=== PATIENT | male | born 1950 | race Caucasian/White ===

== ENCOUNTER 2016-06-01 09:25 | Outpatient (RCR) | payer MEDICARE, OTHER ==
--- OUTSIDE RECORDS SUMMARY | 2016-03-09 09:34 | XMS REPORT | Continuity of Care Document ---
Author Author [facility] Organization [facility] Address Unknown Phone Unavailable Care Team Providers Care Mattress Stripper Name Role Phone TIM BLOOD MD PCP Insurance Providers Payer Name Policy Number Subscriber Name Relationship Wps Medicare [id number] Horace Kirkland 18 Self / Same As Patient [employer] [id number] Horace Kirkland 18 Self / Same As Patient Advance Directives Directive Response Recorded Date/Time Advance Directives No 11/06/13 8:27am Health Care Power of Molder Inflated Ball No 11/06/13 8:27am Organ Donor Yes 11/06/13 8:27am Problems No known problems or medical conditions. Medications Medication Dose Route Sig Days/Qty Instructions Order Date Discontinued Date Status Atorvastatin Calcium 05/18/07 06/01/07 Discontinued Multivitamins 05/18/07 12/19/12 Discontinued Fish Oil 05/18/07 12/19/12 Discontinued Ascorbic Acid 05/18/07 12/19/12 Discontinued [Lithecin Vit] 05/18/07 12/19/12 Discontinued Clopidogrel Bisulfate 06/01/07 12/19/12 Discontinued Metoprolol Tartrate (Lopressor) 06/01/07 12/19/12 Discontinued Clarithromycin 06/01/07 12/19/12 Discontinued Atorvastatin Calcium 06/01/07 12/19/12 Discontinued Aspirin 325 Mg PO DAILY 06/01/07 11/06/13 Discontinued Atorvastatin Calcium 06/01/07 12/19/12 Discontinued Atorvastatin Calcium 40 Mg PO DAILY 12/19/12 Active Mu-Vits-Min Th/Lycopene/Lutein 1 Tab PO DAILY 12/19/12 Active Fish Oil/Dha/Epa 2,400 Mg PO DAILY takes 2 (1200 mg) tablets once daily 12/19/12 Active [Vitamin C 1000MG] 1,000 Mg PO DAILY 12/19/12 Active Metoprolol Succinate (Toprol Xl) 25 Mg PO DAILY 12/19/12 Active Bupropion HCl 300 Mg PO DAILY 12/19/12 Active Meloxicam (Mobic) 15 Mg PO DAILY 12/19/12 Active Omeprazole 20 Mg PO DAILY 12/19/12 Active Vitamin E Mixed 400 Unit PO DAILY 12/19/12 11/06/13 Discontinued Sulfamethoxazole/Trimethoprim 0.5 Tab PO BEDTIME 12/19/12 Active Acetaminophen/Hydrocodone Bitart 1 - 2 Ea PO Q 4 - 6 HR PRN PRN 35 Qty 12/20/12 11/06/13 Discontinued Linezolid 600 Mg PO TWICE A DAY 01/02/13 11/06/13 Discontinued Aspirin 81 Mg PO DAILY 11/06/13 Active Allopurinol 300 Mg PO DAILY 11/06/13 Active Social History Social History Problem Response Recorded Date/Time Recent Foreign Travel N see ambreen 03/26/2014 7:42am Hospital Discharge Instructions No hospital discharge instructions. Plan of Care No plan of care. Functional Status No functional status results. Allergies, Adverse Reactions, Alerts Allergen Type Severity Reaction Status Last Updated morphine Allergy Unknown Active 01/15/13 Immunizations No immunization records. Vital Signs Acute Vital Signs Vital Response Date/Time Height 5 ft 10 in Weight 294 lb Body Mass Index 42.2 kg/m^2 Results Laboratory Results Test Name Result Units Flags Reference Collection Date/Time Result Date/ Time Comments White Blood Count 8.9 10^3/uL 4.3-11.0 02/19/2014 9:00am 02/19/2014 9: 11am Red Blood Count 4.32 10^6/uL L 4.35-5.85 02/19/2014 9:00am 02/19/2014 9: 11am Hemoglobin 14.3 G/DL 13.3-17.7 02/19/2014 9:0002/19/2014 9:11am Hematocrit 41 % 40-54 02/19/2014 9:0002/19/2014 9:11am Mean Corpuscular Volume 96 FL 80-99 02/19/2014 9:0002/19/2014 9: 11am Mean Corpuscular Hemoglobin 33 PG 25-34 02/19/2014 9:0002/19/2014 9: 11am Mean Corpuscular Hemoglobin Concent 35 G/DL 32-36 02/19/2014 9:0005/2013 9:11am Red Cell Distribution Width 14.7 % H 10.0-14.5 02/19/2014 9:002013 9:11am Platelet Count 346 10^3/uL 130-400 02/19/2014 9:0002/19/2014 9:11am Mean Platelet Volume 9.1 FL 7.4-10.4 02/19/2014 9:0002/19/2014 9: 11am Neutrophils (%) (Auto) 67 % 42-75 02/19/2014 9:0002/19/2014 9:11am Lymphocytes (%) (Auto) 20 % 12-44 02/19/2014 9:0002/19/2014 9:11am Monocytes (%) (Auto) 9 % 0-12 02/19/2014 9:0002/19/2014 9:11am Eosinophils (%) (Auto) 4 % 0-10 02/19/2014 9:0002/19/2014 9:11am Basophils (%) (Auto) 1 % 0-10 02/19/2014 9:0002/19/2014 9:11am Neutrophils # (Auto) 6.0 X 10^3 1.8-7.8 02/19/2014 9:0002/19/2014 9: 11am Lymphocytes # (Auto) 1.7 X 10^3 1.0-4.0 02/19/2014 9:0002/19/2014 9: 11am Monocytes # (Auto) 0.8 X 10^3 0.0-1.0 02/19/2014 9:00am 02/19/2014 9: 11am Eosinophils # (Auto) 0.3 10^3/uL 0.0-0.3 02/19/2014 9:00am 02/19/2014 9 :11am Basophils # (Auto) 0.1 10^3/uL 0.0-0.1 02/19/2014 9:00am 02/19/2014 9: 11am Sodium Level 139 MMOL/L 135-145 02/19/2014 9:00am 02/19/2014 9:48am Potassium Level 4.2 MMOL/L 3.6-5.0 02/19/2014 9:00am 02/19/2014 9:48am Chloride Level 108 MMOL/L H 98-107 02/19/2014 9:00am 02/19/2014 9:48am Carbon Dioxide Level 24 MMOL/L 21-32 02/19/2014 9:00am 02/19/2014 9: 48am Blood Urea Nitrogen 16 MG/DL 7-18 02/19/2014 9:00am 02/19/2014 9:48am Creatinine 0.76 MG/DL 0.60-1.30 02/19/2014 9:00am 02/19/2014 9:48am BUN/Creatinine Ratio 21 02/19/2014 9:00am 02/19/2014 9:48am Estimat Glomerular Filtration Rate > 60 02/19/2014 9:00am 2013 9:48am GFR INTERPRETIVE DATA UNITS FOR ESTIMATED GFR (eGFR): mL/min/1.73 M2 REFERENCE RANGE FOR ESTIMATED GFR (eGFR) eGFR NORMAL eGFR >60 MODERATELY DECREASED eGFR 30-59 SEVERLY DECREASED eGFR 15-29 KIDNEY FAILURE <15 (OR DIALYSIS) Glucose Level 100 MG/DL 70-105 02/19/2014 9:00am 02/19/2014 9:48am Calcium Level 9.3 MG/DL 8.5-10.1 02/19/2014 9:00am 02/19/2014 9:48am Total Bilirubin 0.6 MG/DL 0.1-1.0 02/19/2014 9:00am 02/19/2014 9:48am Alkaline Phosphatase 91 U/L 40-136 02/19/2014 9:00am 02/19/2014 9:48am Aspartate Amino Transf (AST/SGOT) 29 U/L 5-34 02/19/2014 9:00am 2013 9:48am Alanine Aminotransferase (ALT/SGPT) 41 U/L 0-55 02/19/2014 9:00am 02/19 9:48am Lactate Dehydrogenase 279 U/L H 125-220 02/19/2014 9:00am 02/19/2014 9: 48am Total Protein 6.7 G/DL 6.4-8.2 02/19/2014 9:00am 02/19/2014 9:48am Albumin 4.0 G/DL 3.2-4.5 02/19/2014 9:00am 02/19/2014 9:48am Procedures No known history of procedures. Encounters Encounter Location Date/Time Discharged Recurring Via [facility] 03/26/14 7:42am
[2016-03-09 09:43] LABS: BASOPHILS # (AUTO) 0.1 10^3/uL (0.0-0.1); BASOPHILS % (AUTO) 1 % (0-10); EOSINOPHILS # (AUTO) 0.3 10^3/uL (0.0-0.3); EOSINOPHILS % (AUTO) 4 % (0-10); LYMPHOCYTES # (AUTO) 2.1 X 10^3 (1.0-4.0); LYMPHOCYTES % (AUTO) 26 % (12-44); MEAN CORPUSCULAR HGB CONC 34 G/DL (32-36); MEAN CORPUSCULAR VOLUME 98 FL (80-99); MEAN PLATELET VOLUME 9.2 FL (7.4-10.4); MONOCYTES # (AUTO) 0.8 X 10^3 (0.0-1.0); MONOCYTES % (AUTO) 9 % (0-12); NEUTROPHILS % (AUTO) 60 % (42-75); PLATELET COUNT 302 10^3/uL (130-400); RED CELL DISTRIBUTION WIDTH 14.7 % (10.0-14.5); WHITE BLOOD COUNT 8.2 10^3/uL (4.3-11.0)
[2016-03-09 09:47] LABS: MEAN CORPUSCULAR HEMOGLOBIN 33 PG (25-34)
[2016-03-09 10:14] LABS: ALANINE AMINOTRANSFERASE 26 U/L (0-55); ANION GAP 4 MMOL/L (5-14); ASPARTATE AMINO TRANSFERASE 21 U/L (5-34); BILIRUBIN,TOTAL 0.5 MG/DL (0.1-1.0); BLOOD UREA NITROGEN 16 MG/DL (7-18); BUN/CREATININE RATIO 22; CALCIUM 8.9 MG/DL (8.5-10.1); CARBON DIOXIDE 27 MMOL/L (21-32); CHLORIDE 108 MMOL/L (98-107); CREATININE SERUM 0.72 MG/DL (0.60-1.30); GFR ESTIMATED > 60; GLUCOSE 98 MG/DL (70-105); LACTATE DEHYDROGENASE 220 U/L (125-220); POTASSIUM 4.2 MMOL/L (3.6-5.0); SODIUM 139 MMOL/L (135-145); TOTAL PROTEIN 6.6 G/DL (6.4-8.2)
[~2016-06-01 09:25] MED LIST: ASP325TEC PO; ASP81TEC PO; ATOR40TA PO; ATOR80TA; ATRV10T; BUPR300T PO; C250T; CLPD75T; CLR500T; FISH1CAP15 PO; HYDR-34 PO; LNZ600T PO; MELO-195 PO; METO25TA PO; METO25TA2; MULT-1029 PO; MULT1TAB63; OMEP20CA12 PO; OMG1KC; SULF1TAB23 PO; VITA400T9 PO; VITAMIN C 1000MG PO; [UNRECOGNIZED DRUG - CODE] PO; [UNRECOGNIZED DRUG - OTHER]
== END 2016-06-07 | disposition home or self-care (01) ==
LOC: ONC 09:25
PROVIDERS: ATTEND Internal Medicine Hematology & Oncology
DX: C82.33 Follicular lymphoma grade IIIa, intra-abdominal lymph nodes (principal); I25.10 Atherosclerotic heart disease of native coronary artery without angina pectoris; K21.9 Gastro-esophageal reflux disease without esophagitis; Z79.899 Other long term (current) drug therapy; Z45.2 Encounter for adjustment and management of vascular access device
CPT/HCPCS: 36591; 80053; 82232; 83615; 85025; 96523; 99213

== ENCOUNTER → 2016-06-21 | Outpatient (CLI) | payer MEDICARE, OTHER ==
[~2016-06-21] MED LIST changes: +BARIUM SUSPENSION 2.1% (VANILLA SILQ) 450 ML PO ONE; +CATHETER FLUSH 10 ML SYR IV PRN; +IOHEXOL 350 MG/ML 100 ML (OMNIPAQUE 350) VIAL IV ONE; +NS 100 ML (IVPB) BAG IV ONE
--- OUTSIDE RECORDS SUMMARY | 2016-06-21 13:47 | XMS REPORT | Continuity of Care Document ---
Author Author [facility] Organization [facility] Address Unknown Phone Unavailable Care Team Providers Care Manager Media Relations Name Role Phone TIM BLOOD MD PCP Insurance Providers Payer Name Policy Number Subscriber Name Relationship Wps Medicare [id number] Horace Kirkland 17 Self / Same As Patient [employer] [id number] Horace Kirkland 17 Self / Same As Patient Advance Directives Directive Response Recorded Date/Time Advance Directives No 11/06/13 8:27am Health Care Power of Equipment Maintenance Engineer No 11/06/13 8:27am Organ Donor Yes 11/06/13 [...] Encounters Encounter Location Date/Time Discharged Recurring Via [facility] 03/26/14 7:42am
--- NOTE | 2016-06-21 16:38 | Diagnostic Imaging Report ---
PROCEDURE: CT chest, abdomen, and pelvis with contrast. TECHNIQUE: Multiple contiguous axial images were obtained through the chest, abdomen, and pelvis after the administration of intravenous contrast. INDICATION: Abdominal pain. History of lymphoma. 100 mL of Omnipaque-350 is administered intravenously. COMPARISON: 02/10/2016. FINDINGS: CT chest: There are stable small lymph nodes in the mediastinum up to 0.8 cm in short axis in the right paratracheal region and subcentimeter infracarinal lymph nodes also seen. There is also no significantly enlarged lymph node in the santos or axilla. The heart size is normal. No pericardial or pleural effusion. The thoracic aorta is normal in caliber. The lungs demonstrate no significant consolidation or mass. The osseous structures appear grossly unremarkable. CT abdomen and pelvis: The liver, the gallbladder, and the pancreas appear unremarkable. 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 The adrenal glands demonstrate nonspecific mild thickening similar to the previous studies. The kidneys have symmetric enhancement and contrast excretion. There is no hydronephrosis. There are diverticula seen in the sigmoid colon with no evidence of diverticulitis. The appendix appears normal. The abdominal aorta is normal in caliber. No para-aortic significantly enlarged lymph nodes seen. No pelvic soft tissue mass or lymphadenopathy seen. The prostate is not enlarged. There are beam hardening artifacts from right hip replacement seen. The osseous structures demonstrate prominent degenerative changes in the lumbar spine. IMPRESSION: CT chest: No soft tissue mass or lymphadenopathy. CT abdomen and pelvis: Post splenectomy change. No suspicious mass or lymphadenopathy. Dictated by: Dictated on workstation # [id number]
== END ==
LOC: RAD 13:44
PROVIDERS: ATTEND Internal Medicine Hematology & Oncology
DX: C82.33 Follicular lymphoma grade IIIa, intra-abdominal lymph nodes (principal); R10.9 Unspecified abdominal pain
CPT/HCPCS: 71260; 74177

== ENCOUNTER 2016-09-14 09:35 | Outpatient (RCR) | payer MEDICARE, OTHER ==
--- OUTSIDE RECORDS SUMMARY | 2016-06-20 14:00 | XMS REPORT | Continuity of Care Document ---
Author Author [facility] Organization [facility] Address Unknown Phone Unavailable Care Team Providers Care Security Guard Dispatcher Name Role Phone TIM BLOOD MD PCP Insurance Providers Payer Name Policy Number Subscriber Name Relationship Wps Medicare [id number] Horace Kirkland 18 Self / Same As Patient [employer] [id number] Horace Kirkland 17 Self / Same As Patient Advance Directives Directive Response Recorded Date/Time Advance Directives No 11/06/13 8:27am Health Care Power of Older Worker Specialist No 11/06/13 8:27am Organ Donor Yes 11/06/13 [...] Encounters Encounter Location Date/Time Discharged Recurring Via [facility] 03/26/14 7:42am
[2016-06-20 14:22] LABS: BASOPHILS # (AUTO) 0.1 10^3/uL (0.0-0.1); BASOPHILS % (AUTO) 1 % (0-10); EOSINOPHILS # (AUTO) 0.5 10^3/uL (0.0-0.3); EOSINOPHILS % (AUTO) 6 % (0-10); LYMPHOCYTES # (AUTO) 2.2 X 10^3 (1.0-4.0); LYMPHOCYTES % (AUTO) 25 % (12-44); MEAN CORPUSCULAR HEMOGLOBIN 34 PG (25-34); MEAN CORPUSCULAR HGB CONC 34 G/DL (32-36); MEAN CORPUSCULAR VOLUME 98 FL (80-99); MEAN PLATELET VOLUME 9.1 FL (7.4-10.4); MONOCYTES # (AUTO) 1.1 X 10^3 (0.0-1.0); MONOCYTES % (AUTO) 13 % (0-12); NEUTROPHILS # (AUTO) 4.7 X 10^3 (1.8-7.8); NEUTROPHILS % (AUTO) 55 % (42-75); PLATELET COUNT 297 10^3/uL (130-400); RED BLOOD COUNT 4.37 10^6/uL (4.35-5.85); RED CELL DISTRIBUTION WIDTH 14.5 % (10.0-14.5); WHITE BLOOD COUNT 8.5 10^3/uL (4.3-11.0)
[2016-06-20 14:58] LABS: ALANINE AMINOTRANSFERASE 31 U/L (0-55); ANION GAP 10 MMOL/L (5-14); ASPARTATE AMINO TRANSFERASE 25 U/L (5-34); BILIRUBIN,TOTAL 0.3 MG/DL (0.1-1.0); BLOOD UREA NITROGEN 13 MG/DL (7-18); BUN/CREATININE RATIO 17; CARBON DIOXIDE 20 MMOL/L (21-32); CHLORIDE 110 MMOL/L (98-107); CREATININE SERUM 0.78 MG/DL (0.60-1.30); GFR ESTIMATED > 60; GLUCOSE 101 MG/DL (70-105); POTASSIUM 4.1 MMOL/L (3.6-5.0); SODIUM 140 MMOL/L (135-145); TOTAL PROTEIN 6.7 G/DL (6.4-8.2)
[2016-06-20 15:23] LABS: LACTATE DEHYDROGENASE 437 U/L (125-220)
[2016-06-27 15:37] LABS: BASOPHILS # (AUTO) 0.1 10^3/uL (0.0-0.1); BASOPHILS % (AUTO) 1 % (0-10); EOSINOPHILS # (AUTO) 0.4 10^3/uL (0.0-0.3); EOSINOPHILS % (AUTO) 4 % (0-10); LYMPHOCYTES # (AUTO) 3.8 X 10^3 (1.0-4.0); LYMPHOCYTES % (AUTO) 37 % (12-44); MEAN CORPUSCULAR HEMOGLOBIN 33 PG (25-34); MEAN CORPUSCULAR HGB CONC 34 G/DL (32-36); MEAN CORPUSCULAR VOLUME 96 FL (80-99); MEAN PLATELET VOLUME 8.9 FL (7.4-10.4); MONOCYTES # (AUTO) 0.9 X 10^3 (0.0-1.0); MONOCYTES % (AUTO) 9 % (0-12); NEUTROPHILS # (AUTO) 4.9 X 10^3 (1.8-7.8); NEUTROPHILS % (AUTO) 49 % (42-75); PLATELET COUNT 316 10^3/uL (130-400); RED BLOOD COUNT 4.49 10^6/uL (4.35-5.85); RED CELL DISTRIBUTION WIDTH 13.9 % (10.0-14.5); WHITE BLOOD COUNT 10.1 10^3/uL (4.3-11.0)
[2016-08-17 10:19] LABS: ALANINE AMINOTRANSFERASE 35 U/L (0-55); ALBUMIN 4.1 G/DL (3.2-4.5); ANION GAP 5 MMOL/L (5-14); ASPARTATE AMINO TRANSFERASE 26 U/L (5-34); BILIRUBIN,TOTAL 0.5 MG/DL (0.1-1.0); BLOOD UREA NITROGEN 15 MG/DL (7-18); BUN/CREATININE RATIO 19; CALCIUM 9.3 MG/DL (8.5-10.1); CARBON DIOXIDE 26 MMOL/L (21-32); CHLORIDE 108 MMOL/L (98-107); CREATININE SERUM 0.78 MG/DL (0.60-1.30); GFR ESTIMATED > 60; GLUCOSE 96 MG/DL (70-105); LACTATE DEHYDROGENASE 282 U/L (125-220); MAGNESIUM 2.3 MG/DL (1.8-2.4); POTASSIUM 4.5 MMOL/L (3.6-5.0); SODIUM 139 MMOL/L (135-145); TOTAL PROTEIN 6.8 G/DL (6.4-8.2)
[2016-08-17 10:24] LABS: BASOPHILS # (AUTO) 0.1 10^3/uL (0.0-0.1); BASOPHILS % (AUTO) 1 % (0-10); EOSINOPHILS # (AUTO) 0.4 10^3/uL (0.0-0.3); EOSINOPHILS % (AUTO) 4 % (0-10); LYMPHOCYTES # (AUTO) 2.4 X 10^3 (1.0-4.0); LYMPHOCYTES % (AUTO) 24 % (12-44); MEAN CORPUSCULAR HEMOGLOBIN 33 PG (25-34); MEAN CORPUSCULAR HGB CONC 34 G/DL (32-36); MEAN CORPUSCULAR VOLUME 98 FL (80-99); MEAN PLATELET VOLUME 9.5 FL (7.4-10.4); MONOCYTES # (AUTO) 0.8 X 10^3 (0.0-1.0); MONOCYTES % (AUTO) 8 % (0-12); NEUTROPHILS # (AUTO) 6.1 X 10^3 (1.8-7.8); NEUTROPHILS % (AUTO) 63 % (42-75); PLATELET COUNT 340 10^3/uL (130-400); RED BLOOD COUNT 4.46 10^6/uL (4.35-5.85); RED CELL DISTRIBUTION WIDTH 14.8 % (10.0-14.5); WHITE BLOOD COUNT 9.8 10^3/uL (4.3-11.0)
[~2016-09-14 09:35] MED LIST changes: -BARIUM SUSPENSION 2.1% (VANILLA SILQ) 450 ML PO ONE; -CATHETER FLUSH 10 ML SYR IV PRN; -IOHEXOL 350 MG/ML 100 ML (OMNIPAQUE 350) VIAL IV ONE; -NS 100 ML (IVPB) BAG IV ONE
== END 2016-09-18 | disposition home or self-care (01) ==
LOC: ONC 09:35
PROVIDERS: ATTEND Internal Medicine Hematology & Oncology
DX: C82.33 Follicular lymphoma grade IIIa, intra-abdominal lymph nodes (principal); I25.10 Atherosclerotic heart disease of native coronary artery without angina pectoris; K21.9 Gastro-esophageal reflux disease without esophagitis; Z79.899 Other long term (current) drug therapy; Z45.2 Encounter for adjustment and management of vascular access device
CPT/HCPCS: 36415; 36591; 80053; 82232; 83615; 83735; 85025; 96523; 99213

== ENCOUNTER → 2016-12-07 | Outpatient (CLI) | payer MEDICARE, OTHER ==
[~2016-12-07] MED LIST changes: +BARIUM SUSPENSION 2.1% (VANILLA SILQ) 450 ML PO ONE; +CATHETER FLUSH 10 ML SYR IV PRN; +IOHEXOL 350 MG/ML 100 ML (OMNIPAQUE 350) VIAL IV ONE; +NS 100 ML (IVPB) BAG IV ONE
--- NOTE | 2016-12-07 12:45 | Diagnostic Imaging Report ---
PROCEDURE: CT chest, abdomen, and pelvis with contrast. TECHNIQUE: Multiple contiguous axial images were obtained through the chest, abdomen, and pelvis after the administration of intravenous contrast. INDICATION: Follicular lymphoma. Compared with exam 06/21/2016. Chest: We again note no axillary, hilar or mediastinal lymphadenopathy. There is no pleural or pericardial effusion. Coronary arterial atherosclerotic calcifications chronic. There is mild calcified plaque at the aortic arch without stenosis. No thoracic aneurysm. No effusion or pneumothorax. Focal consolidation. No suspicious pulmonary nodule or dominant lung mass. No acute soft tissue or osseous chest wall pathology. There has been no change. Abdomen and pelvis: Post splenectomy changes noted without fluid collection at the operative site, mild hepatic steatosis stable without biliary abnormality. There is no adrenal mass and the pancreas is unremarkable. The kidneys unobstructed. No renal mass. There is no abdominopelvic mesenteric or retroperitoneal lymphadenopathy. Noninflamed diverticula at the sigmoid chronic. No bowel, biliary or urinary tract obstruction. Nonaneurysmal aortoiliac and mesenteric atherosclerotic calcification stable. The urinary bladder is unremarkable. There are degenerative changes to the lumbar spine resulting in severe lower lumbar canal stenoses. The right hip is replaced, there is no acute bony abnormality. IMPRESSION: Chest: Stable chest. No findings of neoplastic recurrence. Abdomen: Stable postsplenectomy abdomen with mild hepatic steatosis. No adenopathy or mass. Pelvis: Noninflamed diverticulosis. Chronic nonaneurysmal atherosclerosis. No adenopathy or mass. Spondylosis since lumbar canal stenoses. Dictated by: Dictated on workstation # [id number]
== END ==
LOC: RAD 09:23
PROVIDERS: ATTEND Internal Medicine Hematology & Oncology
DX: K57.30 Diverticulosis of large intestine without perforation or abscess without bleeding (principal); M47.816 Spondylosis without myelopathy or radiculopathy, lumbar region; M48.06 Spinal stenosis, lumbar region; I70.91 Generalized atherosclerosis; C82.33 Follicular lymphoma grade IIIa, intra-abdominal lymph nodes; Z90.81 Acquired absence of spleen
CPT/HCPCS: 71260; 74177

== ENCOUNTER 2016-12-08 15:09 | Outpatient (RCR) | payer MEDICARE, OTHER ==
[2016-12-07 09:22] LABS: BASOPHILS # (AUTO) 0.1 10^3/uL (0.0-0.1); BASOPHILS % (AUTO) 1 % (0-10); EOSINOPHILS # (AUTO) 0.3 10^3/uL (0.0-0.3); EOSINOPHILS % (AUTO) 3 % (0-10); LYMPHOCYTES # (AUTO) 3.1 X 10^3 (1.0-4.0); LYMPHOCYTES % (AUTO) 32 % (12-44); MEAN CORPUSCULAR HEMOGLOBIN 33 PG (25-34); MEAN CORPUSCULAR HGB CONC 33 G/DL (32-36); MEAN CORPUSCULAR VOLUME 98 FL (80-99); MEAN PLATELET VOLUME 8.9 FL (7.4-10.4); MONOCYTES # (AUTO) 0.8 X 10^3 (0.0-1.0); MONOCYTES % (AUTO) 8 % (0-12); NEUTROPHILS # (AUTO) 5.5 X 10^3 (1.8-7.8); NEUTROPHILS % (AUTO) 57 % (42-75); PLATELET COUNT 347 10^3/uL (130-400); RED BLOOD COUNT 4.38 10^6/uL (4.35-5.85); RED CELL DISTRIBUTION WIDTH 14.4 % (10.0-14.5); WHITE BLOOD COUNT 9.7 10^3/uL (4.3-11.0)
[2016-12-07 09:55] LABS: ALANINE AMINOTRANSFERASE 32 U/L (0-55); ANION GAP 9 MMOL/L (5-14); ASPARTATE AMINO TRANSFERASE 20 U/L (5-34); BILIRUBIN,TOTAL 0.6 MG/DL (0.1-1.0); BLOOD UREA NITROGEN 16 MG/DL (7-18); BUN/CREATININE RATIO 20; CALCIUM 9.2 MG/DL (8.5-10.1); CARBON DIOXIDE 23 MMOL/L (21-32); CHLORIDE 106 MMOL/L (98-107); CREATININE SERUM 0.81 MG/DL (0.60-1.30); GFR ESTIMATED > 60; GLUCOSE 98 MG/DL (70-105); LACTATE DEHYDROGENASE 192 U/L (125-220); MAGNESIUM 2.2 MG/DL (1.8-2.4); POTASSIUM 3.9 MMOL/L (3.6-5.0); SODIUM 138 MMOL/L (135-145)
[~2016-12-08 15:09] MED LIST changes: -BARIUM SUSPENSION 2.1% (VANILLA SILQ) 450 ML PO ONE; -CATHETER FLUSH 10 ML SYR IV PRN; -IOHEXOL 350 MG/ML 100 ML (OMNIPAQUE 350) VIAL IV ONE; -NS 100 ML (IVPB) BAG IV ONE
== END 2017-01-16 | disposition home or self-care (01) ==
LOC: ONC 15:09
PROVIDERS: ATTEND Internal Medicine Hematology & Oncology
DX: C82.33 Follicular lymphoma grade IIIa, intra-abdominal lymph nodes (principal); I25.10 Atherosclerotic heart disease of native coronary artery without angina pectoris; K21.9 Gastro-esophageal reflux disease without esophagitis; Z79.899 Other long term (current) drug therapy; Z45.2 Encounter for adjustment and management of vascular access device
CPT/HCPCS: 36591; 80053; 82232; 83615; 83735; 85025; 96523; 99213

== ENCOUNTER → 2016-12-22 | Outpatient (CLI) | payer MEDICARE, OTHER ==
[~2016-12-22] MED LIST changes: +REGADENOSON 0.4 MG/5 ML SYR (LEXISCAN) IV ONE
[2016-12-22] MEDS: CATHETER FLUSH 10 ML SYR IV PRN ×2 (07:45→09:31)
[2016-12-22 08:49] VITALS: BP 104/91
--- NOTE | 2016-12-30 09:02 | STRESS TEST ---
DATE OF SERVICE: 12/22/2016 RESTING AND POST-REGADENOSON TECHNETIUM-[address] IMAGING: Baseline images were carried out after injection of 10.3 mCi of technetium-99 Tetrofosmin. This was followed by 0.4 mg regadenoson and 27.7 mCi technetium-99 Tetrofosmin for stress imaging. The electrocardiogram showed sinus rhythm at baseline and did not change significantly with regadenoson infusion. He noted brief shortness of breath following regadenoson infusion. He tolerated the procedure well. Review of images at rest and following stress does not indicate any distinct perfusion defects consistent with significant myocardial ischemia or infarction. Gated images show well preserved global left ventricular systolic function without regional wall motion abnormality. Left ventricular ejection fraction is calculated to be 60%. Left ventricular end diastolic volume is 95 mL. TID is absent (0.89). CONCLUSIONS: 1. No evidence of significant myocardial ischemia or infarction on this study. 2. Normal regional wall motion. 3. Normal global left ventricular systolic function with a calculated ejection fraction of 60%. Job ID: [id number] DocumentID: [id number] Dictated Date: 12/22/2016 13:04:30 Faith Healer Date: 12/22/2016 15:21:44 Dictated By: MAURISIO GRAHAM MD, MA, FACP, FACC,
== END ==
LOC: CARD 07:26
PROVIDERS: ATTEND Internal Medicine Cardiovascular Disease
DX: I73.9 Peripheral vascular disease, unspecified (principal); R53.81 Other malaise; I25.10 Atherosclerotic heart disease of native coronary artery without angina pectoris; I65.23 Occlusion and stenosis of bilateral carotid arteries; C82.33 Follicular lymphoma grade IIIa, intra-abdominal lymph nodes; I42.0 Dilated cardiomyopathy
CPT/HCPCS: 78452; 93017

== ENCOUNTER → 2016-12-27 | Outpatient (CLI) | payer MEDICARE, OTHER ==
[~2016-12-27] MED LIST changes: -REGADENOSON 0.4 MG/5 ML SYR (LEXISCAN) IV ONE
== END ==
LOC: RAD 12:27
PROVIDERS: ATTEND Internal Medicine Cardiovascular Disease
DX: I73.9 Peripheral vascular disease, unspecified (principal); I25.10 Atherosclerotic heart disease of native coronary artery without angina pectoris; I65.23 Occlusion and stenosis of bilateral carotid arteries; I42.0 Dilated cardiomyopathy; C82.33 Follicular lymphoma grade IIIa, intra-abdominal lymph nodes; R53.81 Other malaise
CPT/HCPCS: 93923

== ENCOUNTER 2017-01-19 11:17 | Outpatient (RCR) | payer MEDICARE, OTHER | END 2017-02-18 | disposition home or self-care (01) | LOC: ONC 11:17 | PROVIDERS: ATTEND Internal Medicine Hematology & Oncology | DX: C82.33 Follicular lymphoma grade IIIa, intra-abdominal lymph nodes (principal); I25.10 Atherosclerotic heart disease of native coronary artery without angina pectoris; K21.9 Gastro-esophageal reflux disease without esophagitis; Z79.899 Other long term (current) drug therapy; Z45.2 Encounter for adjustment and management of vascular access device | CPT/HCPCS: 96523 ==

== ENCOUNTER 2017-03-01 15:51 | Outpatient (RCR) | payer MEDICARE, OTHER | END 2017-04-04 10:44 | disposition home or self-care (01) | LOC: ONC 15:51 | PROVIDERS: ATTEND Internal Medicine Hematology & Oncology | DX: C82.33 Follicular lymphoma grade IIIa, intra-abdominal lymph nodes (principal); I25.10 Atherosclerotic heart disease of native coronary artery without angina pectoris; K21.9 Gastro-esophageal reflux disease without esophagitis; Z79.899 Other long term (current) drug therapy; Z45.2 Encounter for adjustment and management of vascular access device | CPT/HCPCS: 96523 ==

== ENCOUNTER → 2017-05-31 | Outpatient (CLI) | payer MEDICARE, OTHER ==
[~2017-05-31] MED LIST changes: +BARIUM SUSPENSION 2.1% (VANILLA SILQ) 450 ML PO ONE; +IOHEXOL 350 MG/ML 100 ML (OMNIPAQUE 350) VIAL IV ONE; +NS 100 ML (IVPB) BAG IV ONE
--- NOTE | 2017-05-31 10:37 | Diagnostic Imaging Report ---
PROCEDURE: CT chest with contrast, CT abdomen and pelvis with and without contrast. TECHNIQUE: Pre and post intravenous contrast axial imaging of the abdomen and pelvis and post contrast axial imaging of the chest were performed. INDICATION: Follicular lymphoma. FINDINGS: The previous CT chest, abdomen and pelvis exam performed on 12/07/2014 failed to show any sign of neoplastic disease or an acute abnormality of the thorax. On this exam, the heart size is stable when compared to the prior study. Coronary artery calcifications are again noted. Aorta is not abnormally dilated and there is no sign of dissection. There is no defect within the pulmonary arteries to indicate a pulmonary embolus, although the pulmonary arteries are not well opacified. There is no mediastinal or hilar adenopathy. The thyroid gland is generally unremarkable. The lungs are clear. There is no evidence for failure, pneumonia or for pleural effusion. There is no parenchymal lung mass identified. On the prior study, there were postsurgical changes consistent with prior splenectomy. The liver is also of lower density than usually seen suggesting fatty metamorphosis. The liver appears stable on this exam. There is no mass involving the liver. The gallbladder, the pancreas, the adrenals, the kidneys, aorta and inferior vena cava are unremarkable for an acute abnormality. There is no retroperitoneal, periaortic, iliac chain or inguinal adenopathy. There is no pelvic mass or free fluid collection identified. The urinary bladder and prostate gland are grossly unremarkable. As seen on the prior exam, there is diverticulosis of the sigmoid colon without evidence for acute diverticulitis. The appendix was visualized and is not abnormally thickened. The bone windows show no sign of a fracture or destructive lesion. IMPRESSION: 1. The appearance of the chest, abdomen and pelvis is stable when compared to the prior exam. There is no evidence for an acute abnormality. 2. There is no adenopathy that would suggest recurrent neoplasm. Dictated by: Dictated on workstation # [id number]
== END ==
LOC: RAD 08:13
PROVIDERS: ATTEND Internal Medicine Hematology & Oncology
DX: Z08 Encounter for follow-up examination after completed treatment for malignant neoplasm (principal); Z85.72 Personal history of non-Hodgkin lymphomas
CPT/HCPCS: 71260; 74178

== ENCOUNTER 2017-06-08 09:50 | Outpatient (RCR) | payer MEDICARE, OTHER ==
[2017-04-05 11:08] LABS: BASOPHILS # (AUTO) 0.1 10^3/uL (0.0-0.1); BASOPHILS % (AUTO) 1 % (0-10); EOSINOPHILS # (AUTO) 0.3 10^3/uL (0.0-0.3); EOSINOPHILS % (AUTO) 3 % (0-10); HEMATOCRIT 43 % (40-54); HEMOGLOBIN 14.7 G/DL (13.3-17.7); LYMPHOCYTES # (AUTO) 3.2 X 10^3 (1.0-4.0); LYMPHOCYTES % (AUTO) 33 % (12-44); MEAN CORPUSCULAR HEMOGLOBIN 33 PG (25-34); MEAN CORPUSCULAR HGB CONC 34 G/DL (32-36); MEAN CORPUSCULAR VOLUME 98 FL (80-99); MEAN PLATELET VOLUME 9.4 FL (7.4-10.4); MONOCYTES # (AUTO) 0.8 X 10^3 (0.0-1.0); MONOCYTES % (AUTO) 9 % (0-12); NEUTROPHILS # (AUTO) 5.3 X 10^3 (1.8-7.8); NEUTROPHILS % (AUTO) 54 % (42-75); PLATELET COUNT 320 10^3/uL (130-400); RED BLOOD COUNT 4.43 10^6/uL (4.35-5.85); RED CELL DISTRIBUTION WIDTH 14.5 % (10.0-14.5); WHITE BLOOD COUNT 9.7 10^3/uL (4.3-11.0)
[2017-04-05 11:25] LABS: ALANINE AMINOTRANSFERASE 34 U/L (0-55); ALKALINE PHOSPHATASE 87 U/L (40-136); BILIRUBIN,TOTAL 0.7 MG/DL (0.1-1.0); BUN/CREATININE RATIO 18; CALCIUM 9.2 MG/DL (8.5-10.1); CARBON DIOXIDE 25 MMOL/L (21-32); CHLORIDE 107 MMOL/L (98-107); CREATININE SERUM 0.76 MG/DL (0.60-1.30); GFR ESTIMATED > 60; GLUCOSE 92 MG/DL (70-105); SODIUM 139 MMOL/L (135-145); TOTAL PROTEIN 6.9 GM/DL (6.4-8.2)
[2017-05-19 10:25] LABS: BASOPHILS # (AUTO) 0.1 10^3/uL (0.0-0.1); BASOPHILS % (AUTO) 1 % (0-10); EOSINOPHILS # (AUTO) 0.4 10^3/uL (0.0-0.3); EOSINOPHILS % (AUTO) 4 % (0-10); HEMATOCRIT 43 % (40-54); HEMOGLOBIN 14.6 G/DL (13.3-17.7); LYMPHOCYTES # (AUTO) 2.6 X 10^3 (1.0-4.0); LYMPHOCYTES % (AUTO) 28 % (12-44); MEAN CORPUSCULAR HEMOGLOBIN 34 PG (25-34); MEAN CORPUSCULAR HGB CONC 34 G/DL (32-36); MEAN CORPUSCULAR VOLUME 98 FL (80-99); MEAN PLATELET VOLUME 9.5 FL (7.4-10.4); MONOCYTES # (AUTO) 0.7 X 10^3 (0.0-1.0); MONOCYTES % (AUTO) 8 % (0-12); NEUTROPHILS # (AUTO) 5.7 X 10^3 (1.8-7.8); NEUTROPHILS % (AUTO) 60 % (42-75); PLATELET COUNT 295 10^3/uL (130-400); RED BLOOD COUNT 4.34 10^6/uL (4.35-5.85); RED CELL DISTRIBUTION WIDTH 14.4 % (10.0-14.5); WHITE BLOOD COUNT 9.4 10^3/uL (4.3-11.0)
[2017-05-19 10:46] LABS: ALANINE AMINOTRANSFERASE 35 U/L (0-55); ALBUMIN 3.9 GM/DL (3.2-4.5); ALKALINE PHOSPHATASE 90 U/L (40-136); BILIRUBIN,TOTAL 0.6 MG/DL (0.1-1.0); BUN/CREATININE RATIO 17; CALCIUM 9.1 MG/DL (8.5-10.1); CARBON DIOXIDE 24 MMOL/L (21-32); CHLORIDE 107 MMOL/L (98-107); CREATININE SERUM 0.75 MG/DL (0.60-1.30); GFR ESTIMATED > 60; GLUCOSE 126 MG/DL (70-105); POTASSIUM 4.1 MMOL/L (3.6-5.0); SODIUM 138 MMOL/L (135-145); TOTAL PROTEIN 6.9 GM/DL (6.4-8.2)
[~2017-06-08 09:50] MED LIST changes: -BARIUM SUSPENSION 2.1% (VANILLA SILQ) 450 ML PO ONE; -IOHEXOL 350 MG/ML 100 ML (OMNIPAQUE 350) VIAL IV ONE; -NS 100 ML (IVPB) BAG IV ONE
[2017-06-08] MEDS ORDERED: PNEUMOCOCCAL VACCINE 25 MCG/0.5 ML VIAL IM ONE (10:45)
[2017-06-08] MEDS ORDERED: FLU TRIvalent (5 YOA+) 2017-18 (AFLURIA) 0.5 ML IM ONE (10:45)
== END 2017-07-04 | disposition home or self-care (01) ==
LOC: ONC 09:50
PROVIDERS: ATTEND Internal Medicine Hematology & Oncology
DX: C82.33 Follicular lymphoma grade IIIa, intra-abdominal lymph nodes (principal); I25.10 Atherosclerotic heart disease of native coronary artery without angina pectoris; K21.9 Gastro-esophageal reflux disease without esophagitis; Z79.899 Other long term (current) drug therapy; Z23 Encounter for immunization
CPT/HCPCS: 36591; 80053; 82232; 83615; 83735; 85025; 90471; 90472; 90732; 99213

== ENCOUNTER 2017-10-05 09:24 | Outpatient (RCR) | payer MEDICARE, OTHER | END 2017-10-11 | disposition home or self-care (01) | LOC: ONC 09:24 | PROVIDERS: ATTEND Internal Medicine Hematology & Oncology | DX: C82.33 Follicular lymphoma grade IIIa, intra-abdominal lymph nodes (principal); I25.10 Atherosclerotic heart disease of native coronary artery without angina pectoris; K21.9 Gastro-esophageal reflux disease without esophagitis; Z79.899 Other long term (current) drug therapy; Z45.2 Encounter for adjustment and management of vascular access device | CPT/HCPCS: 36591; 96523 ==

== ENCOUNTER → 2017-10-26 | Outpatient (CLI) | payer MEDICARE, OTHER ==
[2017-10-26 17:10] LABS: BASOPHILS # (AUTO) 0.1 10^3/uL (0.0-0.1); BASOPHILS % (AUTO) 1 % (0-10); EOSINOPHILS # (AUTO) 0.4 10^3/uL (0.0-0.3); EOSINOPHILS % (AUTO) 3 % (0-10); HEMATOCRIT 41 % (40-54); LYMPHOCYTES # (AUTO) 3.9 X 10^3 (1.0-4.0); LYMPHOCYTES % (AUTO) 30 % (12-44); MEAN CORPUSCULAR HEMOGLOBIN 34 PG (25-34); MEAN CORPUSCULAR HGB CONC 34 G/DL (32-36); MEAN CORPUSCULAR VOLUME 98 FL (80-99); MONOCYTES # (AUTO) 1.5 X 10^3 (0.0-1.0); MONOCYTES % (AUTO) 12 % (0-12); NEUTROPHILS % (AUTO) 54 % (42-75); PLATELET COUNT 329 10^3/uL (130-400); RED BLOOD COUNT 4.17 10^6/uL (4.35-5.85); RED CELL DISTRIBUTION WIDTH 14.4 % (10.0-14.5); WHITE BLOOD COUNT 12.8 10^3/uL (4.3-11.0)
== END ==
LOC: LAB 16:53
PROVIDERS: ATTEND Nurse Practitioner Family
DX: M25.441 Effusion, right hand (principal)
CPT/HCPCS: 36415; 84550; 85025

== ENCOUNTER 2017-11-10 09:16 | Outpatient (RCR) | payer MEDICARE, OTHER | END 2017-12-07 09:05 | disposition home or self-care (01) | LOC: ONC 09:16 | PROVIDERS: ATTEND Internal Medicine Hematology & Oncology | DX: C82.33 Follicular lymphoma grade IIIa, intra-abdominal lymph nodes (principal); I25.10 Atherosclerotic heart disease of native coronary artery without angina pectoris; K21.9 Gastro-esophageal reflux disease without esophagitis; Z79.899 Other long term (current) drug therapy; Z45.2 Encounter for adjustment and management of vascular access device | CPT/HCPCS: 96523 ==

== ENCOUNTER 2018-01-18 09:05 | Outpatient (RCR) | payer MEDICARE, OTHER ==
[2017-12-07 09:22] LABS: BASOPHILS # (AUTO) 0.1 10^3/uL (0.0-0.1); BASOPHILS % (AUTO) 1 % (0-10); EOSINOPHILS # (AUTO) 0.3 10^3/uL (0.0-0.3); EOSINOPHILS % (AUTO) 3 % (0-10); HEMATOCRIT 37 % (40-54); HEMOGLOBIN 12.2 G/DL (13.3-17.7); LYMPHOCYTES # (AUTO) 2.8 X 10^3 (1.0-4.0); LYMPHOCYTES % (AUTO) 29 % (12-44); MEAN CORPUSCULAR HEMOGLOBIN 32 PG (25-34); MEAN CORPUSCULAR HGB CONC 33 G/DL (32-36); MEAN CORPUSCULAR VOLUME 98 FL (80-99); MEAN PLATELET VOLUME 8.3 FL (7.4-10.4); MONOCYTES # (AUTO) 0.4 X 10^3 (0.0-1.0); MONOCYTES % (AUTO) 4 % (0-12); NEUTROPHILS # (AUTO) 6.2 X 10^3 (1.8-7.8); NEUTROPHILS % (AUTO) 63 % (42-75); PLATELET COUNT 490 10^3/uL (130-400); RED BLOOD COUNT 3.79 10^6/uL (4.35-5.85); RED CELL DISTRIBUTION WIDTH 14.2 % (10.0-14.5); WHITE BLOOD COUNT 9.9 10^3/uL (4.3-11.0)
[2017-12-07 09:39] LABS: ALANINE AMINOTRANSFERASE 24 U/L (0-55); ALBUMIN 3.7 GM/DL (3.2-4.5); ALKALINE PHOSPHATASE 119 U/L (40-136); BILIRUBIN,TOTAL 0.4 MG/DL (0.1-1.0); BUN/CREATININE RATIO 21; CALCIUM 9.3 MG/DL (8.5-10.1); CARBON DIOXIDE 24 MMOL/L (21-32); CHLORIDE 109 MMOL/L (98-107); CREATININE SERUM 0.76 MG/DL (0.60-1.30); GFR ESTIMATED > 60; GLUCOSE 140 MG/DL (70-105); SODIUM 138 MMOL/L (135-145); TOTAL PROTEIN 6.8 GM/DL (6.4-8.2)
[2018-02-15] MEDS ORDERED: ASCO10006 PO (08:21)
[2018-02-15] MEDS ORDERED: METO-387 PO (08:21)
[2018-02-15] MEDS ORDERED: ALLO300T2 PO (08:21)
[2018-02-15] MEDS ORDERED: OMEP20CA12 PO (08:21)
[2018-02-15] MEDS ORDERED: TAMS0.4C2 PO (08:21)
[2018-02-15] MEDS ORDERED: FISH1CAP15 PO (08:21)
[2018-02-15] MEDS ORDERED: ASPI-983 PO (08:21)
[2018-02-15] MEDS ORDERED: BUPR300T51 PO (08:21)
[2018-02-15] MEDS ORDERED: ATOR40TA70 PO (08:21)
[2018-02-15] MEDS ORDERED: MULT-1029 PO (08:21)
[2018-02-15] MEDS ORDERED: FERR-84 PO (08:34)
[2018-02-15] MEDS ORDERED: CYAN10006 PO (08:34)
[2018-02-15] MEDS ORDERED: CHOL20003 PO (08:34)
[2018-02-19] MEDS ORDERED: HYDR-3820 PO (09:50)
[2018-02-19] MEDS ORDERED: APIX2.5T PO (09:50)
[2018-02-19] MEDS ORDERED: CEFT2PIG IV (09:50)
== END 2018-03-07 | disposition home or self-care (01) ==
LOC: ONC 09:05
PROVIDERS: ATTEND Internal Medicine Hematology & Oncology
DX: C82.33 Follicular lymphoma grade IIIa, intra-abdominal lymph nodes (principal); I25.10 Atherosclerotic heart disease of native coronary artery without angina pectoris; K21.9 Gastro-esophageal reflux disease without esophagitis; Z79.899 Other long term (current) drug therapy; Z45.2 Encounter for adjustment and management of vascular access device
CPT/HCPCS: 36591; 80053; 83615; 85025; 96523

== ENCOUNTER 2018-02-14 12:21 | Inpatient (IN) | payer MEDICARE, OTHER ==
[~2018-02-14] VITALS: Ht 177.8 cm; Wt 122.9 kg
[~2018-02-14 12:21] MED LIST changes: -ALLO300T2 PO; -APIX2.5T PO; -ASCO10006 PO; -ASPI-983 PO; -ATOR40TA70 PO; -BUPR300T51 PO; -CEFT2PIG IV; -CHOL20003 PO; -CYAN10006 PO; -FERR-84 PO; -HYDR-3820 PO; -METO-387 PO; -TAMS0.4C2 PO
--- OUTSIDE RECORDS SUMMARY | 2018-02-14 12:30 | XMS REPORT | Continuity of Care Document ---
Author Author [facility] Organization [facility] Address Unknown Phone Unavailable Allergies Active Description Code Type Severity Reaction Onset Reported/Identified Relationship to Patient Clinical Status Yes morphine [id number] Drug Allergy Unknown N/A 01/15/2013 Medications There is no data. Problems Date Dx Coded Attending Type Code Diagnosis Diagnosed By KIMBERLY PETERS MD, Ot 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, INTRA-AB KIMBERLY PETERS MD, Ot I25.10 ATHSCL HEART DISEASE OF [place] CORONARY KIMBERLY PETERS MD Ot K21.9 GASTRO-ESOPHAGEAL REFLUX DISEASE WITHOUT KIMBERLY PETERS MD, Ot Z45.2 ENCOUNTER FOR ADJUSTMENT AND MANAGEMENT KIMBERLY PETERS MD, Ot Z79.899 OTHER [employer] (CURRENT) DRUG THERAPY 04/20/1043 MALIK REYNOSO Ot 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, INTRA-AB 04/20/1043 MALIK REYNOSO Ot I25.10 ATHSCL HEART DISEASE OF [place] CORONARY 04/20/1043 MALIK REYNOSO Ot K21.9 GASTRO-ESOPHAGEAL REFLUX DISEASE WITHOUT 04/20/1043 MALIK REYNOSO Ot Z45.2 ENCOUNTER FOR ADJUSTMENT AND MANAGEMENT 04/20/1043 MALIK REYNOSO Ot Z79.899 OTHER [facility] (CURRENT) DRUG THERAPY 04/20/1617 JULIA SCHWAB MD, Ot 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, INTRA-AB 04/20/1617 JULIA SCHWAB MD Ot I25.10 ATHSCL HEART DISEASE OF [place] CORONARY 04/20/1617 JULIA SCHWAB MD Ot K21.9 GASTRO-ESOPHAGEAL REFLUX DISEASE WITHOUT 04/20/1617 JULIA SCHWAB MD Ot Z79.899 OTHER [employer] (CURRENT) DRUG THERAPY 06/04/2009 Ot V58.61 06/04/2009 Ot V58.83 10/14/2009 Ot V58.61 10/14/2009 Ot V58.83 08/08/2010 Ot V58.61 08/08/2010 Ot V58.83 12/20/2012 NANCY ROMO MD Ot 785.6 ENLARGEMENT LYMPH NODES 01/04/2013 NANCY ROMO MD Ot 202.80 OTH LYMPHOMAS EXTRANODAL SOLID ORGAN U 01/04/2013 NANCY ROMO MD Ot 682.2 CELLULITIS OF [place] 03/24/2013 JULIA SCHWAB MD Ot 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 03/24/2013 JULIA SCHWAB MD Ot 272.4 HYPERLIPIDEMIA NEC/NOS 03/24/2013 JULIA SCHWAB MD Ot 278.01 MORBID OBESITY 03/24/2013 JULIA SCHWAB MD Ot 414.00 CORON ATHEROSCLER NOS TYPE VESSEL, NATIV 03/24/2013 JULIA SCHWAB MD Ot 530.81 ESOPHAGEAL REFLUX 03/24/2013 JULIA SCHWAB MD Ot V58.11 ENCOUNTER FOR ANTINEOPLASTIC CHEMOTHERAP 03/24/2013 JULIA SCHWAB MD Ot V58.65 LONG-TERM(CURRENT)USE OF STEROIDS 03/24/2013 JULIA SCHWAB MD Ot V58.69 OTH MED,LT,CURRENT USE 03/24/2013 JULIA SCHWAB MD Ot V85.41 BODY MASS INDEX 40.0-44.9, ADULT 06/24/2013 JULIA SCHWAB MD Ot 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 06/24/2013 JULIA SCHWAB MD Ot 278.01 MORBID OBESITY 06/24/2013 JULIA SCHWAB MD Ot 414.00 CORON ATHEROSCLER NOS TYPE VESSEL, NATIV 06/24/2013 JULIA SCHWAB MD Ot 530.81 ESOPHAGEAL REFLUX 06/24/2013 JULIA SCHWAB MD Ot V58.11 ENCOUNTER FOR ANTINEOPLASTIC CHEMOTHERAP 06/24/2013 JULIA SCHWAB MD Ot V58.69 OTH MED,LT,CURRENT USE 06/24/2013 JULIA SCHWAB MD Ot V85.41 BODY MASS INDEX 40.0-44.9, ADULT 09/30/2013 JULIA SCHWAB MD Ot 202.85 LYMPHOMAS NEC INGUIN 09/30/2013 JULIA SCHWAB MD Ot 414.00 CORON ATHEROSCLER NOS TYPE VESSEL, NATIV 09/30/2013 JULIA SCHWAB MD Ot 530.81 ESOPHAGEAL REFLUX 09/30/2013 JULIA SCHWAB MD Ot V58.11 ENCOUNTER FOR ANTINEOPLASTIC CHEMOTHERAP 09/30/2013 JULIA SCHWAB MD Ot V58.69 OTH MED,LT,CURRENT USE 09/30/2013 JULIA SCHWAB MD Ot V58.81 FIT/ADJ VASCULAR CATHETER 11/06/2013 NANCY ROMO MD Ot 202.80 OTH LYMPHOMAS EXTRANODAL SOLID ORGAN U 11/06/2013 NANCY ROMO MD Ot 455.0 INT HEMORRHOID W/O COMPL 11/06/2013 NANCY ROMO MD Ot 562.10 DIVERTICULOSIS COLON (W/O MENT OF HEMORR 11/06/2013 NANCY ROOM MD Ot V12.72 PERSONAL HISTORY OF COLONIC POLYPS 01/21/2014 JULIA SCHWAB MD Ot 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 01/21/2014 JULIA SCHWAB MD Ot 414.00 CORON ATHEROSCLER NOS TYPE VESSEL, NATIV 01/21/2014 JULIA SCHWAB MD Ot 530.81 ESOPHAGEAL REFLUX 01/21/2014 JULIA SCHWAB MD Ot V58.11 ENCOUNTER FOR ANTINEOPLASTIC CHEMOTHERAP 01/21/2014 JULIA SCHWAB MD Ot V58.69 OTH MED,LT,CURRENT USE 04/22/2014 JULIA SCHWAB MD Ot 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 04/22/2014 JULIA SCHWAB MD Ot 414.00 CORON ATHEROSCLER NOS TYPE VESSEL, NATIV 04/22/2014 JULIA SCHWAB MD Ot 530.81 ESOPHAGEAL REFLUX 04/22/2014 JULIA SCHWAB MD Ot V58.11 ENCOUNTER FOR ANTINEOPLASTIC CHEMOTHERAP 04/22/2014 JULIA SCHWAB MD Ot V58.69 OTH MED,LT,CURRENT USE 04/23/2014 Ot 272.4 04/23/2014 Ot 414.00 04/23/2014 Ot V58.69 04/23/2014 Ot 433.10 04/23/2014 Ot 272.4 04/23/2014 Ot 414.01 04/23/2014 Ot V58.69 04/23/2014 Ot 272.4 04/23/2014 Ot 414.01 04/23/2014 Ot V58.69 04/23/2014 Ot 414.01 04/23/2014 Ot 272.4 04/23/2014 Ot 414.01 04/23/2014 Ot V58.69 04/23/2014 Ot 715.97 04/23/2014 Ot 734 04/23/2014 Ot 272.4 04/23/2014 Ot 414.00 04/23/2014 Ot V58.69 04/23/2014 Ot 272.4 04/23/2014 Ot 414.01 04/23/2014 Ot V58.69 04/23/2014 JEREMI DOS SANTOS, TIM R Ot 789.06 04/23/2014 JEREMI DOS SANTOS, TIM R Ot 785.6 04/23/2014 JEREMI DOS SANTOS, TIM R Ot 789.06 04/23/2014 JEREMI DOS SANTOS, TIM R Ot 785.6 04/23/2014 JEREMI DOS SANTOS, TIM R Ot 787.02 04/23/2014 JEREMI DOS SANTOS, TIM R Ot 789.06 04/23/2014 DEMETRIUS DOS SANTOS, NANCY Ot 785.6 04/23/2014 DEMETRIUS DOS SANTOS, PENELOPEAAKI Ot V72.63 04/23/2014 DEMETRIUS DOS SANTOS, TAKAAKI Ot V74.8 04/23/2014 JOSSELIN DOS SANTOS, JULIA K Ot 793.99 04/23/2014 JOSSELIN DOS SANTOS, JULIA K Ot 202.80 04/23/2014 JOSSELIN DOS SANTOS, JULIA K Ot 397.0 04/23/2014 JOSSELIN DOS SANTOS, JULIA K Ot 424.0 04/23/2014 DEMETRIUS DOS SANTOS, TAKAAKI Ot 202.80 04/23/2014 DEMETRIUS DOS SANTOS, PENELOPEAAKI Ot V72.84 04/23/2014 WILL CROWE TRAINING AND DOCUMENTATION SPECIALIST Ot 202.85 04/23/2014 WILL CROWE TRAINING AND DOCUMENTATION SPECIALIST Ot 272.4 04/23/2014 WILL CROWE TRAINING AND DOCUMENTATION SPECIALIST Ot 278.00 04/23/2014 WILL CROWE TRAINING AND DOCUMENTATION SPECIALIST Ot 401.9 04/23/2014 WILL CROWE TRAINING AND DOCUMENTATION SPECIALIST Ot 414.00 04/23/2014 WILL CROWE TRAINING AND DOCUMENTATION SPECIALIST Ot 715.90 04/23/2014 WILL CROWE TRAINING AND DOCUMENTATION SPECIALIST Ot V12.71 04/23/2014 WILL CROEW TRAINING AND DOCUMENTATION SPECIALIST Ot V58.66 04/23/2014 WILL CROWE TRAINING AND DOCUMENTATION SPECIALIST Ot V58.69 04/23/2014 GLADYS DOS SANTOS FAC, ALI FACP CCDS Ot 272.4 04/23/2014 JOSSELIN DOS SANTOS, JULIA K Ot 202.85 04/23/2014 JOSSELIN DOS SANTOS, JULIA Jeanne Ot 202.80 04/23/2014 JOSSELIN DOS SANTOS, JULIA K Ot 202.80 04/23/2014 JOSSELIN DOS SANTOS, JULIA K Ot 571.8 04/23/2014 JOSSELIN DOS SANTOS, JULIA K Ot 202.80 04/23/2014 JOSSELIN DOS SANTOS, JULIA K Ot V58.69 04/23/2014 JOSSELIN DOS SANTOS, JULIA K Ot V58.83 04/23/2014 LUZMA LEO Ot 414.00 04/23/2014 JOSSELIN DOS SANTOS, JULIA K Ot 202.00 04/23/2014 JOSSELIN DOS SANTOS, JULIA K Ot V58.69 04/23/2014 JOSSELIN DOS SANTOS, JULIA Jeanne Ot 202.00 04/23/2014 JOSSELIN DOS SANTOS, JULIA K Ot 202.00 04/23/2014 DEMETRIUS DOS SANTOS, NANCY Ot V72.84 04/23/2014 GLADYS DOS SANTOS [facility] CCDS Ot 272.4 04/23/2014 GLADYS DOS SANTOS [facility] CCDS Ot 414.00 04/23/2014 JOSSELIN DOS SANTOS, JULIA K Ot 202.00 04/23/2014 JOSSELIN DOS SANTOS, JULIA K Ot 202.00 04/23/2014 JOSSELIN DOS SANTOS, JULIA Jeanne Ot 414.00 04/23/2014 JOSSELIN DOS SANTOS, JULIA Jeanne Ot 530.81 04/23/2014 JOSSELIN DOS SANTOS, JULIA K Ot V58.69 04/23/2014 JOSSELIN DOS SANTOS, JULIA K Ot 202.00 04/23/2014 JOSSELIN DOS SANTOS, JULIA K Ot 414.00 04/23/2014 JOSSELIN DOS SANTOS, JULIA K Ot 530.81 04/23/2014 JOSSELIN DOS SANTOS, JULIA K Ot V58.69 04/24/2014 JOSSELIN DOS SANTOS, JULIA K Ot 202.00 04/24/2014 JOSSELIN DOS SANTOS, JULIA K Ot 414.00 04/24/2014 JOSSELIN DOS SANTOS, JULIA Jeanne Ot 530.81 04/24/2014 JOSSELIN DOS SANTOS, JULIA K Ot V58.69 04/24/2014 JOSSELIN DSO SANTOS, JULIA K Ot V58.81 06/19/2014 JOSSELIN DOS SANTOS, JULIA K Ot 202.00 06/19/2014 JOSSELIN DOS SANTOS, JULIA K Ot 414.00 06/19/2014 JOSSELIN DOS SANTOS, JULIA Angel Ot 530.81 06/19/2014 JOSSELIN DOS SANTOS, JULIA K Ot V58.69 06/19/2014 JOSSELIN DOS SANTOS, JULIA K Ot V58.81 07/22/2014 JOSSELIN DOS SANTOS, JULIA Angel Ot 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 07/22/2014 JOSSELIN DOS SANTOS, JULIA Angel Ot 414.00 CORON ATHEROSCLER NOS TYPE VESSEL, NATIV 07/22/2014 JOSSELIN DOS SANTOS, JULIA Angel Ot 530.81 ESOPHAGEAL REFLUX 07/22/2014 JOSSELIN DOS SANTOS, JULIA Angel Ot V58.69 OTH MED,LT,CURRENT USE 07/22/2014 JOSSELIN DOS SANTOS, JULIA Angel Ot V58.81 FIT/ADJ VASCULAR CATHETER 08/20/2014 Ot 272.4 08/20/2014 Ot 414.01 08/20/2014 Ot V58.69 08/20/2014 Ot 272.4 08/20/2014 Ot 414.01 08/20/2014 Ot V58.69 08/20/2014 Ot 414.01 08/20/2014 Ot 272.4 08/20/2014 Ot 414.01 08/20/2014 Ot V58.69 08/20/2014 Ot 715.97 08/20/2014 Ot 734 08/20/2014 Ot 272.4 08/20/2014 Ot 414.00 08/20/2014 Ot V58.69 08/20/2014 Ot 272.4 08/20/2014 Ot 414.01 08/20/2014 Ot V58.69 08/20/2014 JEREMI DOS SANTOS, TIM R Ot 789.06 08/20/2014 JEREMI DOS SANTOS, TIM R Ot 785.6 08/20/2014 JEREMI DOS SANTOS, TIM R Ot 789.06 08/20/2014 EJREMI DOS SANTOS, TIM R Ot 785.6 08/20/2014 JEREMI DOS SANTOS, TIM R Ot 787.02 08/20/2014 JEREMI DOS SANTOS, TIM R Ot 789.06 08/20/2014 DEMETRIUS DOS SANTOS, PENELOPEAALIBERTY Ot 785.6 08/20/2014 DEMETRIUS DOS SANTOS, PENELOPEAALIBERTY Ot V72.63 08/20/2014 DEMETRIUS DOS SANTOS, NANCY Ot V74.8 08/20/2014 JOSSELIN DOS SANTOS, JULIA Jeanne Ot 793.99 08/20/2014 JOSSELIN DOS SANTOS, JULIA Jeanne Ot 202.80 08/20/2014 JOSSELIN DOS SANTOS, JULIA Jeanne Ot 397.0 08/20/2014 JOSSELIN DOS SANTOS, JULIA Angel Ot 424.0 08/20/2014 DEMETRIUS DOS SANTOS, PENELOPEAALIBERTY Ot 202.80 08/20/2014 DEMETRIUS DOS SANTOS, PENELOPEAALIBERTY Ot V72.84 08/20/2014 CROWEWILL S TRAINING AND DOCUMENTATION SPECIALIST Ot 202.85 08/20/2014 CROWEWILL S TRAINING AND DOCUMENTATION SPECIALIST Ot 272.4 08/20/2014 CROWEWILL S TRAINING AND DOCUMENTATION SPECIALIST Ot 278.00 08/20/2014 CROWEWILL S TRAINING AND DOCUMENTATION SPECIALIST Ot 401.9 08/20/2014 CROWEWILL S TRAINING AND DOCUMENTATION SPECIALIST Ot 414.00 08/20/2014 CROWEWILL S TRAINING AND DOCUMENTATION SPECIALIST Ot 715.90 08/20/2014 CROWEWILL S TRAINING AND DOCUMENTATION SPECIALIST Ot V12.71 08/20/2014 CROWEWILL S TRAINING AND DOCUMENTATION SPECIALIST Ot V58.66 08/20/2014 CROWEWILL S TRAINING AND DOCUMENTATION SPECIALIST Ot V58.69 08/20/2014 GLADYS DOS SANTOS [facility], ALI [facility] CCDS Ot 272.4 08/20/2014 JOSSELIN DOS SANTOS, JULIA K Ot 202.85 08/20/2014 JOSSELIN DOS SANTOS, JULIA K Ot 202.80 08/20/2014 JOSSELIN DOS SANTOS, JULIA K Ot 202.80 08/20/2014 JOSSELIN DOS SANTOS, JULIA K Ot 571.8 08/20/2014 JOSSELIN DOS SANTOS, JULIA K Ot 202.80 08/20/2014 JOSSELIN DOS SANTOS, JULIA K Ot V58.69 08/20/2014 JOSSELIN DOS SANTOS, JULIA K Ot V58.83 08/20/2014 LUZMA LEO TRAINING AND DOCUMENTATION SPECIALIST Ot 414.00 08/20/2014 JOSSELIN DOS SANTOS, JULIA K Ot 202.00 08/20/2014 JOSSELIN DOS SANTOS, JULIA K Ot V58.69 08/20/2014 JOSSELIN DOS SANTOS, JULIA K Ot 202.00 08/20/2014 JOSSELIN DOS SANTOS, JULIA K Ot 202.00 08/20/2014 DEMETRIUS DOS SANTOS, TAKAAKI Ot V72.84 08/20/2014 GLADYS DOS SANTOS FAC, ALI [facility] CCDS Ot 272.4 08/20/2014 GLADYS DOS SANTOS FAC, ALI FACP CCDS Ot 414.00 08/20/2014 JOSSELIN DOS SANTOS, JULIA Angel Ot 202.00 08/20/2014 JOSSELIN DOS SANTOS, JULIA Jeanne Ot 202.00 08/20/2014 JOSSELIN DOS SANTOS, JULIA Angel Ot 414.00 08/20/2014 JOSSELIN DOS SANTOS, JULIA Jeanne Ot 530.81 08/20/2014 JOSSELIN DOS SANTOS, JULIA Angel Ot V58.11 08/20/2014 JOSSELIN DOS SANTOS, JULIA Angel Ot V58.69 08/20/2014 JOSSELIN DOS SANTOS, JULIA Angel Ot V58.81 08/20/2014 Ot 202.00 08/29/2014 Ot 202.00 09/17/2014 GLADYS DOS SANTOS FAC, ALI FACP CCDS Ot 272.4 09/17/2014 GLADYS DOS SANTOS FAC, ALI FACP CCDS Ot 356.9 09/17/2014 GLADYS DOS SANTOS FAC, ALI FACP CCDS Ot 414.00 09/17/2014 GLADYS DOS SANTOS FAC, ALI FACP CCDS Ot 443.9 09/23/2014 Ot 272.4 09/23/2014 Ot 414.01 09/23/2014 Ot V58.69 09/23/2014 Ot 272.4 09/23/2014 Ot 414.01 09/23/2014 Ot V58.69 09/23/2014 Ot 414.01 09/23/2014 Ot 272.4 09/23/2014 Ot 414.01 09/23/2014 Ot V58.69 09/23/2014 Ot 715.97 09/23/2014 Ot 734 09/23/2014 Ot 272.4 09/23/2014 Ot 414.00 09/23/2014 Ot V58.69 09/23/2014 Ot 272.4 09/23/2014 Ot 414.01 09/23/2014 Ot V58.69 09/23/2014 JEREMI DOS SANTOS, TIM R Ot 789.06 09/23/2014 JEREMI DOS SANTOS, TIM R Ot 785.6 09/23/2014 JEREMI DOS SANTOS, TIM R Ot 789.06 09/23/2014 JEREMI DOS SANTOS, TIM R Ot 785.6 09/23/2014 JEREMI DOS SANTOS, TIM R Ot 787.02 09/23/2014 JEREMI DOS SANTOS, TIM R Ot 789.06 09/23/2014 DEMETRIUS DOS SANTOS, NANCY Ot 785.6 09/23/2014 DEMETRIUS DOS SANTOS, NANCY Ot V72.63 09/23/2014 DEMETRIUS DOS SANTOS, NANCY Ot V74.8 09/23/2014 JOSSELIN DOS SANTOS, JULIA Jeanne Ot 793.99 09/23/2014 JOSSELIN DOS SANTOS, JULIA Angel Ot 202.80 09/23/2014 JOSSELIN DOS SANTOS, JULIA K Ot 397.0 09/23/2014 JOSSELIN DOS SANTOS, JULIA K Ot 424.0 09/23/2014 DEMETRIUS DOS SANTOS, NANCY Ot 202.80 09/23/2014 DEMETRIUS DOS SANTOS, ANNCY Ot V72.84 09/23/2014 CROWE, WILL S TRAINING AND DOCUMENTATION SPECIALIST Ot 202.85 09/23/2014 CROWE, HILAH S TRAINING AND DOCUMENTATION SPECIALIST Ot 272.4 09/23/2014 CROWE, HILAH S TRAINING AND DOCUMENTATION SPECIALIST Ot 278.00 09/23/2014 CROWE, HILAH S TRAINING AND DOCUMENTATION SPECIALIST Ot 401.9 09/23/2014 CROWE, HILAH S TRAINING AND DOCUMENTATION SPECIALIST Ot 414.00 09/23/2014 CROWE, HILAH S TRAINING AND DOCUMENTATION SPECIALIST Ot 715.90 09/23/2014 CROWE, HILAH S TRAINING AND DOCUMENTATION SPECIALIST Ot V12.71 09/23/2014 CROWE, HILAH S TRAINING AND DOCUMENTATION SPECIALIST Ot V58.66 09/23/2014 CROWE, HILAH S TRAINING AND DOCUMENTATION SPECIALIST Ot V58.69 09/23/2014 GLADYS DOS SANTOS [facility] CCDS Ot 272.4 09/23/2014 JOSSELIN DOS SANTOS, JULIA K Ot 202.85 09/23/2014 JOSSELIN DOS SANTOS, JULIA K Ot 202.80 09/23/2014 JOSSELIN DOS SANTOS, JULIA K Ot 202.80 09/23/2014 JOSSELIN DOS SANTOS, JULIA K Ot 571.8 09/23/2014 JOSSELIN DOS SANTOS, JULIA K Ot 202.80 09/23/2014 JOSSELIN DOS SANTOS, JULIA K Ot V58.69 09/23/2014 JOSSELIN DOS SANTOS, JULIA K Ot V58.83 09/23/2014 LUZMA LEO TRAINING AND DOCUMENTATION SPECIALIST Ot 414.00 09/23/2014 JOSSELIN DOS SANTOS, JULIA K Ot 202.00 09/23/2014 JOSSELIN DOS SANTOS, JULIA K Ot V58.69 09/23/2014 JOSSELIN DOS SANTOS, JULIA K Ot 202.00 09/23/2014 JOSSELIN DOS SANTOS, JULIA K Ot 202.00 09/23/2014 DEMETRIUS DOS SANTOS, PENELOPEAALIBERTY Ot V72.84 09/23/2014 GLADYS DOS SANTOS [facility] CCDS Ot 272.4 09/23/2014 GLADYS DOS SANTOS [facility] Ot 414.00 09/23/2014 JOSSELIN DOS SANTOS, JULIA Angel Ot 202.00 09/23/2014 JOSSELIN DOS SANTOS, JULIA K Ot 202.00 09/23/2014 JOSSELIN MD, JULIA K Ot 414.00 09/23/2014 JOSSELIN DOS SANTOS JULIA Jeanne Ot 530.81 09/23/2014 JOSSELIN DOS SANTOS JULIA Jeanne Ot V58.11 09/23/2014 JOSSELIN DOS SANTOS JULIA Jeanne Ot V58.69 09/23/2014 JOSSELIN DOS SANTOS JULIA Jeanne Ot V58.81 09/23/2014 Ot 202.00 09/23/2014 GLADYS DOS SANTOS FACC, ALI FACP CCDS Ot 272.4 09/23/2014 GLADYS DOS SANTOS FACC, ALI FACP CCDS Ot 356.9 09/23/2014 GLADYS DOS SANTOS FAC, ALI FACP CCDS Ot 414.00 09/23/2014 GLADYS DOS SANTOS FAC, ALI FACP CCDS Ot 443.9 10/22/2014 JOSSELIN DOS SANTOS, JULIA Angel Ot 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 10/22/2014 JOSSELIN DOS SANTOS, JULIA Angel Ot 414.00 CORON ATHEROSCLER NOS TYPE VESSEL, NATIV 10/22/2014 JOSSELIN DOS SANTOS JULIA Jeanne Ot 530.81 ESOPHAGEAL REFLUX 10/22/2014 JOSSELIN DOS SANTOS JULIA Jeanne Ot V58.11 ENCOUNTER FOR ANTINEOPLASTIC CHEMOTHERAP 10/22/2014 JOSSELIN DOS SANTOS JULIA Jeanne Ot V58.69 OT MED,LT,CURRENT USE 10/22/2014 JOSSELIN DOS SANTOS JULIA Jeanne Ot V58.81 FIT/ADJ VASCULAR CATHETER 11/06/2014 Ot 272.4 11/06/2014 Ot 414.01 11/06/2014 Ot V58.69 11/06/2014 Ot 272.4 11/06/2014 Ot 414.01 11/06/2014 Ot V58.69 11/06/2014 Ot 414.01 11/06/2014 Ot 272.4 11/06/2014 Ot 414.01 11/06/2014 Ot V58.69 11/06/2014 Ot 715.97 11/06/2014 Ot 734 11/06/2014 Ot 272.4 11/06/2014 Ot 414.00 11/06/2014 Ot V58.69 11/06/2014 Ot 272.4 11/06/2014 Ot 414.01 11/06/2014 Ot V58.69 11/06/2014 JEREMI DOS SANTOS, TIM Holder Ot 789.06 11/06/2014 JEREMI DOS SANTOS, TIM R Ot 785.6 11/06/2014 JEREMI DOS SANTOS, TIM R Ot 789.06 11/06/2014 JEREMI DOS SANTOS, TIM R Ot 785.6 11/06/2014 JEREMI DOS SANTOS, TIM R Ot 787.02 11/06/2014 JEREMI DOS SANTOS, TIM R Ot 789.06 11/06/2014 DEMETRIUS DOS SANTOS, TAKAAKI Ot 785.6 11/06/2014 DEMETRIUS DOS SANTOS, TAKAAKI Ot V72.63 11/06/2014 DEMETRIUS DOS SANTOS, TAKAAKI Ot V74.8 11/06/2014 JOSSELIN DOS SANTOS, JULIA K Ot 793.99 11/06/2014 JOSSELIN DOS SANTOS, JULIA K Ot 202.80 11/06/2014 JOSSELIN DOS SANTOS, JULIA K Ot 397.0 11/06/2014 JOSSELIN DOS SANTOS, JULIA K Ot 424.0 11/06/2014 DEMETRIUS DOS SANTOS, NANCY Ot 202.80 11/06/2014 DEMETRIUS DOS SANTOS, PENELOPEAAKI Ot V72.84 11/06/2014 WILL CROWE TRAINING AND DOCUMENTATION SPECIALIST Ot 202.85 11/06/2014 WILL CROWE TRAINING AND DOCUMENTATION SPECIALIST Ot 272.4 11/06/2014 WILL CROWE TRAINING AND DOCUMENTATION SPECIALIST Ot 278.00 11/06/2014 WILL CROWE TRAINING AND DOCUMENTATION SPECIALIST Ot 401.9 11/06/2014 WILL CROWE TRAINING AND DOCUMENTATION SPECIALIST Ot 414.00 11/06/2014 WILL CROWE TRAINING AND DOCUMENTATION SPECIALIST Ot 715.90 11/06/2014 WILL CROWE TRAINING AND DOCUMENTATION SPECIALIST Ot V12.71 11/06/2014 WILL CROWE TRAINING AND DOCUMENTATION SPECIALIST Ot V58.66 11/06/2014 WILL CROWE TRAINING AND DOCUMENTATION SPECIALIST Ot V58.69 11/06/2014 GLADYS DOS SANTOS [facility] CCDS Ot 272.4 11/06/2014 JOSSELIN DOS SANTOS, JULIA Angel Ot 202.85 11/06/2014 JOSSELIN DOS SANTOS, JULIA K Ot 202.80 11/06/2014 JOSSELIN DOS SANTOS, JULIA K Ot 202.80 11/06/2014 JOSSELIN DOS SANTOS, JULIA K Ot 571.8 11/06/2014 JOSSELIN DOS SANTOS, JULIA K Ot 202.80 11/06/2014 JOSSELIN DOS SANTOS, JULIA K Ot V58.69 11/06/2014 JOSSELIN DOS SANTOS, JULIA K Ot V58.83 11/06/2014 LUZMA LEO TRAINING AND DOCUMENTATION SPECIALIST Ot 414.00 11/06/2014 JOSSELIN DOS SANTOS, JULIA K Ot 202.00 11/06/2014 JOSSELIN DOS SANTOS, JULIA Jeanne Ot V58.69 11/06/2014 JOSSELIN DOS SANTOS, JULIA Angel Ot 202.00 11/06/2014 JOSSELIN DOS SANTOS, JULIA K Ot 202.00 11/06/2014 DEMETRIUS DOS SANTOS, TAKAAKI Ot V72.84 11/06/2014 GLADYS DOS SANTOS FACC, ALI FACP CCDS Ot 272.4 11/06/2014 GLADYS DOS SANTOS FACC, ALI FACP CCDS Ot 414.00 11/06/2014 JOSSELIN DOS SANTOS, JULIA Angel Ot 202.00 11/06/2014 Ot 202.00 11/06/2014 GLADYS DOS SANTOS FACC, ALI FACP CCDS Ot 272.4 11/06/2014 GLADYS DOS SANTOS FACC, ALI FACP CCDS Ot 356.9 11/06/2014 GLADYS DOS SANTOS FACC, ALI FACP CCDS Ot 414.00 11/06/2014 GLADYS DOS SANTOS FACC, ALI FACP CCDS Ot 443.9 11/06/2014 JOSSELIN DOS SANTOS, JULIA Jeanne Ot 202.00 11/06/2014 JOSSELIN DOS SANTOS, JULIA Jeanne Ot 414.00 11/06/2014 JOSSELIN DOS SANTOS, JULIA K Ot 530.81 11/06/2014 JOSSELIN DOS SANTOS, JULIA Jeanne Ot V58.11 11/06/2014 JOSSELIN DOS SANTOS, JULIA Angel Ot V58.69 11/06/2014 JOSSELIN DOS SANTOS, JULIA K Ot V58.81 11/11/2014 JOSSELIN DOS SANTOS, JULIA K Ot 202.00 11/11/2014 JOSSELIN DOS SANTOS, JULIA Jeanne Ot 414.00 11/11/2014 JOSSELIN DOS SANTOS, JULIA K Ot 530.81 11/11/2014 JOSSELIN DOS SANTOS, JULIA K Ot V58.11 11/11/2014 JOSSELIN DOS SANTOS, JULIA K Ot V58.69 11/11/2014 JOSSELIN DOS SANTOS, JULIA K Ot V58.81 11/12/2014 JOSSELIN DOS SANTOS, JULIA K Ot 202.00 11/12/2014 JOSSELIN DOS SANTOS, JULIA Angel Ot 414.00 11/12/2014 JOSSELIN DOS SANTOS, JULIA K Ot 530.81 11/12/2014 JOSSELIN DOS SANTOS, JULIA K Ot V58.11 11/12/2014 JOSSELIN DOS SANTOS, JULIA K Ot V58.69 11/12/2014 JOSSELIN DOS SANTOS, JULIA K Ot V58.81 11/12/2014 JOSSELIN DOS SANTOS, JULIA Angel Ot 202.00 11/12/2014 JOSSELIN DOS SANTOS, JULIA K Ot 414.00 11/12/2014 JOSSELIN DOS SANTOS, JULIA Angel Ot 530.81 11/12/2014 JOSSELIN DOS SANTOS, JULIA Angel Ot V58.11 11/12/2014 JOSSELIN DOS SANTOS, JULIA Angel Ot V58.69 11/12/2014 JOSSELIN DOS SANTOS, JULIA Angel Ot V58.81 11/13/2014 JOSSELIN DOS SANTOS, JULIA Angel Ot 202.00 11/13/2014 JOSSELIN DOS SANTOS, JULIA Angel Ot 414.00 11/13/2014 JOSSELIN DOS SANTOS, JULIA Angel Ot 530.81 11/13/2014 JOSSELIN DOS SANTOS, JULIA Angel Ot V58.11 11/13/2014 JOSSELIN DOS SANTOS, JULIA Angel Ot V58.69 11/13/2014 JOSSELIN DOS SANTOS, JULIA Angel Ot V58.81 12/12/2014 JOSSELIN DOS SANTOS, JULIA Angel Ot 202.00 12/12/2014 JOSSELIN DOS SANTOS, JULIA Angel Ot 414.00 12/12/2014 JOSSELIN DOS SANTOS, JULIA Angel Ot 530.81 12/12/2014 JOSSELIN DOS SANTOS, JULIA Angel Ot V58.11 12/12/2014 JOSSELIN DOS SANTOS, JULIA Angel Ot V58.69 12/12/2014 JOSSELIN DOS SANTOS, JULIA Angel Ot V58.81 02/10/2015 JOSSELIN DOS SANTOS, JULIA Angel Ot 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 02/10/2015 JOSSELIN DOS SANTOS, JULIA Angel Ot 414.00 CORON ATHEROSCLER NOS TYPE VESSEL, NATIV 02/10/2015 JOSSELIN DOS SANTOS, JULIA Angel Ot 530.81 ESOPHAGEAL REFLUX 02/10/2015 JOSSELIN DOS SANTOS, JULIA Angel Ot I25.10 ATHSCL HEART DISEASE OF [place] CORONARY 02/10/2015 JULIA SCHWAB MD Ot K21.9 GASTRO-ESOPHAGEAL REFLUX DISEASE WITHOUT 02/10/2015 JULIA SCHWAB MD Ot V58.11 ENCOUNTER FOR ANTINEOPLASTIC CHEMOTHERAP 02/10/2015 JOSSELIN DOS SANTOS, JULIA Angel Ot V58.69 OT MED,LT,CURRENT USE 02/10/2015 JULIA SCHWAB MD Ot V58.81 FIT/ADJ VASCULAR CATHETER 02/10/2015 JULIA SCHWAB MD Ot Z45.2 ENCOUNTER FOR ADJUSTMENT AND MANAGEMENT 02/10/2015 JULIA SCHWAB MD, Ot Z51.11 ENCOUNTER FOR ANTINEOPLASTIC CHEMOTHERAP 03/03/2015 JULIA SCHWAB MD Ot 202.00 03/03/2015 JOSSELIN DOS SANTOS, JULIA Angel Ot 414.00 03/03/2015 JOSSELIN DOS SANTOS, JULIA Angel Ot 530.81 03/03/2015 JULIA SCHWAB MD, Ot V58.11 03/03/2015 JOSSELIN DOS SANTOS, JULIA Jeanne Ot V58.69 03/03/2015 JOSSELIN DOS SANTOS, JULIA Jeanne Ot V58.81 03/04/2015 JOSSELIN DOS SANTOS, JULIA Jeanne Ot 202.00 03/04/2015 JOSSELIN DOS SANTOS, JULIA Jeanne Ot 414.00 03/04/2015 JOSSELIN DOS SANTOS, JULIA Jeanne Ot 530.81 03/04/2015 JOSSELIN DOS SANTOS, JULIA Jeanne Ot V58.11 03/04/2015 JOSSELIN DOS SANTOS, JULIA Jeanne Ot V58.69 03/04/2015 JOSSELIN DOS SANTOS, JULIA Jeanne Ot V58.81 03/04/2015 JOSSELIN DOS SANTOS, JULIA Angel Ot 202.00 03/25/2015 LUZMA LEO TRAINING AND DOCUMENTATION SPECIALIST Ot E78.5 03/25/2015 LUZMA LEO TRAINING AND DOCUMENTATION SPECIALIST Ot I25.10 04/03/2015 GLADYS DOS SANTOS FACC, ALI FACP CCDS Ot C82.30 04/03/2015 GLADYS DOS SANTOS FACC, ALI FACP CCDS Ot E78.5 04/03/2015 GLADYS DOS SANTOS FACC, ALI FACP CCDS Ot I25.10 04/03/2015 GLADYS DOS SANTOS FACC, ALI FACP CCDS Ot I42.9 04/03/2015 GLADYS DOS SANTOS FACC, ALI FACP CCDS Ot K21.9 04/03/2015 GLADYS DOS SANTOS FACC, ALI FACP CCDS Ot Z68.41 04/13/2015 LUZMA LEO TRAINING AND DOCUMENTATION SPECIALIST Ot E78.5 04/13/2015 LUZMA LEO TRAINING AND DOCUMENTATION SPECIALIST Ot I25.10 04/20/2015 JOSSELIN DOS SANTOS, JULIA Angel Ot 202.00 04/20/2015 JOSSELIN DOS SANTOS, JULIA Jeanne Ot 414.00 04/20/2015 JOSSELIN DOS SANTOS, JULIA Jeanne Ot 530.81 04/20/2015 JOSSELIN DOS SANTOS, JULIA Jeanne Ot V58.11 04/20/2015 JOSSELIN DOS SANTOS, JULIA Jeanne Ot V58.69 04/20/2015 JOSSELIN DOS SANTOS, JULIA Angel Ot V58.81 04/27/2015 JOSSELIN DOS SANTOS, JULIA Angel Ot C82.90 04/27/2015 JOSSELIN DOS SANTOS, JULIA Jeanne Ot I25.10 04/27/2015 JOSSELIN DOS SANTOS, JULIA Jeanne Ot K21.9 04/27/2015 JOSSELIN DOS SANTOS, JULIA Angel Ot Z45.2 04/27/2015 JOSSELIN DOS SANTOS, JULIA Angel Ot Z51.11 04/27/2015 JOSSELIN DOS SANTOS, JULIA Angel Ot Z79.899 06/02/2015 JOSSELIN DOS SANTOS, JULIA Angel Ot C82.90 FOLLICULAR LYMPHOMA, UNSPECIFIED, UNSPEC 06/02/2015 JOSSELIN DOS SANTOS, JULIA Angel Ot I25.10 ATHSCL HEART DISEASE OF [place] CORONARY 06/02/2015 JULIA SCHWAB MD Ot K21.9 GASTRO-ESOPHAGEAL REFLUX DISEASE WITHOUT 06/02/2015 JULIA SCHWAB MD Ot Z45.2 ENCOUNTER FOR ADJUSTMENT AND MANAGEMENT 06/02/2015 JULIA SCHWAB MD, Ot Z51.11 ENCOUNTER FOR ANTINEOPLASTIC CHEMOTHERAP 06/02/2015 JULIA SCHWAB MD, Ot Z79.899 OTHER [facility] (CURRENT) DRUG THERAPY 06/17/2015 JULIA SCHWAB MD, Ot C82.90 06/17/2015 JULIA SCHWAB MD, Ot I25.10 06/17/2015 JULIA SCHWAB MD, Ot K21.9 06/17/2015 JULIA SCHWAB MD, Ot Z45.2 06/17/2015 JULIA SCHWAB MD, Ot Z51.11 06/17/2015 JULIA SCHWAB MD, Ot Z79.899 08/10/2015 Ot 414.01 08/10/2015 Ot 272.4 08/10/2015 Ot 414.01 08/10/2015 Ot V58.69 08/10/2015 Ot 715.97 08/10/2015 Ot 734 08/10/2015 Ot 272.4 08/10/2015 Ot 414.00 08/10/2015 Ot V58.69 08/10/2015 Ot 272.4 08/10/2015 Ot 414.01 08/10/2015 Ot V58.69 08/10/2015 JEREMI DOS SANTOS, TIM R Ot 789.06 08/10/2015 JEREMI DOS SANTOS, TIM R Ot 785.6 08/10/2015 JEREMI DOS SANTOS, TIM R Ot 789.06 08/10/2015 JEREMI DOS SANTOS, TIM R Ot 785.6 08/10/2015 JEREMI DOS SANTOS, TIM R Ot 787.02 08/10/2015 JEREMI DOS SANTOS, TIM R Ot 789.06 08/10/2015 DEMETRIUS DOS SANTOS, NANCY Ot 785.6 08/10/2015 DEMETRIUS DOS SANTOS, NANCY Ot V72.63 08/10/2015 DEMETRIUS DOS SANTOS, TAKAAKI Ot V74.8 08/10/2015 JOSSELIN DOS SANTOS, JULIA K Ot 793.99 08/10/2015 JOSSELIN DOS SANTOS, JULIA K Ot 202.80 08/10/2015 JOSSELIN DOS SANTOS, JULIA K Ot 397.0 08/10/2015 JOSSELIN DOS SANTOS, JULIA K Ot 424.0 08/10/2015 DEMETRIUS DOS SANTOS, TAKAAKI Ot 202.80 08/10/2015 DEMETRIUS DOS SANTOS, TAKAAKI Ot V72.84 08/10/2015 SEBASTIEN HILAH S TRAINING AND DOCUMENTATION SPECIALIST Ot 202.85 08/10/2015 CROWE HILAH S TRAINING AND DOCUMENTATION SPECIALIST Ot 272.4 08/10/2015 CROWE HILAH S TRAINING AND DOCUMENTATION SPECIALIST Ot 278.00 08/10/2015 CROWE HILAH S TRAINING AND DOCUMENTATION SPECIALIST Ot 401.9 08/10/2015 CROWE, HILAH S TRAINING AND DOCUMENTATION SPECIALIST Ot 414.00 08/10/2015 CROWE, HILAH S TRAINING AND DOCUMENTATION SPECIALIST Ot 715.90 08/10/2015 SEBASTIEN HILAH S TRAINING AND DOCUMENTATION SPECIALIST Ot V12.71 08/10/2015 SEBASTIEN HILAH S TRAINING AND DOCUMENTATION SPECIALIST Ot V58.66 08/10/2015 CROWE, HILAH S TRAINING AND DOCUMENTATION SPECIALIST Ot V58.69 08/10/2015 GLADYS DOS SANTOS FAC, ALI FACP CCDS Ot 272.4 08/10/2015 JOSSELIN DOS SANTOS, JULIA K Ot 202.85 08/10/2015 JOSSELIN DOS SANTOS, JULIA K Ot 202.80 08/10/2015 JOSSELIN DOS SANTOS, JULIA K Ot 202.80 08/10/2015 JOSSELIN DOS SANTOS, JULIA K Ot 571.8 08/10/2015 JOSSELIN DOS SANTOS, JULIA K Ot 202.80 08/10/2015 JOSSELIN DOS SANTOS, JULIA K Ot V58.69 08/10/2015 JOSSELIN DOS SANTOS, JULIA K Ot V58.83 08/10/2015 LUZMA LEO TRAINING AND DOCUMENTATION SPECIALIST Ot 414.00 08/10/2015 JOSSELIN DOS SANTOS, JULIA K Ot 202.00 08/10/2015 JOSSELIN DOS SANTOS, JULIA K Ot V58.69 08/10/2015 JOSSELIN DOS SANTOS, JULIA K Ot 202.00 08/10/2015 JOSSELIN DOS SANTOS, JULIA K Ot 202.00 08/10/2015 DEMETRIUS DOS SANTOS, TAKAAKI Ot V72.84 08/10/2015 GLADYS DOS SANTOS FACC, ALI FACP CCDS Ot 272.4 08/10/2015 GLADYS DOS SANTOS FACC, ALI FACP CCDS Ot 414.00 08/10/2015 JOSSELIN DOS SANTOS, JULIA Angel Ot 202.00 08/10/2015 Ot 202.00 08/10/2015 GLADYS DOS SANTOS FAC, ALI FACP CCDS Ot 272.4 08/10/2015 GLADYS DOS SANTOS FAC, ALI FACP CCDS Ot 356.9 08/10/2015 GLADYS DOS SANTOS FAC, ALI FACP CCDS Ot 414.00 08/10/2015 GLADYS DOS SANTOS FAC, ALI FACP CCDS Ot 443.9 08/10/2015 JOSSELIN DOS SANTOS, JULIA Angel Ot 202.00 08/10/2015 GLADYS DOS SANTOS FAC, ALI FACP CCDS Ot C82.30 08/10/2015 GLADYS DOS SANTOS FAC, ALI FACP CCDS Ot E78.5 08/10/2015 GLADYS DOS SANTOS FAC, ALI FACP CCDS Ot I25.10 08/10/2015 GLADYS DOS SANTOS FAC, ALI FACP CCDS Ot I42.9 08/10/2015 GLADYS DOS SANTOS FAC, ALI FACP CCDS Ot K21.9 08/10/2015 GLADYS DOS SANTOS [facility], ALI FACP CCDS Ot Z68.41 08/10/2015 LUZMA LEO TRAINING AND DOCUMENTATION SPECIALIST Ot E78.5 08/10/2015 LUZMA LEO TRAINING AND DOCUMENTATION SPECIALIST Ot I25.10 08/10/2015 JOSSELIN DOS SANTOS, JULIA Angel Ot C82.90 08/10/2015 JOSSELIN DOS SANTOS, JULIA Angel Ot I25.10 08/10/2015 JOSSELIN DOS SANTOS, JULIA Angel Ot K21.9 08/10/2015 JOSSELIN DOS SANTOS, JULIA Angel Ot Z45.2 08/10/2015 JOSSELIN DOS SANTOS, JULIA Angel Ot Z51.11 08/10/2015 JOSSELIN DOS SANTOS, JULIA Angel Ot Z79.899 08/11/2015 JOSSELIN DOS SANTOS, JULIA Angel Ot C82.33 09/01/2015 JOSSELIN DOS SANTOS, JULIA Angel Ot C82.33 09/09/2015 JOSSELIN DOS SANTOS, JULIA Angel Ot 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, INTRA-AB 09/09/2015 JOSSELIN DOS SANTOS, JULIA Angel Ot I25.10 ATHSCL HEART DISEASE OF [place] CORONARY 09/09/2015 JOSSELIN DOS SANTOS, JULIA Angel Ot K21.9 GASTRO-ESOPHAGEAL REFLUX DISEASE WITHOUT 09/09/2015 JOSSELIN DOS SANTOS, JULIA Angel Ot Z45.2 ENCOUNTER FOR ADJUSTMENT AND MANAGEMENT 09/09/2015 JOSSELIN DOS SANTOSJULIA Ot Z79.899 OTHER [facility] (CURRENT) DRUG THERAPY 09/22/2015 JULIA SCHWAB MD, Ot 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, INTRA-AB 09/22/2015 JULIA SCHWAB MD, Ot I25.10 ATHSCL HEART DISEASE OF [place] CORONARY 09/22/2015 JULIA SCHWAB MD, Ot K21.9 GASTRO-ESOPHAGEAL REFLUX DISEASE WITHOUT 09/22/2015 JULIA SCHWAB MD, Ot Z45.2 ENCOUNTER FOR ADJUSTMENT AND MANAGEMENT 09/22/2015 JULIA SCHWAB MD, Ot Z79.899 OTHER [facility] (CURRENT) DRUG THERAPY 09/26/2015 JULIA SCHWAB MD, Ot 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, INTRA-AB 09/26/2015 JULIA SCHWAB MD, Ot I25.10 ATHSCL HEART DISEASE OF [place] CORONARY 09/26/2015 JULIA SCHWAB MD, Ot K21.9 GASTRO-ESOPHAGEAL REFLUX DISEASE WITHOUT 09/26/2015 JULIA SCHWAB MD, Ot Z45.2 ENCOUNTER FOR ADJUSTMENT AND MANAGEMENT 09/26/2015 JULIA SCHWAB MD, Ot Z79.899 OTHER [facility] (CURRENT) DRUG THERAPY 11/04/2015 JULIA SCHWAB MD, Ot 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, INTRA-AB 11/04/2015 JULIA SCHWAB MD, Ot I25.10 ATHSCL HEART DISEASE OF [place] CORONARY 11/04/2015 JULIA SCHWAB MD, Ot K21.9 GASTRO-ESOPHAGEAL REFLUX DISEASE WITHOUT 11/04/2015 JULIA SCHWAB MD, Ot Z45.2 ENCOUNTER FOR ADJUSTMENT AND MANAGEMENT 11/04/2015 JULIA SCHWAB MD, Ot Z79.899 OTHER [facility] (CURRENT) DRUG THERAPY 12/10/2015 GLADYS DOS SANTOS FACC, ALI FACP CCDS Ot 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, INTRA-AB 12/10/2015 GLADYS DOS SANTOS FACC, ALI FACP CCDS Ot E78.4 OTHER HYPERLIPIDEMIA 12/10/2015 GLADYS DOS SANTOS FACC, ALI FACP CCDS Ot I25.10 ATHSCL HEART DISEASE OF [place] CORONARY 12/10/2015 JULIA SCHWAB MD, Ot 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, INTRA-AB 12/10/2015 JULIA SCHWAB MD Ot I25.10 ATHSCL HEART DISEASE OF [place] CORONARY 12/10/2015 JULIA SCHWAB MD, Ot K21.9 GASTRO-ESOPHAGEAL REFLUX DISEASE WITHOUT 12/10/2015 JULIA SCHWAB MD, Ot Z45.2 ENCOUNTER FOR ADJUSTMENT AND MANAGEMENT 12/10/2015 JULIA SCHWAB MD Ot Z79.899 OTHER LEATHER CRAFTSMAN (CURRENT) DRUG THERAPY 12/15/2015 GLADYS DOS SANTOS FAC, ALI FACP CCDS Ot 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, INTRA-AB 12/15/2015 GLADYS DOS SANTOS FACC, ALI FACP CCDS Ot E78.4 OTHER HYPERLIPIDEMIA 12/15/2015 GLADYS DOS SANTOS FACC, ALI FACP CCDS Ot I25.10 ATHSCL HEART DISEASE OF [place] CORONARY 12/15/2015 GLADYS DO SSANTOS FACC, ALI FACP CCDS Ot 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, INTRA-AB 12/15/2015 GLADYS DOS SANTOS FACC, ALI FACP CCDS Ot E78.4 OTHER HYPERLIPIDEMIA 12/15/2015 GLADYS DOS SANTOS FACC, ALI FACP CCDS Ot I25.10 ATHSCL HEART DISEASE OF [place] CORONARY 01/01/2016 GLADYS DOS SANTOS FACC, ALI FACP CCDS Ot 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, INTRA-AB 01/01/2016 GLADYS DOS SANTOS [facility], ALI FACP CCDS Ot E78.4 OTHER HYPERLIPIDEMIA 01/01/2016 GLADYS DOS SANTOS FAC, ALI FACP CCDS Ot I25.10 ATHSCL HEART DISEASE OF [place] CORONARY 01/22/2016 JULIA SCHWAB MD Ot 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, INTRA-AB 01/22/2016 JULIA SCHWAB MD Ot I25.10 ATHSCL HEART DISEASE OF [place] CORONARY 01/22/2016 JULIA SCHWAB MD Ot K21.9 GASTRO-ESOPHAGEAL REFLUX DISEASE WITHOUT 01/22/2016 JULIA SCHWAB MD Ot Z45.2 ENCOUNTER FOR ADJUSTMENT AND MANAGEMENT 01/22/2016 JULIA SCHWAB MD Ot Z79.899 OTHER LEATHER CRAFTSMAN (CURRENT) DRUG THERAPY 01/31/2016 JULIA SCHWAB MD Ot 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, INTRA-AB 01/31/2016 JULIA SCHWAB MD Ot I25.10 ATHSCL HEART DISEASE OF [place] CORONARY 01/31/2016 JULIA SCHWAB MD Ot K21.9 GASTRO-ESOPHAGEAL REFLUX DISEASE WITHOUT 01/31/2016 JULIA SCHWAB MD Ot Z45.2 ENCOUNTER FOR ADJUSTMENT AND MANAGEMENT 01/31/2016 JULIA SCHWAB MD Ot Z79.899 OTHER FPC (CURRENT) DRUG THERAPY 2016 JULIA SCHWAB MD, Ot 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, INTRA-AB 2016 JULIA SCHWAB MD, Ot I25.10 ATHSCL HEART DISEASE OF [place] CORONARY 2016 JULIA SCHWAB MD, Ot K21.9 GASTRO-ESOPHAGEAL REFLUX DISEASE WITHOUT 2016 JULIA SCHWAB MD, Ot Z45.2 ENCOUNTER FOR ADJUSTMENT AND MANAGEMENT 2016 JULIA SCHWAB MD, Ot Z79.899 OTHER LEATHER CRAFTSMAN (CURRENT) DRUG THERAPY 2016 JULIA SCHWAB MD, Ot 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, INTRA-AB 2016 JULIA SCHWAB MD, Ot K57.30 DVRTCLOS OF LG INT W/O PERFORATION OR AB 2016 JULIA SCHWAB MD, Ot2.33 FOLLICULAR LYMPHOMA GRADE IIIA, INTRA-AB 2016 JULIA SCHWAB MD, Ot K57.30 DVRTCLOS OF LG INT W/O PERFORATION OR AB 02/16/2016 JULIA SCHWAB MD, Ot2.33 FOLLICULAR LYMPHOMA GRADE IIIA, INTRA-AB 02/16/2016 JULIA SCHWAB MD, Ot K57.30 DVRTCLOS OF LG INT W/O PERFORATION OR AB 02/26/2016 JULIA SCHWAB MD, Ot 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, INTRA-AB 02/26/2016 JULIA SCHWAB MD, Ot I25.10 ATHSCL HEART DISEASE OF [place] CORONARY 02/26/2016 JULIA SCHWAB MD, Ot K21.9 GASTRO-ESOPHAGEAL REFLUX DISEASE WITHOUT 02/26/2016 JULIA SCHWAB MD, Ot Z45.2 ENCOUNTER FOR ADJUSTMENT AND MANAGEMENT 02/26/2016 JULAI SCHWAB MD, Ot Z79.899 OTHER LEATHER CRAFTSMAN (CURRENT) DRUG THERAPY 03/02/2016 JULIA SCHWAB MD, Ot 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, INTRA-AB 03/02/2016 JULIA SCHWAB MD, Ot K57.30 DVRTCLOS OF LG INT W/O PERFORATION OR AB 03/10/2016 JULIA SCHWAB MD, Ot 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, INTRA-AB 03/10/2016 JULIA SCHWAB MD, Ot I25.10 ATHSCL HEART DISEASE OF [place] CORONARY 03/10/2016 JULIA SCHWAB MD, Ot K21.9 GASTRO-ESOPHAGEAL REFLUX DISEASE WITHOUT 03/10/2016 JULIA SCHWAB MD, Ot Z45.2 ENCOUNTER FOR ADJUSTMENT AND MANAGEMENT 03/10/2016 JULIA SCHWAB MD, Ot Z79.899 OTHER LEATHER CRAFTSMAN (CURRENT) DRUG THERAPY 03/15/2016 JULIA SCHWAB MD, Ot 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, INTRA-AB 03/15/2016 JULIA SCHWAB MD, Ot K57.30 DVRTCLOS OF LG INT W/O PERFORATION OR AB 04/20/2016 JULIA SCHWAB MD, Ot 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, INTRA-AB 04/20/2016 JULIA SCHWAB MD, Ot I25.10 ATHSCL HEART DISEASE OF [place] CORONARY 04/20/2016 JULIA SCHWAB MD, Ot K21.9 GASTRO-ESOPHAGEAL REFLUX DISEASE WITHOUT 04/20/2016 JULIA SCHWAB MD, Ot Z45.2 ENCOUNTER FOR ADJUSTMENT AND MANAGEMENT 04/20/2016 JULIA SCHWAB MD, Ot Z79.899 OTHER FPC (CURRENT) DRUG THERAPY 06/07/2016 JULIA SCHWAB MD, Ot2.33 FOLLICULAR LYMPHOMA GRADE IIIA, INTRA-AB 06/07/2016 JULIA SCHWAB MD, Ot I25.10 ATHSCL HEART DISEASE OF [place] CORONARY 06/07/2016 JULIA SCHWAB MD, Ot K21.9 GASTRO-ESOPHAGEAL REFLUX DISEASE WITHOUT 06/07/2016 JULIA SCHWAB MD, Ot Z45.2 ENCOUNTER FOR ADJUSTMENT AND MANAGEMENT 06/07/2016 JULIA SCHWAB MD, Ot Z79.899 OTHER FPC (CURRENT) DRUG THERAPY 06/08/2016 JULIA SCHWAB MD, Ot 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, INTRA-AB 06/08/2016 JULIA SCHWAB MD, Ot I25.10 ATHSCL HEART DISEASE OF [place] CORONARY 06/08/2016 JULIA SCHWAB MD, Ot K21.9 GASTRO-ESOPHAGEAL REFLUX DISEASE WITHOUT 06/08/2016 JULIA SCHWAB MD, Ot Z45.2 ENCOUNTER FOR ADJUSTMENT AND MANAGEMENT 06/08/2016 JULIA SCHWAB MD, Ot Z79.899 OTHER FPC (CURRENT) DRUG THERAPY 06/21/2016 JULIA SCHWAB MD, Ot 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, INTRA-AB 06/21/2016 JULIA SCHWAB MD, Ot I25.10 ATHSCL HEART DISEASE OF [place] CORONARY 06/21/2016 JULIA SCHWAB MD, Ot K21.9 GASTRO-ESOPHAGEAL REFLUX DISEASE WITHOUT 06/21/2016 JULIA SCHWAB MD, Ot Z45.2 ENCOUNTER FOR ADJUSTMENT AND MANAGEMENT 06/21/2016 JOSSELIN DOS SANTOS, JULIA Angel Ot Z79.899 OTHER FPC (CURRENT) DRUG THERAPY 06/21/2016 Ot 715.97 OSTEOARTHROS NOS-ANKLE 06/21/2016 Ot 734 FLAT FOOT 06/21/2016 Ot 272.4 HYPERLIPIDEMIA NEC/NOS 06/21/2016 Ot 414.00 CORON ATHEROSCLER NOS TYPE VESSEL, NATIV 06/21/2016 Ot V58.69 OTH MED,LT, CURRENT USE 06/21/2016 Ot 272.4 HYPERLIPIDEMIA NEC/NOS 06/21/2016 Ot 414.01 CORONARY ATHEROSCLEROSIS OF [place] CORON 06/21/2016 Ot V58.69 OTH MED,LT, CURRENT USE 06/21/2016 JEREMI DOS SANTOS, TIM R Ot 789.06 ABDOMINAL PAIN, EPIGASTRIC 06/21/2016 JEREMI DOS SANTOS TIM R Ot 785.6 ENLARGEMENT LYMPH NODES 06/21/2016 TIM BLOOD MD R Ot 789.06 ABDOMINAL PAIN, EPIGASTRIC 06/21/2016 JEREMI DOS SANTOS TIM R Ot 785.6 ENLARGEMENT LYMPH NODES 06/21/2016 JEREMI DOS SANTOS TIM R Ot 787.02 NAUSEA ALONE 06/21/2016 JEREMI DOS SANTOS, TIM R Ot 789.06 ABDOMINAL PAIN, EPIGASTRIC 06/21/2016 NANCY ROMO MD Ot 785.6 ENLARGEMENT LYMPH NODES 06/21/2016 NANCY ROMO MD Ot V72.63 PRE-PROCEDURAL LABORATORY EXAMINATION 06/21/2016 NANCY ROMO MD Ot V74.8 SCREEN-BACTERIAL DIS NEC 06/21/2016 JULIA SCHWAB MD Ot 793.99 OTH NOSP (ABN) FINDINGS RADIOLOGICAL O 06/21/2016 JULIA SCHWAB MD Ot 202.80 OTH LYMPHOMAS EXTRANODAL SOLID ORGAN U 06/21/2016 JULIA SCHWAB MD Ot 397.0 TRICUSPID VALVE DISEASE 06/21/2016 JULIA SCHWAB MD Ot 424.0 MITRAL VALVE DISORDER 06/21/2016 NANCY ROMO MD Ot 202.80 OTH LYMPHOMAS EXTRANODAL SOLID ORGAN U 06/21/2016 NANCY ROMO MD Ot V72.84 EXAM PRE-OPERATIVE NOS 06/21/2016 WILL CROWE TRAINING AND DOCUMENTATION SPECIALIST Ot 202.85 LYMPHOMAS NEC INGUIN 06/21/2016 WILL CROWE TRAINING AND DOCUMENTATION SPECIALIST Ot 272.4 HYPERLIPIDEMIA NEC/NOS 06/21/2016 WILL CROWE TRAINING AND DOCUMENTATION SPECIALIST Ot 278.00 OBESITY, NOS 06/21/2016 WILL CROWE TRAINING AND DOCUMENTATION SPECIALIST Ot 401.9 HYPERTENSION NOS 06/21/2016 WILL CROWE TRAINING AND DOCUMENTATION SPECIALIST Ot 414.00 CORON ATHEROSCLER NOS TYPE VESSEL, NATIV 06/21/2016 WILL CROWE TRAINING AND DOCUMENTATION SPECIALIST Ot 715.90 OSTEOARTHROS NOS-UNSPEC 06/21/2016 WILL CROWE TRAINING AND DOCUMENTATION SPECIALIST Ot V12.71 PERSONAL HISTORY OF PEPTIC ULCER DISEASE 06/21/2016 WILL CROWE TRAINING AND DOCUMENTATION SPECIALIST Ot V58.66 LONG-TERM (CURRENT) USE OF ASPIRIN 06/21/2016 WILL CROWE TRAINING AND DOCUMENTATION SPECIALIST Ot V58.69 OTH MED,LT,CURRENT USE 06/21/2016 GLADYS DOS SANTOS FACC, MAURISIO [place] CCDS Ot 272.4 HYPERLIPIDEMIA NEC/NOS 06/21/2016 JOSSELIN DOS SANTOS, JULIA Angel Ot 202.85 LYMPHOMAS NEC INGUIN 06/21/2016 JOSSELIN DOS SANTOS, JULIA Angel Ot 202.80 OTH LYMPHOMAS EXTRANODAL SOLID ORGAN U 06/21/2016 JULIA SCHWAB MD Ot 202.80 OTH LYMPHOMAS EXTRANODAL SOLID ORGAN U 06/21/2016 JOSSELIN DOS SANTOS, JULIA Angel Ot 571.8 CHRONIC LIVER DIS NEC 06/21/2016 JOSSELIN DOS SANTOS, JULIA Angel Ot 202.80 OTH LYMPHOMAS EXTRANODAL SOLID ORGAN U 06/21/2016 JULIA SCHWAB MD Ot V58.69 OTH MED,LT,CURRENT USE 06/21/2016 JULIA SCHWAB MD Ot V58.83 ENCOUNTER FOR THERAPEUTIC DRUG MONITORIN 06/21/2016 LUZMA LEO TRAINING AND DOCUMENTATION SPECIALIST Ot 414.00 CORON ATHEROSCLER NOS TYPE VESSEL, NATIV 06/21/2016 JULIA SCHWAB MD Ot 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 06/21/2016 JULIA SCHWAB MD Ot V58.69 OTH MED,LT,CURRENT USE 06/21/2016 JULIA SCHWAB MD Ot 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 06/21/2016 JULIA SCHWAB MD Ot 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 06/21/2016 NANCY ROMO MD Ot V72.84 EXAM PRE-OPERATIVE NOS 06/21/2016 GLADYS DOS SANTOS FACC, MAURISIO FACP CCDS Ot 272.4 HYPERLIPIDEMIA NEC/NOS 06/21/2016 GLADYS DOS SANTOS FACC, ALI FACP CCDS Ot 414.00 CORON ATHEROSCLER NOS TYPE VESSEL, NATIV 06/21/2016 JULIA SCHWAB MD Ot 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 06/21/2016 Ot 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 06/21/2016 GLADYS DOS SANTOS FACC, ALI FACP CCDS Ot 272.4 HYPERLIPIDEMIA NEC/NOS 06/21/2016 GLADYS DOS SANTOS FACC, ALI FACP CCDS Ot 356.9 IDIO PERIPH NEURPTHY NOS 06/21/2016 GLADYS DOS SANTOS FACC, ALI FACP CCDS Ot 414.00 CORON ATHEROSCLER NOS TYPE VESSEL, NATIV 06/21/2016 GLADYS DOS SANTOS FACC, ALI FACP CCDS Ot 443.9 PERIPH VASCULAR DIS NOS 06/21/2016 JULIA SCHWAB MD Ot 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 06/21/2016 GLADYS DOS SANTOS FACC, ALI FACP CCDS Ot C82.30 FOLLICULAR LYMPHOMA GRADE IIIA, UNSPECIF 06/21/2016 GLADYS DOS SANTOS FACC, ALI FACP CCDS Ot E78.5 HYPERLIPIDEMIA, UNSPECIFIED 06/21/2016 GLADYS DOS SANTOS FACC, ALI FACP CCDS Ot I25.10 ATHSCL HEART DISEASE OF [place] CORONARY 06/21/2016 GLADYS DOS SANTOS FACC, ALI FACP CCDS Ot I42.9 CARDIOMYOPATHY, UNSPECIFIED 06/21/2016 GLADYS DOS SANTOS FACC, ALI FACP CCDS Ot K21.9 GASTRO-ESOPHAGEAL REFLUX DISEASE WITHOUT 06/21/2016 GLADYS DOS SANTOS FACC, ALI FACP CCDS Ot Z68.41 BODY MASS INDEX (BMI) 40.0-44.9, ADULT 06/21/2016 LUZMA LEO TRAINING AND DOCUMENTATION SPECIALIST Ot E78.5 HYPERLIPIDEMIA, UNSPECIFIED 06/21/2016 LUZMA LEO TRAINING AND DOCUMENTATION SPECIALIST Ot I25.10 ATHSCL HEART DISEASE OF [place] CORONARY 06/21/2016 JULIA SCHWAB MD Ot 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, INTRA-AB 06/21/2016 GLADYS DOS SANTOS FACC, ALI FACP CCDS Ot 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, INTRA-AB 06/21/2016 GLADYS MD FACC, ALI FACP CCDS Ot E78.4 OTHER HYPERLIPIDEMIA 06/21/2016 GLADYS DOS SANTOS FACC, ALI FACP CCDS Ot I25.10 ATHSCL HEART DISEASE OF [place] CORONARY 06/21/2016 JULIA SCHWAB MD, Ot 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, INTRA-AB 06/21/2016 JULIA SCHWAB MD, Ot K57.30 DVRTCLOS OF LG INT W/O PERFORATION OR AB 06/21/2016 JULIA SCHWAB MD, Ot 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, INTRA-AB 06/21/2016 JULIA SCHWAB MD, Ot I25.10 ATHSCL HEART DISEASE OF [place] CORONARY 06/21/2016 JULIA SCHWAB MD, Ot K21.9 GASTRO-ESOPHAGEAL REFLUX DISEASE WITHOUT 06/21/2016 JULIA SCHWAB MD, Ot Z45.2 ENCOUNTER FOR ADJUSTMENT AND MANAGEMENT 06/21/2016 JULIA SCHWAB MD, Ot Z79.899 OTHER [facility]PC (CURRENT) DRUG THERAPY 06/27/2016 JULIA SCHWAB MD, Ot 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, INTRA-AB 06/27/2016 JULIA SCHWAB MD Ot R10.9 UNSPECIFIED ABDOMINAL PAIN 07/14/2016 JULIA SCHWAB MD, Ot 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, INTRA-AB 07/14/2016 JULIA SCHWAB MD, Ot R10.9 UNSPECIFIED ABDOMINAL PAIN 07/18/2016 JULIA SCHWAB MD, Ot 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, INTRA-AB 07/18/2016 JULIA SCHWAB MD Ot I25.10 ATHSCL HEART DISEASE OF [place] CORONARY 07/18/2016 JULIA SCHWAB MD, Ot K21.9 GASTRO-ESOPHAGEAL REFLUX DISEASE WITHOUT 07/18/2016 JULIA SCHWAB MD Ot Z45.2 ENCOUNTER FOR ADJUSTMENT AND MANAGEMENT 07/18/2016 JULIA SCHWAB MD, Ot Z79.899 OTHER LEATHER CRAFTSMAN (CURRENT) DRUG THERAPY 09/18/2016 JULIA SCHWAB MD, Ot 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, INTRA-AB 09/18/2016 JULIA SCHWAB MD Ot I25.10 ATHSCL HEART DISEASE OF [place] CORONARY 09/18/2016 JULIA SCHWAB MD, Ot K21.9 GASTRO-ESOPHAGEAL REFLUX DISEASE WITHOUT 09/18/2016 JULIA SCHWAB MD Ot Z45.2 ENCOUNTER FOR ADJUSTMENT AND MANAGEMENT 09/18/2016 JULIA SCHWAB MD, Ot Z79.899 OTHER LEATHER CRAFTSMAN (CURRENT) DRUG THERAPY 10/19/2016 JULIA SCHWAB MD, Ot 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, INTRA-AB 10/19/2016 JULIA SCHWAB MD, Ot I25.10 ATHSCL HEART DISEASE OF [place] CORONARY 10/19/2016 JULIA SCHWAB MD, Ot K21.9 GASTRO-ESOPHAGEAL REFLUX DISEASE WITHOUT 10/19/2016 JULIA SCHWAB MD, Ot Z45.2 ENCOUNTER FOR ADJUSTMENT AND MANAGEMENT 10/19/2016 JULIA SCHWAB MD, Ot Z79.899 OTHER FPC (CURRENT) DRUG THERAPY 11/10/2016 JULIA SCHWAB MD, Ot 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, INTRA-AB 11/10/2016 JULIA SCHWAB MD, Ot I25.10 ATHSCL HEART DISEASE OF [place] CORONARY 11/10/2016 JULIA SCHWAB MD, Ot K21.9 GASTRO-ESOPHAGEAL REFLUX DISEASE WITHOUT 11/10/2016 JULIA SCHWAB MD, Ot Z45.2 ENCOUNTER FOR ADJUSTMENT AND MANAGEMENT 11/10/2016 JULIA SCHWAB MD, Ot Z79.899 OTHER LEATHER CRAFTSMAN (CURRENT) DRUG THERAPY 12/08/2016 JULIA SCHWAB MD, Ot 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, INTRA-AB 12/08/2016 JULIA SCHWAB MD, Ot I70.91 GENERALIZED ATHEROSCLEROSIS 12/08/2016 JULIA SCHWAB MD, Ot K57.30 DVRTCLOS OF LG INT W/O PERFORATION OR AB 12/08/2016 JULIA SCHWAB MD, Ot M47.816 SPONDYLOSIS W/O MYELOPATHY OR RADICULOPA 12/08/2016 JULIA SCHWAB MD, Ot M48.06 SPINAL STENOSIS, LUMBAR REGION 12/08/2016 JULIA SCHWAB MD, Ot Z90.81 ACQUIRED ABSENCE OF SPLEEN 12/14/2016 JULIA SCHWAB MD, Ot 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, INTRA-AB 12/14/2016 JULIA SCHWAB MD, Ot I70.91 GENERALIZED ATHEROSCLEROSIS 12/14/2016 JULIA SCHWAB MD, Ot K57.30 DVRTCLOS OF LG INT W/O PERFORATION OR AB 12/14/2016 JULIA SCHWAB MD, Ot M47.816 SPONDYLOSIS W/O MYELOPATHY OR RADICULOPA 12/14/2016 JULIA SCHWAB MD, Ot M48.06 SPINAL STENOSIS, LUMBAR REGION 12/14/2016 JULIA SCHWAB MD, Ot Z90.81 ACQUIRED ABSENCE OF SPLEEN 12/14/2016 JULIA SCHWAB MD Ot 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, INTRA-AB 12/14/2016 JULIA SCHWAB MD Ot I70.91 GENERALIZED ATHEROSCLEROSIS 12/14/2016 JULIA SCHWAB MD Ot K57.30 DVRTCLOS OF LG INT W/O PERFORATION OR AB 12/14/2016 JULIA SCHWAB MD, Ot M47.816 SPONDYLOSIS W/O MYELOPATHY OR RADICULOPA 12/14/2016 JULIA SCHWAB MD, Ot M48.06 SPINAL STENOSIS, LUMBAR REGION 12/14/2016 JULIA SCHWAB MD Ot Z90.81 ACQUIRED ABSENCE OF SPLEEN 12/26/2016 GLADYS MTZ, ALI FACP CCDS Ot 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, INTRA-AB 12/26/2016 GLADYS MTZC, ALI FACP CCDS Ot I25.10 ATHSCL HEART DISEASE OF [place] CORONARY 12/26/2016 GLADYS DOS SANTOS FACC, ALI FACP CCDS Ot 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 CARDIOMYOPATHY 12/26/2016 GLADYS DOS SANTOS FACC, ALI FACP CCDS Ot I65.23 OCCLUSION AND STENOSIS OF [place]ATER[place] 12/26/2016 GLADYS DOS SANTOS FACC, ALI FACP CCDS Ot I73.9 PERIPHERAL VASCULAR DISEASE, UNSPECIFIED 12/26/2016 GLADYS DOS SANTOS FAC, ALI FACP CCDS Ot R53.81 OTHER MALAISE 12/26/2016 GLADYS DOS SANTOS FAC, ALI FACP CCDS Ot 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, INTRA-AB 12/26/2016 GLADYS DOS SANTOS FACC, ALI FACP CCDS Ot I25.10 ATHSCL HEART DISEASE OF [place] CORONARY 12/26/2016 GLADYS DOS SANTOS FACC, ALI FACP CCDS Ot 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 CARDIOMYOPATHY 12/26/2016 GLADYS DOS SANTOS FACC, ALI FACP CCDS Ot I65.23 OCCLUSION AND STENOSIS OF [place] 12/26/2016 GLADYS DOS SANTOS FACC, ALI FACP CCDS Ot I73.9 PERIPHERAL VASCULAR DISEASE, UNSPECIFIED 12/26/2016 GLADYS DOS SANTOS FACC, ALI FACP CCDS Ot R53.81 OTHER MALAISE 12/26/2016 GLADYS DOS SANTOS FACC, ALI FACP CCDS Ot 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, INTRA-AB 12/26/2016 GLADYS DOS SANTOS FACC, ALI FACP CCDS Ot I25.10 ATHSCL HEART DISEASE OF [place] CORONARY 12/26/2016 GLADYS MTZ, [facility] 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 CARDIOMYOPATHY 12/26/2016 GLADYS DOS SANTOS [facility]ACC, [facility] CCDS Ot I65.23 OCCLUSION AND STENOSIS OF [place] 12/26/2016 GLADYS DOS SANTOS [facility], ALI FACP CCDS Ot I73.9 PERIPHERAL VASCULAR DISEASE, UNSPECIFIED 12/26/2016 GLADYS MTZ, ALI FACP CCDS Ot R53.81 OTHER MALAISE 12/26/2016 GLADYS MTZ, ALI [facility] CCDS Ot I73.9 PERIPHERAL VASCULAR DISEASE, UNSPECIFIED 12/26/2016 Ot 715.97 OSTEOARTHROS NOS-ANKLE 12/26/2016 Ot 734 FLAT FOOT 12/26/2016 Ot 272.4 HYPERLIPIDEMIA NEC/NOS 12/26/2016 Ot 414.00 CORON ATHEROSCLER NOS TYPE VESSEL, NATIV 12/26/2016 Ot V58.69 OTH MED,LT, CURRENT USE 12/26/2016 Ot 272.4 HYPERLIPIDEMIA NEC/NOS 12/26/2016 Ot 414.01 CORONARY ATHEROSCLEROSIS OF [place] CORON 12/26/2016 Ot V58.69 OTH MED,LT, CURRENT USE 12/26/2016 TIM BLOOD MD Ot 789.06 ABDOMINAL PAIN, EPIGASTRIC 12/26/2016 TIM BLOOD MD R Ot 785.6 ENLARGEMENT LYMPH NODES 12/26/2016 TIM BLOOD MD R Ot 789.06 ABDOMINAL PAIN, EPIGASTRIC 12/26/2016 TIM BLOOD MD Ot 785.6 ENLARGEMENT LYMPH NODES 12/26/2016 TIM BLOOD MD R Ot 787.02 NAUSEA ALONE 12/26/2016 TIM BLOOD MD R Ot 789.06 ABDOMINAL PAIN, EPIGASTRIC 12/26/2016 NANCY ROMO MD Ot 785.6 ENLARGEMENT LYMPH NODES 12/26/2016 NANCY ROMO MD Ot V72.63 PRE-PROCEDURAL LABORATORY EXAMINATION 12/26/2016 NANCY ROMO MD Ot V74.8 SCREEN-BACTERIAL DIS NEC 12/26/2016 JULIA SCHWAB MD Ot 793.99 OTH NOSP (ABN) FINDINGS RADIOLOGICAL O 12/26/2016 JULIA SCHWAB MD Ot 202.80 OTH LYMPHOMAS EXTRANODAL SOLID ORGAN U 12/26/2016 JULIA SCHWAB MD Ot 397.0 TRICUSPID VALVE DISEASE 12/26/2016 JULIA SCHWAB MD Ot 424.0 MITRAL VALVE DISORDER 12/26/2016 NANCY ROMO MD Ot 202.80 OTH LYMPHOMAS EXTRANODAL SOLID ORGAN U 12/26/2016 DEMETRIUS DOS SANTOS, NANCY Ot V72.84 EXAM PRE-OPERATIVE NOS 12/26/2016 WILL CROWE TRAINING AND DOCUMENTATION SPECIALIST Ot 202.85 LYMPHOMAS NEC INGUIN 12/26/2016 WILL CROWE TRAINING AND DOCUMENTATION SPECIALIST Ot 272.4 HYPERLIPIDEMIA NEC/NOS 12/26/2016 WILL CROWE TRAINING AND DOCUMENTATION SPECIALIST Ot 278.00 OBESITY, NOS 12/26/2016 WILL CROWE TRAINING AND DOCUMENTATION SPECIALIST Ot 401.9 HYPERTENSION NOS 12/26/2016 WILL CROWE TRAINING AND DOCUMENTATION SPECIALIST Ot 414.00 CORON ATHEROSCLER NOS TYPE VESSEL, NATIV 12/26/2016 WILL CROWE TRAINING AND DOCUMENTATION SPECIALIST Ot 715.90 OSTEOARTHROS NOS-UNSPEC 12/26/2016 WILL CROWE TRAINING AND DOCUMENTATION SPECIALIST Ot V12.71 PERSONAL HISTORY OF PEPTIC ULCER DISEASE 12/26/2016 WILL CROWE TRAINING AND DOCUMENTATION SPECIALIST Ot V58.66 LONG-TERM (CURRENT) USE OF ASPIRIN 12/26/2016 WILL CROWE TRAINING AND DOCUMENTATION SPECIALIST Ot V58.69 OTH MED,LT,CURRENT USE 12/26/2016 GALDYS DOS SANTOS FACMAURISIO FACP CCDS Ot 272.4 HYPERLIPIDEMIA NEC/NOS 12/26/2016 JULIA SCHWAB MD Ot 202.85 LYMPHOMAS NEC INGUIN 12/26/2016 JULIA SCHWAB MD Ot 202.80 OTH LYMPHOMAS EXTRANODAL SOLID ORGAN U 12/26/2016 JULIA SCHWAB MD Ot 202.80 OTH LYMPHOMAS EXTRANODAL SOLID ORGAN U 12/26/2016 JULIA SCHWAB MD Ot 571.8 CHRONIC LIVER DIS NEC 12/26/2016 JULIA SCHWAB MD Ot 202.80 OTH LYMPHOMAS EXTRANODAL SOLID ORGAN U 12/26/2016 JULIA SCHWAB MD Ot V58.69 OTH MED,LT,CURRENT USE 12/26/2016 JULIA SCHWAB MD Ot V58.83 ENCOUNTER FOR THERAPEUTIC DRUG MONITORIN 12/26/2016 LUZMA LEO TRAINING AND DOCUMENTATION SPECIALIST Ot 414.00 CORON ATHEROSCLER NOS TYPE VESSEL, NATIV 12/26/2016 JULIA SCHWAB MD Ot 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 12/26/2016 JOSSELIN DOS SANTOS, JULIA Angel Ot V58.69 OT MED,LT,CURRENT USE 12/26/2016 JOSSELIN DOS SANTOS, JULIA Angel Ot 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 12/26/2016 JULIA SCHWAB MD Ot 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 12/26/2016 DEMETRIUS DOS SANTOS, NANCY Ot V72.84 EXAM PRE-OPERATIVE NOS 12/26/2016 GLADYS MTZ, ALI FACP CCDS Ot 272.4 HYPERLIPIDEMIA NEC/NOS 12/26/2016 GLADYS MTZC, ALI FACP CCDS Ot 414.00 CORON ATHEROSCLER NOS TYPE VESSEL, NATIV 12/26/2016 JULIA SCHWAB MD Ot 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 12/26/2016 Ot 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 12/26/2016 GLADYS MTZC, ALI FACP CCDS Ot 272.4 HYPERLIPIDEMIA NEC/NOS 12/26/2016 GLADYS MTZ, ALI FACP CCDS Ot 356.9 IDIO PERIPH NEURPTHY NOS 12/26/2016 GLADYS MTZC, ALI FACP CCDS Ot 414.00 CORON ATHEROSCLER NOS TYPE VESSEL, NATIV 12/26/2016 GLADYS DOS SANTOS FACC, ALI FACP CCDS Ot 443.9 PERIPH VASCULAR DIS NOS 12/26/2016 JULIA SCHWAB MD Ot 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 12/26/2016 GLADYS DOS SANTOS FACC, ALI FACP CCDS Ot C82.30 FOLLICULAR LYMPHOMA GRADE IIIA, UNSPECIF 12/26/2016 GLADYS DOS SANTOS FACC, ALI FACP CCDS Ot E78.5 HYPERLIPIDEMIA, UNSPECIFIED 12/26/2016 GLADYS DOS SANTOS FACC, ALI FACP CCDS Ot I25.10 ATHSCL HEART DISEASE OF [place] CORONARY 12/26/2016 GLADYS DOS SANTOS FACC, ALI FACP CCDS Ot I42.9 CARDIOMYOPATHY, UNSPECIFIED 12/26/2016 GLADYS DOS SANTOS FACC, ALI FACP CCDS Ot K21.9 GASTRO-ESOPHAGEAL REFLUX DISEASE WITHOUT 12/26/2016 GLADYS DOS SANTOS FACC, ALI FACP CCDS Ot Z68.41 BODY MASS INDEX (BMI) 40.0-44.9, ADULT 12/26/2016 LUZMA LEOP Ot E78.5 HYPERLIPIDEMIA, UNSPECIFIED 12/26/2016 LUZMA LEOP Ot I25.10 ATHSCL HEART DISEASE OF [place] CORONARY 12/26/2016 JULIA SCHWAB MD, Ot 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, INTRA-AB 12/26/2016 GLADYS DOS SANTOS FAC, ALI FACP VIRGENS Ot 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, INTRA-AB 12/26/2016 GLADYS DOS SANTOS FAC, ALI FACP CCDS Ot E78.4 OTHER HYPERLIPIDEMIA 12/26/2016 GLADYS DOS SANTOS FAC, ALI FACP CCDS Ot I25.10 ATHSCL HEART DISEASE OF [place] CORONARY 12/26/2016 JULIA SCHWAB MD, Ot 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, INTRA-AB 12/26/2016 JULIA SCHWAB MD, Ot K57.30 DVRTCLOS OF LG INT W/O PERFORATION OR AB 12/26/2016 JULIA SCHWAB MD, Ot 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, INTRA-AB 12/26/2016 JULIA SCHWAB MD Ot I70.91 GENERALIZED ATHEROSCLEROSIS 12/26/2016 JULIA SCHWAB MD, Ot K57.30 DVRTCLOS OF LG INT W/O PERFORATION OR AB 12/26/2016 JULIA SCHWAB MD, Ot M47.816 SPONDYLOSIS W/O MYELOPATHY OR RADICULOPA 12/26/2016 JULIA SCHWAB MD, Ot M48.06 SPINAL STENOSIS, LUMBAR REGION 12/26/2016 JULIA SCHWAB MD, Ot Z90.81 ACQUIRED ABSENCE OF SPLEEN 12/26/2016 JULIA SCHWAB MD, Ot 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, INTRA-AB 12/26/2016 JULIA SCHWAB MD Ot R10.9 UNSPECIFIED ABDOMINAL PAIN 12/26/2016 JULIA SCHWAB MD, Ot 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, INTRA-AB 12/26/2016 JULIA SCHWAB MD, Ot I25.10 ATHSCL HEART DISEASE OF [place] CORONARY 12/26/2016 JULIA SCHWAB MD, Ot K21.9 GASTRO-ESOPHAGEAL REFLUX DISEASE WITHOUT 12/26/2016 JULIA SCHWAB MD, Ot Z45.2 ENCOUNTER FOR ADJUSTMENT AND MANAGEMENT 12/26/2016 JULIA SCHWAB MD, Ot Z79.899 OTHER [employer]ATHER [employer]RAFTSMAN (CURRENT) DRUG THERAPY 12/26/2016 GLADYS DOS SANTOS FACC, MAURISIO FACP CCDS Ot 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, INTRA-AB 12/26/2016 GLADYS DOS SANTOS FACC, ALI FACP CCDS Ot I25.10 ATHSCL HEART DISEASE OF [place] CORONARY 12/26/2016 GLADYS DOS SANTOS FACC, ALI FACP CCDS Ot 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 CARDIOMYOPATHY 12/26/2016 GLADYS DOS SANTOS FACC, ALI FACP CCDS Ot I65.23 OCCLUSION AND STENOSIS OF BILATERAL [place] 12/26/2016 GLADYS DOS SANTOS FACC, ALI FACP CCDS Ot I73.9 PERIPHERAL VASCULAR DISEASE, UNSPECIFIED 12/26/2016 GLADYS DOS SANTOS FACC, ALI FACP CCDS Ot R53.81 OTHER MALAISE 12/26/2016 GLADYS DOS SANTOS FACC, ALI FACP CCDS Ot I73.9 PERIPHERAL VASCULAR DISEASE, UNSPECIFIED 12/29/2016 JULIA SCHWAB MD, Ot 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, INTRA-AB 12/29/2016 JULIA SCHWAB MD Ot I70.91 GENERALIZED ATHEROSCLEROSIS 12/29/2016 JULIA SCHWAB MD, Ot K57.30 DVRTCLOS OF LG INT W/O PERFORATION OR AB 12/29/2016 JULIA SCHWAB MD, Ot M47.816 SPONDYLOSIS W/O MYELOPATHY OR RADICULOPA 12/29/2016 JULIA SCHWAB MD, Ot M48.06 SPINAL STENOSIS, LUMBAR REGION 12/29/2016 JULIA SCHWAB MD, Ot Z90.81 ACQUIRED ABSENCE OF SPLEEN 01/16/2017 JULIA SCHWAB MD, Ot 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, INTRA-AB 01/16/2017 JULIA SCHWAB MD, Ot I25.10 ATHSCL HEART DISEASE OF [place] CORONARY 01/16/2017 JULIA SCHWAB MD Ot K21.9 GASTRO-ESOPHAGEAL REFLUX DISEASE WITHOUT 01/16/2017 JULIA SCHWAB MD, Ot Z45.2 ENCOUNTER FOR ADJUSTMENT AND MANAGEMENT 01/16/2017 JULIA SCHWAB MD, Ot Z79.899 OTHER LEATHER CRAFTSMAN (CURRENT) DRUG THERAPY 01/16/2017 GLADYS DOS SANTOS FACC, ALI FACP CCDS Ot 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, INTRA-AB 01/16/2017 GLADYS DOS SANTOS FACC, ALI FACP CCDS Ot I25.10 ATHSCL HEART DISEASE OF [place] CORONARY 01/16/2017 GLADYS DOS SANTOS FACC, ALI FACP CCDS Ot 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 CARDIOMYOPATHY 01/16/2017 GLADYS DOS SANTOS FACC, ALI FACP CCDS Ot I65.23 OCCLUSION AND STENOSIS OF BILATERAL [place] 01/16/2017 GLADYS DOS SANTOS FACC, ALI FACP CCDS Ot I73.9 PERIPHERAL VASCULAR DISEASE, UNSPECIFIED 01/16/2017 GLADYS DOS SANTOS FACC, ALI FACP CCDS Ot R53.81 OTHER MALAISE 01/17/2017 JULIA SCHWAB MD Ot 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, INTRA-AB 01/17/2017 JULIA SCHWAB MD Ot I25.10 ATHSCL HEART DISEASE OF [place] CORONARY 01/17/2017 JULIA SCHWAB MD Ot K21.9 GASTRO-ESOPHAGEAL REFLUX DISEASE WITHOUT 01/17/2017 JULIA SCHWAB MD Ot Z45.2 ENCOUNTER FOR ADJUSTMENT AND MANAGEMENT 01/17/2017 JULIA SCHWAB MD Ot Z79.899 OTHER LEATHER CRAFTSMAN (CURRENT) DRUG THERAPY 01/19/2017 MALIK REYNOSO Ot 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, INTRA-AB 01/19/2017 MALIK REYNOSO Ot I25.10 ATHSCL HEART DISEASE OF [place] CORONARY 01/19/2017 MALIK REYNOSO Ot K21.9 GASTRO-ESOPHAGEAL REFLUX DISEASE WITHOUT 01/19/2017 MALIK REYNOSO Ot Z45.2 ENCOUNTER FOR ADJUSTMENT AND MANAGEMENT 01/19/2017 MALIK REYNOSO Ot Z79.899 OTHER [facility]PC (CURRENT) DRUG THERAPY 01/21/2017 MALIK REYNOSO Ot 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, INTRA-AB 01/21/2017 MALIK REYNOSO Ot I25.10 ATHSCL HEART DISEASE OF [place] CORONARY 01/21/2017 MALIK REYNOSO Ot K21.9 GASTRO-ESOPHAGEAL REFLUX DISEASE WITHOUT 01/21/2017 MALIK REYNOSO Ot Z45.2 ENCOUNTER FOR ADJUSTMENT AND MANAGEMENT 01/21/2017 MALIK REYNOSO Ot Z79.899 OTHER FPC (CURRENT) DRUG THERAPY 01/24/2017 GLADYS DOS SANTOS FACC, ALI FACP CCDS Ot 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, INTRA-AB 01/24/2017 GLADYS DOS SANTOS FACC, ALI FACP CCDS Ot I25.10 ATHSCL HEART DISEASE OF [place] CORONARY 01/24/2017 GLADYS DOS SANTOS FACC, [facility] CCDS Ot 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 CARDIOMYOPATHY 01/24/2017 GLADYS DOS SANTOS [facility] FACP CCDS Ot I65.23 OCCLUSION AND STENOSIS OF BILATERAL [place] 01/24/2017 GLADYS DOS SANTOS [facility] CCDS Ot I73.9 PERIPHERAL VASCULAR DISEASE, UNSPECIFIED 01/24/2017 GLADYS DOS SANTOS [facility], ALI FACP CCDS Ot R53.81 OTHER MALAISE 02/10/2017 EDGARDOMALIK Ot 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, INTRA-AB 02/10/2017 MALIK REYNOSO N Ot I25.10 ATHSCL HEART DISEASE OF [place] CORONARY 02/10/2017 EDGARDOMALIK N Ot K21.9 GASTRO-ESOPHAGEAL REFLUX DISEASE WITHOUT 02/10/2017 EDGARDOMALIK N Ot Z45.2 ENCOUNTER FOR ADJUSTMENT AND MANAGEMENT 02/10/2017 MALIK REYNOSO N Ot Z79.899 OTHER FPC (CURRENT) DRUG THERAPY 02/18/2017 MALIK REYNOSO N Ot 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, INTRA-AB 02/18/2017 MALIK REYNOSO N Ot I25.10 ATHSCL HEART DISEASE OF [place] CORONARY 02/18/2017 EDGARDOMALIK N Ot K21.9 GASTRO-ESOPHAGEAL REFLUX DISEASE WITHOUT 02/18/2017 EDGARDOMALIK N Ot Z45.2 ENCOUNTER FOR ADJUSTMENT AND MANAGEMENT 02/18/2017 EDGARDOMALIK N Ot Z79.899 OTHER FPC (CURRENT) DRUG THERAPY 03/02/2017 MALIK REYNOSO N Ot 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, INTRA-AB 03/02/2017 MALIK REYNOSO N Ot I25.10 ATHSCL HEART DISEASE OF [place] CORONARY 03/02/2017 EDGARDOMALIK N Ot K21.9 GASTRO-ESOPHAGEAL REFLUX DISEASE WITHOUT 03/02/2017 EDGARDOMALIK N Ot Z45.2 ENCOUNTER FOR ADJUSTMENT AND MANAGEMENT 03/02/2017 MALIK REYNOSO N Ot Z79.899 OTHER FPC (CURRENT) DRUG THERAPY 04/04/2017 EDGARDOMALIK N Ot 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, INTRA-AB 04/04/2017 MALIK REYNOSO N Ot I25.10 ATHSCL HEART DISEASE OF [place] CORONARY 04/04/2017 MALIK REYNOSO N Ot K21.9 GASTRO-ESOPHAGEAL REFLUX DISEASE WITHOUT 04/04/2017 EDGARDOMALIK SLATER Mt Ot Z45.2 ENCOUNTER FOR ADJUSTMENT AND MANAGEMENT 04/04/2017 MALIK REYNOSO Ot Z79.899 OTHER FPC (CURRENT) DRUG THERAPY 04/06/2017 KIMBERLY PETERS MD, Ot 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, INTRA-AB 04/06/2017 KIMBERLY PETERS MD Ot I25.10 ATHSCL HEART DISEASE OF [place] CORONARY 04/06/2017 KIMBERLY PETERS MD Ot K21.9 GASTRO-ESOPHAGEAL REFLUX DISEASE WITHOUT 04/06/2017 KIMBERLY PETERS MD Ot Z45.2 ENCOUNTER FOR ADJUSTMENT AND MANAGEMENT 04/06/2017 KIMBERLY PETERS MD Ot Z79.899 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 LEATHER CRAFTSMAN (CURRENT) DRUG THERAPY 04/06/2017 KIMBERLY PETERS MD, Ot 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, INTRA-AB 04/06/2017 KIMBERLY PETERS MD Ot I25.10 ATHSCL HEART DISEASE OF [place] CORONARY 04/06/2017 KIMBERLY PETERS MD, Ot K21.9 GASTRO-ESOPHAGEAL REFLUX DISEASE WITHOUT 04/06/2017 KIMBERLY PETERS MD Ot Z45.2 ENCOUNTER FOR ADJUSTMENT AND MANAGEMENT 04/06/2017 KIMBERLY PETERS MD Ot Z79.899 OTHER FPC (CURRENT) DRUG THERAPY 04/06/2017 Ot 272.4 HYPERLIPIDEMIA NEC/NOS 04/06/2017 Ot 414.00 CORON ATHEROSCLER NOS TYPE VESSEL, NATIV 04/06/2017 Ot V58.69 OTH MED,LT, CURRENT USE 04/06/2017 Ot 272.4 HYPERLIPIDEMIA NEC/NOS 04/06/2017 Ot 414.01 CORONARY ATHEROSCLEROSIS OF [place] CORON 04/06/2017 Ot V58.69 OTH MED,LT, CURRENT USE 04/06/2017 JEREMI DOS SANTOS TIM R Ot 789.06 ABDOMINAL PAIN, EPIGASTRIC 04/06/2017 JEREMI DOS SANTOS TIM R Ot 785.6 ENLARGEMENT LYMPH NODES 04/06/2017 JEREMI DOS SANTOS TIM R Ot 789.06 ABDOMINAL PAIN, EPIGASTRIC 04/06/2017 JEREMI DOS SANTOS TIM R Ot 785.6 ENLARGEMENT LYMPH NODES 04/06/2017 JEREMI DOS SANTOS TIM R Ot 787.02 NAUSEA ALONE 04/06/2017 JEREMI DOS SANTOS TIM R Ot 789.06 ABDOMINAL PAIN, EPIGASTRIC 04/06/2017 NANCY ROMO MD Ot 785.6 ENLARGEMENT LYMPH NODES 04/06/2017 NANCY ROMO MD Ot V72.63 PRE-PROCEDURAL LABORATORY EXAMINATION 04/06/2017 NANCY ROMO MD Ot V74.8 SCREEN-BACTERIAL DIS NEC 04/06/2017 JOSSELIN DOS SANTOS, JULIA Angel Ot 793.99 OTH NOSP (ABN) FINDINGS RADIOLOGICAL O 04/06/2017 JULIA SCHWAB MD Ot 202.80 OTH LYMPHOMAS EXTRANODAL SOLID ORGAN U 04/06/2017 JULIA SCHWAB MD Ot 397.0 TRICUSPID VALVE DISEASE 04/06/2017 JULIA SCHWAB MD Ot 424.0 MITRAL VALVE DISORDER 04/06/2017 NANCY ROMO MD Ot 202.80 OTH LYMPHOMAS EXTRANODAL SOLID ORGAN U 04/06/2017 NANCY ROMO MD Ot V72.84 EXAM PRE-OPERATIVE NOS 04/06/2017 WILL CROWE TRAINING AND DOCUMENTATION SPECIALIST Ot 202.85 LYMPHOMAS NEC INGUIN 04/06/2017 WILL CROWE TRAINING AND DOCUMENTATION SPECIALIST Ot 272.4 HYPERLIPIDEMIA NEC/NOS 04/06/2017 WILL CROWE TRAINING AND DOCUMENTATION SPECIALIST Ot 278.00 OBESITY, NOS 04/06/2017 WILL CROWE TRAINING AND DOCUMENTATION SPECIALIST Ot 401.9 HYPERTENSION NOS 04/06/2017 WILL CROWE TRAINING AND DOCUMENTATION SPECIALIST Ot 414.00 CORON ATHEROSCLER NOS TYPE VESSEL, NATIV 04/06/2017 WILL CROWE TRAINING AND DOCUMENTATION SPECIALIST Ot 715.90 OSTEOARTHROS NOS-UNSPEC 04/06/2017 WILL CROWE TRAINING AND DOCUMENTATION SPECIALIST Ot V12.71 PERSONAL HISTORY OF PEPTIC ULCER DISEASE 04/06/2017 WILL CROWE TRAINING AND DOCUMENTATION SPECIALIST Ot V58.66 LONG-TERM (CURRENT) USE OF ASPIRIN 04/06/2017 WILL CROWE TRAINING AND DOCUMENTATION SPECIALIST Ot V58.69 OTH MED,LT,CURRENT USE 04/06/2017 GLADYS DOS SANTOS FACC, MAURISIO FACGilda CCDS Ot 272.4 HYPERLIPIDEMIA NEC/NOS 04/06/2017 JULIA SCHWAB MD Ot 202.85 LYMPHOMAS NEC INGUIN 04/06/2017 JULIA SCHWAB MD Ot 202.80 OTH LYMPHOMAS EXTRANODAL SOLID ORGAN U 04/06/2017 JULIA SCHWAB MD Ot 202.80 OTH LYMPHOMAS EXTRANODAL SOLID ORGAN U 04/06/2017 JULIA SCHWAB MD Ot 571.8 CHRONIC LIVER DIS NEC 04/06/2017 JULIA SCHWAB MD Ot 202.80 OTH LYMPHOMAS EXTRANODAL SOLID ORGAN U 04/06/2017 JULIA SCHWAB MD Ot V58.69 OTH MED,LT,CURRENT USE 04/06/2017 JULIA SCHWAB MD Ot V58.83 ENCOUNTER FOR THERAPEUTIC DRUG MONITORIN 04/06/2017 LUZMA LEO TRAINING AND DOCUMENTATION SPECIALIST Ot 414.00 CORON ATHEROSCLER NOS TYPE VESSEL, NATIV 04/06/2017 JULIA SCHWAB MD Ot 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 04/06/2017 JULIA SCHWAB MD Ot V58.69 OTH MED,LT,CURRENT USE 04/06/2017 JULIA SCHWAB MD Ot 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 04/06/2017 JULIA SCHWAB MD Ot 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 04/06/2017 NANCY ROMO MD Ot V72.84 EXAM PRE-OPERATIVE NOS 04/06/2017 GLADYS MTZ, ALI FACP CCDS Ot 272.4 HYPERLIPIDEMIA NEC/NOS 04/06/2017 GLADYS MTZ, ALI FACP CCDS Ot 414.00 CORON ATHEROSCLER NOS TYPE VESSEL, NATIV 04/06/2017 JULIA SCHWAB MD Ot 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 04/06/2017 Ot 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 04/06/2017 GLADYS DOS SANTOS FACC, ALI FACP CCDS Ot 272.4 HYPERLIPIDEMIA NEC/NOS 04/06/2017 GLADYS DOS SANTOS FACC, ALI FACP CCDS Ot 356.9 IDIO PERIPH NEURPTHY NOS 04/06/2017 GLADYS MTZC, ALI FACP CCDS Ot 414.00 CORON ATHEROSCLER NOS TYPE VESSEL, NATIV 04/06/2017 GLADYS MTZC, ALI FACP CCDS Ot 443.9 PERIPH VASCULAR DIS NOS 04/06/2017 JULIA SCHWAB MD Ot 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 04/06/2017 GLADYS DOS SANTOS FACC, ALI FACP CCDS Ot C82.30 FOLLICULAR LYMPHOMA GRADE IIIA, UNSPECIF 04/06/2017 GLADYS DOS SANTOS FACC, ALI FACP CCDS Ot E78.5 HYPERLIPIDEMIA, UNSPECIFIED 04/06/2017 GLADYS DOS SANTOS FAC, ALI FACP CCDS Ot I25.10 ATHSCL HEART DISEASE OF [place] CORONARY 04/06/2017 GLADYS DOS SANTOS FACC, ALI FACP CCDS Ot I42.9 CARDIOMYOPATHY, UNSPECIFIED 04/06/2017 GLADYS DOS SANTOS FACC, ALI FACP CCDS Ot K21.9 GASTRO-ESOPHAGEAL REFLUX DISEASE WITHOUT 04/06/2017 GLADYS DOS SANTOS FACC, ALI FACP CCDS Ot Z68.41 BODY MASS INDEX (BMI) 40.0-44.9, ADULT 04/06/2017 BAILUZMA PRESTON TRAINING AND DOCUMENTATION SPECIALIST Ot E78.5 HYPERLIPIDEMIA, UNSPECIFIED 04/06/2017 BAIMALUZMA L TRAINING AND DOCUMENTATION SPECIALIST Ot I25.10 ATHSCL HEART DISEASE OF [place] CORONARY 04/06/2017 JULIA SCHWAB MD, Ot 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, INTRA-AB 04/06/2017 GLADYS MTZ, ALI FACP CCDS Ot 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, INTRA-AB 04/06/2017 GLADYS DOS SANTOS [facility], ALI FACP CCDS Ot E78.4 OTHER HYPERLIPIDEMIA 04/06/2017 GLADYS DOS SANTOS [facility], ALI FACP CCDS Ot I25.10 ATHSCL HEART DISEASE OF [place] CORONARY 04/06/2017 JULIA SCHWAB MD, Ot 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, INTRA-AB 04/06/2017 JULIA SCHWAB MD, Ot K57.30 DVRTCLOS OF LG INT W/O PERFORATION OR AB 04/06/2017 JULIA SCHWAB MD, Ot 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, INTRA-AB 04/06/2017 JULIA SCHWAB MD Ot I70.91 GENERALIZED ATHEROSCLEROSIS 04/06/2017 JULIA SCHWAB MD, Ot K57.30 DVRTCLOS OF LG INT W/O PERFORATION OR AB 04/06/2017 JULIA SCHWAB MD, Ot M47.816 SPONDYLOSIS W/O MYELOPATHY OR RADICULOPA 04/06/2017 JULIA SCHWAB MD, Ot M48.06 SPINAL STENOSIS, LUMBAR REGION 04/06/2017 JULIA SCHWAB MD, Ot Z90.81 ACQUIRED ABSENCE OF SPLEEN 04/06/2017 JULIA SCHWAB MD, Ot 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, INTRA-AB 04/06/2017 JULIA SCHWAB MD Ot R10.9 UNSPECIFIED ABDOMINAL PAIN 04/06/2017 GLADYS DOS SANTOS FACC, ALI FACP CCDS Ot 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, INTRA-AB 04/06/2017 GLADYS MD FACC, ALI FACP CCDS Ot I25.10 ATHSCL HEART DISEASE OF [place] CORONARY 04/06/2017 GLADYS MD FACC, ALI FACP CCDS Ot 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 CARDIOMYOPATHY 04/06/2017 GLADYS FACC, ALI FACP CCDS Ot I65.23 OCCLUSION AND STENOSIS OF BILATERAL [place] 04/06/2017 GLADYS MD FACC, ALI FACP CCDS Ot I73.9 PERIPHERAL VASCULAR DISEASE, UNSPECIFIED 04/06/2017 GLADYS MD FACC, ALI FACP CCDS Ot R53.81 OTHER MALAISE 04/06/2017 GLADYS MD FACC, ALI FACP CCDS Ot 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, INTRA-AB 04/06/2017 GLADYS MD FACC, ALI FACP CCDS Ot I25.10 ATHSCL HEART DISEASE OF [place] CORONARY 04/06/2017 GLADYS DOS SANTOS FACC, ALI FACP CCDS Ot 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 CARDIOMYOPATHY 04/06/2017 GLADYS DOS SANTOS FACC, ALI FACP CCDS Ot I65.23 OCCLUSION AND STENOSIS OF BILATERAL [place] 04/06/2017 GLADYS DOS SANTOS FACC, ALI FACP CCDS Ot I73.9 PERIPHERAL VASCULAR DISEASE, UNSPECIFIED 04/06/2017 GLADYS DOS SANTOS FACC, ALI FACP CCDS Ot R53.81 OTHER MALAISE 04/06/2017 KIMBERLY PETERS MD, Ot 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, INTRA-AB 04/06/2017 KIMBERLY PETERS MD, Ot I25.10 ATHSCL HEART DISEASE OF [place] CORONARY 04/06/2017 KIMBERLY PETERS MD, Ot K21.9 GASTRO-ESOPHAGEAL REFLUX DISEASE WITHOUT 04/06/2017 KIMBERLY PETERS MD, Ot Z45.2 ENCOUNTER FOR ADJUSTMENT AND MANAGEMENT 04/06/2017 KIMBERLY PETERS MD, Ot Z79.899 OTHER [facility] (CURRENT) DRUG THERAPY 05/16/2017 KIMBERLY PETERS MD, Ot 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, INTRA-AB 05/16/2017 KIMBERLY PETERS MD, Ot I25.10 ATHSCL HEART DISEASE OF [place] CORONARY 05/16/2017 KIMBERLY PETERS MD, Ot K21.9 GASTRO-ESOPHAGEAL REFLUX DISEASE WITHOUT 05/16/2017 KIMBERLY PETERS MD, Ot Z45.2 ENCOUNTER FOR ADJUSTMENT AND MANAGEMENT 05/16/2017 KIMBERLY PETERS MD Ot Z79.899 OTHER LEATHER CRAFTSMAN (CURRENT) DRUG THERAPY 05/19/2017 KIMBERLY PETERS MD Ot 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, INTRA-AB 05/19/2017 KIMBERLY PETERS MD Ot I25.10 ATHSCL HEART DISEASE OF [place] CORONARY 05/19/2017 KIMBERLY PETERS MD Ot K21.9 GASTRO-ESOPHAGEAL REFLUX DISEASE WITHOUT 05/19/2017 KIMBERLY PETERS MD Ot Z45.2 ENCOUNTER FOR ADJUSTMENT AND MANAGEMENT 05/19/2017 KIMBERLY PETERS MD Ot Z79.899 OTHER LEATHER CRAFTSMAN (CURRENT) DRUG THERAPY 05/31/2017 KIMBERLY PETERS MD Ot Z08 ENCNTR FOR FOLLOW-UP EXAM AFTER TRTMT FO 05/31/2017 KIMBERLY PETERS MD Ot Z85.72 PERSONAL HISTORY OF NON-[place]GKIN LYMPHOMA 06/21/2017 KIMBERLY PETERS MD Ot Z08 ENCNTR FOR FOLLOW-UP EXAM AFTER TRTMT FO 06/21/2017 KIMBERLY PETERS MD Ot Z85.72 PERSONAL HISTORY OF NON-[place] LYMPHOMA 07/04/2017 KIMBERLY PETERS MD Ot 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, INTRA-AB 07/04/2017 KIMBERLY PETERS MD Ot I25.10 ATHSCL HEART DISEASE OF [place] CORONARY 07/04/2017 KIMBERLY PETERS MD Ot K21.9 GASTRO-ESOPHAGEAL REFLUX DISEASE WITHOUT 07/04/2017 CHIOMA PETERS MDNER Ot Z23 ENCOUNTER FOR IMMUNIZATION 07/04/2017 KIMBERLY PETERS MD Ot Z45.2 ENCOUNTER FOR ADJUSTMENT AND MANAGEMENT 07/04/2017 KIMBERLY PETERS MD Ot Z79.899 OTHER FPC (CURRENT) DRUG THERAPY 07/06/2017 KIMBERLY PETERS MD Ot 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, INTRA-AB 07/06/2017 KIMBERLY PETERS MD Ot I25.10 ATHSCL HEART DISEASE OF [place] CORONARY 07/06/2017 KIMBERLY PETERS MD Ot K21.9 GASTRO-ESOPHAGEAL REFLUX DISEASE WITHOUT 07/06/2017 CHIOMA PETERS MDNER Ot Z23 ENCOUNTER FOR IMMUNIZATION 07/06/2017 KIMBERLY PETERS MD Ot Z79.899 OTHER [employer] (CURRENT) DRUG THERAPY 07/14/2017 KIMBERLY PETERS MD Ot 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, INTRA-AB 07/14/2017 KIMBERLY PETERS MD Ot I25.10 ATHSCL HEART DISEASE OF [place] CORONARY 07/14/2017 KIMBERLY PETERS MD Ot K21.9 GASTRO-ESOPHAGEAL REFLUX DISEASE WITHOUT 07/14/2017 KIMBERLY PETERS MD Ot Z45.2 ENCOUNTER FOR ADJUSTMENT AND MANAGEMENT 07/14/2017 KIMBERLY PETERS MD Ot Z79.899 OTHER [facility] (CURRENT) DRUG THERAPY 08/11/2017 KIMBERLY PETERS MD Ot 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, INTRA-AB 08/11/2017 KIMBERLY PETERS MD Ot I25.10 ATHSCL HEART DISEASE OF [place] CORONARY 08/11/2017 KIMBERLY PETERS MD Ot K21.9 GASTRO-ESOPHAGEAL REFLUX DISEASE WITHOUT 08/11/2017 KIMBERLY PETERS MD Ot Z79.899 OTHER [facility] (CURRENT) DRUG THERAPY 10/11/2017 KIMBERLY PETERS MD, Ot 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, INTRA-AB 10/11/2017 KIMBERLY PETERS MD Ot I25.10 ATHSCL HEART DISEASE OF [place] CORONARY 10/11/2017 KIMBERLY PETERS MD Ot K21.9 GASTRO-ESOPHAGEAL REFLUX DISEASE WITHOUT 10/11/2017 KIMBERLY PETERS MD Ot Z79.899 OTHER [facility] (CURRENT) DRUG THERAPY 10/12/2017 KIMBERLY PETERS MD Ot 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, INTRA-AB 10/12/2017 KIMBERLY PETERS MD Ot I25.10 ATHSCL HEART DISEASE OF [place] CORONARY 10/12/2017 KIMBERLY PETERS MD Ot K21.9 GASTRO-ESOPHAGEAL REFLUX DISEASE WITHOUT 10/12/2017 KIMBERLY PETERS MD Ot Z45.2 ENCOUNTER FOR ADJUSTMENT AND MANAGEMENT 10/12/2017 KIMBERLY PETERS MD Ot Z79.899 OTHER [facility] (CURRENT) DRUG THERAPY 10/30/2017 VINNY MCKINLEY INSURANCE SALES MANAGER Ot M25.441 EFFUSION, RIGHT HAND 11/13/2017 KIMBERLY PETERS MD Ot 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, INTRA-AB 11/13/2017 KIMBERLY PETERS MD Ot I25.10 ATHSCL HEART DISEASE OF [place] CORONARY 11/13/2017 KIMBERLY PETERS MD Ot K21.9 GASTRO-ESOPHAGEAL REFLUX DISEASE WITHOUT 11/13/2017 KIMBERLY PETERS MD Ot Z79.899 OTHER [employer] (CURRENT) DRUG THERAPY 11/15/2017 VINNY MCKINLEY APRN Ot M25.441 EFFUSION, RIGHT HAND 12/07/2017 KIMBERLY PETERS MD, Ot 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, INTRA-AB 12/07/2017 KIMBERLY PETERS MD Ot I25.10 ATHSCL HEART DISEASE OF [place] CORONARY 12/07/2017 KIMBERLY PETERS MD Ot K21.9 GASTRO-ESOPHAGEAL REFLUX DISEASE WITHOUT 12/07/2017 KIMBERLY PETERS MD Ot Z45.2 ENCOUNTER FOR ADJUSTMENT AND MANAGEMENT 12/07/2017 KIMBERLY PETERS MD Ot Z79.899 OTHER [facility] (CURRENT) DRUG THERAPY 12/08/2017 KIMBERLY PETERS MD, Ot 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, INTRA-AB 12/08/2017 KIMBERLY PETERS MD Ot I25.10 ATHSCL HEART DISEASE OF [place] CORONARY 12/08/2017 KIMBERLY PETERS MD Ot K21.9 GASTRO-ESOPHAGEAL REFLUX DISEASE WITHOUT 12/08/2017 KIMBERLY PETERS MD Ot Z45.2 ENCOUNTER FOR ADJUSTMENT AND MANAGEMENT 12/08/2017 KIMBERLY PETERS MD Ot Z79.899 OTHER [employer] (CURRENT) DRUG THERAPY 12/08/2017 KIMBERLY PETERS MD, Ot 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, INTRA-AB 12/08/2017 KIMBERLY PETERS MD Ot I25.10 ATHSCL HEART DISEASE OF [place] CORONARY 12/08/2017 KIMBERLY PETERS MD Ot K21.9 GASTRO-ESOPHAGEAL REFLUX DISEASE WITHOUT 12/08/2017 KIMBERLY PETERS MD Ot Z45.2 ENCOUNTER FOR ADJUSTMENT AND MANAGEMENT 12/08/2017 KIMBERLY PETERS MD, Ot Z79.899 OTHER [facility] (CURRENT) DRUG THERAPY 01/09/2018 KIMBERLY PETERS MD, Ot 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, INTRA-AB 01/09/2018 KIMBERLY PETERS MD Ot I25.10 ATHSCL HEART DISEASE OF [place] CORONARY 01/09/2018 KIMBERLY PETERS MD Ot K21.9 GASTRO-ESOPHAGEAL REFLUX DISEASE WITHOUT 01/09/2018 KIMBERLY PETERS MD Ot Z45.2 ENCOUNTER FOR ADJUSTMENT AND MANAGEMENT 01/09/2018 KIMBERLY PETERS MD, Ot Z79.899 OTHER [facility] (CURRENT) DRUG THERAPY Procedures There is no data. Results Test Result Range Complete blood count (CBC) with automated white blood cell (WBC) differential - 10/26/17 17:05 Blood leukocytes automated count (number/volume) 12.8 10*3/uL 4.3-11.0 Blood erythrocytes automated count (number/volume) 4.17 10*6/uL 4.35-5.85 Venous blood hemoglobin measurement (mass/volume) 14.0 g/dL 13.3-17.7 Blood hematocrit (volume fraction) 41 % 40-54 Automated erythrocyte mean corpuscular volume 98 [foz_us] 80-99 Automated erythrocyte mean corpuscular hemoglobin (mass per erythrocyte) 34 pg 25-34 Automated erythrocyte mean corpuscular hemoglobin concentration measurement ( mass/volume) 34 g/dL 32-36 Automated erythrocyte distribution width ratio 14.4 % 10.0-14.5 Automated blood platelet count (count/volume) 329 10*3/uL 130-400 Automated blood platelet mean volume measurement 9.0 [foz_us] 7.4-10.4 Automated blood neutrophils/100 leukocytes 54 % 42-75 Automated blood lymphocytes/100 leukocytes 30 % 12-44 Blood monocytes/100 leukocytes 12 % 0-12 Automated blood eosinophils/100 leukocytes 3 % 0-10 Automated blood basophils/100 leukocytes 1 % 0-10 Blood neutrophils automated count (number/volume) 7.0 10*3 1.8-7.8 Blood lymphocytes automated count (number/volume) 3.9 10*3 1.0-4.0 Blood monocytes automated count (number/volume) 1.5 10*3 0.0-1.0 Automated eosinophil count 0.4 10*3/uL 0.0-0.3 Automated blood basophil count (count/volume) 0.1 10*3/uL 0.0-0.1 Serum or plasma uric acid measurement (mass/volume) - 10/26/17 17:05 Serum or plasma uric acid measurement (mass/volume) 3.2 mg/dL 2.6-7.2 Complete blood count (CBC) with automated white blood cell (WBC) differential - 02/14/18 09:52 Blood leukocytes automated count (number/volume) 15.3 10*3/uL 4.3-11.0 Blood erythrocytes automated count (number/volume) 4.12 10*6/uL 4.35-5.85 Venous blood hemoglobin measurement (mass/volume) 13.7 g/dL 13.3-17.7 Blood hematocrit (volume fraction) 40 % 40-54 Automated erythrocyte mean corpuscular volume 96 [foz_us] 80-99 Automated erythrocyte mean corpuscular hemoglobin (mass per erythrocyte) 33 pg 25-34 Automated erythrocyte mean corpuscular hemoglobin concentration measurement ( mass/volume) 35 g/dL 32-36 Automated erythrocyte distribution width ratio 14.9 % 10.0-14.5 Automated blood platelet count (count/volume) 328 10*3/uL 130-400 Automated blood platelet mean volume measurement 8.7 [foz_us] 7.4-10.4 Automated blood neutrophils/100 leukocytes 75 % 42-75 Automated blood lymphocytes/100 leukocytes 13 % 12-44 Blood monocytes/100 leukocytes 12 % 0-12 Automated blood eosinophils/100 leukocytes 0 % 0-10 Automated blood basophils/100 leukocytes 0 % 0-10 Blood neutrophils automated count (number/volume) 11.5 10*3 1.8-7.8 Blood lymphocytes automated count (number/volume) 1.9 10*3 1.0-4.0 Blood monocytes automated count (number/volume) 1.8 10*3 0.0-1.0 Automated eosinophil count 0.1 10*3/uL 0.0-0.3 Automated blood basophil count (count/volume) 0.0 10*3/uL 0.0-0.1 Serum or plasma uric acid measurement (mass/volume) - 02/14/18 09:52 Serum or plasma uric acid measurement (mass/volume) 2.7 mg/dL 2.6-7.2 Blood manual differential performed detection - 02/14/18 09:52 Blood monocytes/100 leukocytes 7 % NRG Manual blood segmented neutrophils/100 leukocytes 80 % NRG Blood band neutrophils/100 leukocytes 0 % NRG Manual blood lymphocytes/100 leukocytes 13 % NRG Manual eosinophils/100 leukocytes in nose 0 % NRG Manual blood basophils/100 leukocytes 0 % NRG Acanthocyte detection SLIGHT NRG Blood Ramos-Valle Hermoso bodies detection by light microscopy SLIGHT NRG Encounters ACCT No. Visit Date/Time Discharge Status Pt. Type Provider Facility Loc./Unit Complaint [id number] 01/18/2018 09:05:00 01/18/2018 23:59:59 CLS Outpatient KIMBERLY PETERS MD Via [facility] [id number] 11/10/2017 09:16:00 12/07/2017 09:05:00 DIS Outpatient KIMBERLY PETERS MD [facility] ONC [id number] 10/26/2017 16:53:00 10/26/2017 23:59:59 CLS Outpatient VINNY MCKINLEY APRN [facility] LAB SWELLING R HAND JOINT [id number] 10/05/2017 09:24:00 10/11/2017 00:01:00 DIS Outpatient KIMBERLY PETERS MD [facility] ONC [id number] 06/08/2017 09:50:00 07/04/2017 00:01:00 DIS Outpatient KIMBERLY PETERS MD [facility] ONC [id number] 05/31/2017 08:13:00 05/31/2017 23:59:59 CLS Outpatient KIMBERLY PETERS MD [facility] RAD FOLLICULAR LYMPHOMA GRADE 3A [id number] 03/01/2017 15:51:00 04/04/2017 10:44:00 DIS Outpatient MALIK REYNOSO [facility] ONC [id number] 01/19/2017 11:17:00 02/18/2017 00:01:00 DIS Outpatient MALIK REYNOSO [facility] ONC [id number] 12/08/2016 15:09:00 01/16/2017 00:01:00 DIS Outpatient JULIA SCHWAB MD [facility] ONC [id number] 12/27/2016 12:27:00 12/27/2016 23:59:59 CLS Outpatient MAURISIO GRAHAM MD, FACC, FACP CCDS [facility] RAD CLAUDICATION [id number] 12/22/2016 07:26:00 12/22/2016 23:59:59 CLS Outpatient MAURISIO GRAHAM MD, FACC FACP CCDS [facility] CARD CAD I25.10 [id number] 12/07/2016 09:23:00 12/07/2016 23:59:59 CLS Outpatient JULIA SCHWAB MD [facility] RAD FOLLICULAR LYMPHOMA GRADE 3A [id number] 09/14/2016 09:35:00 09/18/2016 00:01:00 DIS Outpatient JULIA SCHWAB MD [facility] ONC [id number] 06/21/2016 13:44:00 06/21/2016 23:59:59 CLS Outpatient JULIA SCHWAB MD [facility] RAD ABDOMINAL PAIN, FOLLICULAR LYMPHOMA GRADE 3A [id number] 06/01/2016 09:25:00 06/07/2016 00:01:00 DIS Outpatient JULIA SCHWAB MD [facility] ONC [id number] 02/10/2016 10:14:00 02/26/2016 16:18:00 DIS Outpatient JULIA SCHWAB MD [facility] ONC [id number] 02/10/2016 10:35:00 02/10/2016 23:59:59 CLS Outpatient JULIA SCHWAB MD [facility] RAD FOLLICULAR LYMPHOMA GRADE 3A [id number] 01/11/2016 10:00:00 01/31/2016 00:01:00 DIS Outpatient JULIA SCHWAB MD [facility] ONC [id number] 12/09/2015 09:22:00 12/09/2015 23:59:59 CLS Outpatient MAURISIO GRAHAM MD, FACC, FACP CCDS [facility] LAB [id number] 09/16/2015 08:57:00 09/22/2015 00:01:00 DIS Outpatient JULIA SCHWAB MD [facility] ONC [id number] 08/10/2015 09:01:00 08/10/2015 23:59:59 CLS Outpatient JULIA SCHWAB MD [facility] RAD RESTAGING FOLICULAR LYMPHOMA [id number] 06/02/2015 11:37:00 06/02/2015 00:01:00 DIS Outpatient JULIA SCHWAB MD [facility] ONC [id number] 03/13/2015 07:51:00 03/13/2015 23:59:59 CLS Outpatient GLADYS DOS SANTOS FACC ALI BRONWYN CCDS [facility] CARD ISCHEMIC CARDIOMYOPATHY,CAD [id number] 03/04/2015 09:18:00 03/04/2015 23:59:59 CLS Outpatient LUZMA LEO [facility] LAB [id number] 02/06/2015 10:42:00 02/10/2015 00:01:00 DIS Outpatient JULIA SCHWAB MD [facility] ONC [id number] 02/09/2015 09:11:00 02/09/2015 23:59:59 CLS Outpatient JULIA SCHWAB MD [facility] RAD LYMPHOMA [id number] 10/20/2014 08:45:00 10/22/2014 00:01:00 DIS Outpatient JULIA SCHWAB MD [facility] ONC [id number] 08/20/2014 09:43:00 08/20/2014 23:59:59 CLS Outpatient GLADYS DOS SANTOS FACC, ALI FACP CCDS [facility] RAD PAD,CAD, ARTHRITIS,GERD,NEUROPATHY/PERIPHERAL [id number] 07/03/2014 09:57:00 07/03/2014 23:59:59 CLS Outpatient JULIA SCHWAB MD [facility] ONC [id number] 03/26/2014 07:42:00 04/22/2014 00:01:00 DIS Outpatient JULIA SCHWAB MD [facility] ONC [id number] 02/06/2014 07:44:00 02/06/2014 23:59:59 CLS Outpatient JULIA SCHWAB MD [facility] RAD ABD PAIN,FOLLUCULAR LYMPHOMA [id number] 01/22/2014 09:10:00 01/22/2014 23:59:59 CLS Outpatient GLADYS DOS SANTOS FACC, ALI FACP CCDS [facility] LAB [id number] 12/25/2013 13:35:00 01/21/2014 00:01:00 DIS Outpatient JULIA SCHWAB MD [facility] ONC [id number] 11/06/2013 07:59:00 11/06/2013 11:05:00 DIS Outpatient NANCY ROMO MD [facility] SDC HISTORY POLYPS [id number] 10/30/2013 07:18:00 10/30/2013 23:59:59 CLS Outpatient NANCY ROMO MD [facility] PREOP HISTORY POLYPS [id number] 10/24/2013 08:15:00 10/24/2013 23:59:59 CLS Outpatient LUZMA LEOP [facility] CARD CAD [id number] 10/15/2013 08:51:00 10/15/2013 23:59:59 CLS Outpatient JULIA SCHWAB MD [facility] RAD LYMPHOMA [id number] 09/09/2013 12:55:00 09/30/2013 00:01:00 DIS Outpatient JULIA SCHWAB MD [facility] ONC [id number] 09/10/2013 10:44:00 09/10/2013 23:59:59 CLS Outpatient JULIA SCHWAB MD [facility] RAD LYMPHOMA [id number] 08/29/2013 13:56:00 08/29/2013 23:59:59 CLS Outpatient JULIA SCHWAB MD [facility] RAD LYMPHOMA, CHEMO [id number] 05/23/2013 08:48:00 06/24/2013 00:01:00 DIS Outpatient JULIA SCHWAB MD [facility] ONC [id number] 05/31/2013 08:45:00 05/31/2013 23:59:59 CLS Outpatient JULIA SCHWAB MD [facility] RAD FALICULAR LYMPHOMA [id number] 05/24/2013 09:22:00 05/24/2013 23:59:59 CLS Outpatient JULIA SCHWAB MD [facility] RAD FALICULAR LYMPHOMA [id number] 04/23/2013 12:52:00 04/23/2013 23:59:59 CLS Outpatient JULIA SCHWAB MD [facility] RAD LYMPHOMA,CHEMO [id number] 03/19/2013 09:06:00 03/24/2013 00:01:00 DIS Outpatient JULIA SCHWAB MD [facility] ONC [id number] 03/12/2013 08:07:00 03/12/2013 23:59:59 CLS Outpatient JULIA SCHWAB MD [facility] RAD LYMPHOMA [id number] 02/05/2013 08:59:00 02/05/2013 23:59:59 CLS Outpatient GLADYS DOS SANTOS FACCMAURISIO FACP CCDS [facility] LAB [id number] 01/15/2013 10:19:00 01/15/2013 23:59:59 CLS Outpatient WILL CROWE [facility] ONC [id number] 01/04/2013 06:11:00 01/04/2013 11:00:00 DIS Outpatient NANCY ROMO MD [facility] LYMPHOMA [id number] 01/02/2013 11:19:00 01/02/2013 23:59:59 CLS Outpatient NANCY ROMO MD [facility] PREOP LYMPHOMA [id number] 12/25/2012 13:00:00 12/25/2012 23:59:59 CLS Outpatient JULIA SCHWAB MD [facility] RAD ABN CT SCAN, [id number] 12/24/2012 15:46:00 12/24/2012 23:59:59 CLS Outpatient JULIA SCHWAB MD Via [facility] CARD ABN CT SCAN [id number] 12/20/2012 11:57:00 12/20/2012 16:25:00 DIS Outpatient NANCY ROMO MD [facility] RIGHT INGUINAL LYMPH NODE MASS [id number] 12/19/2012 13:37:00 12/19/2012 23:59:59 CLS Outpatient NANCY ROMO MD [facility] PREOP LYMPHADENOPATHY [id number] 12/05/2012 08:23:00 12/05/2012 23:59:59 CLS Outpatient TIM BLOOD MD [facility] RAD EPIGASTRIC PAIN,CRAMPING, NAUSEA [id number] 12/03/2012 17:16:00 12/03/2012 23:59:59 CLS Outpatient TIM BLOOD MD [facility] RAD EPIGASTRIC PAIN [id number] 12/03/2012 12:47:00 12/03/2012 23:59:59 CLS Outpatient TIM BLOOD MD [facility] RAD EPIGASTRIC PAIN [id number] 02/14/2018 10:01:00 Document Registration [id number] 08/06/2014 10:12:00 Document Registration [id number] 08/09/2012 08:27:00 Document Registration [id number] 02/17/2012 06:08:00 Document Registration [id number] 07/11/2011 11:36:00 Document Registration [id number] 10/08/2010 07:32:00 Document Registration [id number] 06/07/2010 16:33:00 Document Registration [id number] 03/22/2010 11:06:00 Document Registration [id number] 02/02/2010 07:35:00 Document Registration [id number] 08/03/2009 10:12:00 Document Registration [id number] 06/03/2009 07:33:00 Document Registration [id number] 05/25/2009 14:18:00 Document Registration [id number] 12/02/2008 10:14:00 Document Registration [id number] 11/21/2008 06:36:00 Document Registration [id number] 02/09/2015 09:12:34 ACT Document Registration
[2018-02-14] MEDS ORDERED: fentaNYL INJECTION 100 MCG/2 ML AMP IVP ONE ×2 (13:15→14:15)
[2018-02-14 13:35] LABS: BASOPHILS % (AUTO) 0 % (0-10); EOSINOPHILS % (AUTO) 0 % (0-10); HEMATOCRIT 38 % (40-54); HEMOGLOBIN 13.2 G/DL (13.3-17.7); LYMPHOCYTES # (AUTO) 2.5 X 10^3 (1.0-4.0); LYMPHOCYTES % (AUTO) 13 % (12-44); MEAN CORPUSCULAR HEMOGLOBIN 33 PG (25-34); MEAN CORPUSCULAR HGB CONC 35 G/DL (32-36); MEAN CORPUSCULAR VOLUME 96 FL (80-99); MEAN PLATELET VOLUME 9.5 FL (7.4-10.4); MONOCYTES # (AUTO) 2.1 X 10^3 (0.0-1.0); MONOCYTES % (AUTO) 12 % (0-12); NEUTROPHILS # (AUTO) 13.6 X 10^3 (1.8-7.8); NEUTROPHILS % (AUTO) 75 % (42-75); PLATELET COUNT 329 10^3/uL (130-400); RED BLOOD COUNT 3.95 10^6/uL (4.35-5.85); RED CELL DISTRIBUTION WIDTH 14.9 % (10.0-14.5); WHITE BLOOD COUNT 18.3 10^3/uL (4.3-11.0)
[2018-02-14 13:53] LABS: INR 1.2 (0.8-1.4); PROTHROMBIN TIME PATIENT 14.8 SEC (12.2-14.7)
[2018-02-14 13:56] LABS: ALANINE AMINOTRANSFERASE 17 U/L (0-55); ALBUMIN 3.7 GM/DL (3.2-4.5); ALKALINE PHOSPHATASE 84 U/L (40-136); BILIRUBIN,TOTAL 0.7 MG/DL (0.1-1.0); BUN/CREATININE RATIO 14; CALCIUM 9.4 MG/DL (8.5-10.1); CARBON DIOXIDE 23 MMOL/L (21-32); CHLORIDE 104 MMOL/L (98-107); CREATININE SERUM 0.72 MG/DL (0.60-1.30); GFR ESTIMATED > 60; GLUCOSE 101 MG/DL (70-105); POTASSIUM 3.7 MMOL/L (3.6-5.0); SODIUM 135 MMOL/L (135-145)
[2018-02-14 14:11] LABS: ERYTHROCYTE SEDIMENTATION RATE 17 MM/HR (0-30)
--- NOTE | 2018-02-14 14:45 | Diagnostic Imaging Report ---
EXAMINATION: Right ankle at 1:30 PM. INDICATION: Ankle pain. TECHNIQUE: Three views of the right ankle were obtained. COMPARISON: There are no prior studies available for comparison. FINDINGS: There are post surgical, post traumatic and degenerative changes involving the ankle joint. Specifically, there has been a prior ankle fusion is an orthopedic plate and screw fixation device along the lateral aspect of the ankle joint extending from the distal tibia to the hindfoot. 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 The orthopedic plate and screw fixation device along the lateral aspect of the distal tibia and hindfoot is broken in two places. There are also two orthopedic fixation screws obliquely traversing the tibiotalar junction. The more lateral of these screws is also broken. There is no acute fracture identified but there is considerable soft tissue edema about the ankle joint, particularly over the lateral malleolus. IMPRESSION: 1. There are post traumatic, post surgical and degenerative changes involving the ankle joint. The orthopedic hardware along the lateral aspect of the ankle joint is broken in two places as is one of the orthopedic fixation screws. Consequently, the ankle fusion may be unstable. An orthopedic consult would be recommended. 2. There is no acute fracture visualized. 3. These results will be discussed with YOEL Real. Dictated by: Dictated on workstation # [id number]
[2018-02-14] MEDS ORDERED: ACETAMINOPHEN 500 MG TAB (TYLENOL) PO ONE (15:00)
--- NOTE | 2018-02-14 15:20 | ED Lower Extremity ---
General Chief Complaint: Lower Extremity Stated Complaint: ANKLE INFECTION Nursing Triage Note: PT STATES THAT MONDAY AT 0200 HE AWOKE TO THROBBING PAIN IN HIS R ANKLE WITH SWELLING. DENIES FALLING OR TWISTING ANKLE. TODAY PRESENTS TO THE ED VIA W/C WITH INCREASING PAIN AND SWELLING TO THE EXTREMITY. SENT TO THE ED UNDER THE ADVISEMENT OF PCP CLINIC AFTER LAB RESULTS FOR HIGH WBC COUNT RESULTED. Nursing Sepsis Screen: No Definite Risk Source: patient, family Exam Limitations: no limitations History of Present Illness Date Seen by Provider: Feb 14, 2018 Time Seen by Provider: 12:32 Initial Comments Patient is a 68-year-old male who presents to the emergency room with complaints of right ankle pain, redness, swelling that started yesterday at 0200 in the morning when it woke him up. He called Dr. Guzman this morning and had blood work drawn and was sent to the emergency room after being called back and told he had an elevated white blood cell count. He also reports low-grade fevers. He has a history of joint fusion to the right [place] [address] Garcia. Onset: yesterday Pain/Injury Location: right ankle Modifying Factors: Worse With Movement Allergies and Home Medications Allergies Coded Allergies: morphine (Verified Allergy, Unknown, 02/14/18) Home Medications Allopurinol 300 Mg Tablet, 300 MG PO DAILY, (Reported) Aspirin 81 Mg Tabec, 81 MG PO DAILY, (Reported) Atorvastatin Calcium 40 Mg Tablet, 40 MG PO DAILY, (Reported) Bupropion Hcl 300 Mg Tab.sr.24h, 300 MG PO DAILY, (Reported) Fish Oil/Dha/Epa 1 Each Capsule, 2,400 MG PO DAILY, (Reported) takes 2 (1200 mg) tablets once daily Meloxicam 15 Mg Tablet, 15 MG PO DAILY, (Reported) Metoprolol Succinate 25 Mg Tab.sr.24h, 25 MG PO DAILY, (Reported) Mu-Vits-Min Th/Lycopene/Lutein 1 Each Tablet, 1 TAB PO DAILY, (Reported) Omeprazole 20 Mg Capsule.dr, 20 MG PO DAILY, (Reported) Sulfamethoxazole/Trimethoprim 1 Tab Tablet, 0.5 TAB PO HS, (Reported) TAKES 1/2 (400-80MG) TABLET EVERY other NIGHT [Vitamin C 1000MG] , 1,000 MG PO DAILY, (Reported) Patient Home Medication List Home Medication List Reviewed: Yes Review of Systems Constitutional: see HPI, chills, fever Musculoskeletal: see HPI (Right ankle), joint pain, joint swelling, other ( Joint inflammation) All Other Systems Reviewed Negative Unless Noted: Yes Past Stkcaof-Swyhch-Uwkrng Hx Past Med/Social Hx: Reviewed Nursing Past Med/Soc Hx Patient Social History Alcohol Use: Occasionally Uses Recreational Drug Use: No Smoking Status: Never a Smoker Recent Foreign Travel: No Contact w/Someone Who Travel: No Recent Infectious Disease Expo: No Recent Hopitalizations: Yes (ULCERS-20YEARS AGO, cardiac cath with [address] 2 weeks ago) Past Medical History Surgeries: Yes (BILAT KNEES REPLACED. SPLEEN REMOVED. TUMOR-GROIN) Coronary Stent Respiratory: No Cardiac: Yes (STENT PLACED '07) Neurological: No Reproductive Disorders: No Genitourinary: Yes Prostate Problems Gastrointestinal: Yes Musculoskeletal: No Endocrine: No HEENT: No Cancer: Yes (NON [place]) Psychosocial: Yes Blood Disorders: No Family Medical History Reviewed Nursing Family Hx Physical Exam Vital Signs Vital Signs - First Documented 02/14/18 12:35 Temp 97.7 Pulse 84 Resp 20 B/P (MAP) 143/90 (107) Pulse Ox 96 O2 Delivery Room Air Capillary Refill : Less Than 3 Seconds Height, Weight, BMI Height: 5'10.00" Weight: 171lbs. oz. 77.453017tr; BMI Method:Stated General Appearance: WD/WN, no apparent distress Cardiovascular: normal peripheral pulses, regular rate, rhythm, no edema, no gallop, no JVD, no murmur Respiratory: chest non-tender, lungs clear, normal breath sounds, no respiratory distress, no accessory muscle use Back: normal inspection, no CVA tenderness, no vertebral tenderness Ankles: right ankle bone tenderness, right ankle deformity (Chronic deformity from surgery.), right ankle pain, right ankle soft tissue tenderness, right ankle swelling, right ankle other (Inflammation to the right ankle. Distal pulses intact) Neurologic/Tendon: normal sensation, normal motor functions, normal tendon functions, responds to pain, no evidence tendon injury Neurologic/Psychiatric: alert, normal mood/affect, oriented x 3 Skin: normal color, warm/dry Progress/Results/Core Measures Results/Orders Lab Results Laboratory Tests Test 02/14/18 13:06 02/14/18 13:20 Range/Units White Blood Count 18.3 H 4.3-11.0 10^3/uL Red Blood Count 3.95 L 4.35-5.85 10^6/uL Hemoglobin 13.2 L 13.3-17.7 G/DL Hematocrit 38 L 40-54 % Mean Corpuscular Volume 96 80-99 FL Mean Corpuscular Hemoglobin 33 25-34 PG Mean Corpuscular Hemoglobin Concent 35 32-36 G/DL Red Cell Distribution Width 14.9 H 10.0-14.5 % Platelet Count 329 130-400 10^3/uL Mean Platelet Volume 9.5 7.4-10.4 FL Neutrophils (%) (Auto) 75 42-75 % Lymphocytes (%) (Auto) 13 12-44 % Monocytes (%) (Auto) 12 0-12 % Eosinophils (%) (Auto) 0 0-10 % Basophils (%) (Auto) 0 0-10 % Neutrophils # (Auto) 13.6 H 1.8-7.8 X 10^3 Lymphocytes # (Auto) 2.5 1.0-4.0 X 10^3 Monocytes # (Auto) 2.1 H 0.0-1.0 X 10^3 Eosinophils # (Auto) 0.0 0.0-0.3 10^3/uL Basophils # (Auto) 0.0 0.0-0.1 10^3/uL Erythrocyte Sedimentation Rate 17 0-30 MM/HR Prothrombin Time 14.8 H 12.2-14.7 SEC INR Comment 1.2 0.8-1.4 Activated Partial Thromboplast Time 36 H 24-35 SEC Sodium Level 135 135-145 MMOL/L Potassium Level 3.7 3.6-5.0 MMOL/L Chloride Level 104 98-107 MMOL/L Carbon Dioxide Level 23 21-32 MMOL/L Anion Gap 8 5-14 MMOL/L Blood Urea Nitrogen 10 7-18 MG/DL Creatinine 0.72 0.60-1.30 MG/DL Estimat Glomerular Filtration Rate > 60 BUN/Creatinine Ratio 14 Glucose Level 101 70-105 MG/DL Uric Acid 2.6 2.6-7.2 MG/DL Calcium Level 9.4 8.5-10.1 MG/DL Corrected Calcium 9.6 8.5-10.1 MG/DL Total Bilirubin 0.7 0.1-1.0 MG/DL Aspartate Amino Transf (AST/SGOT) 14 5-34 U/L Alanine Aminotransferase (ALT/SGPT) 17 0-55 U/L Alkaline Phosphatase 84 40-136 U/L C-Reactive Protein High Sensitivity 16.67 H 0.00-0.50 MG/DL Total Protein 7.0 6.4-8.2 GM/DL Albumin 3.7 3.2-4.5 GM/DL Lactic Acid Level 0.91 0.50-2.00 MMOL/L My Orders Orders - ERROL CAMPBELL Cbc With Automated Diff (02/14/18 12:38) Comprehensive Metabolic Panel (02/14/18 12:38) Blood Culture (02/14/18 12:38) Protime With Inr (02/14/18 12:38) Partial Thromboplastin Time (02/14/18 12:38) Saline Lock/Iv-Start (02/14/18 12:38) Vital Signs Adult Sepsis Patie Q15M (02/14/18 12:38) O2 (02/14/18 12:38) Remove Rings In Anticipation O (02/14/18 12:38) Lactic Acid Analyzer (02/14/18 12:38) Erythrocyte Sedimentation Rate (02/14/18 12:38) Hs C Reactive Protein (02/14/18 12:38) Ankle, Right, 3 Views (02/14/18 12:38) Fentanyl Injection (Sublimaze Injection (02/14/18 13:15) Uric Acid (02/14/18 14:07) Fentanyl Injection (Sublimaze Injection (02/14/18 14:15) Acetaminophen Tablet (Tylenol Tablet) (02/14/18 15:00) Medications Given in ED Current Medications Medications Dose Ordered Sig/Cherie Route Start Time Stop Time Status Last Admin Dose Admin Acetaminophen 1,000 mg ONCE ONCE PO 02/14/18 15:00 02/14/18 15:01 DC 02/14/18 15:11 1,000 MG Fentanyl Citrate 50 mcg ONCE ONCE IVP 02/14/18 13:15 02/14/18 13:16 DC 02/14/18 13:26 50 MCG Fentanyl Citrate 50 mcg ONCE ONCE IVP 02/14/18 14:15 02/14/18 14:16 DC 02/14/18 14:46 50 MCG Vital Signs/I&O 02/14/18 02/14/18 02/14/18 12:35 12:38 13:08 Temp 97.7 99.4 Pulse 84 98 Resp 20 20 B/P (MAP) 143/90 (107) 119/74 Pulse Ox 96 98 98 O2 Delivery Room Air Room Air Room Air Blood Pressure Mean: 107 Progress Progress Note : Time: 15:00 Progress Note I have seen and evaluated the patient. I have informed him with plans for admission. I have spoke to Dr. Pepper at this time and she agrees with plans for admission, the use of vancomycin and Zosyn for antibiotic coverage. Pain control, fever control, and DVT prophylaxis. The patient agrees with plan of care. 1530: Dr. Garcia has returned my phone call at this time. He agrees to see the patient tomorrow morning. Diagnostic Imaging Diagonstic Imaging: Xray Plain Films/CT/US/NM/MRI: ankle Comments NAME: [facility]AD[facility] REC#: [id number] PT STATUS: REG ER : 1950 PHYSICIAN: ERROL CAMPBELL ADMIT DATE: 02/14/18/ER Draft Date of Exam:02/14/18 ANKLE, RIGHT, 3 VIEWS EXAMINATION: Right ankle at 1:30 PM. INDICATION: Ankle pain. TECHNIQUE: Three views of the right ankle were obtained. COMPARISON: There are no prior studies available for comparison. FINDINGS: There are post surgical and post traumatic changes involving the ankle joint. Specifically, there is an orthopedic plate and screw fixation device along the lateral aspect of the ankle joint extending from the distal tibia to the hindfoot. The distal fibula has been resected and there is ankylosis of the distal fibula with the talus. The orthopedic plate and screw fixation device along the lateral aspect of the distal tibia and hindfoot is broken in two places. There are also two orthopedic fixation screws obliquely traversing the tibiotalar junction. The more lateral of these screws is also broken. There is no acute fracture identified but there is considerable soft tissue edema about the ankle joint, particularly over the lateral malleolus. IMPRESSION: 1. There are post traumatic and post surgical changes involving the ankle joint. The orthopedic hardware along the lateral aspect of the ankle joint is broken in two places as is one of the orthopedic fixation screws. Consequently, the ankle fusion may be unstable. An orthopedic consult would be recommended. 2. There is no acute fracture visualized. 3. These results will be discussed with Errol Campbell. Dictated on workstation # [id number] Dict: 02/14/18 1416 Trans: 02/14/18 1445 [id number] Interpreted by: HEENA CABRERA MD Electronically signed by: Reviewed: Reviewed by Me Departure Communication (Admissions) Time/Spoke to Admitting Phy: 15:00 Dr. Pepper Time/Spoke to Consulting Phy: 15:30 Dr. Garcia Impression Primary Impression: Septic joint Additional Impression: Failed hardware Disposition: ADMITTED INPATIENT Condition: Stable/Unchanged Admissions Decision to Admit Reason: Admit from ER (General) Decision to Admit/Date: Feb 14, 2018 Time/Decision to Admit Time: 15:00 Departure-Patient Inst. Referrals: TIM GUZMAN MD (PCP/Family) Primary Care Physician ERROL CAMPBELL Feb 14, 2018 15:20
[2018-02-14 16:00] VITALS: BP 133/74
--- NOTE | 2018-02-14 16:03 | History & Physical-Hospitalist ---
SHARONMICHAEL MED STUDENT 02/14/18 1603: History of Present Illness HPI/Chief Complaint CC: ankle pain and swelling HPI: This is a 68 yo male with extensive ortho surgery history who presents with right ankle pain and swelling. This pain woke him up from sleep Monday morning at 8am and he describes it as throbbing and painful to touch, he cannot even touch it to put a sock on. Any contact or weight bearing makes the pain worse, it was relieved somewhat by norco which he was prescribed after a recent lumbar surgery. Source: patient Exam Limitations: no limitations Date Seen 02/14/18 Time Seen by a Provider: 15:00 Attending Physician Florencia Trujillo Floyd R MD Referring Physician Date of Admission Feb 14, 2018 at 15:00 Home Medications & Allergies Home Medications Reviewed patient Home Medication Reconciliation performed by pharmacy medication reconciliations animal husbandry technician and/or nursing. Patients Allergies have been reviewed. 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[employer]) Alcohol Use: Occasionally Uses Recreational Drug Use: No Smoking Status: Never a Smoker Recent Foreign Travel: No Contact w/other who traveled: No Recent Hopitalizations: Yes (ULCERS-20YEARS AGO, cardiac cath with [address] 2 weeks ago) Recent Infectious Disease Expo: No Past Medical History Surgeries: Coronary Stent, Orthopedic (lumbar, ankle, both knees, one hip, right shoulder, cervical surgery upcoming next week), Tonsillectomy splenectomy Cardiac: Coronary Artery Disease (stent), High Cholesterol, Hypertension Reproductive: No Genitourinary: Prostate Problems Gastrointestinal: Gastroesophageal Reflux Musculoskeletal: Arthritis, Gout Cancer: Lymphoma (follicular B cell nonhodgekin lymphoma, in remission) What Type of Treatment Did You: Chemotherapy Psychosocial: Depression History of Blood Disorders: No Family History Heart Disease, Other Conditions/Hx (arthritis) Review of Systems Constitutional: weight loss (5 pounds, he has been dieting) EENTM: no symptoms reported Respiratory: no symptoms reported Cardiovascular: no symptoms reported Gastrointestinal: no symptoms reported Genitourinary: no symptoms reported Musculoskeletal: other (lots of pains, arthritis and previous surgery related) Skin: no symptoms reported Psychiatric/Neurological: Headache, Paresthesia (R side face, he thinks cervical surgery will fix this) Physical Exam Physical Exam Vital Signs Vital Signs - First Documented 02/14/18 12:35 Temp 97.7 Pulse 84 Resp 20 B/P (MAP) 143/90 (107) Pulse Ox 96 O2 Delivery Room Air Capillary Refill : Less Than 3 Seconds Height, Weight, BMI Height: 5'10.00" Weight: 171lbs. oz. 77.571576yj; BMI Method:Stated General Appearance: WD/WN, Anxious (father of "septic joint" and he is very concerned this is what is happening to him) HEENT: Normal ENT Inspection Neck: Full Range of Motion, Normal Inspection, Non Tender, Supple Respiratory: Chest Non Tender, Lungs Clear, Normal Breath Sounds, No Accessory Muscle Use, No Respiratory Distress Cardiovascular: Regular Rate, Rhythm, No Edema, No Gallop, No JVD, No Murmur, Normal Peripheral Pulses Gastrointestinal: No Pulsatile Mass, Non Tender, Soft Back: Normal Inspection, No CVA Tenderness, No Vertebral Tenderness Extremity: Non Tender, No Calf Tenderness, Inflammation (right ankle), Pedal Edema (right ankle) Neurologic/Psychiatric: Alert, Oriented x3, No Motor/Sensory Deficits, Normal Mood/Affect Skin: Normal Color, Warm/Dry Lymphatic: No Adenopathy Results Results/Procedures Labs Laboratory Tests 02/14/18 13:06 Patient resulted labs reviewed. Assessment/Plan Admission Diagnosis CC: painful, swollen right ankle, leukocytosis Admission Status: Inpatient Order (span 2 midnights) Reason for Inpatient Admission: infection, pain right ankle Assessment and Plan Assessment: right ankle joint swollen, especially medially previous ortho hardware is broken in this joint leukocytosis 18.3 CRP elevated 16.6 patient and his are anxious about his condition Plan: Consult Dr. Garcia - he will visit tomorrow start IV antibiotics pain management- fentanyl seems to be helping with pain Diagnosis/Problems Diagnosis/Problems (1) Gout Status: Chronic Qualifiers: Gout site: foot Gout etiology: unspecified cause Chronicity: unspecified Laterality: unspecified laterality Qualified Codes: M10.9 - Gout , unspecified (2) Hypercholesteremia Status: Chronic (3) HTN (hypertension) Status: Chronic Qualifiers: Hypertension type: essential hypertension Qualified Codes: I10 - Essential (primary) hypertension (4) Arthritis Status: Chronic (5) NHL (non-Hodgkin's lymphoma) Status: Resolved Qualifiers: Non-Hodgkin lymphoma type: B-cell B-cell lymphoma type: unspecified B- cell Lymphoma site: unspecified region Qualified Codes: C85.10 - Unspecified B-cell lymphoma, unspecified site (6) CAD (coronary artery disease) Status: Chronic Qualifiers: Coronary Disease-Associated Artery/Lesion type: unspecified vessel or lesion type [place] vs. transplanted heart: [place] heart Associated angina: angina presence unspecified Qualified Codes: I25.10 - Atherosclerotic heart disease of [place] coronary artery without angina pectoris (7) GERD (gastroesophageal reflux disease) Status: Chronic Qualifiers: Esophagitis presence: esophagitis presence not specified Qualified Codes: K21.9 - Gastro-esophageal reflux disease without esophagitis (8) Swollen R ankle Status: Acute FLORENCIA TRUJILLO DO 02/14/182049: History of Present Illness HPI/Chief Complaint This is 68yoWM clinic patient of Dr Guzman'markie who presents with right ankle pain. Patient has a h/o an ankle fusion in the past and has had extreme pain in the right ankle along with fever and redness to the ankle for the past 2 days and it worsened to the point he presented to the ER. Pt has multiple medical issues which include lymphoma in remission and is concerned about his anxiousness and whether the abx will cover for infection and any spread of infection. I updated his in the room then I saw the patient in CT scan. Dr Garcia ordered a CT scan and will him in consultation tomorrow. 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[employer]) Alcohol Use: Rarely Uses Smoking Status: Former Smoker Past Medical History Surgeries: Coronary Stent, Orthopedic (lumbar, ankle, both knees, one hip, right shoulder, cervical surgery upcoming next week), Tonsillectomy Cardiac: Coronary Artery Disease (stent), High Cholesterol, Hypertension Genitourinary: Prostate Problems Gastrointestinal: Gastroesophageal Reflux Musculoskeletal: Arthritis, Gout Cancer: Lymphoma (follicular B cell nonhodgekin lymphoma, in remission) Did You Recieve Any Treatments: Yes What Type of Treatment Did You: Chemotherapy Psychosocial: Anxiety, Depression Skin/Integumentary: Recent Skin Changes Family History Heart Disease, Other Conditions/Hx (arthritis) Review of Systems Constitutional: see HPI, chills, fever, weakness, weight loss (5 pounds, he has been dieting) EENTM: no symptoms reported Respiratory: no symptoms reported Cardiovascular: no symptoms reported Gastrointestinal: loss of appetite, nausea Genitourinary: no symptoms reported Musculoskeletal: other (lots of pains, arthritis and previous surgery related) Skin: no symptoms reported Psychiatric/Neurological: No Symptoms Reported All Other Systems Reviewed Negative Unless Noted: Yes Physical Exam Physical Exam General Appearance: No Apparent Distress, WD/WN, Anxious (father of "septic joint" and he is very concerned this is what is happening to him), Chronically ill, Obese Eyes: Bilateral Eye Normal Inspection, Bilateral Eye PERRL HEENT: PERRL/EOMI, TMs Normal, Normal ENT Inspection, Pharynx Normal Neck: Full Range of Motion, Normal Inspection, Non Tender, Supple, Carotid Bruit Respiratory: Chest Non Tender, Lungs Clear, Normal Breath Sounds, No Accessory Muscle Use, No Respiratory Distress Cardiovascular: Regular Rate, Rhythm, No Edema, No Gallop, No JVD, No Murmur, Normal Peripheral Pulses Gastrointestinal: Normal Bowel Sounds, No Organomegaly, No Pulsatile Mass, Non Tender, Soft Back: Normal Inspection, No CVA Tenderness, No Vertebral Tenderness Extremity: Normal Capillary Refill, Normal Inspection, Normal Range of Motion ( except right ankle), Non Tender, No Calf Tenderness, Inflammation (right ankle) , Pedal Edema (right ankle), Swelling, Other (deformity acute on chronic) Neurologic/Psychiatric: Alert, Oriented x3, No Motor/Sensory Deficits, Normal Mood/Affect Skin: Normal Color, Warm/Dry Lymphatic: No Adenopathy Assessment/Plan Admission Diagnosis Right ankle infection with elevated inflammatory markers and fever Hardware failure right ankle CAD w/stent 2007 Insomnia Depression Anxiety Non-Hodgkin's Lymphoma hx IV abx empirically CT scan Dr Garcia is appreciated Lovenox for DVT Px since immobile Admission Status: Inpatient Order (span 2 midnights) Reason for Inpatient Admission: Needs industrial truck mechanic abx after surgery assesses Diagnosis/Problems Diagnosis/Problems (1) Septic joint Status: Acute Qualifiers: Septic arthritis location: ankle Septic arthritis organism: due to unspecified organism Laterality: right Qualified Codes: M00.9 - Pyogenic arthritis, unspecified (2) Failed hardware Status: Acute (3) Swollen R ankle Status: Acute (4) Gout Status: Chronic Qualifiers: Gout site: foot Gout etiology: unspecified cause Chronicity: unspecified Laterality: unspecified laterality Qualified Codes: M10.9 - Gout , unspecified (5) Hypercholesteremia Status: Chronic (6) HTN (hypertension) Status: Chronic Qualifiers: Hypertension type: essential hypertension Qualified Codes: I10 - Essential (primary) hypertension (7) Arthritis Status: Chronic (8) NHL (non-Hodgkin's lymphoma) Status: Resolved Qualifiers: Non-Hodgkin lymphoma type: B-cell B-cell lymphoma type: unspecified B- cell Lymphoma site: unspecified region Qualified Codes: C85.10 - Unspecified B-cell lymphoma, unspecified site (9) CAD (coronary artery disease) Status: Chronic Qualifiers: Coronary Disease-Associated Artery/Lesion type: unspecified vessel or lesion type [place] vs. transplanted heart: [place] heart Associated angina: angina presence unspecified Qualified Codes: I25.10 - Atherosclerotic heart disease of [place] coronary artery without angina pectoris (10) GERD (gastroesophageal reflux disease) Status: Chronic Qualifiers: Esophagitis presence: esophagitis presence not specified Qualified Codes: K21.9 - Gastro-esophageal reflux disease without esophagitis MICHAEL HERRERA Feb 14, 2018 16:03 FLORENCIA TRUJILLO DO Feb 14, 2018 20:50
[2018-02-14] MEDS ORDERED: ONDANSETRON 4 MG/2 ML (SDV) Z0FRAN IV PRN (16:15)
[2018-02-14] MEDS ORDERED: PIPERACILLIN/TAZO 4.5 GM/NS 100 ML IV NR ×2 (16:15)
[2018-02-14] MEDS ORDERED: VANCOMYCIN 1250 MG/NS 250 ML IVPB IV SCH ×2 (16:30)
[2018-02-14] MEDS ORDERED: CATHETER FLUSH 10 ML SYR IV PRN (16:30)
[2018-02-14] MEDS: NS IV 1000 ML 1,000 ML IV SCH (17:01)
[2018-02-14] MEDS: ENOXAPARIN 40 MG/0.4 ML (LOVENOX) SYR SC SCH (17:02)
[2018-02-14] MEDS ORDERED: FLU QUADRIvalent (5+ YOA) 2018-2019 (AFLURIA) 0.5 ML IM ONE (17:15)
--- NOTE | 2018-02-14 17:58 | Diagnostic Imaging Report ---
PROCEDURE: CT right lower extremity without contrast. TECHNIQUE: Axially acquired CT was obtained through the right lower extremity without intravenous contrast. Coronal and sagittal reformations were also performed. INDICATION: Ankle infection. COMPARISON: There are no previous CT examinations available for comparison. FINDINGS: The plain film examination of the right ankle performed prior to this study noted extensive postsurgical changes consistent with a long-standing fusion of the ankle joint. There is also evidence of a broken orthopedic plate and screw fixation device along the lateral aspect of the ankle joint as well as a fractured orthopedic fixation screw traversing the tibia and talus. On this exam, there is an irregular cleft extending between the talar and calcaneus. 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 The possibility that there is also an element of osteomyelitis present should certainly be considered. Because of the orthopedic hardware, this area may be difficult to image with MRI. Even so, I do feel that MRI would offer the most sensitive evaluation for osteomyelitis. A nuclear medicine bone scan should also be considered in lieu of MRI. There is no fracture or acute bony abnormality appreciated. There is generalized soft tissue edema about the ankle joint but there is no soft tissue mass or abscess visualized. IMPRESSION: 1. There is a broad irregular cleft between the talus and the calcaneus. 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 The possibility that there is also an inflammatory/infectious process in this region should certainly be considered. Recommendations as above. 2. There is no acute fracture visualized. 3. There is generalized soft tissue edema about the ankle joint, particularly along the lateral aspect. There is no sign of a soft tissue mass or abscess. Dictated by: Dictated on workstation # [id number]
[2018-02-14 19:05] VITALS: BP 106/75
[2018-02-14] MEDS: diphenhydrAMINE 25 MG TAB (BENADRYL) PO SCH (20:11)
[2018-02-14] MEDS: PIPERACILLIN/TAZO 4.5 GM/NS 100 ML IV SCH ×2 (21:24)
[2018-02-14 23:54] VITALS: BP 113/60
[2018-02-15] MEDS: fentaNYL INJECTION 100 MCG/2 ML AMP IV PRN ×3 (01:22→12:45)
[2018-02-15] MEDS: NS IV 1000 ML 1,000 ML IV SCH (02:24)
[2018-02-15 04:10] VITALS: BP 109/56
[2018-02-15] MEDS ORDERED: VANCOMYCIN 1 GM/NS 250 ML IVPB IV SCH ×2 (05:00)
[2018-02-15] MEDS: PIPERACILLIN/TAZO 4.5 GM/NS 100 ML IV SCH ×6 (06:09→22:43)
[2018-02-15 06:16] LABS: BASOPHILS # (AUTO) 0.1 10^3/uL (0.0-0.1); BASOPHILS % (AUTO) 0 % (0-10); EOSINOPHILS # (AUTO) 0.2 10^3/uL (0.0-0.3); EOSINOPHILS % (AUTO) 1 % (0-10); HEMATOCRIT 36 % (40-54); HEMOGLOBIN 12.1 G/DL (13.3-17.7); LYMPHOCYTES # (AUTO) 2.6 X 10^3 (1.0-4.0); LYMPHOCYTES % (AUTO) 20 % (12-44); MEAN CORPUSCULAR HEMOGLOBIN 33 PG (25-34); MEAN CORPUSCULAR HGB CONC 34 G/DL (32-36); MEAN CORPUSCULAR VOLUME 97 FL (80-99); MEAN PLATELET VOLUME 8.5 FL (7.4-10.4); MONOCYTES # (AUTO) 1.6 X 10^3 (0.0-1.0); MONOCYTES % (AUTO) 13 % (0-12); NEUTROPHILS # (AUTO) 8.3 X 10^3 (1.8-7.8); NEUTROPHILS % (AUTO) 65 % (42-75); PLATELET COUNT 331 10^3/uL (130-400); RED CELL DISTRIBUTION WIDTH 15.2 % (10.0-14.5); WHITE BLOOD COUNT 12.7 10^3/uL (4.3-11.0)
[2018-02-15 06:52] LABS: ALANINE AMINOTRANSFERASE 14 U/L (0-55); ALBUMIN 3.3 GM/DL (3.2-4.5); ALKALINE PHOSPHATASE 76 U/L (40-136); BILIRUBIN,TOTAL 0.8 MG/DL (0.1-1.0); BUN/CREATININE RATIO 13; CALCIUM 8.9 MG/DL (8.5-10.1); CARBON DIOXIDE 21 MMOL/L (21-32); CHLORIDE 108 MMOL/L (98-107); CREATININE SERUM 0.71 MG/DL (0.60-1.30); GFR ESTIMATED > 60; GLUCOSE 95 MG/DL (70-105); POTASSIUM 3.4 MMOL/L (3.6-5.0); SODIUM 138 MMOL/L (135-145); TOTAL PROTEIN 6.2 GM/DL (6.4-8.2)
[2018-02-15] MEDS ORDERED: VANCOMYCIN 1 GM/NS 250 ML IVPB IV NR ×2 (07:30)
[2018-02-15 08:14] VITALS: BP 110/70
[2018-02-15] MEDS ORDERED: OMEP20CA12 PO (08:21)
[2018-02-15] MEDS ORDERED: TAMS0.4C2 PO (08:21)
[2018-02-15] MEDS ORDERED: ALLO300T2 PO (08:21)
[2018-02-15] MEDS ORDERED: ATOR40TA70 PO (08:21)
[2018-02-15] MEDS ORDERED: ASPI-983 PO (08:21)
[2018-02-15] MEDS ORDERED: ASCO10006 PO (08:21)
[2018-02-15] MEDS ORDERED: BUPR300T51 PO (08:21)
[2018-02-15] MEDS ORDERED: MULT-1029 PO (08:21)
[2018-02-15] MEDS ORDERED: METO-387 PO (08:21)
[2018-02-15] MEDS ORDERED: FISH1CAP15 PO (08:21)
[2018-02-15] MEDS ORDERED: CHOL20003 PO (08:34)
[2018-02-15] MEDS ORDERED: CYAN10006 PO (08:34)
[2018-02-15] MEDS ORDERED: FERR-84 PO (08:34)
--- NOTE | 2018-02-15 09:02 | Consultation-Cardiology ---
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 Family Medical History Family History: Arthritis Cardiovascular disease Colon cancer Congenital heart disease Diabetes mellitus Hypertension Myocardial infarction Respiratory disorder Allergies and Home Medications Allergies Coded Allergies: morphine (Verified Allergy, Unknown, 02/14/18) Home Medications Allopurinol 300 Mg Tablet, 300 MG PO DAILY, (Reported) Ascorbic Acid 1,000 Mg Tablet, 1,000 MG PO DAILY, (Reported) Aspirin 81 Mg Tablet.dr, 81 MG PO DAILY, (Reported) Atorvastatin Calcium 40 Mg Tablet, 20 MG PO DAILY, (Reported) TAKES 1/2 (40MG) TABLET Bupropion HCl 300 Mg Tab.er.24h, 300 MG PO DAILY, (Reported) Cholecalciferol (Vitamin D3) 2,000 Unit Capsule, 2,000 UNIT PO DAILY, (Reported) Cyanocobalamin (Vitamin B-12) 1,000 Mcg Tablet, 1,000 MCG PO DAILY, (Reported) Ferrous Sulfate 325 Mg Tablet, 325 MG PO DAILY, (Reported) Fish Oil/Dha/Epa 1 Each Capsule, 1,200 MG PO DAILY, (Reported) Metoprolol Succinate 25 Mg Tab.er.24h, 25 MG PO DAILY, (Reported) Multivit-Min/FA/Lycopene/Lut 1 Each Tablet, 1 TAB PO DAILY, (Reported) Omeprazole 20 Mg Capsule.dr, 20 MG PO DAILY, (Reported) Tamsulosin HCl 0.4 Mg Cap.er.24h, 0.4 MG PO 1800, (Reported) Patient Home Medication List Home Medication List Reviewed: Yes Physical Exam-Cardiology Physical Exam Vital Signs/I&O 02/19/18 00:00 Temp 98.8 Pulse 62 Resp 20 B/P (MAP) 125/73 (90) Pulse Ox 95 O2 Delivery Room Air 02/19/18 00:00 Intake Total 1400 ml Output Total 3125 ml Balance -1725 ml Capillary Refill : Less Than 3 SecondsLess Than 3 Seconds Data Review Labs Laboratory Tests 02/19/18 06:23: White Blood Count 13.6H, Red Blood Count 3.84L, Hemoglobin 12.4L, Hematocrit 37L , Mean Corpuscular Volume 97, Mean Corpuscular Hemoglobin 32, Mean Corpuscular Hemoglobin Concent 33, Red Cell Distribution Width 15.3H, Platelet Count 435H, Mean Platelet Volume 8.5, Neutrophils (%) (Auto) 65, Lymphocytes (%) (Auto) 20, Monocytes (%) (Auto) 10, Eosinophils (%) (Auto) 5, Basophils (%) (Auto) 1, Neutrophils # (Auto) 8.8H, Lymphocytes # (Auto) 2.8, Monocytes # (Auto) 1.3H, Eosinophils # (Auto) 0.7H, Basophils # (Auto) 0.1, Sodium Level 141, Potassium Level 3.5L, Chloride Level 107, Carbon Dioxide Level 24, Anion Gap 10, Blood Urea Nitrogen 10, Creatinine 0.80, Estimat Glomerular Filtration Rate > 60, BUN/ Creatinine Ratio 13, Glucose Level 98, Calcium Level 9.7, Corrected Calcium 10.2H, Total Bilirubin 0.5, Aspartate Amino Transf (AST/SGOT) 23, Alanine Aminotransferase (ALT/SGPT) 40, Alkaline Phosphatase 89, Total Protein 6.8, Albumin 3.4 Microbiology 02/14/18 Blood Culture - Preliminary, Resulted No growth 02/15/18 MRSA Screen - Final, Complete MRSA not isolated 02/16/18 Gram Stain - Final, Resulted 02/16/18 Anaerobic Culture - Preliminary, Resulted 02/16/18 Surgical Culture - Preliminary, Resulted No growth Radiology NAME: ARLETH MEADOWS [facility] REC#: [id number] PT STATUS: ADM IN : 1950 PHYSICIAN: ERROL FRANCISCO ADMIT DATE: 02/14/18/ Signed Date of Exam: 02/14/18 ANKLE, RIGHT, 3 VIEWS EXAMINATION: Right ankle at 1:30 PM. INDICATION: Ankle pain. TECHNIQUE: Three views of the right ankle were obtained. COMPARISON: There are no prior studies available for comparison. FINDINGS: There are post surgical, post traumatic and degenerative changes involving the ankle joint. Specifically, there has been a prior ankle fusion is an orthopedic plate and screw fixation device along the lateral aspect of the ankle joint extending from the distal tibia to the hindfoot. 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 The orthopedic plate and screw fixation device along the lateral aspect of the distal tibia and hindfoot is broken in two places. There are also two orthopedic fixation screws obliquely traversing the tibiotalar junction. The more lateral of these screws is also broken. There is no acute fracture identified but there is considerable soft tissue edema about the ankle joint, particularly over the lateral malleolus. IMPRESSION: 1. There are post traumatic, post surgical and degenerative changes involving the ankle joint. The orthopedic hardware along the lateral aspect of the ankle joint is broken in two places as is one of the orthopedic fixation screws. Consequently, the ankle fusion may be unstable. An orthopedic consult would be recommended. 2. There is no acute fracture visualized. 3. These results will be discussed with YOEL Real. Dictated by: Dictated on workstation # [id number] Dict: 02/14/181415 Trans: 02/15/18717 Interpreted by: HEENA CABRERA MD Electronically signed by: HEENA CABRERA MD 02/15/18717 NAME: ARLETH MEADOWS [facility] REC#: [id number] PT STATUS: ADM IN : 1950 PHYSICIAN: ENOCH RAND DPM ADMIT DATE: 02/14/18 Signed Date of Exam: 02/14/18 CT EXTREMITY LOWER RIGHT WO PROCEDURE: CT right lower extremity without contrast. TECHNIQUE: Axially acquired CT was obtained through the right lower extremity without intravenous contrast. Coronal and sagittal reformations were also performed. INDICATION: Ankle infection. COMPARISON: There are no previous CT examinations available for comparison. FINDINGS: The plain film examination of the right ankle performed prior to this study noted extensive postsurgical changes consistent with a long-standing fusion of the ankle joint. There is also evidence of a broken orthopedic plate and screw fixation device along the lateral aspect of the ankle joint as well as a fractured orthopedic fixation screw traversing the tibia and talus. On this exam, there is an irregular cleft extending between the talar and calcaneus. 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 The possibility that there is also an element of osteomyelitis present should certainly be considered. Because of the orthopedic hardware, this area may be difficult to image with MRI. Even so, I do feel that MRI would offer the most sensitive evaluation for osteomyelitis. A nuclear medicine bone scan should also be considered in lieu of MRI. There is no fracture or acute bony abnormality appreciated. There is generalized soft tissue edema about the ankle joint but there is no soft tissue mass or abscess visualized. IMPRESSION: 1. There is a broad irregular cleft between the talus and the calcaneus. 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 The possibility that there is also an inflammatory/infectious process in this region should certainly be considered. Recommendations as above. 2. There is no acute fracture visualized. 3. There is generalized soft tissue edema about the ankle joint, particularly along the lateral aspect. There is no sign of a soft tissue mass or abscess. Dictated by: Dictated on workstation # [id number] Dict: 02/14/18 1716 Trans: 02/15/18 0727 Interpreted by: HEENA CABRERA MD Electronically signed by: HEENA CABRERA MD 02/15/18 0727 A/P-Cardiology Assessment/Admission Diagnosis Loss of stamina of undetermined etiology, stable, chronic Bilateral leg discomfort, chronic. 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 LVEF on MUGA of 05/31/13 was 46% which was a considerable drop from previous evaluations. Subsequent echo of 03/13/15 showed normal LVEF Coronary artery disease primarily consisting of severe stenosis of the proximal portion of an obtuse marginal branch to which he underwent successful bare- metal stenting (2.5 x 15-mm) on card cath in April 2007. Last myocardial perfusion imaging was on 12/22/16. There was no evidence of myocardial ischemia or infarction and left ventricular ejection fraction was 60% Echo of 03/13/15 showed LVEF 60%, triv TR, PASP 30-35 mmHg Hyperlipidemia, being treated with atorvastatin, well contolled Thrombocytosis, being followed by Dr. Wu, his Oncologist. Degenerative joint disease. Status post bilat knee replacement surgery. Chronic back discomfort. S/p lumbar spinal surgery by Dr Robles in October 2017 following which bilat leg numbness has improved Cervical radiculopathy with bilat arm weakness and tingling. He is awaiting surgery Gastroesophageal reflux. Mild bilat carotid arterial disease per carotid ultrasonography of 11/20/15 Elevated body mass index of approximately 37 Impaired fasting glucose Chronic prostatitis, managed by Dr Carlisle Mild chronic bilateral leg swelling, likely related to venous insuff. Chronic bilat varicose veins, more prominent on the R H/o tobacco use (quit 1990) Clinical Quality Measures DVT/VTE Risk/Contraindication: Risk Factor Score Per Nursin RFS Level Per Nursing on Admit: 4+=Very High LUZMA LEO Feb 15, 2018 09:02
[2018-02-15] MEDS ORDERED: POLYETHYLENE GLYCOL 17 GM (MIRALAX) PACK PO PRN (09:45)
[2018-02-15] MEDS ORDERED: LACTULOSE SYRUP 10GM/15ML (ENULOSE) 30ML UDC PO PRN (09:45)
--- NOTE | 2018-02-15 10:18 | Progress Note-Hospitalist ---
MICHAEL HERRERA MED STUDENT 02/15/18 1018: Subjective HPI/CC On Admission Date Seen by Provider: Feb 15, 2018 Time Seen by Provider: 07:30 CC: ankle pain HPI: This is 68yoWM clinic patient of Dr Santana who presents with right ankle pain. Patient has a h/o an ankle fusion in the past and has had extreme pain in the right ankle along with fever and redness to the ankle for the past 2 days and it worsened to the point he presented to the ER. Pt has multiple medical issues which include lymphoma in remission and is concerned about his anxiousness and whether the abx will cover for infection and any spread of infection. I updated his in the room then I saw the patient in CT scan. Dr Garcia ordered a CT scan and will him in consultation tomorrow. Subjective/Events-last exam Patient is resting in bed and seems anxious about his condition but otherwise well reports that pain is under control with current medications No acute events overnight urinating and having BM frequently without difficulty Saw cardiology this morning and reported that they had no major concerns Focused Exam Lactate Level 02/14/18 13:20: Lactic Acid Level 0.91 Objective Exam Vital Signs Vital Signs Date Time Temp Pulse Resp B/P (MAP) Pulse Ox O2 Delivery O2 Flow Rate FiO2 02/15/18 08:24 95 Room Air 02/15/18 08:14 98.3 74 16 110/70 (83) Capillary Refill : Less Than 3 SecondsLess Than 3 Seconds General Appearance: No Apparent Distress, WD/WN, Anxious HEENT: Normal ENT Inspection Neck: Full Range of Motion, Normal Inspection, Non Tender, Supple Respiratory: Chest Non Tender, Lungs Clear, Normal Breath Sounds, No Accessory Muscle Use, No Respiratory Distress Cardiovascular: Regular Rate, Rhythm, No Gallop, No JVD, No Murmur, Normal Peripheral Pulses Gastrointestinal: Normal Bowel Sounds, Non Tender, Soft Back: Normal Inspection, No CVA Tenderness, No Vertebral Tenderness Extremity: Normal Capillary Refill, Normal Inspection, Normal Range of Motion, Non Tender, No Calf Tenderness, No Pedal Edema Neurologic/Psychiatric: Alert, Oriented x3, No Motor/Sensory Deficits, Normal Mood/Affect Skin: Normal Color, Warm/Dry Lymphatic: No Adenopathy Results/Procedures Lab Laboratory Tests 02/14/18 13:06 02/15/18 06:05 Patient resulted labs reviewed. Assessment/Plan Assessment and Plan Assess & Plan/Chief Complaint Assessment: right ankle joint swollen CT showed inflammation, possible infectious process patient and his are anxious about his condition Plan: CT to be evaluated by Dr. Garcia continue IV antibiotics and pain management Diagnosis/Problems Diagnosis/Problems (1) Gout Status: Chronic Qualifiers: Gout site: foot Gout etiology: unspecified cause Chronicity: unspecified Laterality: unspecified laterality Qualified Codes: M10.9 - Gout , unspecified (2) Hypercholesteremia Status: Chronic (3) HTN (hypertension) Status: Chronic Qualifiers: Hypertension type: essential hypertension Qualified Codes: I10 - Essential (primary) hypertension (4) Arthritis Status: Chronic (5) NHL (non-Hodgkin's lymphoma) Status: Resolved Qualifiers: Non-Hodgkin lymphoma type: B-cell B-cell lymphoma type: unspecified B- cell Lymphoma site: unspecified region Qualified Codes: C85.10 - Unspecified B-cell lymphoma, unspecified site (6) CAD (coronary artery disease) Status: Chronic Qualifiers: Coronary Disease-Associated Artery/Lesion type: unspecified vessel or lesion type [place] vs. transplanted heart: [place] heart Associated angina: angina presence unspecified Qualified Codes: I25.10 - Atherosclerotic heart disease of [place] coronary artery without angina pectoris (7) GERD (gastroesophageal reflux disease) Status: Chronic Qualifiers: Esophagitis presence: esophagitis presence not specified Qualified Codes: K21.9 - Gastro-esophageal reflux disease without esophagitis (8) Swollen R ankle Status: Acute Clinical Quality Measures DVT/VTE Risk/Contraindication: Risk Factor Score Per Nursin RFS Level Per Nursing on Admit: 4+=Very High JOHN TRUJILLO DO 02/15/18 1039: Subjective HPI/CC On Admission Time Seen by Provider: 09:30 Subjective/Events-last exam Abx tolerated wbc are decreasing Awaiting Dr Radha ugarte Has port in so easy for extended period of abx if needed Home meds restarted Review of Systems Musculoskeletal: foot pain Objective Exam General Appearance: No Apparent Distress, WD/WN, Anxious, Obese Respiratory: Chest Non Tender, Lungs Clear, Normal Breath Sounds, No Accessory Muscle Use, No Respiratory Distress Cardiovascular: Regular Rate, Rhythm, No Edema, No Gallop, No JVD, No Murmur, Normal Peripheral Pulses Extremity: Normal Capillary Refill, Normal Inspection, Normal Range of Motion, Non Tender, No Calf Tenderness, No Pedal Edema, Other (right foot and ankle less edema and redness) Neurologic/Psychiatric: Alert, Oriented x3, No Motor/Sensory Deficits, Normal Mood/Affect Assessment/Plan Assessment and Plan Assess & Plan/Chief Complaint Await Dr Garcia recs IV abx Pain meds Appreciate Fabiola Garcia and Juvenal Diagnosis/Problems Diagnosis/Problems (1) Septic joint Status: Acute Qualifiers: Septic arthritis location: ankle Septic arthritis organism: due to unspecified organism Laterality: right Qualified Codes: M00.9 - Pyogenic arthritis, unspecified (2) Failed hardware Status: Acute (3) NHL (non-Hodgkin's lymphoma) Status: Resolved Qualifiers: Non-Hodgkin lymphoma type: B-cell B-cell lymphoma type: unspecified B- cell Lymphoma site: unspecified region Qualified Codes: C85.10 - Unspecified B-cell lymphoma, unspecified site (4) Swollen R ankle Status: Acute (5) GERD (gastroesophageal reflux disease) Status: Chronic Qualifiers: Esophagitis presence: esophagitis presence not specified Qualified Codes: K21.9 - Gastro-esophageal reflux disease without esophagitis (6) CAD (coronary artery disease) Status: Chronic Qualifiers: Coronary Disease-Associated Artery/Lesion type: unspecified vessel or lesion type [place] vs. transplanted heart: [place] heart Associated angina: angina presence unspecified Qualified Codes: I25.10 - Atherosclerotic heart disease of [place] coronary artery without angina pectoris (7) Arthritis Status: Chronic (8) HTN (hypertension) Status: Chronic Qualifiers: Hypertension type: essential hypertension Qualified Codes: I10 - Essential (primary) hypertension (9) Hypercholesteremia Status: Chronic (10) Gout Status: Chronic Qualifiers: Gout site: foot Gout etiology: unspecified cause Chronicity: unspecified Laterality: unspecified laterality Qualified Codes: M10.9 - Gout , unspecified MICHAEL HERRERA STUDENT Feb 15, 2018 10:18 JOHN TRUJILLO DO Feb 15, 2018 10:39
--- NOTE | 2018-02-15 11:09 | Consultation-Cardiology ---
HPI-Cardiology Cardiology Consultation: Date of Consultation 02/15/18 Time Seen by a Provider: 08:20 Date of Admission Attending Physician Florencia Pepper DO Admitting Physician Blair Guzman MD Consulting Physician MAURISIO GRAHAM MD, MA, FACP, FACC, [facility] [place], CCDS Physician requesting consult: Dr Pepper HPI: Chief Complaint: Reason for consultation: Cardiac comanagement 68 yo man admitted with L ankle swelling and infection that is being managed by Dr Pepper and the Ortho Svce. We were asked to see him in consult for pre-op card eval and card management He does not report cp or palp or syncope He denies fever or chills Has had L ankle swelling, some skin redness and increased warmth over the L ankle for a couple of days Review of Systems-Cardiology Review of Systems Constitutional: malaise; No weight loss, No weight gain Eyes: No vision change Ears/Nose/Throat: No ear discharge, No nasal drainage, No recent hearing loss Respiratory: As described under HPI Cardiovascular: As described under HPI Gastrointestinal: No constipation, No diarrhea, No nausea, No vomiting Genitourinary: No dysuria Musculoskeletal: back pain (chronic), joint pain (L ankle discomfort and swelling) Skin: No rash, No ulcerations Psychiatric/Neurological: No seizure, No focal weakness, No syncope Hematologic: No bleeding abnormalities All Other Systems Reviewed Negative Unless Noted: Yes [id number] Hx Patient Social History Marrital Status: Number of Children: 2 Number of living children: 2 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 Family Medical History Family History: Arthritis Cardiovascular disease Colon cancer Congenital heart disease Diabetes mellitus Hypertension Myocardial infarction Respiratory disorder Allergies and Home Medications Allergies Coded Allergies: morphine (Verified Allergy, Unknown, 02/14/18) Home Medications Allopurinol 300 Mg Tablet, 300 MG PO DAILY, (Reported) Ascorbic Acid 1,000 Mg Tablet, 1,000 MG PO DAILY, (Reported) Aspirin 81 Mg Tablet.dr, 81 MG PO DAILY, (Reported) Atorvastatin Calcium 40 Mg Tablet, 20 MG PO DAILY, (Reported) TAKES 1/2 (40MG) TABLET Bupropion HCl 300 Mg Tab.er.24h, 300 MG PO DAILY, (Reported) Cholecalciferol (Vitamin D3) 2,000 Unit Capsule, 2,000 UNIT PO DAILY, (Reported) Cyanocobalamin (Vitamin B-12) 1,000 Mcg Tablet, 1,000 MCG PO DAILY, (Reported) Ferrous Sulfate 325 Mg Tablet, 325 MG PO DAILY, (Reported) Fish Oil/Dha/Epa 1 Each Capsule, 1,200 MG PO DAILY, (Reported) Metoprolol Succinate 25 Mg Tab.er.24h, 25 MG PO DAILY, (Reported) Multivit-Min/FA/Lycopene/Lut 1 Each Tablet, 1 TAB PO DAILY, (Reported) Omeprazole 20 Mg Capsule.dr, 20 MG PO DAILY, (Reported) Tamsulosin HCl 0.4 Mg Cap.er.24h, 0.4 MG PO 1800, (Reported) Patient Home Medication List Home Medication List Reviewed: Yes Physical Exam-Cardiology Physical Exam Vital Signs/I&O 02/14/18 02/15/18 02/15/18 02/15/18 23:54 04:10 08:14 08:24 Temp 98.0 98.8 98.3 Pulse 73 70 74 Resp 18 18 16 B/P (MAP) 113/60 (77) 109/56 (73) 110/70 (83) Pulse Ox 96 96 95 95 O2 Delivery Room Air Room Air Room Air Room Air 02/15/18 00:00 Intake Total 790 ml Output Total 750 ml Balance 40 ml Capillary Refill : Less Than 3 SecondsLess Than 3 Seconds Constitutional: AAO x 3, well-developed, well-nourished HEENT: hearing is well preserved; No xanthelasmas are seen Neck: carotid pulses are 2 + bilaterally, with good upstrokes Respiratory: No accessory muscle use; lungs clear to percussion, lungs clear to auscultation Cardiovascular: regular rate-rhythm, S1 and S2, systolic murmur (soft JAH at card base) Gastrointestinal: No tender; soft; No guarding, No rebound; audible bowel sounds Extremities: other (swelling at L ankle joint with redness of the skin and increased skin temperature); No clubbing, No cyanosis Neurologic/Psychiatric: oriented x 3, grossly intact, power is 5/5 both on sides Skin: No rash on exposed areas, No ulcerations on exposed areas Data Review Labs Laboratory Tests 02/14/18 13:06: White Blood Count 18.3H, Red Blood Count 3.95L, Hemoglobin 13.2L, Hematocrit 38L , Mean Corpuscular Volume 96, Mean Corpuscular Hemoglobin 33, Mean Corpuscular Hemoglobin Concent 35, Red Cell Distribution Width 14.9H, Platelet Count 329, Mean Platelet Volume 9.5, Neutrophils (%) (Auto) 75, Lymphocytes (%) (Auto) 13, Monocytes (%) (Auto) 12, Eosinophils (%) (Auto) 0, Basophils (%) (Auto) 0, Neutrophils # (Auto) 13.6H, Lymphocytes # (Auto) 2.5, Monocytes # (Auto) 2.1H, Eosinophils # (Auto) 0.0, Basophils # (Auto) 0.0, Erythrocyte Sedimentation Rate 17, Prothrombin Time 14.8H, INR Comment 1.2, Activated Partial Thromboplast Time 36H, Sodium Level 135, Potassium Level 3.7, Chloride Level 104 , Carbon Dioxide Level 23, Anion Gap 8, Blood Urea Nitrogen 10, Creatinine 0.72 , Estimat Glomerular Filtration Rate > 60, BUN/Creatinine Ratio 14, Glucose Level 101, Uric Acid 2.6, Calcium Level 9.4, Corrected Calcium 9.6, Total Bilirubin 0.7, Aspartate Amino Transf (AST/SGOT) 14, Alanine Aminotransferase ( ALT/SGPT) 17, Alkaline Phosphatase 84, C-Reactive Protein High Sensitivity 16.67H, Total Protein 7.0, Albumin 3.7 02/14/18 13:20: Lactic Acid Level 0.91 02/15/18 06:05: White Blood Count 12.7H, Red Blood Count 3.70L, Hemoglobin 12.1L, Hematocrit 36L , Mean Corpuscular Volume 97, Mean Corpuscular Hemoglobin 33, Mean Corpuscular Hemoglobin Concent 34, Red Cell Distribution Width 15.2H, Platelet Count 331, Mean Platelet Volume 8.5, Neutrophils (%) (Auto) 65, Lymphocytes (%) (Auto) 20, Monocytes (%) (Auto) 13H, Eosinophils (%) (Auto) 1, Basophils (%) (Auto) 0, Neutrophils # (Auto) 8.3H, Lymphocytes # (Auto) 2.6, Monocytes # (Auto) 1.6H, Eosinophils # (Auto) 0.2, Basophils # (Auto) 0.1, Sodium Level 138, Potassium Level 3.4L, Chloride Level 108H, Carbon Dioxide Level 21, Anion Gap 9, Blood Urea Nitrogen 9, Creatinine 0.71, Estimat Glomerular Filtration Rate > 60, BUN/ Creatinine Ratio 13, Glucose Level 95, Calcium Level 8.9, Corrected Calcium 9.5 , Total Bilirubin 0.8, Aspartate Amino Transf (AST/SGOT) 12, Alanine Aminotransferase (ALT/SGPT) 14, Alkaline Phosphatase 76, Total Protein 6.2L, Albumin 3.3 Laboratory Tests 02/14/18 13:06 02/15/18 06:05 A/P-Cardiology Assessment/Admission Diagnosis L ankle inflammation, etiology unclear, managed by Dr Pepper and the Ortho Svce Bilateral leg discomfort, chronic. 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 LVEF on MUGA of 05/31/13 was 46% which was a considerable drop from previous evaluations. Subsequent echo of 03/13/15 showed normal LVEF Coronary artery disease primarily consisting of severe stenosis of the proximal portion of an obtuse marginal branch to which he underwent successful bare- metal stenting (2.5 x 15-mm) on card cath in April 2007. Last myocardial perfusion imaging was on 12/22/16. There was no evidence of myocardial ischemia or infarction and left ventricular ejection fraction was 60% Echo of 03/13/15 showed LVEF 60%, triv TR, PASP 30-35 mmHg Hyperlipidemia, being treated with atorvastatin, well contolled Degenerative joint disease. Status post bilat knee replacement surgery. S/p L ankle fusion surgery in 2013 Chronic back discomfort. S/p lumbar spinal surgery by Dr Robles in October 2017 following which bilat leg numbness has improved Cervical radiculopathy with bilat arm weakness and tingling Gastroesophageal reflux. Mild bilat carotid arterial disease per carotid ultrasonography of 11/20/15 Elevated body mass index of approximately 39 Impaired fasting glucose Chronic prostatitis, managed by Dr Carlisle Mild chronic bilateral leg swelling, likely related to venous insuff. Chronic bilat varicose veins, more prominent on the R H/o tobacco use (quit 1990) Discussion and Recomendations * He suffers from multiple comorbidities that are outlined above * We recommend continuation of previous card regimen * Card risk for noncard surg is estimated to be intermediate. This was discussed with him. He understands and wishes to proceed with any necessary surgery * Monitor labs * I spoke with him and his and answered CV-related questions Clinical Quality Measures DVT/VTE Risk/Contraindication: Risk Factor Score Per Nursin RFS Level Per Nursing on Admit: 4+=Very High MAURISIO GRAHAM MD FACP FAC CCDS Feb 15, 2018 11:09
[2018-02-15] MEDS ORDERED: KCL 10 MEQ TAB (MICRO K) PO NR (11:16)
[2018-02-15 11:30] VITALS: BP 100/59
[2018-02-15] MEDS: DOCUSATE SODIUM 100 MG (COLACE) CAP PO SCH ×2 (11:46→20:33)
--- NOTE | 2018-02-15 12:00 | Consultation ---
History of Present Illness History of Present Illness Patient Consulted On(mando/time) 02/15/18 11:55 Date Seen by Provider: Feb 15, 2018 Time Seen by Provider: 11:55 Reason for Visit: Septic Right Ankle History of Present Illness Pt has a history of Right ankle and STJ fusion in 2013. He has been having recent history of increased pain and swelling to the right ankle. That has gotten significantly worse over the past 6 days and presented to the ER with pain swelling and a WBC of 18. Denies F/C/N/V at this time. Allergies and Home Medications Allergies Coded Allergies: morphine (Verified Allergy, Unknown, 02/14/18) Home Medications Allopurinol 300 Mg Tablet, 300 MG PO DAILY, (Reported) Ascorbic Acid 1,000 Mg Tablet, 1,000 MG PO DAILY, (Reported) Aspirin 81 Mg Tablet.dr, 81 MG PO DAILY, (Reported) Atorvastatin Calcium 40 Mg Tablet, 20 MG PO DAILY, (Reported) TAKES 1/2 (40MG) TABLET Bupropion HCl 300 Mg Tab.er.24h, 300 MG PO DAILY, (Reported) Cholecalciferol (Vitamin D3) 2,000 Unit Capsule, 2,000 UNIT PO DAILY, (Reported) Cyanocobalamin (Vitamin B-12) 1,000 Mcg Tablet, 1,000 MCG PO DAILY, (Reported) Ferrous Sulfate 325 Mg Tablet, 325 MG PO DAILY, (Reported) Fish Oil/Dha/Epa 1 Each Capsule, 1,200 MG PO DAILY, (Reported) Metoprolol Succinate 25 Mg Tab.er.24h, 25 MG PO DAILY, (Reported) Multivit-Min/FA/Lycopene/Lut 1 Each Tablet, 1 TAB PO DAILY, (Reported) Omeprazole 20 Mg Capsule.dr, 20 MG PO DAILY, (Reported) Tamsulosin HCl 0.4 Mg Cap.er.24h, 0.4 MG PO 1800, (Reported) Patient Home Medication List Home Medication List Reviewed: Yes Past Agmxfoz-Ovtcdd-Wreuyv Hx Past Med/Social Hx: Reviewed Nursing Past Med/Soc Hx, Reviewed and Corrections made Patient Social History Alcohol Use: Rarely Uses Recreational Drug Use: No Smoking Status: Former Smoker Type Used: Cigarettes Former Smoker, Quit: May 22, 1990 Recent Foreign Travel: No Contact w/Someone Who Travel: No Recent Infectious Disease Expo: No Recent Hopitalizations: Yes (ULCERS-20YEARS AGO, cardiac cath with [address] 2 weeks ago) Immunizations Up To Date Date of Pneumonia Vaccine: May 22, 2017 Date of Influenza Vaccine: May 22, 2017 Past Medical History Surgeries: Yes (BILAT KNEES REPLACED. SPLEEN REMOVED. TUMOR-GROIN) Coronary Stent, Orthopedic (lumbar, ankle, both knees, one hip, right shoulder, cervical surgery upcoming next week), Tonsillectomy Respiratory: No Cardiac: Yes (STENT PLACED '07) Coronary Artery Disease (stent), High Cholesterol, Hypertension Neurological: No Reproductive Disorders: No Genitourinary: Yes Prostate Problems Gastrointestinal: Yes Gastroesophageal Reflux Musculoskeletal: No Arthritis, Gout Endocrine: No HEENT: No Cancer: Yes (NON HOGKINS) Lymphoma (follicular B cell nonhodgekin lymphoma, in remission) Did You Recieve Any Treatments: Yes What Type of Treatment Did You: Chemotherapy Psychosocial: Yes Anxiety, Depression Recent Skin Changes Blood Disorders: No Family Medical History Reviewed Nursing Family Hx Arthritis Cardiovascular disease Colon cancer Congenital heart disease Diabetes mellitus Hypertension Myocardial infarction Respiratory disorder Heart Disease, Other Conditions/Hx (arthritis) Physical Exam-General Problems Physical Exam Vital Signs Vital Signs - First Documented 02/14/18 12:35 Temp 97.7 Pulse 84 Resp 20 B/P (MAP) 143/90 (107) Pulse Ox 96 O2 Delivery Room Air Capillary Refill : Less Than 3 SecondsLess Than 3 Seconds Extremities: other (pain and swelling to the right ankle and RLE. +warmth RLE , gross sensation diminished, active ROM intact, stable ankle fusion, Right Calf is tender and painful with compression) Assessment/Plan Assessment/Plan Admission Diagnosis/Plan Septic Ankle RLE -Plan for I&D right Ankle with removal of hardware and abx bead placement -NPO after midnight -Hold Lovenox tomorrow -Venous duplex US to rule out DVT -Will need IV abx pending definitive surgical cultures -NWB RLE Admission Status: Inpatient Order (span 2 midnights) Reason for Inpatient Admission: Infections Clinical Quality Measures DVT/VTE Risk/Contraindication: Risk Factor Score Per Nursin RFS Level Per Nursing on Admit: 4+=Very High ENOCH RAND DPM Feb 15, 2018 12:00
[2018-02-15] MEDS: ACETAMINOPHEN 500 MG TAB (TYLENOL) PO PRN ×2 (14:00→20:33)
--- NOTE | 2018-02-15 14:58 | Diagnostic Imaging Report ---
PROCEDURE: US right lower extremity venous. TECHNIQUE: Multiple real-time grayscale images were obtained over the right lower extremity in various projections. Additional duplex Doppler and color Doppler images were also obtained. INDICATION: Pain and edema. FINDINGS: The right common femoral, superficial femoral, popliteal veins and tibial veins demonstrate normal response to compression, augmentation, and Valsalva. There are no right lower extremity fluid collections or masses. IMPRESSION: No evidence of deep vein thrombosis in the right lower extremity. Dictated by: Dictated on workstation # [id number]
[2018-02-15] MEDS: ENOXAPARIN 40 MG/0.4 ML (LOVENOX) SYR SC SCH (15:00)
[2018-02-15 15:28] VITALS: BP 117/70
[2018-02-15] MEDS: TAMSULOSIN 0.4 MG (FLOMAX) CAP PO SCH (18:22)
[2018-02-15] MEDS ORDERED: VANCOMYCIN 1,750 MG/NS 500 ML IVPB IV SCH ×2 (20:00)
[2018-02-15] MEDS: diphenhydrAMINE 25 MG TAB (BENADRYL) PO SCH (20:32)
[2018-02-15] MEDS: ATORVASTATIN 20 MG (LIPITOR) TABLET PO SCH (20:34)
[2018-02-15 20:40] VITALS: BP 125/75
[2018-02-15] MEDS: ALPRAZolam 0.25 MG (XANAX) TAB PO PRN (22:34)
[2018-02-16] VITALS: BP 113/69
[2018-02-16] MEDS: fentaNYL INJECTION 100 MCG/2 ML AMP IV PRN ×7 (01:07→22:03)
[2018-02-16 04:00] VITALS: BP 115/73
[2018-02-16] MEDS: OMEGA 3 (FISH OIL) 1000 MG CAP PO SCH (06:29)
[2018-02-16] MEDS: KCL 10 MEQ TAB (MICRO K) PO SCH (06:29)
[2018-02-16] MEDS: PANTOPRAZOLE 20 MG TABLET (PROTONIX) PO SCH (06:29)
[2018-02-16] MEDS: CYANOCOBALAMIN 1,000 MCG (VITAMIN B-12) TABLET PO SCH (06:29)
[2018-02-16] MEDS: MULTIVIT W/MINERALS TAB (THERAGRAN M) PO SCH (06:30)
[2018-02-16] MEDS: PIPERACILLIN/TAZO 4.5 GM/NS 100 ML IV SCH ×6 (06:47→21:59)
[2018-02-16] MEDS ORDERED: TROUGH ORDER-PHARMACY XX ONE (07:00)
[2018-02-16] MEDS ORDERED: TROUGH ORDER-PHARMACY XX NR (07:00)
[2018-02-16 07:01] LABS: BASOPHILS % (AUTO) 0 % (0-10); EOSINOPHILS # (AUTO) 0.2 10^3/uL (0.0-0.3); EOSINOPHILS % (AUTO) 2 % (0-10); HEMATOCRIT 34 % (40-54); HEMOGLOBIN 11.7 G/DL (13.3-17.7); LYMPHOCYTES # (AUTO) 2.3 X 10^3 (1.0-4.0); LYMPHOCYTES % (AUTO) 21 % (12-44); MEAN CORPUSCULAR HEMOGLOBIN 33 PG (25-34); MEAN CORPUSCULAR HGB CONC 35 G/DL (32-36); MEAN CORPUSCULAR VOLUME 96 FL (80-99); MEAN PLATELET VOLUME 8.7 FL (7.4-10.4); MONOCYTES # (AUTO) 1.2 X 10^3 (0.0-1.0); MONOCYTES % (AUTO) 10 % (0-12); NEUTROPHILS # (AUTO) 7.4 X 10^3 (1.8-7.8); NEUTROPHILS % (AUTO) 67 % (42-75); PLATELET COUNT 330 10^3/uL (130-400); RED CELL DISTRIBUTION WIDTH 15.2 % (10.0-14.5); WHITE BLOOD COUNT 11.1 10^3/uL (4.3-11.0)
[2018-02-16 07:18] LABS: ALANINE AMINOTRANSFERASE 21 U/L (0-55); ALBUMIN 3.2 GM/DL (3.2-4.5); ALKALINE PHOSPHATASE 76 U/L (40-136); BILIRUBIN,TOTAL 0.6 MG/DL (0.1-1.0); BUN/CREATININE RATIO 14; CARBON DIOXIDE 24 MMOL/L (21-32); CHLORIDE 108 MMOL/L (98-107); CREATININE SERUM 0.69 MG/DL (0.60-1.30); GFR ESTIMATED > 60; GLUCOSE 105 MG/DL (70-105); POTASSIUM 3.6 MMOL/L (3.6-5.0); SODIUM 138 MMOL/L (135-145); TOTAL PROTEIN 6.4 GM/DL (6.4-8.2)
[2018-02-16 07:24] LABS: VANCOMYCIN,TROUGH 9.2 UG/ML (10.0-20.0)
[2018-02-16 08:00] VITALS: BP 116/72
[2018-02-16] MEDS: VANCOMYCIN 1,750 MG/NS 500 ML IVPB IV SCH ×4 (08:58→17:53)
--- NOTE | 2018-02-16 09:05 | Progress Note-Hospitalist ---
MICHAEL HERRERA MED STUDENT 02/16/18 0905: Subjective HPI/CC On Admission Date Seen by Provider: Feb 16, 2018 Time Seen by Provider: 07:25 CC: ankle pain HPI: This is 68yoWM clinic patient of Dr Santana who presents with right ankle pain. Patient has a h/o an ankle fusion in the past and has had extreme pain in the right ankle along with fever and redness to the ankle for the past 2 days and it worsened to the point he presented to the ER. Pt has multiple medical issues which include lymphoma in remission and is concerned about his anxiousness and whether the abx will cover for infection and any spread of infection. I updated his in the room then I saw the patient in CT scan. Dr Garcia ordered a CT scan and will him in consultation tomorrow. Subjective/Events-last exam Patient was able to sleep overnight pain is under control bladder and bowels are moving frequently and without difficulty I&D scheduled for this afternoon 1pm with Dr. Garcia- NPO until procedure Focused Exam Lactate Level 02/14/18 13:20: Lactic Acid Level 0.91 Objective Exam Vital Signs Vital Signs Date Time Temp Pulse Resp B/P (MAP) Pulse Ox O2 Delivery O2 Flow Rate FiO2 02/16/18 08:03 95 Room Air 02/16/18 08:00 99.4 73 18 116/72 (87) Capillary Refill : Less Than 3 SecondsLess Than 3 Seconds General Appearance: No Apparent Distress, WD/WN HEENT: Normal ENT Inspection Neck: Full Range of Motion, Normal Inspection, Non Tender, Supple Respiratory: Chest Non Tender, Lungs Clear, Normal Breath Sounds, No Accessory Muscle Use, No Respiratory Distress Cardiovascular: Regular Rate, Rhythm, No Gallop, No JVD, No Murmur Gastrointestinal: Normal Bowel Sounds, Non Tender, Soft Back: Normal Inspection, No CVA Tenderness, No Vertebral Tenderness Extremity: Normal Capillary Refill, No Calf Tenderness, Other (right ankle swelling) Neurologic/Psychiatric: Alert, Oriented x3, No Motor/Sensory Deficits, Normal Mood/Affect Skin: Normal Color, Warm/Dry Lymphatic: No Adenopathy Results/Procedures Lab Laboratory Tests 02/16/18 06:55 Patient resulted labs reviewed. Assessment/Plan Assessment and Plan Assess & Plan/Chief Complaint Assessment: right ankle septic joint pain under control Plan: surgery today with Dr. Garcia continue IV antibiotics and pain management Diagnosis/Problems Diagnosis/Problems (1) Gout Status: Chronic Qualifiers: Gout site: foot Gout etiology: unspecified cause Chronicity: unspecified Laterality: unspecified laterality Qualified Codes: M10.9 - Gout , unspecified (2) Hypercholesteremia Status: Chronic (3) HTN (hypertension) Status: Chronic Qualifiers: Hypertension type: essential hypertension Qualified Codes: I10 - Essential (primary) hypertension (4) Arthritis Status: Chronic (5) NHL (non-Hodgkin's lymphoma) Status: Resolved Qualifiers: Non-Hodgkin lymphoma type: B-cell B-cell lymphoma type: unspecified B- cell Lymphoma site: unspecified region Qualified Codes: C85.10 - Unspecified B-cell lymphoma, unspecified site (6) CAD (coronary artery disease) Status: Chronic Qualifiers: Coronary Disease-Associated Artery/Lesion type: unspecified vessel or lesion type [place] vs. transplanted heart: [place] heart Associated angina: angina presence unspecified Qualified Codes: I25.10 - Atherosclerotic heart disease of [place] coronary artery without angina pectoris (7) GERD (gastroesophageal reflux disease) Status: Chronic Qualifiers: Esophagitis presence: esophagitis presence not specified Qualified Codes: K21.9 - Gastro-esophageal reflux disease without esophagitis (8) Swollen R ankle Status: Acute Clinical Quality Measures DVT/VTE Risk/Contraindication: Risk Factor Score Per Nursin RFS Level Per Nursing on Admit: 4+=Very High CASSANDRAJOHN DO 02/16/18 1615: Subjective HPI/CC On Admission Time Seen by Provider: 10:00 Subjective/Events-last exam Ready for surgery by Dr Garcia to remove hardware and place abx beads Pain is controlled Checked meds and labs Review of Systems Musculoskeletal: foot pain Objective Exam General Appearance: No Apparent Distress, WD/WN, Chronically ill, Obese Respiratory: Chest Non Tender, Lungs Clear, Normal Breath Sounds, No Accessory Muscle Use, No Respiratory Distress Cardiovascular: Regular Rate, Rhythm, No Edema, No Gallop, No JVD, No Murmur, Normal Peripheral Pulses Back: Normal Inspection, No CVA Tenderness, No Vertebral Tenderness Neurologic/Psychiatric: Alert, Oriented x3, No Motor/Sensory Deficits, Normal Mood/Affect Skin: Normal Color, Warm/Dry Assessment/Plan Assessment and Plan Assess & Plan/Chief Complaint OR today Hold Lovenox today Diagnosis/Problems Diagnosis/Problems (1) Septic joint Status: Acute Qualifiers: Septic arthritis location: ankle Septic arthritis organism: due to unspecified organism Laterality: right Qualified Codes: M00.9 - Pyogenic arthritis, unspecified (2) Failed hardware Status: Acute (3) NHL (non-Hodgkin's lymphoma) Status: Resolved Qualifiers: Non-Hodgkin lymphoma type: B-cell B-cell lymphoma type: unspecified B- cell Lymphoma site: unspecified region Qualified Codes: C85.10 - Unspecified B-cell lymphoma, unspecified site (4) Swollen R ankle Status: Acute (5) GERD (gastroesophageal reflux disease) Status: Chronic Qualifiers: Esophagitis presence: esophagitis presence not specified Qualified Codes: K21.9 - Gastro-esophageal reflux disease without esophagitis (6) CAD (coronary artery disease) Status: Chronic Qualifiers: Coronary Disease-Associated Artery/Lesion type: unspecified vessel or lesion type [place] vs. transplanted heart: [place] heart Associated angina: angina presence unspecified Qualified Codes: I25.10 - Atherosclerotic heart disease of [place] coronary artery without angina pectoris (7) Arthritis Status: Chronic (8) HTN (hypertension) Status: Chronic Qualifiers: Hypertension type: essential hypertension Qualified Codes: I10 - Essential (primary) hypertension (9) Hypercholesteremia Status: Chronic (10) Gout Status: Chronic Qualifiers: Gout site: foot Gout etiology: unspecified cause Chronicity: unspecified Laterality: unspecified laterality Qualified Codes: M10.9 - Gout , unspecified MICHAEL HERRERA Feb 16, 2018 09:05 JOHN TRUJILLO DO Feb 16, 2018 16:15
[2018-02-16] MEDS: ASPIRIN E.C. 81 MG (ECOTRIN) TAB PO SCH (09:13)
[2018-02-16] MEDS: FERROUS SULF 325 MG (IRON) TAB PO SCH (09:13)
[2018-02-16] MEDS: DOCUSATE SODIUM 100 MG (COLACE) CAP PO SCH ×2 (09:13→21:59)
[2018-02-16] MEDS: ALLOPURINOL 300 MG (ZYLOPRIM) TAB PO SCH (09:14)
[2018-02-16] MEDS: buPROPion SR 150 MG (WELLBUTRIN SR) TAB PO SCH ×2 (09:14→21:59)
[2018-02-16] MEDS: VITAMIN D3 1,000 UNITS (CHOLECALCIFEROL) TABLET PO SCH (09:14)
[2018-02-16] MEDS: ASCORBIC ACID (VIT C) 500 MG TABLET PO SCH (09:14)
--- NOTE | 2018-02-16 09:25 | Progress Note-Cardiology ---
Cardiology SOAP Progress Note Subjective: R ankle pain as before No cp or palp or syncope or shortness of breath at rest Objective: I&O/Vital Signs 02/15/18 02/16/18 02/16/18 02/16/18 21:50 00:00 04:00 08:00 Temp 99.2 99.1 99.6 99.4 Pulse 75 88 73 Resp 18 B/P (MAP) 113/69 (84) 115/73 (87) 116/72 (87) Pulse Ox 97 96 94 O2 Delivery Room Air Room Air Room Air 02/16/18 08:03 Pulse Ox 95 O2 Delivery Room Air 02/16/18 00:00 Intake Total 1992 ml Output Total 1700 ml Balance 292 ml Weight (Pounds): 271 Weight (Ounces): 0.0 Weight (Calculated Kilograms): 122.300688 Constitutional: AAO x 3, well-developed, well-nourished Respiratory: No accessory muscle use; lungs clear to percussion, lungs clear to auscultation Cardiovascular: regular rate-rhythm, S1 and S2, systolic murmur (soft JAH at card base) Gastrointestional: No tender; soft; No guarding, No rebound; audible bowel sounds Extremities: other (swelling at R ankle joint with redness of the skin and increased skin temperature (erroneously documented as L ankle in the initial Cardiology consult note)); No clubbing, No cyanosis Neurologic/Psychiatric: oriented x 3, grossly intact, power is 5/5 both on sides Skin: No rash on exposed areas, No ulcerations on exposed areas Results/Procedures: Labs Laboratory Tests 02/16/18 06:55: White Blood Count 11.1H, Red Blood Count 3.50L, Hemoglobin 11.7L, Hematocrit 34L , Mean Corpuscular Volume 96, Mean Corpuscular Hemoglobin 33, Mean Corpuscular Hemoglobin Concent 35, Red Cell Distribution Width 15.2H, Platelet Count 330, Mean Platelet Volume 8.7, Neutrophils (%) (Auto) 67, Lymphocytes (%) (Auto) 21, Monocytes (%) (Auto) 10, Eosinophils (%) (Auto) 2, Basophils (%) (Auto) 0, Neutrophils # (Auto) 7.4, Lymphocytes # (Auto) 2.3, Monocytes # (Auto) 1.2H, Eosinophils # (Auto) 0.2, Basophils # (Auto) 0.0, Sodium Level 138, Potassium Level 3.6, Chloride Level 108H, Carbon Dioxide Level 24, Anion Gap 6, Blood Urea Nitrogen 10, Creatinine 0.69, Estimat Glomerular Filtration Rate > 60, BUN/ Creatinine Ratio 14, Glucose Level 105, Calcium Level 9.0, Corrected Calcium 9.6 , Total Bilirubin 0.6, Aspartate Amino Transf (AST/SGOT) 18, Alanine Aminotransferase (ALT/SGPT) 21, Alkaline Phosphatase 76, Total Protein 6.4, Albumin 3.2, Vancomycin Level Trough 9.2L Microbiology 02/14/18 Blood Culture - Preliminary, Resulted No growth Laboratory Tests 02/14/18 13:06 02/15/18 06:05 02/16/18 06:55 A/P: Assessment: R ankle septic joint, managed by Dr Pepper and the Ortho Svce Bilateral leg discomfort, chronic. 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 LVEF on MUGA of 05/31/13 was 46% which was a considerable drop from previous evaluations. Subsequent echo of 03/13/15 showed normal LVEF Coronary artery disease primarily consisting of severe stenosis of the proximal portion of an obtuse marginal branch to which he underwent successful bare- metal stenting (2.5 x 15-mm) on card cath in April 2007. Last myocardial perfusion imaging was on 12/22/16. There was no evidence of myocardial ischemia or infarction and left ventricular ejection fraction was 60% Echo of 03/13/15 showed LVEF 60%, triv TR, PASP 30-35 mmHg Hyperlipidemia, being treated with atorvastatin, well contolled Degenerative joint disease. Status post bilat knee replacement surgery. S/p L ankle fusion surgery in 2013 Chronic back discomfort. S/p lumbar spinal surgery by Dr Robles in October 2017 following which bilat leg numbness has improved Cervical radiculopathy with bilat arm weakness and tingling Gastroesophageal reflux. Mild bilat carotid arterial disease per carotid ultrasonography of 11/20/15 Elevated body mass index of approximately 39 Impaired fasting glucose Chronic prostatitis, managed by Dr Carlisle Mild chronic bilateral leg swelling, likely related to venous insuff. Chronic bilat varicose veins, more prominent on the R H/o tobacco use (quit 1990) Plan: * He suffers from multiple comorbidities that are outlined above * We recommend continuation of previous card regimen * Card risk for noncard surg is estimated to be intermediate. This was again discussed with him. He understands and wishes to proceed with any necessary surgery * Monitor labs * Dr Ruvalcaba covering the Card MAURISIO Bright MD FACP [facility] Feb 16, 2018 09:25
[2018-02-16 12:00] VITALS: BP 130/73
[2018-02-16] MEDS ORDERED: proPOfol 200 MG/20 ML (DIPRIVAN) VIAL IV ONE (12:09)
[2018-02-16] MEDS ORDERED: MIDAZOLAM 2 MG/2 ML (VERSED) VIAL ONE (12:09)
[2018-02-16] MEDS ORDERED: ROCURONIUM 10 MG/ML 5 ML SYRINGE IV ONE (12:09)
[2018-02-16] MEDS ORDERED: fentaNYL INJECTION 100 MCG/2 ML AMP ONE ×2 (12:09→15:18)
[2018-02-16] MEDS ORDERED: LIDOCAINE PF 2% 2 ML (XYLOCAINE) VIAL ONE ×2 (12:09→12:14)
[2018-02-16] MEDS ORDERED: LACTATED RINGERS 1,000 ML IV ONE (12:09)
[2018-02-16] MEDS ORDERED: ONDANSETRON 4 MG/2 ML (SDV) Z0FRAN ONE (12:09)
[2018-02-16] MEDS ORDERED: DEXAMETHASONE 10 MG/ML (DECADRON) 1 ML VIAL ONE (12:15)
[2018-02-16] MEDS ORDERED: SEVOFLURANE (ULTANE) 15 ML INHAL SOLN ONE ×7 (12:15→15:57)
[2018-02-16] MEDS ORDERED: VANCOMYCIN 1000 MG/VIAL ONE (14:14)
[2018-02-16] MEDS ORDERED: GENTAMICIN 40 MG/ML 2 ML INJ SDV ONE (14:15)
[2018-02-16] MEDS ORDERED: ONDANSETRON 4 MG/2 ML (SDV) Z0FRAN IVP PRN (15:15)
[2018-02-16] MEDS ORDERED: fentaNYL INJECTION 100 MCG/2 ML AMP IVP ONE (15:15)
[2018-02-16] MEDS ORDERED: HYDROmorphone 2 MG/ML VIAL (DILAUDID) ONE (15:40)
[2018-02-16] MEDS ORDERED: NEOSTIGMINE 1 MG/ML 5 ML SYRINGE ONE (15:55)
[2018-02-16] MEDS ORDERED: GLYCOPYRROLATE 0.2 MG/ML (ROBINUL) 2 ML VIAL ONE (15:56)
[2018-02-16 17:10] VITALS: BP 116/65
[2018-02-16] MEDS: TAMSULOSIN 0.4 MG (FLOMAX) CAP PO SCH (17:53)
[2018-02-16] MEDS: ACETAMINOPHEN 500 MG TAB (TYLENOL) PO PRN (20:22)
[2018-02-16 20:39] VITALS: BP 120/70
[2018-02-16] MEDS: diphenhydrAMINE 25 MG TAB (BENADRYL) PO SCH (21:59)
[2018-02-16] MEDS: ALPRAZolam 0.25 MG (XANAX) TAB PO PRN (21:59)
[2018-02-16] MEDS: ATORVASTATIN 20 MG (LIPITOR) TABLET PO SCH (21:59)
[2018-02-17 00:06] VITALS: BP 107/61
[2018-02-17] MEDS: VANCOMYCIN 1,750 MG/NS 500 ML IVPB IV SCH ×8 (00:08→23:41)
[2018-02-17] MEDS: fentaNYL INJECTION 100 MCG/2 ML AMP IV PRN ×6 (00:09→18:52)
[2018-02-17] MEDS: ACETAMINOPHEN 500 MG TAB (TYLENOL) PO PRN ×2 (02:19→10:34)
[2018-02-17 04:00] VITALS: BP 104/73
[2018-02-17 05:42] LABS: BASOPHILS % (AUTO) 0 % (0-10); EOSINOPHILS % (AUTO) 0 % (0-10); HEMATOCRIT 36 % (40-54); LYMPHOCYTES # (AUTO) 1.6 X 10^3 (1.0-4.0); LYMPHOCYTES % (AUTO) 11 % (12-44); MEAN CORPUSCULAR HEMOGLOBIN 32 PG (25-34); MEAN CORPUSCULAR HGB CONC 33 G/DL (32-36); MEAN CORPUSCULAR VOLUME 97 FL (80-99); MEAN PLATELET VOLUME 8.5 FL (7.4-10.4); MONOCYTES % (AUTO) 7 % (0-12); NEUTROPHILS # (AUTO) 11.8 X 10^3 (1.8-7.8); NEUTROPHILS % (AUTO) 82 % (42-75); PLATELET COUNT 396 10^3/uL (130-400); RED BLOOD COUNT 3.71 10^6/uL (4.35-5.85); RED CELL DISTRIBUTION WIDTH 15.2 % (10.0-14.5); WHITE BLOOD COUNT 14.4 10^3/uL (4.3-11.0)
[2018-02-17] MEDS: OMEGA 3 (FISH OIL) 1000 MG CAP PO SCH (05:50)
[2018-02-17] MEDS: CYANOCOBALAMIN 1,000 MCG (VITAMIN B-12) TABLET PO SCH (05:50)
[2018-02-17] MEDS: KCL 10 MEQ TAB (MICRO K) PO SCH (05:50)
[2018-02-17] MEDS: MULTIVIT W/MINERALS TAB (THERAGRAN M) PO SCH (05:50)
[2018-02-17] MEDS: PANTOPRAZOLE 20 MG TABLET (PROTONIX) PO SCH (05:51)
[2018-02-17] MEDS: PIPERACILLIN/TAZO 4.5 GM/NS 100 ML IV SCH ×6 (05:51→21:55)
[2018-02-17 06:05] LABS: ALANINE AMINOTRANSFERASE 29 U/L (0-55); ALBUMIN 3.2 GM/DL (3.2-4.5); ALKALINE PHOSPHATASE 89 U/L (40-136); BILIRUBIN,TOTAL 0.4 MG/DL (0.1-1.0); BUN/CREATININE RATIO 15; CALCIUM 9.3 MG/DL (8.5-10.1); CARBON DIOXIDE 22 MMOL/L (21-32); CHLORIDE 107 MMOL/L (98-107); CREATININE SERUM 0.73 MG/DL (0.60-1.30); GFR ESTIMATED > 60; GLUCOSE 139 MG/DL (70-105); POTASSIUM 4.1 MMOL/L (3.6-5.0); SODIUM 138 MMOL/L (135-145); TOTAL PROTEIN 6.7 GM/DL (6.4-8.2)
[2018-02-17 06:10] LABS: VANCOMYCIN,TROUGH 23.5 UG/ML (10.0-20.0)
[2018-02-17] MEDS: ASPIRIN E.C. 81 MG (ECOTRIN) TAB PO SCH (08:02)
[2018-02-17] MEDS: DOCUSATE SODIUM 100 MG (COLACE) CAP PO SCH (08:02)
[2018-02-17] MEDS: ALLOPURINOL 300 MG (ZYLOPRIM) TAB PO SCH (08:02)
[2018-02-17] MEDS: FERROUS SULF 325 MG (IRON) TAB PO SCH (08:02)
[2018-02-17] MEDS: buPROPion SR 150 MG (WELLBUTRIN SR) TAB PO SCH (08:02)
[2018-02-17] MEDS: VITAMIN D3 1,000 UNITS (CHOLECALCIFEROL) TABLET PO SCH (08:02)
[2018-02-17] MEDS: ASCORBIC ACID (VIT C) 500 MG TABLET PO SCH (08:02)
[2018-02-17 08:48] VITALS: BP 105/67
--- NOTE | 2018-02-17 10:47 | Cardiology Progress Note ---
Subjective Date Seen by Provider: Feb 17, 2018 Time Seen by Provider: 10:44 Subjective/Events-last exam Patient is in bed, feeling better, no new complaint Review of Systems General: No Chills, No Night Sweats, No Fatigue, No Malaise, No Appetite, No Other HEENT: No Head Aches, No Visual Changes, No Eye Pain, No Ear Pain, No Dysphasia , No Sinus Congestion, No Post Nasal Drip, No Sore Throat, No Other Pulmonary: No Dyspnea, No Cough, No Pleuritic Chest Pain, No Other Cardiovascular: No: Chest Pain, Palpitations, Orthopnea, Paroxysmal Noc. Dyspnea, Edema, Lt Headedness, Other Focused Exam Lactate Level 02/14/18 13:20: Lactic Acid Level 0.91 Objective-Cardiology Exam Last Set of Vital Signs Vital Signs 02/17/18 08:48 Temp 98.7 Pulse 61 Resp 18 B/P (MAP) 105/67 (80) Pulse Ox 95 O2 Delivery Room Air Capillary Refill : Less Than 3 SecondsLess Than 3 Seconds I&O Intake and Output 02/16/18 23:59 Intake Total 2360.0 ml Output Total 2375 ml Balance -15.0 ml Intake Oral 1100 ml IV Total 1260.0 ml Output Urine Total 2375 ml # Voids 2 General: Alert, Oriented X3, Cooperative HEENT: Atraumatic, PERRLA Neck: Supple, No JVD, No Thyromegaly Lungs: Clear to Auscultation, Normal Air Movement Heart: Regular Rate, Normal S1, Normal S2, No Murmurs Abdomen: Normal Bowel Sounds, Soft, No Tenderness, No Hepatosplenomegaly, No Masses Extremities: No Clubbing, No Cyanosis, No Edema, Normal Pulses, No Tenderness/ Swelling Skin: No Rashes, No Breakdown, No Significant Lesion Neuro: Normal Gait, Normal Speech, Strength at 5/5 X4 Ext, Normal Tone, Sensation Intact Psych/Mental Status: Mental Status NL, Mood NL Results Lab Laboratory Tests 02/17/18 05:30 A/P-Cardiology Admission Diagnosis septic joint hypertension hyperlipidemia gout Assessment/Plan R ankle septic joint, status post debridement and removal of hardware, feeling better, managed by Dr Pepper and the Ortho Svce Bilateral leg discomfort, chronic. 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 LVEF on MUGA of 05/31/13 was 46% which was a considerable drop from previous evaluations. Subsequent echo of 03/13/15 showed normal LVEF Coronary artery disease primarily consisting of severe stenosis of the proximal portion of an obtuse marginal branch to which he underwent successful bare- metal stenting (2.5 x 15-mm) on card cath in April 2007. Last myocardial perfusion imaging was on 12/22/16. There was no evidence of myocardial ischemia or infarction and left ventricular ejection fraction was 60% Echo of 03/13/15 showed LVEF 60%, triv TR, PASP 30-35 mmHg Hyperlipidemia, being treated with atorvastatin, well controlled Degenerative joint disease. Status post bilat knee replacement surgery. S/p L ankle fusion surgery in 2013 Chronic back discomfort. S/p lumbar spinal surgery by Dr Robles in October 2017 following which bilat leg numbness has improved Cervical radiculopathy with bilat arm weakness and tingling Gastroesophageal reflux. Mild bilat carotid arterial disease per carotid ultrasonography of 11/20/15 Elevated body mass index of approximately 39 Impaired fasting glucose Chronic prostatitis, managed by Dr Carlisle Mild chronic bilateral leg swelling, likely related to venous insuff. Chronic bilat varicose veins, more prominent on the R H/o tobacco use (quit 1990) Clinical Quality Measures DVT/VTE Risk/Contraindication: Risk Factor Score Per Nursin RFS Level Per Nursing on Admit: 4+=Very High PUMA POLLARD MD Feb 17, 2018 10:47
[2018-02-17 12:00] VITALS: BP 120/72
[2018-02-17] MEDS ORDERED: buPROPion SR 150 MG (WELLBUTRIN SR) TAB PO PRN (12:00)
--- NOTE | 2018-02-17 12:29 | Progress Note-Hospitalist ---
Subjective HPI/CC On Admission Date Seen by Provider: Feb 17, 2018 Time Seen by Provider: 11:30 CC: ankle pain HPI: This is 68yoWM clinic patient of Dr Guzman'markie who presents with right ankle pain. Patient has a h/o an ankle fusion in the past and has had extreme pain in the right ankle along with fever and redness to the ankle for the past 2 days and it worsened to the point he presented to the ER. Pt has multiple medical issues which include lymphoma in remission and is concerned about his anxiousness and whether the abx will cover for infection and any spread of infection. I updated his in the room then I saw the patient in CT scan. Dr Garcia ordered a CT scan and will him in consultation tomorrow. Subjective/Events-last exam Patient doing well overall since hardware was removed and antibiotic beads were placed in their place. Dressing is sleeping so will touch base with orthopedic surgery to evaluate the plan for that and Lovenox Bowels are moving to well so will hold bowel regimen in place when necessary Pain control discussed will initiate hydrocodone in addition to his fentanyl IV Microbiology cultures pending Checked labs and meds Review of Systems Gastrointestinal: Diarrhea Musculoskeletal: foot pain Focused Exam Lactate Level 02/14/18 13:20: Lactic Acid Level 0.91 Objective Exam Vital Signs Vital Signs Date Time Temp Pulse Resp B/P (MAP) Pulse Ox O2 Delivery O2 Flow Rate FiO2 02/17/18 08:48 98.7 61 18 105/67 (80) 95 Room Air Capillary Refill : Less Than 3 SecondsLess Than 3 Seconds General Appearance: No Apparent Distress, WD/WN, Chronically ill Respiratory: Chest Non Tender, Lungs Clear, Normal Breath Sounds, No Accessory Muscle Use, No Respiratory Distress Cardiovascular: Regular Rate, Rhythm, No Edema, No Gallop, No JVD, No Murmur, Normal Peripheral Pulses Extremity: Other (right foot dressing with bloody drainage) Neurologic/Psychiatric: Alert, Oriented x3, No Motor/Sensory Deficits, Normal Mood/Affect Results/Procedures Lab Laboratory Tests 02/17/18 05:30 Patient resulted labs reviewed. Assessment/Plan Assessment and Plan Assess & Plan/Chief Complaint Lovenox per surgery since dressing saturated Pain control Hydrocodone Hold bowel regimen Abx Await cultures Diagnosis/Problems Diagnosis/Problems (1) Septic joint Status: Acute Qualifiers: Septic arthritis location: ankle Septic arthritis organism: due to unspecified organism Laterality: right Qualified Codes: M00.9 - Pyogenic arthritis, unspecified (2) Failed hardware Status: Acute (3) NHL (non-Hodgkin's lymphoma) Status: Resolved Qualifiers: Non-Hodgkin lymphoma type: B-cell B-cell lymphoma type: unspecified B- cell Lymphoma site: unspecified region Qualified Codes: C85.10 - Unspecified B-cell lymphoma, unspecified site (4) Swollen R ankle Status: Acute (5) GERD (gastroesophageal reflux disease) Status: Chronic Qualifiers: Esophagitis presence: esophagitis presence not specified Qualified Codes: K21.9 - Gastro-esophageal reflux disease without esophagitis (6) CAD (coronary artery disease) Status: Chronic Qualifiers: Coronary Disease-Associated Artery/Lesion type: unspecified vessel or lesion type [place] vs. transplanted heart: [place] heart Associated angina: angina presence unspecified Qualified Codes: I25.10 - Atherosclerotic heart disease of [place] coronary artery without angina pectoris (7) Arthritis Status: Chronic (8) HTN (hypertension) Status: Chronic Qualifiers: Hypertension type: essential hypertension Qualified Codes: I10 - Essential (primary) hypertension (9) Hypercholesteremia Status: Chronic (10) Gout Status: Chronic Qualifiers: Gout site: foot Gout etiology: unspecified cause Chronicity: unspecified Laterality: unspecified laterality Qualified Codes: M10.9 - Gout , unspecified Clinical Quality Measures DVT/VTE Risk/Contraindication: Risk Factor Score Per Nursin RFS Level Per Nursing on Admit: 4+=Very High JOHN TRUJILLO DO Feb 17, 2018 12:29
[2018-02-17] MEDS: HYDROcodone/APAP 10 MG/325 MG (LORTAB) TAB PO PRN ×3 (13:23→21:54)
[2018-02-17 15:39] VITALS: BP 146/80
--- NOTE | 2018-02-17 17:17 | Anesthesia-General Post-Op ---
General Patient Condition Mental Status/LOC: Same as Preop Cardiovascular: Satisfactory Nausea/Vomiting: Absent Respiratory: Satisfactory Pain: Controlled Complications: Absent Post Op Complications Complications None Follow Up Care/Instructions Patient Instructions None needed. Anesthesia/Patient Condition Patient Condition Patient is doing well, no complaints, stable vital signs, no apparent adverse anesthesia problems. No complications reported per nursing. ESTEPHANIA AVELAR CRNA Feb 17, 2018 17:17
[2018-02-17] MEDS: TAMSULOSIN 0.4 MG (FLOMAX) CAP PO SCH (18:00)
[2018-02-17 19:28] VITALS: BP 121/67
[2018-02-17] MEDS: ATORVASTATIN 20 MG (LIPITOR) TABLET PO SCH (21:54)
[2018-02-17] MEDS: diphenhydrAMINE 25 MG TAB (BENADRYL) PO SCH (21:54)
[2018-02-17] MEDS: ALPRAZolam 0.25 MG (XANAX) TAB PO PRN (21:54)
[2018-02-18 00:17] VITALS: BP 112/61
[2018-02-18] MEDS: fentaNYL INJECTION 100 MCG/2 ML AMP IV PRN (00:44)
[2018-02-18 04:00] VITALS: BP 143/76
[2018-02-18] MEDS: HYDROcodone/APAP 10 MG/325 MG (LORTAB) TAB PO PRN ×4 (04:45→18:24)
[2018-02-18] MEDS: PIPERACILLIN/TAZO 4.5 GM/NS 100 ML IV SCH ×6 (05:53→21:42)
[2018-02-18] MEDS: KCL 10 MEQ TAB (MICRO K) PO SCH ×3 (05:53→16:09)
[2018-02-18] MEDS: OMEGA 3 (FISH OIL) 1000 MG CAP PO SCH (05:53)
[2018-02-18] MEDS: PANTOPRAZOLE 20 MG TABLET (PROTONIX) PO SCH (05:53)
[2018-02-18] MEDS: MULTIVIT W/MINERALS TAB (THERAGRAN M) PO SCH (05:53)
[2018-02-18] MEDS: CYANOCOBALAMIN 1,000 MCG (VITAMIN B-12) TABLET PO SCH (05:53)
[2018-02-18 06:49] LABS: BASOPHILS # (AUTO) 0.1 10^3/uL (0.0-0.1); BASOPHILS % (AUTO) 0 % (0-10); EOSINOPHILS # (AUTO) 0.2 10^3/uL (0.0-0.3); EOSINOPHILS % (AUTO) 2 % (0-10); HEMATOCRIT 35 % (40-54); HEMOGLOBIN 11.7 G/DL (13.3-17.7); LYMPHOCYTES # (AUTO) 4.1 X 10^3 (1.0-4.0); LYMPHOCYTES % (AUTO) 30 % (12-44); MEAN CORPUSCULAR HEMOGLOBIN 33 PG (25-34); MEAN CORPUSCULAR HGB CONC 34 G/DL (32-36); MEAN CORPUSCULAR VOLUME 97 FL (80-99); MEAN PLATELET VOLUME 8.8 FL (7.4-10.4); MONOCYTES # (AUTO) 1.1 X 10^3 (0.0-1.0); MONOCYTES % (AUTO) 9 % (0-12); NEUTROPHILS # (AUTO) 7.9 X 10^3 (1.8-7.8); NEUTROPHILS % (AUTO) 59 % (42-75); PLATELET COUNT 391 10^3/uL (130-400); RED BLOOD COUNT 3.57 10^6/uL (4.35-5.85); WHITE BLOOD COUNT 13.4 10^3/uL (4.3-11.0)
[2018-02-18 07:07] LABS: ALANINE AMINOTRANSFERASE 40 U/L (0-55); ALBUMIN 3.2 GM/DL (3.2-4.5); ALKALINE PHOSPHATASE 79 U/L (40-136); BILIRUBIN,TOTAL 0.4 MG/DL (0.1-1.0); BUN/CREATININE RATIO 13; CARBON DIOXIDE 23 MMOL/L (21-32); CHLORIDE 110 MMOL/L (98-107); CREATININE SERUM 0.76 MG/DL (0.60-1.30); GFR ESTIMATED > 60; GLUCOSE 95 MG/DL (70-105); POTASSIUM 3.5 MMOL/L (3.6-5.0); SODIUM 141 MMOL/L (135-145); TOTAL PROTEIN 6.4 GM/DL (6.4-8.2)
[2018-02-18 08:00] VITALS: BP 123/63
[2018-02-18] MEDS: VANCOMYCIN 1,750 MG/NS 500 ML IVPB IV SCH ×4 (08:10→16:10)
--- NOTE | 2018-02-18 08:11 | Cardiology Progress Note ---
Subjective Date Seen by Provider: Feb 18, 2018 Time Seen by Provider: 08:10 Subjective/Events-last exam Patient is laying down in bed, denied any chest pain, complaining of fatigue and loss of energy Review of Systems General: No Chills, No Night Sweats, No Fatigue, No Malaise, No Appetite, No Other HEENT: No Head Aches, No Visual Changes, No Eye Pain, No Ear Pain, No Dysphasia , No Sinus Congestion, No Post Nasal Drip, No Sore Throat, No Other Pulmonary: No Dyspnea, No Cough, No Pleuritic Chest Pain, No Other Cardiovascular: No: Chest Pain, Palpitations, Orthopnea, Paroxysmal Noc. Dyspnea, Edema, Lt Headedness, Other Objective-Cardiology Exam Last Set of Vital Signs Vital Signs 02/18/18 04:00 Temp 97.9 Pulse 61 Resp 20 B/P (MAP) 143/76 (98) Pulse Ox 97 O2 Delivery Room Air Capillary Refill : Less Than 3 SecondsLess Than 3 Seconds I&O Intake and Output 02/18/18 00:00 Intake Total 3147.5 ml Output Total 1650 ml Balance 1497.5 ml Intake Oral 2530 ml IV Total 617.5 ml Output Urine Total 1650 ml # Voids 1 # Bowel Movements 1 General: Alert, Oriented X3, Cooperative HEENT: Atraumatic, PERRLA Neck: Supple, No JVD, No Thyromegaly Lungs: Clear to Auscultation, Normal Air Movement Heart: Regular Rate, Normal S1, Normal S2, No Murmurs Abdomen: Normal Bowel Sounds, Soft, No Tenderness, No Hepatosplenomegaly, No Masses Extremities: No Clubbing, No Cyanosis, No Edema, Normal Pulses, No Tenderness/ Swelling Skin: No Rashes, No Breakdown, No Significant Lesion Neuro: Normal Gait, Normal Speech, Strength at 5/5 X4 Ext, Normal Tone, Sensation Intact Psych/Mental Status: Mental Status NL, Mood NL Results Lab Laboratory Tests 02/18/18 06:40 A/P-Cardiology Admission Diagnosis septic joint hypertension hyperlipidemia gout Assessment/Plan R ankle septic joint, status post debridement and removal of hardware, feeling better, managed by Dr Pepper and Dr Garcia Bilateral leg discomfort, chronic. 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 LVEF on MUGA of 05/31/13 was 46% which was a considerable drop from previous evaluations. Subsequent echo of 03/13/15 showed normal LVEF Coronary artery disease primarily consisting of severe stenosis of the proximal portion of an obtuse marginal branch to which he underwent successful bare- metal stenting (2.5 x 15-mm) on card cath in April 2007. Last myocardial perfusion imaging was on 12/22/16. There was no evidence of myocardial ischemia or infarction and left ventricular ejection fraction was 60% Echo of 03/13/15 showed LVEF 60%, triv TR, PASP 30-35 mmHg Hyperlipidemia, being treated with atorvastatin, well controlled Degenerative joint disease. Status post bilat knee replacement surgery. S/p L ankle fusion surgery in 2013 Chronic back discomfort. S/p lumbar spinal surgery by Dr Robles in October 2017 following which bilat leg numbness has improved Cervical radiculopathy with bilat arm weakness and tingling Gastroesophageal reflux. Mild bilat carotid arterial disease per carotid ultrasonography of 11/20/15 Elevated body mass index of approximately 39 Impaired fasting glucose Chronic prostatitis, managed by Dr Carlisle Mild chronic bilateral leg swelling, likely related to venous insuff. Chronic bilat varicose veins, more prominent on the R H/o tobacco use (quit 1990) Clinical Quality Measures DVT/VTE Risk/Contraindication: Risk Factor Score Per Nursin RFS Level Per Nursing on Admit: 4+=Very High PUMA POLLARD MD Feb 18, 2018 08:11
[2018-02-18] MEDS: ASCORBIC ACID (VIT C) 500 MG TABLET PO SCH (08:13)
[2018-02-18] MEDS: VITAMIN D3 1,000 UNITS (CHOLECALCIFEROL) TABLET PO SCH (08:13)
[2018-02-18] MEDS: FERROUS SULF 325 MG (IRON) TAB PO SCH (08:13)
[2018-02-18] MEDS: ALLOPURINOL 300 MG (ZYLOPRIM) TAB PO SCH (08:13)
[2018-02-18] MEDS: ASPIRIN E.C. 81 MG (ECOTRIN) TAB PO SCH (08:14)
--- NOTE | 2018-02-18 12:10 | Progress Note-Hospitalist ---
Subjective HPI/CC On Admission Date Seen by Provider: Feb 18, 2018 Time Seen by Provider: 11:00 CC: ankle pain HPI: This is [id number] clinic patient of Dr Guzman'markie who presents with right ankle pain. Patient has a h/o an ankle fusion in the past and has had extreme pain in the right ankle along with fever and redness to the ankle for the past 2 days and it worsened to the point he presented to the ER. Pt has multiple medical issues which include lymphoma in remission and is concerned about his anxiousness and whether the abx will cover for infection and any spread of infection. I updated his in the room then I saw the patient in CT scan. Dr Garcia ordered a CT scan and will him in consultation tomorrow. Subjective/Events-last exam Patient doing about the same Talked about pain meds Pain is pretty well controlled IV abx tolerated well Lovenox and ASA still held due to bleeding Will replace potassium today to TID instead of just once daily Review of Systems Musculoskeletal: foot pain Objective Exam Vital Signs Vital Signs Date Time Temp Pulse Resp B/P (MAP) Pulse Ox O2 Delivery O2 Flow Rate FiO2 02/18/18 08:00 97.7 62 20 123/63 (83) 97 Room Air Capillary Refill : Less Than 3 SecondsLess Than 3 Seconds General Appearance: No Apparent Distress, WD/WN, Chronically ill Respiratory: Chest Non Tender, Lungs Clear, Normal Breath Sounds, No Accessory Muscle Use, No Respiratory Distress Cardiovascular: Regular Rate, Rhythm, No Edema, No Gallop, No JVD, No Murmur, Normal Peripheral Pulses Extremity: Other (right foot in dressing) Neurologic/Psychiatric: Alert, Oriented x3, No Motor/Sensory Deficits, Normal Mood/Affect Results/Procedures Lab Laboratory Tests 02/18/18 06:40 Patient resulted labs reviewed. 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 POD # 2 Hypokalemia Leukocytosis h/o Lymphoma in remission CAD stent remotely Lovenox per surgery since dressing saturated Pain control Hydrocodone Hold bowel regimen Abx Await cultures Diagnosis/Problems Diagnosis/Problems (1) Septic joint Status: Acute Qualifiers: Septic arthritis location: ankle Septic arthritis organism: due to unspecified organism Laterality: right Qualified Codes: M00.9 - Pyogenic arthritis, unspecified (2) Failed hardware Status: Acute (3) NHL (non-Hodgkin's lymphoma) Status: Resolved Qualifiers: Non-Hodgkin lymphoma type: B-cell B-cell lymphoma type: unspecified B- cell Lymphoma site: unspecified region Qualified Codes: C85.10 - Unspecified B-cell lymphoma, unspecified site (4) Swollen R ankle Status: Acute (5) GERD (gastroesophageal reflux disease) Status: Chronic Qualifiers: Esophagitis presence: esophagitis presence not specified Qualified Codes: K21.9 - Gastro-esophageal reflux disease without esophagitis (6) CAD (coronary artery disease) Status: Chronic Qualifiers: Coronary Disease-Associated Artery/Lesion type: unspecified vessel or lesion type [place] vs. transplanted heart: [place] heart Associated angina: angina presence unspecified Qualified Codes: I25.10 - Atherosclerotic heart disease of [place] coronary artery without angina pectoris (7) Arthritis Status: Chronic (8) HTN (hypertension) Status: Chronic Qualifiers: Hypertension type: essential hypertension Qualified Codes: I10 - Essential (primary) hypertension (9) Hypercholesteremia Status: Chronic (10) Gout Status: Chronic Qualifiers: Gout site: foot Gout etiology: unspecified cause Chronicity: unspecified Laterality: unspecified laterality Qualified Codes: M10.9 - Gout , unspecified (11) Hypokalemia Status: Acute Clinical Quality Measures DVT/VTE Risk/Contraindication: Risk Factor Score Per Nursin RFS Level Per Nursing on Admit: 4+=Very High JOHN TRUJILLO DO Feb 18, 2018 12:10
[2018-02-18 12:51] VITALS: BP 137/76
--- NOTE | 2018-02-18 15:14 | Podiatry Progress Note ---
Standard Progress Note Progress Notes/Assess & Plan Date Seen by a Provider: Feb 18, 2018 Time Seen by a Provider: 11:35 Progress/Assessment & Plan Pt seen at . States he is feeling better, still has moderate pain to the RLE. Denies F,C,N,V. VSS RLE- Dressing changes, wound edges well coapted, sutures intact, mild serous drainage, erythema improved, warmth improved, edema improved. POD#2 I&D Right Ankle with Removal of hardware and placement of antibiotic beads. -cont NWB RLE -cont IV abx RLE -await definitive cultures -will need 6 antibiotics IV vs PO pending cultures Final Diagnosis Infected Hardware Right Ankle S/P I&D removal hardware. ENOCH RAND DPM Feb 18, 2018 15:14
[2018-02-18 15:40] VITALS: BP 130/73
[2018-02-18] MEDS: DOCUSATE SODIUM 100 MG (COLACE) CAP PO PRN (17:44)
[2018-02-18] MEDS: TAMSULOSIN 0.4 MG (FLOMAX) CAP PO SCH (17:44)
[2018-02-18 19:20] VITALS: BP 132/81
[2018-02-18] MEDS: diphenhydrAMINE 25 MG TAB (BENADRYL) PO SCH (20:28)
[2018-02-18] MEDS: ATORVASTATIN 20 MG (LIPITOR) TABLET PO SCH (20:28)
[2018-02-18] MEDS: ALPRAZolam 0.25 MG (XANAX) TAB PO PRN (21:42)
[2018-02-19] VITALS: BP 125/73
[2018-02-19] MEDS: VANCOMYCIN 1,750 MG/NS 500 ML IVPB IV SCH ×4 (00:47→08:37)
[2018-02-19] MEDS: PIPERACILLIN/TAZO 4.5 GM/NS 100 ML IV SCH ×2 (06:25)
[2018-02-19] MEDS: OMEGA 3 (FISH OIL) 1000 MG CAP PO SCH (06:25)
[2018-02-19] MEDS: PANTOPRAZOLE 20 MG TABLET (PROTONIX) PO SCH (06:25)
[2018-02-19] MEDS: CYANOCOBALAMIN 1,000 MCG (VITAMIN B-12) TABLET PO SCH (06:25)
[2018-02-19] MEDS: MULTIVIT W/MINERALS TAB (THERAGRAN M) PO SCH (06:26)
[2018-02-19] MEDS: KCL 10 MEQ TAB (MICRO K) PO SCH (06:26)
[2018-02-19 06:30] LABS: BASOPHILS # (AUTO) 0.1 10^3/uL (0.0-0.1); BASOPHILS % (AUTO) 1 % (0-10); EOSINOPHILS # (AUTO) 0.7 10^3/uL (0.0-0.3); EOSINOPHILS % (AUTO) 5 % (0-10); HEMATOCRIT 37 % (40-54); HEMOGLOBIN 12.4 G/DL (13.3-17.7); LYMPHOCYTES # (AUTO) 2.8 X 10^3 (1.0-4.0); LYMPHOCYTES % (AUTO) 20 % (12-44); MEAN CORPUSCULAR HEMOGLOBIN 32 PG (25-34); MEAN CORPUSCULAR HGB CONC 33 G/DL (32-36); MEAN CORPUSCULAR VOLUME 97 FL (80-99); MEAN PLATELET VOLUME 8.5 FL (7.4-10.4); MONOCYTES # (AUTO) 1.3 X 10^3 (0.0-1.0); MONOCYTES % (AUTO) 10 % (0-12); NEUTROPHILS # (AUTO) 8.8 X 10^3 (1.8-7.8); NEUTROPHILS % (AUTO) 65 % (42-75); PLATELET COUNT 435 10^3/uL (130-400); RED BLOOD COUNT 3.84 10^6/uL (4.35-5.85); RED CELL DISTRIBUTION WIDTH 15.3 % (10.0-14.5); WHITE BLOOD COUNT 13.6 10^3/uL (4.3-11.0)
[2018-02-19 06:50] LABS: ALANINE AMINOTRANSFERASE 40 U/L (0-55); ALBUMIN 3.4 GM/DL (3.2-4.5); ALKALINE PHOSPHATASE 89 U/L (40-136); BILIRUBIN,TOTAL 0.5 MG/DL (0.1-1.0); BUN/CREATININE RATIO 13; CALCIUM 9.7 MG/DL (8.5-10.1); CARBON DIOXIDE 24 MMOL/L (21-32); CHLORIDE 107 MMOL/L (98-107); GFR ESTIMATED > 60; GLUCOSE 98 MG/DL (70-105); POTASSIUM 3.5 MMOL/L (3.6-5.0); SODIUM 141 MMOL/L (135-145); TOTAL PROTEIN 6.8 GM/DL (6.4-8.2)
--- NOTE | 2018-02-19 07:54 | Cardiology Progress Note ---
Subjective Date Seen by Provider: Feb 19, 2018 Time Seen by Provider: 07:53 Subjective/Events-last exam Patient is laying down in bed, feeling better, denied any pain Review of Systems General: No Chills, No Night Sweats, No Fatigue, No Malaise, No Appetite, No Other HEENT: No Head Aches, No Visual Changes, No Eye Pain, No Ear Pain, No Dysphasia , No Sinus Congestion, No Post Nasal Drip, No Sore Throat, No Other Pulmonary: No Dyspnea, No Cough, No Pleuritic Chest Pain, No Other Cardiovascular: No: Chest Pain, Palpitations, Orthopnea, Paroxysmal Noc. Dyspnea, Edema, Lt Headedness, Other Objective-Cardiology Exam Last Set of Vital Signs Vital Signs 02/19/18 00:00 Temp 98.8 Pulse 62 Resp 20 B/P (MAP) 125/73 (90) Pulse Ox 95 O2 Delivery Room Air Capillary Refill : Less Than 3 SecondsLess Than 3 Seconds I&O Intake and Output 02/19/18 00:00 Intake Total 2567.5 ml Output Total 4025 ml Balance -1457.5 ml Intake Oral 1850 ml IV Total 717.5 ml Output Urine Total 4025 ml # Voids 4 # Bowel Movements 1 General: Alert, Oriented X3, Cooperative HEENT: Atraumatic, PERRLA Neck: Supple, No JVD, No Thyromegaly Lungs: Clear to Auscultation, Normal Air Movement Heart: Regular Rate, Normal S1, Normal S2, No Murmurs Abdomen: Normal Bowel Sounds, Soft, No Tenderness, No Hepatosplenomegaly, No Masses Extremities: No Clubbing, No Cyanosis, No Edema, Normal Pulses, No Tenderness/ Swelling Skin: No Rashes, No Breakdown, No Significant Lesion Neuro: Normal Gait, Normal Speech, Strength at 5/5 X4 Ext, Normal Tone, Sensation Intact Psych/Mental Status: Mental Status NL, Mood NL Results Lab Laboratory Tests 02/19/18 06:23 A/P-Cardiology Admission Diagnosis septic joint hypertension hyperlipidemia gout Assessment/Plan R ankle septic joint, status post debridement and removal of hardware, feeling better, managed by Dr Pepper and Dr Garcia Bilateral leg discomfort, chronic. 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 LVEF on MUGA of 05/31/13 was 46% which was a considerable drop from previous evaluations. Subsequent echo of 03/13/15 showed normal LVEF, continue to follow as an outpatient Coronary artery disease primarily consisting of severe stenosis of the proximal portion of an obtuse marginal branch to which he underwent successful bare- metal stenting (2.5 x 15-mm) on card cath in April 2007. Last myocardial perfusion imaging was on 12/22/16. There was no evidence of myocardial ischemia or infarction and left ventricular ejection fraction was 60% Hyperlipidemia, being treated with atorvastatin, well controlled Degenerative joint disease. Status post bilat knee replacement surgery. S/p L ankle fusion surgery in 2013 Chronic back discomfort. S/p lumbar spinal surgery by Dr Robles in October 2017 following which bilat leg numbness has improved Cervical radiculopathy with bilat arm weakness and tingling Gastroesophageal reflux. Mild bilat carotid arterial disease per carotid ultrasonography of 11/20/15 Elevated body mass index of approximately 39 Impaired fasting glucose Chronic prostatitis, managed by Dr Carlisle Mild chronic bilateral leg swelling, likely related to venous insuff. Chronic bilat varicose veins, more prominent on the R H/o tobacco use (quit 1990) Clinical Quality Measures DVT/VTE Risk/Contraindication: Risk Factor Score Per Nursin RFS Level Per Nursing on Admit: 4+=Very High PUMA POLLARD MD Feb 19, 2018 07:54
[2018-02-19 08:00] VITALS: BP 133/82
[2018-02-19] MEDS: HYDROcodone/APAP 10 MG/325 MG (LORTAB) TAB PO PRN (08:37)
[2018-02-19] MEDS: ASCORBIC ACID (VIT C) 500 MG TABLET PO SCH (08:37)
[2018-02-19] MEDS: ALLOPURINOL 300 MG (ZYLOPRIM) TAB PO SCH (08:37)
[2018-02-19] MEDS: DOCUSATE SODIUM 100 MG (COLACE) CAP PO PRN (08:37)
[2018-02-19] MEDS: FERROUS SULF 325 MG (IRON) TAB PO SCH (08:38)
[2018-02-19] MEDS: ASPIRIN E.C. 81 MG (ECOTRIN) TAB PO SCH (08:38)
[2018-02-19] MEDS: VITAMIN D3 1,000 UNITS (CHOLECALCIFEROL) TABLET PO SCH (08:38)
[2018-02-19] MEDS ORDERED: HYDR-3820 PO (09:50)
[2018-02-19] MEDS ORDERED: APIX2.5T PO (09:50)
[2018-02-19] MEDS ORDERED: CEFT2PIG IV (09:50)
--- NOTE | 2018-02-19 09:57 | Discharge Summary-Hospitalist ---
Diagnosis/Chief Complaint Date of Admission Feb 14, 2018 at 15:00 Date of Discharge Discharge Date: Feb 19, 2018 Admission Diagnosis Right ankle infection with elevated inflammatory markers and fever Hardware failure right ankle CAD w/stent 2006 Insomnia Depression Anxiety Non-Hodgkin's Lymphoma hx IV abx empirically CT scan Dr Garcia is appreciated Lovenox for DVT Px since immobile Discharge Diagnosis (1) Osteomyelitis of ankle Status: Acute (2) Septic joint Status: Acute (3) Failed hardware Status: Acute (4) NHL (non-Hodgkin's lymphoma) Status: Resolved (5) Swollen R ankle Status: Acute (6) GERD (gastroesophageal reflux disease) Status: Chronic (7) CAD (coronary artery disease) Status: Chronic (8) Arthritis Status: Chronic (9) HTN (hypertension) Status: Chronic (10) Hypercholesteremia Status: Chronic (11) Gout Status: Chronic (12) Hypokalemia Status: Acute Discharge Summary Discharge Physical Exam Allergies: Coded Allergies: morphine (Verified Allergy, Unknown, 02/14/18) Vitals & I&Os Vital Signs Date Time Temp Pulse Resp B/P (MAP) Pulse Ox O2 Delivery O2 Flow Rate FiO2 02/19/18 12:20 73 16 133/82 96 Room Air 02/19/18 08:00 98.4 General Appearance: No Apparent Distress, WD/WN Respiratory: Chest Non Tender, Lungs Clear, Normal Breath Sounds, No Accessory Muscle Use, No Respiratory Distress Cardiovascular: Regular Rate, Rhythm, No Edema, No Gallop, No JVD, No Murmur, Normal Peripheral Pulses Neurologic/Psychiatric: Alert, Oriented x3, No Motor/Sensory Deficits, Normal Mood/Affect Hospital Course Hospital course: patient had a standard hospital course after admitted for presumed right septic ankle and failed hardware. Patient was placed on Zosyn and Vanc and pain meds and underwent removal of the failed hardware on Monday, in an uncomplicated manner. DVT prophylaxis was maintained until held for 2 days due to bleeding of the incision site. Labs returned back to normal and overall he was ready for DC on 42 days of abx of Rocephin 2 grams IV daily and will have close f/u with Dr Garcia along with Eliquis for DVT Px. Labs (last 24 hrs) Laboratory Tests 02/19/18 06:23: White Blood Count 13.6H, Red Blood Count 3.84L, Hemoglobin 12.4L, Hematocrit 37L , Mean Corpuscular Volume 97, Mean Corpuscular Hemoglobin 32, Mean Corpuscular Hemoglobin Concent 33, Red Cell Distribution Width 15.3H, Platelet Count 435H, Mean Platelet Volume 8.5, Neutrophils (%) (Auto) 65, Lymphocytes (%) (Auto) 20, Monocytes (%) (Auto) 10, Eosinophils (%) (Auto) 5, Basophils (%) (Auto) 1, Neutrophils # (Auto) 8.8H, Lymphocytes # (Auto) 2.8, Monocytes # (Auto) 1.3H, Eosinophils # (Auto) 0.7H, Basophils # (Auto) 0.1, Sodium Level 141, Potassium Level 3.5L, Chloride Level 107, Carbon Dioxide Level 24, Anion Gap 10, Blood Urea Nitrogen 10, Creatinine 0.80, Estimat Glomerular Filtration Rate > 60, BUN/ Creatinine Ratio 13, Glucose Level 98, Calcium Level 9.7, Corrected Calcium 10.2H, Total Bilirubin 0.5, Aspartate Amino Transf (AST/SGOT) 23, Alanine Aminotransferase (ALT/SGPT) 40, Alkaline Phosphatase 89, Total Protein 6.8, Albumin 3.4 Microbiology 02/14/18 Blood Culture - Preliminary, Resulted No growth 02/15/18 MRSA Screen - Final, Complete MRSA not isolated 02/16/18 Gram Stain - Final, Resulted 02/16/18 Anaerobic Culture - Preliminary, Resulted No anaerobes isolated 02/16/18 Surgical Culture - Preliminary, Resulted No growth Patient resulted labs reviewed. Pending Labs Laboratory Tests 02/19/18 06:23: White Blood Count 13.6, Red Blood Count 3.84, Hemoglobin 12.4, Hematocrit 37, Mean Corpuscular Volume 97, Mean Corpuscular Hemoglobin 32, Mean Corpuscular Hemoglobin Concent 33, Red Cell Distribution Width 15.3, Platelet Count 435, Mean Platelet Volume 8.5, Neutrophils (%) (Auto) 65, Lymphocytes (%) (Auto) 20, Monocytes (%) (Auto) 10, Eosinophils (%) (Auto) 5, Basophils (%) (Auto) 1, Neutrophils # (Auto) 8.8, Lymphocytes # (Auto) 2.8, Monocytes # (Auto) 1.3, Eosinophils # (Auto) 0.7, Basophils # (Auto) 0.1, Sodium Level 141, Potassium Level 3.5, Chloride Level 107, Carbon Dioxide Level 24, Anion Gap 10, Blood Urea Nitrogen 10, Creatinine 0.80, Estimat Glomerular Filtration Rate > 60, BUN/ Creatinine Ratio 13, Glucose Level 98, Calcium Level 9.7, Corrected Calcium 10.2 , Total Bilirubin 0.5, Aspartate Amino Transf (AST/SGOT) 23, Alanine Aminotransferase (ALT/SGPT) 40, Alkaline Phosphatase 89, Total Protein 6.8, Albumin 3.4 Discussion & Recommendations Discharge Planning: <30 minutes discharge planning Discharge Home Medications: Active Scripts Active Eliquis (Apixaban) 2.5 Mg Tablet 2.5 Mg PO BID Ceftriaxone 2 gm-D5w Bag (Ceftriaxone Na/Dextrose,Iso) 2 Gm/50 Ml Piggyback 2 Gm IV DAILY 42 Days Hydrocodon-Acetaminophn 10-325 (Hydrocodone/Acetaminophen) 1 Each Tablet 1 Ea PO Q4H PRN Reported Vitamin B-12 (Cyanocobalamin (Vitamin B-12)) 1,000 Mcg Tablet 1,000 Mcg PO DAILY Iron (Ferrous Sulfate) 325 Mg Tablet 325 Mg PO DAILY Vitamin D3 (Cholecalciferol (Vitamin D3)) 2,000 Unit Capsule 2,000 Unit PO DAILY Bupropion Xl (Bupropion HCl) 300 Mg Tab.er.24h 300 Mg PO DAILY Metoprolol Succinate 25 Mg Tab.er.24h 25 Mg PO DAILY Omeprazole 20 Mg Capsule.dr 20 Mg PO DAILY Tamsulosin HCl 0.4 Mg Cap.er.24h 0.4 Mg PO 1800 Atorvastatin Calcium 40 Mg Tablet 20 Mg PO DAILY TAKES 1/2 (40MG) TABLET Allopurinol 300 Mg Tablet 300 Mg PO DAILY Aspirin EC (Aspirin) 81 Mg Tablet.dr 81 Mg PO DAILY Vitamin C (Ascorbic Acid) 1,000 Mg Tablet 1,000 Mg PO DAILY Fish Oil 1,200 mg Fish Oil (Fish Oil/Dha/Epa) 1 Each Capsule 1,200 Mg PO DAILY Centrum Silver Tablet (Multivit-Min/FA/Lycopene/Lut) 1 Each Tablet 1 Tab PO DAILY Instructions to patient/family Please see electronic discharge instructions given to patient. Clinical Quality Measures DVT/VTE Risk/Contraindication: Risk Factor Score Per Nursin RFS Level Per Nursing on Admit: 4+=Very High Problem Qualifiers (1) Osteomyelitis of ankle: Osteomyelitis type: other acute Laterality: right Qualified Codes: M86.171 - Other acute osteomyelitis, right ankle and foot (2) Septic joint: Septic arthritis location: ankle Septic arthritis organism: due to unspecified organism Laterality: right Qualified Codes: M00.9 - Pyogenic arthritis, unspecified (3) NHL (non-Hodgkin's lymphoma): Non-Hodgkin lymphoma type: B-cell B-cell lymphoma type: unspecified B-cell Lymphoma site: unspecified region Qualified Codes: C85.10 - Unspecified B- cell lymphoma, unspecified site (4) GERD (gastroesophageal reflux disease): Esophagitis presence: esophagitis presence not specified Qualified Codes: K21.9 - Gastro-esophageal reflux disease without esophagitis (5) CAD (coronary artery disease): Coronary Disease-Associated Artery/Lesion type: unspecified vessel or lesion type [place] vs. transplanted heart: [place] heart Associated angina: angina presence unspecified Qualified Codes: I25.10 - Atherosclerotic heart disease of [place] coronary artery without angina pectoris (6) HTN (hypertension): Hypertension type: essential hypertension Qualified Codes: I10 - Essential ( primary) hypertension (7) Gout: Gout site: foot Gout etiology: unspecified cause Chronicity: unspecified Laterality: unspecified laterality Qualified Codes: M10.9 - Gout, unspecified JOHN TRUJILLO DO Feb 19, 2018 09:57
[2018-02-19] MEDS ORDERED: FLU QUADRIvalent (5+ YOA) 2018-2019 (AFLURIA) 0.5 ML IM ONE (12:05)
[2018-02-19 12:20] VITALS: BP 133/82
[2018-02-20] MEDS ORDERED: TROUGH ORDER-PHARMACY XX NR (07:00)
[2018-02-20] MEDS ORDERED: cefTRIAXone 2 GM/20 ML for IV (ROCEPHIN) ONE (12:36)
[2018-02-20] MEDS ORDERED: NS (IVPB) 50 ML ONE (12:37)
--- NOTE | 2018-03-07 12:29 | OPERATIVE REPORT ---
DATE OF SERVICE: 02/16/2018 SURGEON: Darci Rand DPM. CLIENT SERVICES ASSISTANT: None. PREOPERATIVE DIAGNOSIS: Septic ankle, right lower extremity. POSTOPERATIVE DIAGNOSIS: Septic ankle, right lower extremity. PROCEDURES PERFORMED: 1. Removal of hardware, right lower extremity. 2. Placement of antibiotic beads, right lower extremity. ANESTHESIA: General anesthesia. HEMOSTASIS: Pneumatic thigh transfer 300 mmHg. ESTIMATED BLOOD LOSS: Minimal. MATERIALS USED: Calcium sulfate antibiotic impregnated beads, 2-0 and 3-0 nylon. INTRAOPERATIVE INJECTABLES: None. COMPLICATIONS: None. INDICATIONS FOR PROCEDURE: The patient is a 68-year-old male with a history of prior ankle and subtalar joint fusion. At this time, he has nonunion subtalar joint with a septic hardware across the ankle and subtalar joint and concern for infection with possible osteomyelitis. The patient has been made aware of the risks and benefits of the surgery as well as the alternatives to undergoing and signed consent prior to being taken back to the OR. DESCRIPTION OF PROCEDURE: Under mild sedation, the patient was brought in the OR and placed on the operating table in a supine position. Following administration of general anesthesia, pneumatic thigh tourniquet was placed on the right lower extremity. Right lower extremity was scrubbed, prepped and draped in aseptic manner. Proper timeout was performed. Right lower extremity was identified as surgical site. Next, an approximately 12 cm incision was made over the lateral aspect of the ankle and the incision was deepened down to subcutaneous tissue with care being taken to avoid all major neurovascular structures. All bleeders were cauterized and ligated as necessary. The incision was deepened down to the level of the hardware and the bone and the hardware was resected from the lateral aspect of the ankle and subtalar joint. The hardware was passed from the surgical field. It was noted there were two broken screws that are still buried deep in the bone that were unable to be retrieved at this time. Next, a stab incision was made over the medial aspect of the ankle to remove the large cannulated screws that were placed to the medial ankle. These were resected from the surgical field and passed from the table. Cultures were taken. There was no significant active purulent drainage noted. No deep abscess was seen, but cultures were taken and passed from the surgical field and sent for microbiological specimen. Next, the wound was flushed with copious amounts of sterile saline using pulse lavage. Calcium sulfate beads were then prepared on the back table with 1 gram of vancomycin and 80 mcg of gentamicin that were mixed in with the calcium sulfate beads. There were made into medium size beads using the template. Once they dried and fully stabilized, they were then passed with a 10 blade onto the Sorto stand and implanted into the ankle within the areas of the prior hardware. The wound was then closed using 2-0 and 3-0 nylon. The foot was then dressed with a dry sterile dressing consisting of 4 x 4's, ABD padding, cast padding and Diego wrap. The patient tolerated the procedure and anesthesia well. He was transferred from OR to the recovery room with vital signs stable and neurovascular status intact to right lower extremity. Job ID: [id number] DocumentID: [id number] Dictated Date: 03/07/2018 09:00:09 Manager Winter Date: 03/07/2018 12:29:40 Dictated By: DARCI RAND DPM
== END 2018-02-19 12:20 | disposition home or self-care (01) | DRG 493 ==
LOC: EDUNIT# 12:21 → ER 12:22 → 4TH 15:00
PROVIDERS: ADMIT Internal Medicine; ATTEND Internal Medicine
PROC: 3E0U029 Introduction of Other Anti-infective into Joints, Open Approach (ICD-10-PCS; 2018-02-16)
PROC: 0SPF04Z Removal of Internal Fixation Device from Right Ankle Joint, Open Approach (ICD-10-PCS; principal; 2018-02-16 14:15)
DX: T84.69XA Infection and inflammatory reaction due to internal fixation device of other site, initial encounter (principal); M86.171 Other acute osteomyelitis, right ankle and foot; M00.9 Pyogenic arthritis, unspecified; T84.116A Breakdown (mechanical) of internal fixation device of bone of right lower leg, initial encounter; C85.10 Unspecified B-cell lymphoma, unspecified site; I42.7 Cardiomyopathy due to drug and external agent; I25.10 Atherosclerotic heart disease of native coronary artery without angina pectoris; I10 Essential (primary) hypertension; E78.00 Pure hypercholesterolemia, unspecified; M10.9 Gout, unspecified; M19.91 Primary osteoarthritis, unspecified site; F32.9 Major depressive disorder, single episode, unspecified; K21.9 Gastro-esophageal reflux disease without esophagitis; R20.2 Paresthesia of skin; N41.1 Chronic prostatitis; Z95.5 Presence of coronary angioplasty implant and graft; Z90.81 Acquired absence of spleen; Z96.653 Presence of artificial knee joint, bilateral; Z87.11 Personal history of peptic ulcer disease; I83.893 Varicose veins of bilateral lower extremities with other complications; T45.1X5A Adverse effect of antineoplastic and immunosuppressive drugs, initial encounter; Z23 Encounter for immunization
CPT/HCPCS: 36415; 73610; 73700; 80053; 80202; 83605; 84550; 85025; 85610; 85652; 85730; 86141; 87040; 87070; 87075; 87081; 87205; 90686; 96374; 96376

== ENCOUNTER → 2018-02-14 | Outpatient (CLI) | payer MEDICARE, OTHER ==
[~2018-02-14] MED LIST changes: +ALLO300T2 PO; +APIX2.5T PO; +ASCO10006 PO; +ASPI-983 PO; +ATOR40TA70 PO; +BUPR300T51 PO; +CEFT2PIG IV; +CHOL20003 PO; +CYAN10006 PO; +FERR-84 PO; +HYDR-3820 PO; +METO-387 PO; +TAMS0.4C2 PO
[2018-02-14 09:59] LABS: BASOPHILS % (AUTO) 0 % (0-10); EOSINOPHILS # (AUTO) 0.1 10^3/uL (0.0-0.3); EOSINOPHILS % (AUTO) 0 % (0-10); HEMATOCRIT 40 % (40-54); HEMOGLOBIN 13.7 G/DL (13.3-17.7); LYMPHOCYTES # (AUTO) 1.9 X 10^3 (1.0-4.0); LYMPHOCYTES % (AUTO) 13 % (12-44); MEAN CORPUSCULAR HEMOGLOBIN 33 PG (25-34); MEAN CORPUSCULAR HGB CONC 35 G/DL (32-36); MEAN CORPUSCULAR VOLUME 96 FL (80-99); MEAN PLATELET VOLUME 8.7 FL (7.4-10.4); MONOCYTES # (AUTO) 1.8 X 10^3 (0.0-1.0); MONOCYTES % (AUTO) 12 % (0-12); NEUTROPHILS # (AUTO) 11.5 X 10^3 (1.8-7.8); NEUTROPHILS % (AUTO) 75 % (42-75); PLATELET COUNT 328 10^3/uL (130-400); RED BLOOD COUNT 4.12 10^6/uL (4.35-5.85); RED CELL DISTRIBUTION WIDTH 14.9 % (10.0-14.5); WHITE BLOOD COUNT 15.3 10^3/uL (4.3-11.0)
[2018-02-14 10:31] LABS: ACANTHOCYTES SLIGHT; BAND NEUTROPHILS 0 %; BASOPHILS % (MANUAL) 0 %; EOSINOPHILS % (MANUAL) 0 %; HOWELL-JOLLY BODIES SLIGHT; LYMPHOCYTES % (MANUAL) 13 %; MONOCYTES % (MANUAL) 7 %; NEUTROPHILS % (MANUAL) 80 %
== END ==
LOC: LAB 09:48
PROVIDERS: ATTEND Nurse Practitioner Family
DX: M25.571 Pain in right ankle and joints of right foot (principal)
CPT/HCPCS: 36415; 84550; 85007; 85027

== ENCOUNTER 2018-04-02 12:25 | Outpatient (RCR) | payer MEDICARE, OTHER ==
[2018-02-20 12:56] VITALS: BP 110/89
[2018-02-20] MEDS: cefTRIAXone 2 GM/NS 50 ML IVPB IV SCH ×2 (12:56)
[2018-02-21] MEDS: cefTRIAXone 2 GM/NS 50 ML IVPB IV SCH ×2 (12:44)
[2018-02-21 12:46] VITALS: BP 136/85
[2018-02-22] MEDS: cefTRIAXone 2 GM/NS 50 ML IVPB IV SCH ×2 (13:30)
[2018-02-22 13:44] VITALS: BP 120/82
[2018-02-23 12:40] VITALS: BP 129/83
[2018-02-23] MEDS: cefTRIAXone 2 GM/NS 50 ML IVPB IV SCH ×2 (12:49)
[2018-02-24] MEDS: cefTRIAXone 2 GM/NS 50 ML IVPB IV SCH ×2 (13:08)
[2018-02-24 14:15] VITALS: BP 126/81
[2018-02-25] MEDS: cefTRIAXone 2 GM/NS 50 ML IVPB IV SCH ×2 (11:26)
[2018-02-25 11:39] VITALS: BP 119/81
[2018-02-26] MEDS: cefTRIAXone 2 GM/NS 50 ML IVPB IV SCH ×2 (12:58)
[2018-02-26 13:25] VITALS: BP 101/68
[2018-02-27 12:45] VITALS: BP 116/68
[2018-02-27] MEDS: cefTRIAXone 2 GM/NS 50 ML IVPB IV SCH ×2 (12:52)
--- NOTE | 2018-02-27 15:04 | Physician Query-Final Dx ---
LUIS EDUARDO HERRERA 02/27/18 1503: Clinic Account Progress/Dx Physician Query: Please give a diagnosis for the cefTRIAXone 2 GM/NS 50 ML IVPB treatment thank you Date of Service Feb 27, 2018 at 12:47 JOHN TRUJILLO DO 03/04/18 1402: Clinic Account Progress/Dx Physician Query: Please give diagnosis DIAGNOSIS: Diagnosis Osteomyelitis of right ankle LUIS EDUARDO HERRERA Feb 27, 2018 15:03 JOHN TRUJILLO DO Mar 04, 2018 14:02
[2018-02-28] MEDS: cefTRIAXone 2 GM/NS 50 ML IVPB IV SCH ×2 (12:55)
[2018-02-28 13:27] VITALS: BP 124/83
[2018-03-01] MEDS: cefTRIAXone 2 GM/NS 50 ML IVPB IV SCH ×2 (12:16)
[2018-03-01 12:45] VITALS: BP 111/81
[2018-03-02 12:35] VITALS: BP 112/77
[2018-03-02] MEDS: cefTRIAXone 2 GM/NS 50 ML IVPB IV SCH ×2 (12:50)
[2018-03-03] MEDS: cefTRIAXone 2 GM/NS 50 ML IVPB IV SCH ×2 (08:44)
[2018-03-03 09:51] VITALS: BP 110/67
[2018-03-04] MEDS: cefTRIAXone 2 GM/NS 50 ML IVPB IV SCH ×2 (08:37)
[2018-03-04 09:08] VITALS: BP 117/79
[2018-03-05] MEDS: cefTRIAXone 2 GM/NS 50 ML IVPB IV SCH ×2 (12:29)
[2018-03-05 12:30] VITALS: BP 117/84
[2018-03-06] MEDS: cefTRIAXone 2 GM/NS 50 ML IVPB IV SCH ×2 (12:54)
[2018-03-06 12:55] VITALS: BP 123/91
[2018-03-07] MEDS: cefTRIAXone 2 GM/NS 50 ML IVPB IV SCH ×2 (12:35)
[2018-03-07 12:55] VITALS: BP 113/74
[2018-03-08 12:46] VITALS: BP 121/74
[2018-03-08] MEDS: cefTRIAXone 2 GM/NS 50 ML IVPB IV SCH ×2 (12:46)
[2018-03-09 12:35] VITALS: BP 128/95
[2018-03-09] MEDS: cefTRIAXone 2 GM/NS 50 ML IVPB IV SCH ×2 (12:39)
[2018-03-10 08:00] VITALS: BP 125/80
[2018-03-10] MEDS: cefTRIAXone 2 GM/NS 50 ML IVPB IV SCH ×2 (08:05)
[2018-03-11 08:00] VITALS: BP 118/77
[2018-03-11] MEDS: cefTRIAXone 2 GM/NS 50 ML IVPB IV SCH ×2 (08:03)
[2018-03-12] MEDS: cefTRIAXone 2 GM/NS 50 ML IVPB IV SCH ×2 (12:46)
[2018-03-12 13:20] VITALS: BP 113/88
[2018-03-13] MEDS: cefTRIAXone 2 GM/NS 50 ML IVPB IV SCH ×2 (13:04)
[2018-03-13 13:05] VITALS: BP 113/76
[2018-03-14 12:55] VITALS: BP 118/90
[2018-03-14] MEDS: cefTRIAXone 2 GM/NS 50 ML IVPB IV SCH ×2 (12:58)
[2018-03-15 12:14] VITALS: BP 127/82
[2018-03-15] MEDS: cefTRIAXone 2 GM/NS 50 ML IVPB IV SCH ×2 (12:14)
[2018-03-16 12:40] VITALS: BP 122/80
[2018-03-16] MEDS: cefTRIAXone 2 GM/NS 50 ML IVPB IV SCH ×2 (12:43)
[2018-03-17] MEDS: cefTRIAXone 2 GM/NS 50 ML IVPB IV SCH ×2 (09:16)
[2018-03-17 09:41] VITALS: BP 123/84
[2018-03-18] MEDS: cefTRIAXone 2 GM/NS 50 ML IVPB IV SCH ×2 (09:15)
[2018-03-18 09:20] VITALS: BP 127/80
[2018-03-19] MEDS: cefTRIAXone 2 GM/NS 50 ML IVPB IV SCH ×2 (12:31)
[2018-03-19 12:50] VITALS: BP 120/83
[2018-03-20] MEDS: cefTRIAXone 2 GM/NS 50 ML IVPB IV SCH ×2 (12:17)
[2018-03-20 12:18] VITALS: BP 112/84
[2018-03-21 12:28] VITALS: BP 122/90
[2018-03-21] MEDS: cefTRIAXone 2 GM/NS 50 ML IVPB IV SCH ×2 (12:28)
[2018-03-22] MEDS: cefTRIAXone 2 GM/NS 50 ML IVPB IV SCH ×2 (12:42)
[2018-03-22 13:10] VITALS: BP 135/87
[2018-03-23 12:32] VITALS: BP 118/91
[2018-03-23] MEDS: cefTRIAXone 2 GM/NS 50 ML IVPB IV SCH ×2 (12:35)
[2018-03-24] MEDS: cefTRIAXone 2 GM/NS 50 ML IVPB IV SCH ×2 (08:39)
[2018-03-24 09:10] VITALS: BP 145/81
[2018-03-25] MEDS: cefTRIAXone 2 GM/NS 50 ML IVPB IV SCH ×2 (08:40)
[2018-03-25 09:10] VITALS: BP 131/86
[2018-03-26] MEDS: cefTRIAXone 2 GM/NS 50 ML IVPB IV SCH ×2 (12:28)
[2018-03-26 12:55] VITALS: BP 126/88
[2018-03-27 12:35] VITALS: BP 112/82
[2018-03-27] MEDS: cefTRIAXone 2 GM/NS 50 ML IVPB IV SCH ×2 (12:40)
[2018-03-28] MEDS: cefTRIAXone 2 GM/NS 50 ML IVPB IV SCH ×2 (12:29)
[2018-03-28 13:00] VITALS: BP 125/79
[2018-03-29] MEDS: cefTRIAXone 2 GM/NS 50 ML IVPB IV SCH ×2 (12:48)
[2018-03-29 13:15] VITALS: BP 117/76
[2018-03-30 12:36] VITALS: BP 111/77
[2018-03-30] MEDS: cefTRIAXone 2 GM/NS 50 ML IVPB IV SCH ×2 (13:00)
[2018-03-31] MEDS: cefTRIAXone 2 GM/NS 50 ML IVPB IV SCH ×2 (08:58)
[2018-03-31 09:20] VITALS: BP 114/74
[2018-04-01] MEDS: cefTRIAXone 2 GM/NS 50 ML IVPB IV SCH ×2 (08:59)
[2018-04-01 10:34] VITALS: BP 105/73
[~2018-04-02] VITALS: Ht 177.8 cm; Wt 122.9 kg
[~2018-04-02 12:25] MED LIST changes: +ALLO300T2 PO; +APIX2.5T PO; +ASCO10006 PO; +ASPI-983 PO; +ATOR40TA70 PO; +BUPR300T51 PO; +CEFT2PIG IV; +CHOL20003 PO; +CYAN10006 PO; +FERR-84 PO; +HYDR-3820 PO; +METO-387 PO; +TAMS0.4C2 PO
[2018-04-02] MEDS: cefTRIAXone 2 GM/NS 50 ML IVPB IV SCH ×2 (12:36)
[2018-04-02 12:40] VITALS: BP 119/91
== END 2018-04-02 13:05 | disposition home or self-care (01) ==
LOC: SDC 12:25
PROVIDERS: ATTEND Internal Medicine
DX: M86.9 Osteomyelitis, unspecified (principal)
CPT/HCPCS: 96365; 96523

== ENCOUNTER → 2018-05-23 | Outpatient (CLI) | payer MEDICARE, OTHER ==
[~2018-05-23] MED LIST changes: +BARIUM SUSPENSION 2.1% (VANILLA SILQ) 450 ML PO ONE; +IOHEXOL 350 MG/ML 100 ML (OMNIPAQUE 350) VIAL IV ONE; +NS 100 ML (IVPB) BAG IV ONE; +RECEIVED CONTRAST (Hold Metformin) IV SCH
--- NOTE | 2018-05-23 14:27 | Diagnostic Imaging Report ---
PROCEDURE: CT chest with contrast, CT abdomen and pelvis with and without contrast. TECHNIQUE: Pre and post intravenous contrast axial imaging of the abdomen and pelvis and post contrast axial imaging of the chest were performed. INDICATION: Follicular carcinoma. FINDINGS: The previous CT chest, abdomen, and pelvis exam of 05/31/2017 failed to show any sign of an acute abnormality. There is no evidence for neoplastic disease either. On the images of the chest, the heart size is within normal limits and stable when compared to the prior study. There are coronary artery calcifications evident. Neither the aorta nor the pulmonary arteries are well opacified. When compared to the previous study, there does not appear to have been any significant change, however. There is no mediastinal or hilar adenopathy. The thyroid gland is unremarkable. The lungs are clear. In the interval since the previous exam, the patient has undergone a fusion of L3, L4, and L5. There is also an interbody device in place at the L4-5 level. The orthopedic hardware appears to be in good position. The overall appearance of the abdomen is otherwise stable. The liver does not appear to be enlarged. There is a small area of diminished density in the left lobe of the liver. This is probably a cyst. The spleen is surgically absent. The pancreas, gallbladder, adrenals, kidneys, aorta, and inferior vena cava seem stable when compared to the prior exam. The stomach is partially filled with oral contrast and difficult to evaluate. There is no pelvic mass or free fluid collection noted. There is diverticulosis of the sigmoid and descending colon without evidence for acute diverticulitis. The urinary bladder and prostate gland are partially obscured by streak artifact related to the total hip prosthesis on the right. The appendix is not abnormally thickened, and there is no sign of acute appendicitis. The bone windows show no sign of a fracture or of a destructive lesion. IMPRESSION: 1. There is no acute abnormality of the chest, abdomen, or pelvis. There is no sign of neoplastic disease either. 2. There has been an interval fusion of L3, L4, and L5. The orthopedic hardware seems to be in good position. Dictated by: Dictated on workstation # [id number]
== END ==
LOC: RAD 09:01
PROVIDERS: ATTEND Internal Medicine Hematology & Oncology
DX: C82.33 Follicular lymphoma grade IIIa, intra-abdominal lymph nodes (principal); Z98.1 Arthrodesis status
CPT/HCPCS: 71260; 74178

== ENCOUNTER 2018-08-15 10:28 | Outpatient (RCR) | payer MEDICARE, OTHER ==
[2018-05-23 09:02] LABS: BASOPHILS # (AUTO) 0.1 10^3/uL (0.0-0.1); BASOPHILS % (AUTO) 1 % (0-10); EOSINOPHILS # (AUTO) 0.5 10^3/uL (0.0-0.3); EOSINOPHILS % (AUTO) 5 % (0-10); HEMATOCRIT 42 % (40-54); HEMOGLOBIN 13.9 G/DL (13.3-17.7); LYMPHOCYTES # (AUTO) 3.3 X 10^3 (1.0-4.0); LYMPHOCYTES % (AUTO) 31 % (12-44); MEAN CORPUSCULAR HEMOGLOBIN 32 PG (25-34); MEAN CORPUSCULAR HGB CONC 33 G/DL (32-36); MEAN CORPUSCULAR VOLUME 96 FL (80-99); MEAN PLATELET VOLUME 9.3 FL (7.4-10.4); MONOCYTES # (AUTO) 0.9 X 10^3 (0.0-1.0); MONOCYTES % (AUTO) 9 % (0-12); NEUTROPHILS # (AUTO) 5.7 X 10^3 (1.8-7.8); NEUTROPHILS % (AUTO) 54 % (42-75); PLATELET COUNT 354 10^3/uL (130-400); RED CELL DISTRIBUTION WIDTH 16.3 % (10.0-14.5); WHITE BLOOD COUNT 10.5 10^3/uL (4.3-11.0)
[2018-05-23 09:26] LABS: ALANINE AMINOTRANSFERASE 23 U/L (0-55); ALKALINE PHOSPHATASE 107 U/L (40-136); BILIRUBIN,TOTAL 0.5 MG/DL (0.1-1.0); BUN/CREATININE RATIO 19; CARBON DIOXIDE 21 MMOL/L (21-32); CHLORIDE 107 MMOL/L (98-107); CREATININE SERUM 0.77 MG/DL (0.60-1.30); GFR ESTIMATED > 60; GLUCOSE 100 MG/DL (70-105); POTASSIUM 4.1 MMOL/L (3.6-5.0); SODIUM 139 MMOL/L (135-145); TOTAL PROTEIN 7.2 GM/DL (6.4-8.2)
[~2018-08-15 10:28] MED LIST changes: -BARIUM SUSPENSION 2.1% (VANILLA SILQ) 450 ML PO ONE; -IOHEXOL 350 MG/ML 100 ML (OMNIPAQUE 350) VIAL IV ONE; -NS 100 ML (IVPB) BAG IV ONE; -RECEIVED CONTRAST (Hold Metformin) IV SCH
== END 2018-08-21 | disposition home or self-care (01) ==
LOC: ONC 10:28
PROVIDERS: ATTEND Internal Medicine Hematology & Oncology
DX: C82.33 Follicular lymphoma grade IIIa, intra-abdominal lymph nodes (principal); I25.10 Atherosclerotic heart disease of native coronary artery without angina pectoris; K21.9 Gastro-esophageal reflux disease without esophagitis; Z79.899 Other long term (current) drug therapy; Z45.2 Encounter for adjustment and management of vascular access device
CPT/HCPCS: 36591; 80053; 83615; 85025; 96523; 99213

== ENCOUNTER 2018-12-06 09:46 | Outpatient (RCR) | payer MEDICARE, OTHER ==
[~2018-12-06 09:46] MED LIST changes: +CYAN-41 PO; -CYAN10006 PO; +OMEP20CA13 PO
[2018-12-06 10:14] LABS: BASOPHILS # (AUTO) 0.1 10^3/uL (0.0-0.1); BASOPHILS % (AUTO) 1 % (0-10); EOSINOPHILS # (AUTO) 0.4 10^3/uL (0.0-0.3); EOSINOPHILS % (AUTO) 4 % (0-10); HEMATOCRIT 44 % (40-54); HEMOGLOBIN 14.7 G/DL (13.3-17.7); LYMPHOCYTES # (AUTO) 3.1 X 10^3 (1.0-4.0); LYMPHOCYTES % (AUTO) 31 % (12-44); MEAN CORPUSCULAR HEMOGLOBIN 32 PG (25-34); MEAN CORPUSCULAR HGB CONC 33 G/DL (32-36); MEAN CORPUSCULAR VOLUME 96 FL (80-99); MEAN PLATELET VOLUME 9.2 FL (7.4-10.4); MONOCYTES # (AUTO) 0.9 X 10^3 (0.0-1.0); MONOCYTES % (AUTO) 9 % (0-12); NEUTROPHILS # (AUTO) 5.7 X 10^3 (1.8-7.8); NEUTROPHILS % (AUTO) 56 % (42-75); PLATELET COUNT 331 10^3/uL (130-400); RED CELL DISTRIBUTION WIDTH 15.4 % (10.0-14.5); WHITE BLOOD COUNT 10.1 10^3/uL (4.3-11.0)
[2018-12-06 10:34] LABS: ALANINE AMINOTRANSFERASE 23 U/L (0-55); ALBUMIN 4.1 GM/DL (3.2-4.5); ALKALINE PHOSPHATASE 93 U/L (40-136); BILIRUBIN,TOTAL 0.5 MG/DL (0.1-1.0); BUN/CREATININE RATIO 16; CALCIUM 9.3 MG/DL (8.5-10.1); CARBON DIOXIDE 23 MMOL/L (21-32); CHLORIDE 106 MMOL/L (98-107); CREATININE SERUM 0.76 MG/DL (0.60-1.30); GFR ESTIMATED > 60; GLUCOSE 110 MG/DL (70-105); SODIUM 138 MMOL/L (135-145); TOTAL PROTEIN 7.1 GM/DL (6.4-8.2)
== END 2018-12-26 | disposition home or self-care (01) ==
LOC: ONC 09:46
PROVIDERS: ATTEND Internal Medicine Hematology & Oncology
DX: C82.33 Follicular lymphoma grade IIIa, intra-abdominal lymph nodes (principal); I25.10 Atherosclerotic heart disease of native coronary artery without angina pectoris; K21.9 Gastro-esophageal reflux disease without esophagitis; Z79.899 Other long term (current) drug therapy; Z45.2 Encounter for adjustment and management of vascular access device
CPT/HCPCS: 36591; 80053; 83615; 85025; 96523

== ENCOUNTER → 2019-01-01 | Outpatient (CLI) | payer MEDICARE, OTHER ==
[~2019-01-01] MED LIST changes: +HOLD METFORMIN - RECEIVED CONTRAST 20 ML VIAL IV SCH; +IOHEXOL 350 MG/ML 100 ML (OMNIPAQUE 350) VIAL IV ONE; +NS 100 ML (IVPB) BAG IV ONE
--- NOTE | 2019-01-01 16:49 | Diagnostic Imaging Report ---
PROCEDURE: CT abdomen and pelvis with and without contrast. TECHNIQUE: Precontrast acquisitions were acquired through the abdomen and pelvis. Multiple contiguous axial images were obtained through the abdomen and pelvis after the administration of intravenous contrast. Auto Exposure Controls were utilized during the CT exam to meet ALARA standards for radiation dose reduction. INDICATION: Follicular lymphoma. Abdominal pain. CORRELATION STUDY: 05/23/2018. FINDINGS: Heart size is within normal limits with scattered coronary artery calcification. Trace pericardial effusion. Small granuloma of the lateral left lower lobe. There is some contrast in the low esophagus which could be owing to simply incomplete migration of the contrast versus reflux. There is suggestion of some gastric wall thickening. Additionally, there is intraluminal soft tissue density surrounded by contrast material. The small bowel is without obstruction. Contrast within the portion of the colon. Mild severity of fecal retention. Scattered colonic diverticulosis. Normal appendix is present. Surgical changes through the midline anterior abdominal wall. Tiny low-density area centrally about the left lobe of the liver may be reflective of a small cyst, unchanged. The gallbladder, mildly atrophic pancreas, and adrenal glands are unremarkable. Spleen is absent. The kidneys are with normal enhancement. There is noted some extensive artifact through the midabdomen owing to lumbar spinal fixation hardware. Urinary bladder is unremarkable. The abdominal aorta is with moderate aortoiliac wall calcification, nonaneurysmal. A few shotty but non pathologically enlarged central retroperitoneal lymph nodes are present. No significant abdominal ascites. Prostate gland is unremarkable. Postoperative changes of the right hip with arthroplasty. IMPRESSION: 1. No definitive pathologically enlarged abdominal or pelvic lymphadenopathy. 2. There is suggestion of abnormal density within the stomach. This may simply represent ingested contents. The possibility of gastric wall thickening and/or gastric mass however is not excluded. Correlation with any symptoms. If further assessment is desired, endoscopy would be recommended. Dictated by: Dictated on workstation # [id number]
== END ==
LOC: RAD 13:57
PROVIDERS: ATTEND Internal Medicine Hematology & Oncology
DX: C82.33 Follicular lymphoma grade IIIa, intra-abdominal lymph nodes (principal); Z98.890 Other specified postprocedural states
CPT/HCPCS: 74178

== ENCOUNTER 2019-01-10 06:38 | Outpatient (CLI) | payer MEDICARE, OTHER ==
[~2019-01-10] VITALS: Ht 177.8 cm; Wt 122.9 kg
[~2019-01-10 06:38] MED LIST changes: -HOLD METFORMIN - RECEIVED CONTRAST 20 ML VIAL IV SCH; -IOHEXOL 350 MG/ML 100 ML (OMNIPAQUE 350) VIAL IV ONE; -NS 100 ML (IVPB) BAG IV ONE
[2019-01-10] MEDS ORDERED: TAMS0.4C98 PO (12:28)
[2019-01-10] MEDS ORDERED: MELO15TA39 PO (12:28)
== END 2019-01-10 13:08 | disposition home or self-care (01) ==
LOC: PREOP 06:38
PROVIDERS: ATTEND Surgery
DX: Z01.818 Encounter for other preprocedural examination (principal)

== ENCOUNTER 2019-01-11 12:32 | Day surgery (SDC) | payer MEDICARE, OTHER ==
[~2019-01-11] VITALS: Ht 177.8 cm; Wt 122.9 kg
[~2019-01-11 12:32] MED LIST changes: +MELO15TA39 PO; +TAMS0.4C98 PO
[2019-01-11] MEDS ORDERED: NS IV 500 ML 500 ML IV PRN (12:37)
[2019-01-11] MEDS ORDERED: NS IV 500 ML 500 ML ONE (12:41)
[2019-01-11] MEDS ORDERED: fentaNYL INJECTION 100 MCG/2 ML AMP IVP ONE (12:45)
[2019-01-11] MEDS ORDERED: MIDAZOLAM 2 MG/2 ML (VERSED) VIAL IVP ONE (12:45)
[2019-01-11] MEDS ORDERED: GLYCOPYRROLATE 0.2 MG/ML (ROBINUL) 2 ML VIAL ONE (13:24)
[2019-01-11 13:25] VITALS: BP 109/92
[2019-01-11] MEDS ORDERED: MIDAZOLAM 2 MG/2 ML (VERSED) VIAL ONE (13:37)
[2019-01-11] MEDS ORDERED: ATROPINE INJ 0.4 MG/ML SDV ONE ×2 (13:37→14:12)
[2019-01-11] MEDS ORDERED: proPOfol 200 MG/20 ML (DIPRIVAN) VIAL IV ONE (13:37)
--- NOTE | 2019-01-11 13:44 | Progress Note-Pre Operative ---
Pre-Operative Progress Note H&P Reviewed The H&P was reviewed, patient examined and no changes noted. Date Seen by Provider: Jan 11, 2019 Time Seen by Provider: 13:00 Date H&P Reviewed: Jan 11, 2019 Time H&P Reviewed: 13:00 Pre-Operative Diagnosis: epigastric pain NANCY ROMO MD Jan 11, 2019 13:44
[2019-01-11] MEDS ORDERED: fentaNYL INJECTION 100 MCG/2 ML AMP IVP PRN (13:45)
[2019-01-11] MEDS ORDERED: HYDROcodone/APAP 5 MG/325 MG (LORTAB) TAB PO PRN (13:45)
[2019-01-11] MEDS ORDERED: ONDANSETRON 4 MG/2 ML (SDV) Z0FRAN IVP PRN (13:45)
[2019-01-11] MEDS ORDERED: ACETAMINOPHEN 325 MG TABLET PO PRN (13:45)
--- NOTE | 2019-01-11 13:47 | Discharge Inst-Surgical ---
D/C Lap Instructions-DEMETRIUS New, Converted, or Re-Newed RX: RX on Chart Follow Up Activity as tolerated High Fiber Diet 25g or more per day Avoid Alcohol, Caffeine, Spicy [place] and Acid foods. Drink 64 fluid oz or more of fluids per day. Symptoms to Report: Fever over 101 degree F, Nausea/Vomiting If any problems/questions: Contact your physician or go to Emergency Room NANCY ROMO MD Jan 11, 2019 13:47
[2019-01-11] MEDS ORDERED: LIDOCAINE JELLY 2% 6 ML SYRINGE ONE (13:52)
[2019-01-11] MEDS ORDERED: HURRICAINE EXT TUBE (BENZOCAINE) ONE (13:52)
[2019-01-11 14:20] VITALS: BP 135/71
[2019-01-11 14:25] VITALS: BP 122/72
[2019-01-11 14:30] VITALS: BP_SYST 106; BP_SYST 99; BP_DIAS 57; BP_DIAS 61
[2019-01-11] MEDS ORDERED: LACTATED RINGERS 1,000 ML IV ONE (14:30)
[2019-01-11] MEDS ORDERED: LIDOCAINE JELLY 2% 6 ML SYRINGE TOP ONE (14:30)
[2019-01-11] MEDS ORDERED: HURRICAINE EXT TUBE (BENZOCAINE) XX ONE (14:30)
--- NOTE | 2019-01-11 15:14 | Progress Note-Post Operative ---
Post-Operative Progess Note Surgeon (s)/Oil Refiner (s) Surgeon NANCY ROMO MD Oil Refiner: none Pre-Operative Diagnosis epigastric pain Post-Operative Diagnosis reflux esophagitis(stage 2), moderate HH(3cm), moderate gastritis. Procedure & Operative Findings Date of Procedure 01/11/19 Procedure Performed/Findings EGD with bx. Anesthesia Type MAC Estimated Blood Loss Estimated blood loss (mL): minimal Specimens/Packing Specimens Removed pylorus, antrum, ge jxn NANCY ROMO MD Jan 11, 2019 15:14
[2019-01-11 15:15] VITALS: BP 106/61
--- NOTE | 2019-01-11 17:13 | OPERATIVE REPORT ---
DATE OF SERVICE: 01/11/2019 ATTENDING PRIMARY CARE PHYSICIAN: Dr. Pepper. PREOPERATIVE DIAGNOSES: Epigastric pain with a history of B-cell lymphoma, follicular type. POSTOPERATIVE DIAGNOSES: Reflux esophagitis stage II, moderate size hiatal hernia approximately 3 cm in size, moderate severity gastritis, small benign appearing polyps of the pylorus. PROCEDURE PERFORMED: Esophagogastroduodenoscopy with biopsy. SURGEON: Nancy Romo MD. ANESTHESIA: Monitored anesthesia care. ESTIMATED BLOOD LOSS: Minimal. FINDINGS: Reflux esophagitis stage II, moderate size hiatal hernia approximately 3 cm in size, moderate severity gastritis, small benign appearing polyps of the pylorus. DISPOSITION: The patient tolerated the procedure well. INDICATIONS: The patient is a 68-year-old male, known to us. He developed epigastric pain and discomfort in 2012. He underwent a CT scan and was found to have enlarged lymph nodes. He then underwent an inguinal lymph node biopsy, which came back as B-cell lymphoma, follicular type. He then underwent a Groshong implantable catheter placement and chemotherapy and had a good response. He reports that he has had epigastric burning, crampy pain on an intermittent basis. CT scan was performed, which did show very mild amount of gastric wall thickening. There is no lymphadenopathy identified. He does not report any fevers, night sweats nor any weight loss as well as no lymphadenopathy. DESCRIPTION OF PROCEDURE: The patient was brought to the endoscopy suite, laid in the left lateral decubitus position. After adequate IV pain and sedative medications and monitored anesthesia care, the mouthpiece was applied. The endoscope was placed in the mouth, visualizing the pharynx and hypopharyngeal region. Vocal cords, epiglottis and vallecula identified and appeared to be normal. Endoscope was then gently intubated into the esophageal opening and esophagus insufflated. The endoscope was then advanced to the first, second and third portion of the esophagus at the level of the GE junction, reflux esophagitis stage II identified. There were no ulcers or strictures identified in this region. A biopsy was taken of the GE junction with forceps with visualization of good hemostasis. The GE junction was also intrathoracic consistent with a persistent hiatal hernia. The endoscope was then advanced to the stomach and endoscope retroflexed, visualizing a hiatal hernia, moderate in size, approximately 2.5-3 cm in size. There were no Audi ulcerations as well as no lesions identified. There was a moderate severity gastritis throughout the stomach. A biopsy was taken of the antrum to rule out H. pylori. In the pylorus, a small 1-2 mm hyperplastic polyps were identified, which were biopsied. The endoscope was then advanced to the pylorus and the first and second portion of the duodenum, which appeared normal. The endoscope was then slowly withdrawn while taking a second look and suctioning residual air with no additional findings. The patient tolerated the procedure well. We feel that majority of his symptoms is due to the hiatal hernia; however, we will recommend medical management with the necessary lifestyle and diet accommodation including small and more frequent meals, avoidance of eating at night as well as head elevation while lying supine. He also needs to avoid caffeinated beverages, spicy, greasy and acidic foods. We will also proceed with starting him on Protonix 40 mg daily. Job ID: [id number] DocumentID: [id number] Dictated Date: 01/11/2019 14:21:23 Boiler Attendant Date: 01/11/2019 17:12:27 Dictated By: NANCY ROMO MD MTDD
--- NOTE | 2019-01-16 14:49 | HISTORY AND PHYSICAL ---
DATE OF SERVICE: 01/11/2019 This will be a history and physical for 01/11/2019, at [facility]. HISTORY OF PRESENT ILLNESS: The patient is a 68-year-old male known to us. He developed epigastric discomfort in 04/2013. He underwent a CT scan, which showed two enlarged lymph nodes, one in the right upper abdominal quadrant and the second one in the aortocaval region. Followup CT scan did show a small mediastinal lymph nodes as well as a mildly prominent lymph node in the right iliac chain and inguinal region. Biopsy of the inguinal lymph node came back as a B-cell lymphoma, follicular type. He then underwent a Groshong implantable catheter and chemotherapy and had a good response. We had also done a colonoscopy on him in 2013. Mild internal hemorrhoids were identified as well as mild sigmoid diverticulosis and no other abnormalities. He was seen by his primary care physician and had reported worsening reflux type of symptoms as well as mild dysphagia for some foods. He does not report any night sweats, weight loss or any lymphadenopathy. A CT scan was performed, which did show a slight retention of contrast within the distal esophagus; however, this could have been due to increase in the esophageal sphincter tone. There was a mild amount of gastric wall thickening as well. There is no lymphadenopathy noted. PAST MEDICAL HISTORY: Hypertension, hypercholesterolemia, coronary artery disease, degenerative joint disease, gastroesophageal reflux disease, hiatal hernia, history of peptic ulcer disease, B cell lymphoma, follicular type degenerative joint disease. PAST SURGICAL HISTORY: Splenectomy as a teen due to the trauma, tonsillectomy, bilateral total knee arthroplasty 2008 and 2009, right total hip arthroplasty 2009, rotator cuff surgery 2011, cardiac catheterization and stent placement x1 2006, removal of right ankle and infected hardware 01/2018, Groshong catheter placement 2012. ALLERGIES: MORPHINE. MEDICATIONS: Aspirin 325 mg daily, Lipitor 40 mg daily, metoprolol ER 25 mg daily, Wellbutrin 300 mg daily, meloxicam 15 mg daily, omeprazole 20 mg daily, fish oil 1200 mg t.i.d., multivitamin daily. SOCIAL HISTORY: Previous smoker, quit in 1990, 12 pack years. Social alcohol. FAMILY HISTORY: Mother, DCIS. Brother, hypertension. Sister, hypertension. VITAL SIGNS: Stable, afebrile. Current weight 270 pounds, height 5 feet 11 inches. REVIEW OF SYSTEMS: Well-nourished male in no acute distress. He is not experiencing any shortness of breath or difficulty breathing. No chest pain, palpitations, diaphoresis. No nausea, vomiting with intermittent episodes of dysphagia as well as epigastric burning sensation as well as crampy pain. No hematemesis, no coffee ground emesis. No diarrhea, constipation, no red blood per rectum, no dark tarry stools. No night sweats, fever, no chills, no recent inadvertent weight loss. All other review of systems negative. PHYSICAL EXAMINATION: CHEST: Clear. Good breath sounds bilaterally. HEART: Regular, no murmurs. EXTREMITIES: No +1/3 bilateral lower extremity edema, negative Homans sign. HEENT: No scleral icterus. NECK: No cervical lymphadenopathy. ABDOMEN: Soft, nondistended. There is mild discomfort in the epigastric region on deep palpation. No palpable masses, no lymphadenopathy. SKIN: Warm, dry. ASSESSMENT AND PLAN: A 68-year-old male with worsening gastroesophageal reflux disease and dysphagia with a history of B-cell lymphoma. We will precede with scheduling him for an EGD as well as biopsies as appropriate. Job ID: [id number] DocumentID: [id number] Dictated Date: 01/09/2019 15:39:40 Door To Door Sales Representative Date: 01/09/2019 16:15:51 Dictated By: NANCY ROMO MD <Dictated by NANCY ROMO MD> <Electronically signed by NANCY ROMO MD> 01/10/19 0923
== END 2019-01-11 15:15 | disposition home or self-care (01) ==
LOC: ENDO 12:32
PROVIDERS: ATTEND Surgery
DX: K21.0 Gastro-esophageal reflux disease with esophagitis (principal); K29.50 Unspecified chronic gastritis without bleeding; K44.9 Diaphragmatic hernia without obstruction or gangrene; K31.7 Polyp of stomach and duodenum; I25.10 Atherosclerotic heart disease of native coronary artery without angina pectoris; I10 Essential (primary) hypertension; R22.43 Localized swelling, mass and lump, lower limb, bilateral; F32.9 Major depressive disorder, single episode, unspecified; F41.9 Anxiety disorder, unspecified; M19.90 Unspecified osteoarthritis, unspecified site; N40.0 Benign prostatic hyperplasia without lower urinary tract symptoms; E66.01 Morbid (severe) obesity due to excess calories; E78.00 Pure hypercholesterolemia, unspecified; G62.9 Polyneuropathy, unspecified; Z68.39 Body mass index [BMI] 39.0-39.9, adult; Z92.21 Personal history of antineoplastic chemotherapy; Z95.5 Presence of coronary angioplasty implant and graft; Z87.891 Personal history of nicotine dependence; Z85.71 Personal history of Hodgkin lymphoma; Z88.6 Allergy status to analgesic agent; Z87.11 Personal history of peptic ulcer disease; Z90.81 Acquired absence of spleen; Z96.653 Presence of artificial knee joint, bilateral; Z96.641 Presence of right artificial hip joint; Z79.899 Other long term (current) drug therapy

== ENCOUNTER 2019-02-05 13:04 | Day surgery (SDC) | payer MEDICARE, OTHER ==
[~2019-02-05] VITALS: Ht 177.8 cm; Wt 13.6 kg
[2019-02-05] VITALS (9 sets, daily range): BP systolic 97–133; BP diastolic 54–92
[~2019-02-05 13:04] MED LIST changes: -ALPR0.5T PO; -ATOR20TA66 PO; -DIPH25CA79 PO; -PANT40TA2 PO; -PNT400TCR PO; -VITA-240 PO
[2019-02-05] MEDS ORDERED: NS IV 1000 ML 1,000 ML IV SCH ×2 (13:34→17:29)
[2019-02-05] MEDS ORDERED: HEParin (CATH LAB) 2,000 ML IV ONE (13:44)
[2019-02-05] MEDS ORDERED: NS IV 1000 ML 1,000 ML ONE (13:44)
[2019-02-05] MEDS ORDERED: LIDOCAINE 1% INJ 20 ML 20 ML VIAL ONE (13:44)
[2019-02-05 13:56] LABS: HEMOGLOBIN 14.3 G/DL (13.3-17.7); MEAN PLATELET VOLUME 9.8 FL (7.4-10.4); RED CELL DISTRIBUTION WIDTH 14.6 % (10.0-14.5); WHITE BLOOD COUNT 9.3 10^3/uL (4.3-11.0)
[2019-02-05] MEDS ORDERED: PANT40TA2 PO ×2 (14:18)
[2019-02-05] MEDS ORDERED: ALPR0.5T PO ×2 (14:18)
[2019-02-05] MEDS ORDERED: PNT400TCR PO ×2 (14:18)
[2019-02-05] MEDS ORDERED: ATOR20TA66 PO ×2 (14:18)
[2019-02-05 14:21] LABS: PROTHROMBIN TIME PATIENT 13.4 SEC (12.2-14.7)
[2019-02-05] MEDS ORDERED: DIPH25CA79 PO ×2 (14:21)
[2019-02-05] MEDS ORDERED: VITA-240 PO ×2 (14:21)
[2019-02-05] MEDS ORDERED: ASPI-983 PO ×2 (14:22)
[2019-02-05 14:29] LABS: ALANINE AMINOTRANSFERASE 23 U/L (0-55); ALKALINE PHOSPHATASE 88 U/L (40-136); BILIRUBIN,TOTAL 0.7 MG/DL (0.1-1.0); BUN/CREATININE RATIO 15; CALCIUM 9.3 MG/DL (8.5-10.1); CARBON DIOXIDE 25 MMOL/L (21-32); CHLORIDE 110 MMOL/L (98-107); CHOLESTEROL 116 MG/DL (< 200); CREATININE SERUM 0.75 MG/DL (0.60-1.30); GFR ESTIMATED > 60; GLUCOSE 91 MG/DL (70-105); HDL CHOLESTEROL 35 MG/DL (40-60); SODIUM 142 MMOL/L (135-145); TRIGLYCERIDES 62 MG/DL (<150); VLDL CHOLESTEROL 12 MG/DL (5-40)
--- NOTE | 2019-02-05 14:56 | NUR ---
SPOKE WITH PT (HE BROUGHT IN HIS HOME MEDS) TO COMPLETE THE MED REC. ALL HIS BOTTLES HAD GOOD DATING AND HE WAS ABLE TO TELL ME HOW HE TAKES EACH ONE. OTC MEDS: VITAMIN C: 1 DAILY ASPIRIN 81M DAILY VITAMIN D3: 1 DAILY VITAMIN B-12: 1 DAILY DIPHENDYDRAMINE 25M HS PRN FISH OIL: 1 DAILY MULTIVITAMIN: 1 DAILY VITAMIN E: 2 DAILY
[2019-02-05] MEDS ORDERED: MIDAZOLAM 5 MG/5 ML (VERSED) VIAL ONE (15:28)
[2019-02-05] MEDS ORDERED: fentaNYL INJECTION 100 MCG/2 ML AMP ONE (15:29)
[2019-02-05] MEDS ORDERED: PATIENT MAY USE OWN MEDS, ALL PO SCH (17:30)
--- NOTE | 2019-02-05 17:33 | Discharge Inst-Cardiology ---
Discharge Inst-Cardiac Problems Reviewed?: Yes Discharge Medications Continued Medications: Alprazolam (Xanax) 0.5 Mg Tablet 0.5 MG PO BID PRN for ANXIETY, TAB Ascorbic Acid (Vitamin C) 1,000 Mg Tablet 1000 MG PO DAILY, TAB Aspirin (Aspirin EC) 81 Mg Tablet.dr 81 MG PO DAILY, TAB Atorvastatin Calcium (Atorvastatin Calcium) 20 Mg Tablet 20 MG PO DAILY, TAB Bupropion HCl (Bupropion Xl) 300 Mg Tab.er.24h 300 MG PO DAILY, TAB Cholecalciferol (Vitamin D3) (Vitamin D3) 2,000 Unit Capsule 2000 UNIT PO DAILY, CAP Cyanocobalamin (Vitamin B-12) (Vitamin B-12) 1,000 Mcg Tablet 1000 MCG PO DAILY, TAB Diphenhydramine HCl (Benadryl) 25 Mg Capsule 25 MG PO HS PRN for SLEEP, CAP Fish Oil/Dha/Epa (Fish Oil 1,200 mg Fish Oil) 1 Each Capsule 2400 MG PO DAILY, CAP Meloxicam (Meloxicam) 15 Mg Tablet 15 MG PO DAILY, TAB Metoprolol Succinate (Metoprolol Succinate) 25 Mg Tab.er.24h 25 MG PO DAILY, TAB Multivit-Min/FA/Lycopene/Lut (Centrum Silver Tablet) 1 Each Tablet 1 TAB PO DAILY, TAB Pantoprazole Sodium (Protonix) 40 Mg Tablet.dr 40 MG PO DAILY, TAB Pentoxifylline (Pentoxifylline) 400 Mg Tablet.er 400 MG PO BID, TAB Tamsulosin HCl (Flomax) 0.4 Mg Cap 0.4 MG PO DAILY, CAP Vitamin E (Dl,Tocopheryl Acet) (Vitamin E) 400 Unit Capsule 800 UNIT PO DAILY, MAURISIO SRIVASTAVA MD FACP FACC CCDS Feb 05, 2019 17:32
--- NOTE | 2019-02-05 17:33 | Discharge Inst-Post CATH ---
Discharge Inst-CATH/EP Post Cardiac Cath/EP D/C Inst Follow Up/Plan F/u with Dr Sanford in 2 weeks ACTIVITY * Go Home directly and rest. * Limit activity of the leg (or wrist if it was used) for 7 days including aerobics, swimming, jogging, bicycling, etc. * Restrict stair-climbing for 7 days if possible, if not, climb up with your n on-cath leg, then bring together on the same step. * Avoid lifting, pushing, pulling or excessive movement of the affected ex tremity for 7 days. * Customary sexual activity may be resumed after 2 days-use caution not to use a position that strains or causes pain to the affected extremity. * No driving for 24 hours. * NO SMOKING. * Avoid straining for bowel movements for 7 days. * Gentle walking on level ground is allowed. * Returning to work will depend on the type of procedure and the results. Your doctor will discuss this with you. CALL YOUR DOCTOR FOR ANY OF THE FOLLOWING: *If bleeding from the puncture site occurs- Apply gentle pressure to site with clean cloth and call your doctor or EMS. * If a knot or lump forms under the skin, increases in size, or causes pain. * If bruising appears to be worsening or moving further down your leg instead of disappearing. * Temperature above 101 F. CARE OF YOUR GROIN INCISION; * Bruising or purple discoloration of the skin near the puncture site is common. * You may shower only, no bathtub bathing for 5 days. Be careful to avoid slipping as your leg may feel stiff. * If a closure device was used on your femoral artery, please see the attached guide regarding care of the device and your leg. * Leave dressing on FOR 24 hours. CARE OF YOUR WRIST INCISION; * Bruising or purple discoloration of the skin near the puncture site is common. * You may shower. * DO NOT submerge wrist. * Leave dressing on FOR 24 hours. MAURISIO SANFORD MD FACP FAC CCDS Feb 05, 2019 17:33
--- NOTE | 2019-02-05 20:14 | CARDIAC CATHETERIZATION ---
DATE OF SERVICE: 02/05/2019 CARDIAC CATHETERIZATION REPORT The patient is a 68-year-old man, who is known to have coronary artery disease. Lately, he has been having frequent premature ventricular contractions and has been experiencing increasing shortness of breath. Cardiac catheterization was carried out today after having obtained an informed consent. PROCEDURE: He was brought to the cardiac catheterization laboratory in a fasting state. Right groin was prepared and draped in the usual sterile fashion. Lidocaine 1% was used for local anesthesia. Modified Seldinger technique was used to advance a 5-Spanish sheath in the right femoral artery, 5-Spanish JL4 catheter for left coronary angiography, 5-Spanish JR4 catheter for right coronary angiography, 5-Spanish pigtail catheter was used for left heart catheterization and left ventricular angiography. Angiography of the right femoral artery was carried out through the sheath. Mynx was used to achieve hemostasis following sheath removal. He tolerated the procedure well. HEMODYNAMICS: Left ventricular end-diastolic pressure following left ventricular angiography was 16 mmHg. There is no significant pressure gradient on pullback across the aortic valve. Ascending aortic pressure was 123/73 with a mean of 84 mmHg. CORONARY ANGIOGRAPHY: Mild coronary calcification is seen. Left anterior descending artery has mild plaques. Left circumflex artery has a patent stent in the proximal portion of an obtuse marginal branch. Right coronary artery is dominant and has diffuse moderate disease. No stenosis of greater than 50% is seen in the right coronary. LEFT VENTRICULAR ANGIOGRAPHY: Left ventricular angiography was carried out in the right anterior oblique projection. Global left ventricular systolic function is well preserved. Left ventricular ejection fraction is approximately 60%. CONCLUSIONS: 1. Coronary artery disease, diffuse, mild to moderate. 2. Patent stent in an obtuse marginal of the left circumflex. 3. Mild elevation of left ventricular end-diastolic pressure. 4. Well-preserved global left ventricular systolic function with an ejection fraction of 60%. DISCUSSION AND RECOMMENDATION: Based on results of the study, symptoms do not appear to be of coronary origin. Continue risk factor modification and close outpatient followup is advised. Job ID: [id number] DocumentID: [id number] Dictated Date: 02/05/2019 17:24:19 Community Life Director Date: 02/05/2019 20:12:55 Dictated By: MAURISIO GRAHAM MD, MA, FACP, FACC, MTDD
== END 2019-02-05 20:46 | disposition home or self-care (01) ==
LOC: CATH 13:04 → ICU 18:11 → CATH 20:46
PROVIDERS: ATTEND Internal Medicine Cardiovascular Disease
DX: I25.10 Atherosclerotic heart disease of native coronary artery without angina pectoris (principal); I49.3 Ventricular premature depolarization; I77.9 Disorder of arteries and arterioles, unspecified; M19.90 Unspecified osteoarthritis, unspecified site; E78.5 Hyperlipidemia, unspecified; K21.9 Gastro-esophageal reflux disease without esophagitis; N41.1 Chronic prostatitis; M79.604 Pain in right leg; M79.605 Pain in left leg; Z87.891 Personal history of nicotine dependence; Z68.37 Body mass index [BMI] 37.0-37.9, adult; Z96.641 Presence of right artificial hip joint; Z96.653 Presence of artificial knee joint, bilateral; Z98.1 Arthrodesis status; Z79.899 Other long term (current) drug therapy; Z79.82 Long term (current) use of aspirin; Z83.3 Family history of diabetes mellitus; Z82.49 Family history of ischemic heart disease and other diseases of the circulatory system
CPT/HCPCS: 36415; 80053; 80061; 84443; 85027; 85610; 85730; 87081; 93458

== ENCOUNTER → 2019-02-05 | Outpatient (CLI) | payer MEDICARE, OTHER ==
[~2019-02-05] MED LIST changes: +ALPR0.5T PO; +ATOR20TA66 PO; +DIPH25CA79 PO; +PANT40TA2 PO; +PNT400TCR PO; +VITA-240 PO
--- NOTE | 2019-02-05 12:26 | Diagnostic Imaging Report ---
PROCEDURE: US abdomen complete. TECHNIQUE: Multiple real-time grayscale images were obtained over the abdomen in various projections. INDICATION: Abdominal mass. FINDINGS: The liver shows increased echogenicity. The liver is not enlarged measuring approximately 14 cm in long axis. No liver masses are seen. The bile ducts are not dilated. Common duct is not well visualized. Gallbladder shows normal distention with bile. No gallstones are demonstrated. Gallbladder wall measures 3 mm. There is no pericholecystic fluid. There is midline gas obscuring the pancreas. The spleen is absent. The aorta where visualized is not dilated. The IVC appears normal as does the portal vein with Doppler sampling. Right kidney measures 12.4 x 6 x 6 cm. The left kidney measures 13 x 6 x 5.3 cm. Both kidneys appear normal. There is no ascites. IMPRESSION: 1. Mild hepatic steatosis without hepatomegaly. 2. The gallbladder wall is upper limits of normal though no gallstones or pericholecystic fluid demonstrated. Intrahepatic radicles not dilated. Common duct not visualized. Dictated by: Dictated on workstation # [id number]
== END ==
LOC: RAD 07:45
PROVIDERS: ATTEND Internal Medicine Hematology & Oncology
DX: C82.33 Follicular lymphoma grade IIIa, intra-abdominal lymph nodes (principal); K76.0 Fatty (change of) liver, not elsewhere classified; Z90.81 Acquired absence of spleen
CPT/HCPCS: 76700

== ENCOUNTER 2019-02-06 14:01 | Outpatient (CLI) | payer MEDICARE, OTHER ==
[~2019-02-06 14:01] MED LIST changes: +ALPR0.5T PO; +ATOR20TA66 PO; +DIPH25CA79 PO; +PANT40TA2 PO; +PNT400TCR PO; +VITA-240 PO
== END 2019-02-06 14:40 | disposition home or self-care (01) ==
LOC: SLEEP 14:01
PROVIDERS: ATTEND Otolaryngology Otolaryngology/Facial Plastic Surgery
DX: G47.33 Obstructive sleep apnea (adult) (pediatric) (principal)

== ENCOUNTER → 2019-02-20 | Outpatient (CLI) | payer MEDICARE, OTHER | LOC: CARD 13:54 | PROVIDERS: ATTEND Internal Medicine Cardiovascular Disease | DX: I05.8 Other rheumatic mitral valve diseases (principal); I49.3 Ventricular premature depolarization; E78.5 Hyperlipidemia, unspecified; C82.33 Follicular lymphoma grade IIIa, intra-abdominal lymph nodes; I42.0 Dilated cardiomyopathy; I25.10 Atherosclerotic heart disease of native coronary artery without angina pectoris | CPT/HCPCS: 93225; 93226; 93306 ==

== ENCOUNTER 2019-02-28 09:18 | Outpatient (RCR) | payer MEDICARE, OTHER | END 2019-03-27 | disposition home or self-care (01) | LOC: ONC 09:18 | PROVIDERS: ATTEND Internal Medicine Hematology & Oncology | DX: C82.33 Follicular lymphoma grade IIIa, intra-abdominal lymph nodes (principal); I25.10 Atherosclerotic heart disease of native coronary artery without angina pectoris; K21.9 Gastro-esophageal reflux disease without esophagitis; Z79.899 Other long term (current) drug therapy; Z45.2 Encounter for adjustment and management of vascular access device | CPT/HCPCS: 96523; 99213 ==

== ENCOUNTER 2019-06-27 10:43 | Outpatient (RCR) | payer MEDICARE, OTHER ==
[2019-04-11 09:38] LABS: BASOPHILS % (AUTO) 0 % (0-10); EOSINOPHILS # (AUTO) 0.2 10^3/uL (0.0-0.3); EOSINOPHILS % (AUTO) 2 % (0-10); HEMATOCRIT 42 % (40-54); HEMOGLOBIN 13.9 G/DL (13.3-17.7); LYMPHOCYTES # (AUTO) 3.3 X 10^3 (1.0-4.0); LYMPHOCYTES % (AUTO) 32 % (12-44); MEAN CORPUSCULAR HEMOGLOBIN 32 PG (25-34); MEAN CORPUSCULAR HGB CONC 34 G/DL (32-36); MEAN CORPUSCULAR VOLUME 97 FL (80-99); MEAN PLATELET VOLUME 9.3 FL (7.4-10.4); MONOCYTES # (AUTO) 0.8 X 10^3 (0.0-1.0); MONOCYTES % (AUTO) 8 % (0-12); NEUTROPHILS # (AUTO) 5.8 X 10^3 (1.8-7.8); NEUTROPHILS % (AUTO) 57 % (42-75); PLATELET COUNT 296 10^3/uL (130-400); RED CELL DISTRIBUTION WIDTH 14.9 % (10.0-14.5); WHITE BLOOD COUNT 10.1 10^3/uL (4.3-11.0)
[2019-04-11 09:59] LABS: ALANINE AMINOTRANSFERASE 27 U/L (0-55); ALBUMIN 4.1 GM/DL (3.2-4.5); ALKALINE PHOSPHATASE 83 U/L (40-136); BILIRUBIN,TOTAL 0.5 MG/DL (0.1-1.0); BUN/CREATININE RATIO 25; CARBON DIOXIDE 25 MMOL/L (21-32); CHLORIDE 107 MMOL/L (98-107); CREATININE SERUM 0.76 MG/DL (0.60-1.30); GFR ESTIMATED > 60; GLUCOSE 102 MG/DL (70-105); POTASSIUM 4.2 MMOL/L (3.6-5.0); SODIUM 138 MMOL/L (135-145); TOTAL PROTEIN 6.9 GM/DL (6.4-8.2)
[2019-04-24 09:03] LABS: BASOPHILS # (AUTO) 0.1 10^3/uL (0.0-0.1); BASOPHILS % (AUTO) 1 % (0-10); EOSINOPHILS # (AUTO) 0.3 10^3/uL (0.0-0.3); EOSINOPHILS % (AUTO) 3 % (0-10); HEMATOCRIT 41 % (40-54); HEMOGLOBIN 13.9 G/DL (13.3-17.7); LYMPHOCYTES # (AUTO) 2.9 X 10^3 (1.0-4.0); LYMPHOCYTES % (AUTO) 30 % (12-44); MEAN CORPUSCULAR HEMOGLOBIN 33 PG (25-34); MEAN CORPUSCULAR HGB CONC 34 G/DL (32-36); MEAN CORPUSCULAR VOLUME 97 FL (80-99); MEAN PLATELET VOLUME 9.4 FL (7.4-10.4); MONOCYTES # (AUTO) 0.8 X 10^3 (0.0-1.0); MONOCYTES % (AUTO) 8 % (0-12); NEUTROPHILS # (AUTO) 5.4 X 10^3 (1.8-7.8); NEUTROPHILS % (AUTO) 58 % (42-75); PLATELET COUNT 314 10^3/uL (130-400); RED CELL DISTRIBUTION WIDTH 15.1 % (10.0-14.5); WHITE BLOOD COUNT 9.4 10^3/uL (4.3-11.0)
[2019-04-24 09:24] LABS: ALANINE AMINOTRANSFERASE 24 U/L (0-55); ALKALINE PHOSPHATASE 89 U/L (40-136); BILIRUBIN,TOTAL 0.5 MG/DL (0.1-1.0); BUN/CREATININE RATIO 16; CALCIUM 8.8 MG/DL (8.5-10.1); CARBON DIOXIDE 23 MMOL/L (21-32); CHLORIDE 107 MMOL/L (98-107); CREATININE SERUM 0.75 MG/DL (0.60-1.30); GFR ESTIMATED > 60; GLUCOSE 105 MG/DL (70-105); SODIUM 139 MMOL/L (135-145); TOTAL PROTEIN 6.7 GM/DL (6.4-8.2)
[~2019-06-27 10:43] MED LIST changes: -METO-387 PO; +MTP25TSR PO; +OMEP-280 PO; -OMEP20CA13 PO; -TAMS0.4C98 PO; +TMSL.4C PO
== END 2019-07-10 | disposition home or self-care (01) ==
LOC: ONC 10:43
PROVIDERS: ATTEND Internal Medicine Hematology & Oncology
DX: C82.10 Follicular lymphoma grade II, unspecified site (principal); I65.23 Occlusion and stenosis of bilateral carotid arteries; I25.10 Atherosclerotic heart disease of native coronary artery without angina pectoris; N41.1 Chronic prostatitis; I49.3 Ventricular premature depolarization; K21.9 Gastro-esophageal reflux disease without esophagitis; E78.5 Hyperlipidemia, unspecified; I42.0 Dilated cardiomyopathy; G47.33 Obstructive sleep apnea (adult) (pediatric); Z79.899 Other long term (current) drug therapy; Z96.641 Presence of right artificial hip joint; Z96.653 Presence of artificial knee joint, bilateral; Z72.0 Tobacco use; Z90.81 Acquired absence of spleen; Z98.61 Coronary angioplasty status; Z45.2 Encounter for adjustment and management of vascular access device
CPT/HCPCS: 36591; 80053; 83615; 85025; 96523

== ENCOUNTER 2019-08-08 09:51 | Outpatient (RCR) | payer MEDICARE, OTHER ==
[~2019-08-08 09:51] MED LIST changes: +ACHYD1T PO; -BUPR300T51 PO; +BUPR300T98 PO; -HYDR-3820 PO; -OMEP-280 PO; +OMEP20CA18 PO; +VITA-235 PO; -VITA-240 PO
[2019-08-08 10:11] LABS: BASOPHILS # (AUTO) 0.1 10^3/uL (0.0-0.1); BASOPHILS % (AUTO) 1 % (0-10); EOSINOPHILS # (AUTO) 0.3 10^3/uL (0.0-0.3); EOSINOPHILS % (AUTO) 3 % (0-10); HEMATOCRIT 40 % (40-54); HEMOGLOBIN 13.5 G/DL (13.3-17.7); LYMPHOCYTES # (AUTO) 2.7 X 10^3 (1.0-4.0); LYMPHOCYTES % (AUTO) 28 % (12-44); MEAN CORPUSCULAR HEMOGLOBIN 33 PG (25-34); MEAN CORPUSCULAR HGB CONC 34 G/DL (32-36); MEAN CORPUSCULAR VOLUME 97 FL (80-99); MEAN PLATELET VOLUME 8.9 FL (7.4-10.4); MONOCYTES # (AUTO) 0.7 X 10^3 (0.0-1.0); MONOCYTES % (AUTO) 7 % (0-12); NEUTROPHILS % (AUTO) 62 % (42-75); PLATELET COUNT 357 10^3/uL (130-400); RED CELL DISTRIBUTION WIDTH 14.9 % (10.0-14.5); WHITE BLOOD COUNT 9.7 10^3/uL (4.3-11.0)
[2019-08-08 10:29] LABS: ALANINE AMINOTRANSFERASE 16 U/L (0-55); ALBUMIN 3.8 GM/DL (3.2-4.5); ALKALINE PHOSPHATASE 74 U/L (40-136); BILIRUBIN,TOTAL 0.3 MG/DL (0.1-1.0); BUN/CREATININE RATIO 21; CALCIUM 8.4 MG/DL (8.5-10.1); CARBON DIOXIDE 23 MMOL/L (21-32); CHLORIDE 108 MMOL/L (98-107); GFR ESTIMATED > 60; GLUCOSE 106 MG/DL (70-105); POTASSIUM 3.9 MMOL/L (3.6-5.0); SODIUM 139 MMOL/L (135-145); TOTAL PROTEIN 6.4 GM/DL (6.4-8.2)
== END 2019-10-23 09:32 | disposition home or self-care (01) ==
LOC: ONC 09:51
PROVIDERS: ATTEND Internal Medicine Hematology & Oncology
DX: C82.33 Follicular lymphoma grade IIIa, intra-abdominal lymph nodes (principal); I65.23 Occlusion and stenosis of bilateral carotid arteries; I25.10 Atherosclerotic heart disease of native coronary artery without angina pectoris; N41.1 Chronic prostatitis; I49.3 Ventricular premature depolarization; K21.9 Gastro-esophageal reflux disease without esophagitis; E78.5 Hyperlipidemia, unspecified; I42.0 Dilated cardiomyopathy; G47.33 Obstructive sleep apnea (adult) (pediatric); M19.90 Unspecified osteoarthritis, unspecified site; E66.9 Obesity, unspecified; F40.240 Claustrophobia; R00.1 Bradycardia, unspecified; Z98.1 Arthrodesis status; Z98.890 Other specified postprocedural states; Z90.81 Acquired absence of spleen; Z79.899 Other long term (current) drug therapy; Z96.641 Presence of right artificial hip joint; Z96.653 Presence of artificial knee joint, bilateral; Z72.0 Tobacco use; Z98.61 Coronary angioplasty status
CPT/HCPCS: 36591; 80053; 83615; 85025

== ENCOUNTER → 2019-08-12 | Outpatient (CLI) | payer MEDICARE, OTHER ==
[~2019-08-12] MED LIST changes: +BARIUM SUSPENSION 2.1% (VANILLA SILQ) 450 ML PO ONE; +HOLD METFORMIN - RECEIVED CONTRAST 20 ML VIAL IV SCH; +IOHEXOL 350 MG/ML 100 ML (OMNIPAQUE 350) VIAL IV ONE; +NS 100 ML (IVPB) BAG IV ONE
--- NOTE | 2019-08-12 09:22 | Diagnostic Imaging Report ---
PROCEDURE: CT abdomen and pelvis with and without contrast. TECHNIQUE: Precontrast acquisitions were acquired through the abdomen and pelvis. Multiple contiguous axial images were obtained through the abdomen and pelvis after the administration of intravenous contrast. Auto Exposure Controls were utilized during the CT exam to meet ALARA standards for radiation dose reduction. INDICATION: Right lower quadrant palpable fullness on physical exam. A vertically oriented postoperative repair of the midline in supraumbilical abdominal wall present. There is no evidence for incisional hernia. No full-thickness abdominal wall defect found. No hernia evident. No mass or fluid collection. No evidence for lymphadenopathy. There is no bowel, biliary or urinary tract obstruction. Subcentimeter tiny low-density nodule left hepatic lobes stable from priors probably tiny cyst. No enhancing or solid appearing liver lesion. Gallbladder negative. The spleen absent. The pancreas unremarkable. Urinary tracts unobstructed. There is nonaneurysmal aortoiliac atherosclerotic vascular calcifications. There is no appendicitis or diverticulitis. There is degenerative changes and a right hip replacement with no acute appearing bony abnormality. 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 IMPRESSION: Postsurgical changes. No acute abdominal wall defect, hernia or fluid collection. No mass or adenopathy. No ascites or fluid collection. Benign hepatic cysts noted, otherwise negative. Dictated by: Dictated on workstation # [id number]
== END ==
LOC: RAD 08:38
PROVIDERS: ATTEND Internal Medicine Hematology & Oncology
DX: R10.9 Unspecified abdominal pain (principal); C82.33 Follicular lymphoma grade IIIa, intra-abdominal lymph nodes; K76.89 Other specified diseases of liver
CPT/HCPCS: 74178

== ENCOUNTER 2020-01-24 09:01 | Outpatient (RCR) | payer MEDICARE, OTHER ==
[2019-11-01 09:48] LABS: BASOPHILS % (AUTO) 0 % (0-10); EOSINOPHILS # (AUTO) 0.4 10^3/uL (0.0-0.3); EOSINOPHILS % (AUTO) 4 % (0-10); HEMATOCRIT 41 % (40-54); HEMOGLOBIN 13.8 G/DL (13.3-17.7); LYMPHOCYTES # (AUTO) 2.7 X 10^3 (1.0-4.0); LYMPHOCYTES % (AUTO) 28 % (12-44); MEAN CORPUSCULAR HEMOGLOBIN 33 PG (25-34); MEAN CORPUSCULAR HGB CONC 33 G/DL (32-36); MEAN CORPUSCULAR VOLUME 98 FL (80-99); MEAN PLATELET VOLUME 9.1 FL (7.4-10.4); MONOCYTES # (AUTO) 0.8 X 10^3 (0.0-1.0); MONOCYTES % (AUTO) 8 % (0-12); NEUTROPHILS # (AUTO) 5.8 X 10^3 (1.8-7.8); NEUTROPHILS % (AUTO) 60 % (42-75); PLATELET COUNT 313 10^3/uL (130-400); WHITE BLOOD COUNT 9.7 10^3/uL (4.3-11.0)
[2019-11-01 10:08] LABS: ALANINE AMINOTRANSFERASE 25 U/L (0-55); ALBUMIN 3.9 GM/DL (3.2-4.5); ALKALINE PHOSPHATASE 79 U/L (40-136); BILIRUBIN,TOTAL 0.4 MG/DL (0.1-1.0); BUN/CREATININE RATIO 16; CALCIUM 8.9 MG/DL (8.5-10.1); CARBON DIOXIDE 23 MMOL/L (21-32); CHLORIDE 108 MMOL/L (98-107); CREATININE SERUM 0.74 MG/DL (0.60-1.30); GFR ESTIMATED > 60; GLUCOSE 99 MG/DL (70-105); SODIUM 140 MMOL/L (135-145); TOTAL PROTEIN 6.7 GM/DL (6.4-8.2)
[~2020-01-24 09:01] MED LIST changes: +ASCO100024 PO; -ASCO10006 PO; +ASPI-1238 PO; -ASPI-983 PO; -BARIUM SUSPENSION 2.1% (VANILLA SILQ) 450 ML PO ONE; -HOLD METFORMIN - RECEIVED CONTRAST 20 ML VIAL IV SCH; -IOHEXOL 350 MG/ML 100 ML (OMNIPAQUE 350) VIAL IV ONE; -NS 100 ML (IVPB) BAG IV ONE
== END 2020-01-30 | disposition home or self-care (01) ==
LOC: ONC 09:01
PROVIDERS: ATTEND Internal Medicine Hematology & Oncology
DX: C82.33 Follicular lymphoma grade IIIa, intra-abdominal lymph nodes (principal); I65.23 Occlusion and stenosis of bilateral carotid arteries; I25.10 Atherosclerotic heart disease of native coronary artery without angina pectoris; N41.1 Chronic prostatitis; I49.3 Ventricular premature depolarization; K21.9 Gastro-esophageal reflux disease without esophagitis; E78.5 Hyperlipidemia, unspecified; I42.0 Dilated cardiomyopathy; G47.33 Obstructive sleep apnea (adult) (pediatric); M19.90 Unspecified osteoarthritis, unspecified site; E66.9 Obesity, unspecified; F40.240 Claustrophobia; Z98.1 Arthrodesis status; Z98.890 Other specified postprocedural states; Z90.81 Acquired absence of spleen; Z79.899 Other long term (current) drug therapy; Z96.641 Presence of right artificial hip joint; Z96.653 Presence of artificial knee joint, bilateral; Z72.0 Tobacco use; Z98.61 Coronary angioplasty status; Z45.2 Encounter for adjustment and management of vascular access device
CPT/HCPCS: 80053; 83615; 85025; G0463; 36591; 96523

== ENCOUNTER 2020-03-11 08:11 | Outpatient (RCR) | payer MEDICARE, OTHER | END 2020-05-07 09:07 | disposition home or self-care (01) | LOC: ONC 08:11 | PROVIDERS: ATTEND Internal Medicine Hematology & Oncology | DX: Z45.2 Encounter for adjustment and management of vascular access device (principal); C82.33 Follicular lymphoma grade IIIa, intra-abdominal lymph nodes; I65.23 Occlusion and stenosis of bilateral carotid arteries; I25.10 Atherosclerotic heart disease of native coronary artery without angina pectoris; N41.1 Chronic prostatitis; I49.3 Ventricular premature depolarization; K21.9 Gastro-esophageal reflux disease without esophagitis; E78.5 Hyperlipidemia, unspecified; I42.0 Dilated cardiomyopathy; G47.33 Obstructive sleep apnea (adult) (pediatric); M19.90 Unspecified osteoarthritis, unspecified site; E66.9 Obesity, unspecified; F40.240 Claustrophobia; Z98.1 Arthrodesis status; Z98.890 Other specified postprocedural states; Z90.81 Acquired absence of spleen; Z79.899 Other long term (current) drug therapy; Z96.641 Presence of right artificial hip joint; Z96.653 Presence of artificial knee joint, bilateral; Z72.0 Tobacco use; Z98.61 Coronary angioplasty status | CPT/HCPCS: 96523 ==

== ENCOUNTER 2020-05-07 09:15 | Outpatient (RCR) | payer MEDICARE, OTHER | END 2020-06-05 08:25 | disposition home or self-care (01) | LOC: ONC 09:15 | PROVIDERS: ATTEND Internal Medicine Hematology & Oncology | DX: Z08 Encounter for follow-up examination after completed treatment for malignant neoplasm (principal); Z45.2 Encounter for adjustment and management of vascular access device; C82.33 Follicular lymphoma grade IIIa, intra-abdominal lymph nodes; I65.23 Occlusion and stenosis of bilateral carotid arteries; I25.10 Atherosclerotic heart disease of native coronary artery without angina pectoris; N41.1 Chronic prostatitis; I49.3 Ventricular premature depolarization; K21.9 Gastro-esophageal reflux disease without esophagitis; E78.5 Hyperlipidemia, unspecified; I42.0 Dilated cardiomyopathy; G47.33 Obstructive sleep apnea (adult) (pediatric); M19.90 Unspecified osteoarthritis, unspecified site; E66.9 Obesity, unspecified; F40.240 Claustrophobia; Z98.1 Arthrodesis status; Z98.890 Other specified postprocedural states; Z90.81 Acquired absence of spleen; Z79.899 Other long term (current) drug therapy; Z96.641 Presence of right artificial hip joint; Z96.653 Presence of artificial knee joint, bilateral; Z72.0 Tobacco use; Z98.61 Coronary angioplasty status | CPT/HCPCS: 96523 ==

== ENCOUNTER 2020-09-08 09:25 | Outpatient (RCR) | payer MEDICARE, OTHER ==
[2020-06-16 13:31] LABS: BASOPHILS # (AUTO) 0.1 10^3/uL (0.0-0.1); BASOPHILS % (AUTO) 1 % (0-10); EOSINOPHILS # (AUTO) 0.3 10^3/uL (0.0-0.3); EOSINOPHILS % (AUTO) 4 % (0-10); HEMATOCRIT 41 % (40-54); HEMOGLOBIN 13.8 g/dL (13.3-17.7); LYMPHOCYTES # (AUTO) 3.2 10^3/uL (1.0-4.0); LYMPHOCYTES % (AUTO) 33 % (12-44); MEAN CORPUSCULAR HEMOGLOBIN 33 pg (25-34); MEAN CORPUSCULAR HGB CONC 34 g/dL (32-36); MEAN CORPUSCULAR VOLUME 98 fL (80-99); MEAN PLATELET VOLUME 9.4 fL (9.0-12.2); MONOCYTES # (AUTO) 0.8 10^3/uL (0.0-1.0); MONOCYTES % (AUTO) 9 % (0-12); NEUTROPHILS # (AUTO) 5.1 10^3/uL (1.8-7.8); NEUTROPHILS % (AUTO) 54 % (42-75); PLATELET COUNT 306 10^3/uL (130-400); WHITE BLOOD COUNT 9.5 10^3/uL (4.3-11.0)
[2020-06-16 13:50] LABS: ALANINE AMINOTRANSFERASE 22 U/L (0-55); ALBUMIN 3.9 GM/DL (3.2-4.5); ALKALINE PHOSPHATASE 83 U/L (40-136); BILIRUBIN,TOTAL 0.5 MG/DL (0.1-1.0); BUN/CREATININE RATIO 16; CALCIUM 9.1 MG/DL (8.5-10.1); CARBON DIOXIDE 25 MMOL/L (21-32); CHLORIDE 110 MMOL/L (98-107); CREATININE SERUM 0.75 MG/DL (0.60-1.30); GFR ESTIMATED > 60; GLUCOSE 96 MG/DL (70-105); SODIUM 140 MMOL/L (135-145); TOTAL PROTEIN 6.8 GM/DL (6.4-8.2)
[~2020-09-08 09:25] MED LIST changes: -VITA-235 PO; +VITA-261 PO
== END 2020-09-14 | disposition home or self-care (01) ==
LOC: ONC 09:25
PROVIDERS: ATTEND Internal Medicine Hematology & Oncology
DX: Z45.2 Encounter for adjustment and management of vascular access device (principal); C82.33 Follicular lymphoma grade IIIa, intra-abdominal lymph nodes; I65.23 Occlusion and stenosis of bilateral carotid arteries; I25.10 Atherosclerotic heart disease of native coronary artery without angina pectoris; N41.1 Chronic prostatitis; I49.3 Ventricular premature depolarization; K21.9 Gastro-esophageal reflux disease without esophagitis; E78.5 Hyperlipidemia, unspecified; I42.0 Dilated cardiomyopathy; G47.33 Obstructive sleep apnea (adult) (pediatric); M19.90 Unspecified osteoarthritis, unspecified site; E66.9 Obesity, unspecified; F40.240 Claustrophobia; Z98.1 Arthrodesis status; Z98.890 Other specified postprocedural states; Z90.81 Acquired absence of spleen; Z79.899 Other long term (current) drug therapy; Z96.641 Presence of right artificial hip joint; Z96.653 Presence of artificial knee joint, bilateral; Z72.0 Tobacco use; Z98.61 Coronary angioplasty status
CPT/HCPCS: 80053; 83615; 85025; G0463; 36591; 96523

== ENCOUNTER → 2020-12-04 | Outpatient (CLI) | payer MEDICARE, OTHER | LOC: CARD 12:41 | PROVIDERS: ATTEND Internal Medicine | DX: R00.0 Tachycardia, unspecified (principal) | CPT/HCPCS: 93005; 93225; 93226 ==

== ENCOUNTER 2021-01-12 10:19 | Outpatient (RCR) | payer MEDICARE, OTHER ==
[2020-12-01 14:23] LABS: BASOPHILS # (AUTO) 0.1 10^3/uL (0.0-0.1); BASOPHILS % (AUTO) 1 % (0-10); EOSINOPHILS # (AUTO) 0.3 10^3/uL (0.0-0.3); EOSINOPHILS % (AUTO) 3 % (0-10); HEMATOCRIT 44 % (40-54); HEMOGLOBIN 14.9 g/dL (13.3-17.7); LYMPHOCYTES # (AUTO) 4.5 10^3/uL (1.0-4.0); LYMPHOCYTES % (AUTO) 35 % (12-44); MEAN CORPUSCULAR HEMOGLOBIN 33 pg (25-34); MEAN CORPUSCULAR HGB CONC 34 g/dL (32-36); MEAN CORPUSCULAR VOLUME 98 fL (80-99); MEAN PLATELET VOLUME 9.3 fL (9.0-12.2); MONOCYTES % (AUTO) 8 % (0-12); NEUTROPHILS # (AUTO) 6.9 10^3/uL (1.8-7.8); NEUTROPHILS % (AUTO) 53 % (42-75); PLATELET COUNT 309 10^3/uL (130-400); WHITE BLOOD COUNT 12.9 10^3/uL (4.3-11.0)
[2020-12-01 14:44] LABS: ALANINE AMINOTRANSFERASE 26 U/L (0-55); ALBUMIN 3.7 GM/DL (3.2-4.5); ALKALINE PHOSPHATASE 79 U/L (40-136); BILIRUBIN,TOTAL 0.4 MG/DL (0.1-1.0); BUN/CREATININE RATIO 17; CALCIUM 8.8 MG/DL (8.5-10.1); CARBON DIOXIDE 24 MMOL/L (21-32); CHLORIDE 109 MMOL/L (98-107); CREATININE SERUM 0.83 MG/DL (0.60-1.30); GFR ESTIMATED > 60; GLUCOSE 97 MG/DL (70-105); SODIUM 138 MMOL/L (135-145); TOTAL PROTEIN 6.6 GM/DL (6.4-8.2)
== END 2021-01-18 | disposition home or self-care (01) ==
LOC: ONC 10:19
PROVIDERS: ATTEND Internal Medicine Hematology & Oncology
DX: Z45.2 Encounter for adjustment and management of vascular access device (principal); C82.33 Follicular lymphoma grade IIIa, intra-abdominal lymph nodes; I65.23 Occlusion and stenosis of bilateral carotid arteries; I25.10 Atherosclerotic heart disease of native coronary artery without angina pectoris; N41.1 Chronic prostatitis; I49.3 Ventricular premature depolarization; K21.9 Gastro-esophageal reflux disease without esophagitis; E78.5 Hyperlipidemia, unspecified; I42.0 Dilated cardiomyopathy; G47.33 Obstructive sleep apnea (adult) (pediatric); M19.90 Unspecified osteoarthritis, unspecified site; E66.9 Obesity, unspecified; F40.240 Claustrophobia; R00.1 Bradycardia, unspecified; Z98.1 Arthrodesis status; Z98.890 Other specified postprocedural states; Z90.81 Acquired absence of spleen; Z79.899 Other long term (current) drug therapy; Z96.641 Presence of right artificial hip joint; Z96.653 Presence of artificial knee joint, bilateral; Z72.0 Tobacco use; Z98.61 Coronary angioplasty status; Z68.37 Body mass index [BMI] 37.0-37.9, adult
CPT/HCPCS: 36591; 80053; 85025; 96523

== ENCOUNTER 2021-02-16 07:07 | Day surgery (SDC) | payer MEDICARE, OTHER ==
[~2021-02-16] VITALS: Ht 182 cm; Wt 124.0 kg
[2021-02-16] MEDS ORDERED: NS IV 1000 ML 1,000 ML IV SCH (07:15)
[2021-02-16] MEDS ORDERED: NS IV 1000 ML 1,000 ML ONE (07:15)
[2021-02-16 07:35] VITALS: BP 115/88
[2021-02-16 07:40] LABS: HEMATOCRIT 43 % (40-54); HEMOGLOBIN 14.6 g/dL (13.3-17.7); MEAN CORPUSCULAR HEMOGLOBIN 33 pg (25-34); MEAN CORPUSCULAR HGB CONC 34 g/dL (32-36); MEAN CORPUSCULAR VOLUME 98 fL (80-99); PLATELET COUNT 358 10^3/uL (130-400); WHITE BLOOD COUNT 11.1 10^3/uL (4.3-11.0)
[2021-02-16] MEDS ORDERED: proPOfol 200 MG/20 ML (DIPRIVAN) VIAL IV ONE (07:44)
[2021-02-16] MEDS ORDERED: ACET325T38 PO (07:58)
[2021-02-16] MEDS ORDERED: ATOR20TA66 PO (07:58)
[2021-02-16] MEDS ORDERED: APIX5TAB PO (07:58)
[2021-02-16] MEDS ORDERED: ASCO100024 PO (07:58)
[2021-02-16] MEDS ORDERED: MELO15TA39 PO (07:58)
[2021-02-16] MEDS ORDERED: CHOL200025 PO (07:58)
[2021-02-16] MEDS ORDERED: CYAN-41 PO (07:58)
[2021-02-16] MEDS ORDERED: METO50TA7 PO (07:58)
[2021-02-16] MEDS ORDERED: DIPH25CA79 PO (07:58)
[2021-02-16] MEDS ORDERED: ZINC50TA51 PO (07:58)
[2021-02-16] MEDS ORDERED: TMSL.4C PO (07:58)
[2021-02-16] MEDS ORDERED: PEG15DRO9 OU (07:58)
[2021-02-16] MEDS ORDERED: ASPI-1238 PO (07:58)
[2021-02-16] MEDS ORDERED: MULT-1061 PO (07:58)
[2021-02-16] MEDS ORDERED: BUPR300T98 PO (07:58)
[2021-02-16] MEDS ORDERED: PANT40TA52 PO (07:58)
[2021-02-16] MEDS ORDERED: OMG1KC PO (07:58)
[2021-02-16 08:02] LABS: ALBUMIN 3.8 GM/DL (3.2-4.5); BILIRUBIN,TOTAL 0.5 MG/DL (0.1-1.0); CALCIUM 9.4 MG/DL (8.5-10.1); CREATININE SERUM 0.78 MG/DL (0.60-1.30); POTASSIUM 4.2 MMOL/L (3.6-5.0); TOTAL PROTEIN 6.8 GM/DL (6.4-8.2)
[2021-02-16 08:11] LABS: INR 1.1 (0.8-1.4); PROTHROMBIN TIME PATIENT 14.8 SEC (12.2-14.7)
[2021-02-16 08:52] VITALS: BP 107/85
[2021-02-16 09:00] VITALS: BP 122/95
[2021-02-16 09:05] VITALS: BP 107/85
[2021-02-16 09:10] VITALS: BP 110/77
--- NOTE | 2021-02-16 09:44 | Anesthesia-General Post-Op ---
MAC Patient Condition Mental Status/LOC: Same as Preop Cardiovascular: Satisfactory Nausea/Vomiting: Absent Respiratory: Satisfactory Pain: Controlled Complications: Absent Post Op Complications Complications None Follow Up Care/Instructions Patient Instructions None needed. Anesthesiology Discharge Order Discharge Order Patient is doing well, no complaints, stable vital signs, no apparent adverse anesthesia problems. No complications reported per nursing. ESTEPHANIA AVELAR CRNA Feb 16, 2021 09:44
--- NOTE | 2021-02-16 14:30 | OPERATIVE REPORT ---
DATE OF SERVICE: 02/16/2021 PREOPERATIVE DIAGNOSIS: Atrial fibrillation. POSTOPERATIVE DIAGNOSIS: Sinus rhythm. PROCEDURE: External electrical cardioversion. INDICATIONS: The patient is a 71-year-old gentleman with atrial fibrillation with rapid ventricular response from which he has been asymptomatic and the medicines have not controlled the symptoms adequately. He has been on long-term anticoagulation for stroke prophylaxis without any interruption. DESCRIPTION OF PROCEDURE: External electrical cardioversion was carried out today after having obtained an informed consent. The nurse insurance processing clerk provided short acting anesthesia and 120 joules of biphasic shock was delivered through external patches, which converted atrial fibrillation to sinus rhythm. He tolerated the procedure well. Job ID: [id number] DocumentID: [id number] Dictated Date: 02/16/2021 09:12:47 Scientist Electronics Date: 02/16/2021 14:29:56 Dictated By: MAURISIO GRAHAM MD, MA, FACP, FACC,
== END 2021-02-16 10:15 | disposition home or self-care (01) ==
LOC: SDC 07:07
PROVIDERS: ATTEND Internal Medicine Cardiovascular Disease
DX: I48.91 Unspecified atrial fibrillation (principal); I45.2 Bifascicular block; I11.9 Hypertensive heart disease without heart failure; I25.10 Atherosclerotic heart disease of native coronary artery without angina pectoris; I65.23 Occlusion and stenosis of bilateral carotid arteries; R73.01 Impaired fasting glucose; G47.33 Obstructive sleep apnea (adult) (pediatric); G62.9 Polyneuropathy, unspecified; E66.9 Obesity, unspecified; K21.9 Gastro-esophageal reflux disease without esophagitis; E78.00 Pure hypercholesterolemia, unspecified; M19.90 Unspecified osteoarthritis, unspecified site; C82.20 Follicular lymphoma grade III, unspecified, unspecified site; N41.1 Chronic prostatitis; Z79.899 Other long term (current) drug therapy; Z79.82 Long term (current) use of aspirin; Z79.01 Long term (current) use of anticoagulants; Z95.5 Presence of coronary angioplasty implant and graft; Z68.37 Body mass index [BMI] 37.0-37.9, adult; Z98.890 Other specified postprocedural states; Z87.891 Personal history of nicotine dependence
CPT/HCPCS: 36415; 80053; 80061; 85027; 85610; 85730; 87081; 93005

== ENCOUNTER → 2021-02-19 | Outpatient (CLI) | payer MEDICARE, OTHER ==
[~2021-02-19] MED LIST changes: +ACET325T38 PO; +APIX5TAB PO; +CHOL200025 PO; +METO50TA7 PO; +MULT-1061 PO; +OMG1KC PO; +PANT40TA52 PO; +PEG15DRO9 OU; +ZINC50TA51 PO
== END ==
LOC: CARD 14:00
PROVIDERS: ATTEND Internal Medicine Cardiovascular Disease
DX: I51.7 Cardiomegaly (principal); I34.0 Nonrheumatic mitral (valve) insufficiency; I25.10 Atherosclerotic heart disease of native coronary artery without angina pectoris
CPT/HCPCS: 93306

== ENCOUNTER 2021-05-18 13:12 | Outpatient (RCR) | payer MEDICARE, OTHER ==
[2021-05-18 14:24] LABS: BASOPHILS # (AUTO) 0.1 10^3/uL (0.0-0.1); BASOPHILS % (AUTO) 1 % (0-10); EOSINOPHILS # (AUTO) 0.4 10^3/uL (0.0-0.3); EOSINOPHILS % (AUTO) 3 % (0-10); HEMATOCRIT 39 % (40-54); HEMOGLOBIN 12.7 g/dL (13.3-17.7); LYMPHOCYTES # (AUTO) 3.5 X 10^3 (1.0-4.0); LYMPHOCYTES % (AUTO) 32 % (12-44); MEAN CORPUSCULAR HEMOGLOBIN 32 pg (25-34); MEAN CORPUSCULAR HGB CONC 33 g/dL (32-36); MEAN CORPUSCULAR VOLUME 99 fL (80-99); MEAN PLATELET VOLUME 9.2 fL (9.0-12.2); MONOCYTES # (AUTO) 0.9 X 10^3 (0.0-1.0); MONOCYTES % (AUTO) 8 % (0-12); NEUTROPHILS # (AUTO) 6.1 X 10^3 (1.8-7.8); NEUTROPHILS % (AUTO) 56 % (42-75); PLATELET COUNT 338 10^3/uL (130-400); WHITE BLOOD COUNT 10.9 10^3/uL (4.3-11.0)
[2021-05-18 14:44] LABS: ALBUMIN 3.7 GM/DL (3.2-4.5); BILIRUBIN,TOTAL 0.4 MG/DL (0.1-1.0); CALCIUM 8.7 MG/DL (8.5-10.1); CREATININE SERUM 0.75 MG/DL (0.60-1.30); POTASSIUM 3.9 MMOL/L (3.6-5.0); TOTAL PROTEIN 6.7 GM/DL (6.4-8.2)
== END 2021-05-21 | disposition home or self-care (01) ==
LOC: ONC 13:12
PROVIDERS: ATTEND Internal Medicine Hematology & Oncology
DX: Z45.2 Encounter for adjustment and management of vascular access device (principal); C82.33 Follicular lymphoma grade IIIa, intra-abdominal lymph nodes; I65.23 Occlusion and stenosis of bilateral carotid arteries; I25.10 Atherosclerotic heart disease of native coronary artery without angina pectoris; N41.1 Chronic prostatitis; I49.3 Ventricular premature depolarization; K21.9 Gastro-esophageal reflux disease without esophagitis; E78.5 Hyperlipidemia, unspecified; I42.0 Dilated cardiomyopathy; G47.33 Obstructive sleep apnea (adult) (pediatric); M19.90 Unspecified osteoarthritis, unspecified site; E66.9 Obesity, unspecified; F40.240 Claustrophobia; Z98.1 Arthrodesis status; Z90.81 Acquired absence of spleen; Z79.899 Other long term (current) drug therapy; Z96.641 Presence of right artificial hip joint; Z96.653 Presence of artificial knee joint, bilateral; Z98.61 Coronary angioplasty status; Z72.0 Tobacco use
CPT/HCPCS: 36591; 80053; 85025; 96523

== ENCOUNTER 2021-06-30 09:20 | Outpatient (RCR) | payer MEDICARE, OTHER | END 2021-07-19 | disposition home or self-care (01) | LOC: ONC 09:20 | PROVIDERS: ATTEND Internal Medicine Hematology & Oncology | DX: Z45.2 Encounter for adjustment and management of vascular access device (principal); C82.33 Follicular lymphoma grade IIIa, intra-abdominal lymph nodes; I65.23 Occlusion and stenosis of bilateral carotid arteries; I25.10 Atherosclerotic heart disease of native coronary artery without angina pectoris; N41.1 Chronic prostatitis; I49.3 Ventricular premature depolarization; K21.9 Gastro-esophageal reflux disease without esophagitis; E78.5 Hyperlipidemia, unspecified; I42.0 Dilated cardiomyopathy; G47.33 Obstructive sleep apnea (adult) (pediatric); M19.90 Unspecified osteoarthritis, unspecified site; E66.9 Obesity, unspecified; F40.240 Claustrophobia; Z98.1 Arthrodesis status; Z90.81 Acquired absence of spleen; Z79.899 Other long term (current) drug therapy; Z96.641 Presence of right artificial hip joint; Z96.653 Presence of artificial knee joint, bilateral; Z98.61 Coronary angioplasty status; Z72.0 Tobacco use ==

== ENCOUNTER 2021-08-12 09:10 | Outpatient (RCR) | payer MEDICARE, OTHER ==
[2021-08-21] MEDS ORDERED: DILT-27 PO (13:26)
[2021-08-23] MEDS ORDERED: MAGN400T39 PO (09:38)
[2021-08-23] MEDS ORDERED: POTA99TA18 PO (09:38)
[2021-08-23] MEDS ORDERED: CIPR500T5 PO (16:46)
[2021-08-23] MEDS ORDERED: HYDR-34 PO (16:46)
[2021-08-23] MEDS ORDERED: METR-145 PO (16:46)
== END 2021-08-19 | disposition home or self-care (01) ==
LOC: ONC 09:10
PROVIDERS: ATTEND Internal Medicine Hematology & Oncology
DX: Z45.2 Encounter for adjustment and management of vascular access device (principal); C82.33 Follicular lymphoma grade IIIa, intra-abdominal lymph nodes; I65.23 Occlusion and stenosis of bilateral carotid arteries; I25.10 Atherosclerotic heart disease of native coronary artery without angina pectoris; N41.1 Chronic prostatitis; I49.3 Ventricular premature depolarization; K21.9 Gastro-esophageal reflux disease without esophagitis; E78.5 Hyperlipidemia, unspecified; I42.0 Dilated cardiomyopathy; G47.33 Obstructive sleep apnea (adult) (pediatric); M19.90 Unspecified osteoarthritis, unspecified site; E66.9 Obesity, unspecified; F40.240 Claustrophobia; Z98.1 Arthrodesis status; Z90.81 Acquired absence of spleen; Z79.899 Other long term (current) drug therapy; Z96.641 Presence of right artificial hip joint; Z96.653 Presence of artificial knee joint, bilateral; Z98.61 Coronary angioplasty status; Z72.0 Tobacco use
CPT/HCPCS: 96523

== ENCOUNTER 2021-09-22 09:26 | Outpatient (RCR) | payer MEDICARE, OTHER ==
[~2021-09-22 09:26] MED LIST changes: +CIPR500T5 PO; +DILT-27 PO; +MAGN400T39 PO; +METR-145 PO; +POTA99TA18 PO
== END 2021-10-19 | disposition home or self-care (01) ==
LOC: ONC 09:26
PROVIDERS: ATTEND Internal Medicine Hematology & Oncology
DX: Z45.2 Encounter for adjustment and management of vascular access device (principal); C82.90 Follicular lymphoma, unspecified, unspecified site; I25.10 Atherosclerotic heart disease of native coronary artery without angina pectoris; K21.9 Gastro-esophageal reflux disease without esophagitis; E78.5 Hyperlipidemia, unspecified; E66.9 Obesity, unspecified; Z72.0 Tobacco use
CPT/HCPCS: 96523

== ENCOUNTER → 2021-11-08 | Outpatient (CLI) | payer MEDICARE, OTHER ==
[~2021-11-08] MED LIST changes: +CATHETER FLUSH 10 ML SYR IV PRN; +HOLD METFORMIN - RECEIVED CONTRAST 20 ML VIAL IV SCH; +IOHEXOL 350 MG/ML 100 ML (OMNIPAQUE 350) VIAL IV ONE; +NS 100 ML (IVPB) BAG IV ONE
--- NOTE | 2021-11-08 13:20 | Diagnostic Imaging Report ---
EXAMINATION: CT chest with intravenous contrast, CT abdomen and pelvis without and with intravenous contrast. TECHNIQUE: Pre and post intravenous contrast axial imaging of the abdomen and pelvis and post contrast axial imaging of the chest were performed. All CT scans use one or more of the following dose optimizing techniques: automated exposure control, MA and/or KvP adjustment based on patient size and exam type or iterative reconstruction. HISTORY: FOLLICULAR NON-HODGKIN'S LYMPHOMA COMPARISON: 08/21/2021 FINDINGS: Thyroid: The thyroid is normal. Mediastinum: Heart size is normal without significant pericardial effusion. The aorta is normal in caliber. No suspicious lymphadenopathy. Lungs and airways: The lungs are clear without consolidation, pleural effusion, or pneumothorax. No suspicious pulmonary lesion. The airways are normal. Solid organs: The liver is normal without focal lesion. The gallbladder is normal. There is no biliary ductal dilation. Pancreas is normal. The spleen is nonvisualized and may be congenitally or surgically absent. Adrenal glands are normal. The kidneys are normal without hydronephrosis. Bowel: The stomach and small bowel are normal without obstruction. There is scattered colonic diverticulosis. No findings of acute appendicitis. Peritoneum: There is no intraperitoneal free fluid or free air. No suspicious lymphadenopathy. Vasculature: Calcification of the aorta without aneurysm. Musculoskeletal: Surgical degenerative changes of the spine without suspicious osseous lesion or compression fracture. Surgical changes from right hip arthroplasty. Pelvis: The prostate gland is normal. The urinary bladder is normal. IMPRESSION: 1. No findings of suspicious lymphadenopathy within the chest, abdomen, or pelvis. Dictated by: Dictated on workstation # [id number]
== END ==
LOC: RAD 10:15
PROVIDERS: ATTEND Internal Medicine Hematology & Oncology
DX: C82.90 Follicular lymphoma, unspecified, unspecified site (principal)
CPT/HCPCS: 71260; 74178

== ENCOUNTER 2021-11-17 10:51 | Outpatient (RCR) | payer MEDICARE, OTHER ==
[2021-11-03 11:49] LABS: BASOPHILS # (AUTO) 0.1 10^3/uL (0.0-0.1); BASOPHILS % (AUTO) 1 % (0-10); EOSINOPHILS # (AUTO) 0.5 10^3/uL (0.0-0.3); EOSINOPHILS % (AUTO) 4 % (0-10); HEMATOCRIT 36 % (40-54); HEMOGLOBIN 12.4 g/dL (13.3-17.7); LYMPHOCYTES # (AUTO) 3.4 10^3/uL (1.0-4.0); LYMPHOCYTES % (AUTO) 30 % (12-44); MEAN CORPUSCULAR HEMOGLOBIN 33 pg (25-34); MEAN CORPUSCULAR HGB CONC 34 g/dL (32-36); MEAN CORPUSCULAR VOLUME 96 fL (80-99); MONOCYTES # (AUTO) 0.9 10^3/uL (0.0-1.0); MONOCYTES % (AUTO) 8 % (0-12); NEUTROPHILS # (AUTO) 6.6 10^3/uL (1.8-7.8); NEUTROPHILS % (AUTO) 58 % (42-75); PLATELET COUNT 317 10^3/uL (130-400); WHITE BLOOD COUNT 11.5 10^3/uL (4.3-11.0)
[2021-11-03 12:12] LABS: ALBUMIN 3.6 GM/DL (3.2-4.5); BILIRUBIN,TOTAL 0.7 MG/DL (0.1-1.0); CALCIUM 8.8 MG/DL (8.5-10.1); CREATININE SERUM 0.74 MG/DL (0.60-1.30); POTASSIUM 3.8 MMOL/L (3.6-5.0); TOTAL PROTEIN 6.6 GM/DL (6.4-8.2)
[~2021-11-17 10:51] MED LIST changes: -CATHETER FLUSH 10 ML SYR IV PRN; -HOLD METFORMIN - RECEIVED CONTRAST 20 ML VIAL IV SCH; -IOHEXOL 350 MG/ML 100 ML (OMNIPAQUE 350) VIAL IV ONE; -NS 100 ML (IVPB) BAG IV ONE
== END 2021-11-18 | disposition home or self-care (01) ==
LOC: ONC 10:51
PROVIDERS: ATTEND Internal Medicine Hematology & Oncology
DX: Z45.2 Encounter for adjustment and management of vascular access device (principal); C82.90 Follicular lymphoma, unspecified, unspecified site; I25.10 Atherosclerotic heart disease of native coronary artery without angina pectoris; K21.9 Gastro-esophageal reflux disease without esophagitis; E78.5 Hyperlipidemia, unspecified; E66.9 Obesity, unspecified; Z72.0 Tobacco use
CPT/HCPCS: 36415; 36591; 80053; 82728; 83540; 83550; 83615; 85025; 99213

== ENCOUNTER 2021-12-13 09:24 | Outpatient (RCR) | payer MEDICARE, OTHER | END 2021-12-19 | disposition home or self-care (01) | LOC: ONC 09:24 | PROVIDERS: ATTEND Internal Medicine Hematology & Oncology | DX: Z45.2 Encounter for adjustment and management of vascular access device (principal); C82.90 Follicular lymphoma, unspecified, unspecified site; I25.10 Atherosclerotic heart disease of native coronary artery without angina pectoris; K21.9 Gastro-esophageal reflux disease without esophagitis; E78.5 Hyperlipidemia, unspecified; E66.9 Obesity, unspecified; D50.9 Iron deficiency anemia, unspecified | CPT/HCPCS: 96523 ==

== ENCOUNTER → 2022-01-03 | Outpatient (CLI) | payer MEDICARE, OTHER ==
--- NOTE | 2022-01-03 15:46 | Diagnostic Imaging Report ---
PROCEDURE: CT thoracic and lumbar spine without contrast. TECHNIQUE: Multiple contiguous axial images were obtained through the thoracic and lumbar spine without the use of intravenous contrast. Sagittal and coronal reformations were then performed. All CT scans use one or more of the following dose optimizing techniques: automated exposure control, MA and/or KvP adjustment based on a patient size and exam type, or iterative reconstruction. INDICATION: Back pain. History of lumbar fusion. COMPARISON: 11/08/2021. FINDINGS: No acute fracture or dislocation is seen in the thoracic and lumbar spine. Prior posterior fusion changes are visualized from L3 through L5 with bipedicle screws and fusion rods. There is somewhat suboptimal evaluation of the hardware due to motion at these levels; however, no obvious hardware fracture or loosening is seen. Endplate sclerotic changes are seen in the thoracic and lumbar spine at the T1-T2, T2-T3, T9-T10, L1-L2, and L2-L3 levels. No suspicious focal osseous lesions are seen. There is partial osseous fusion across the T5-T6 and T8-T9 levels. No evidence of acute spinal canal stenosis. No high-density material is seen within the spinal canal. The included lungs are clear. The paraspinal soft tissues are unremarkable. IMPRESSION: 1. No acute fracture or dislocation is seen in the thoracic and lumbar spine. 2. Posterior fusion changes at L3 through L5. No hardware fracture or loosening. 3. Endplate sclerotic changes at the T1-T2, T2-T3, T9-T10, L1-L2, and L2-L3 levels. Dictated by: Dictated on workstation # [id number]
== END ==
LOC: RAD 12:42
PROVIDERS: ATTEND Orthopaedic Surgery Orthopaedic Surgery of the Spine
DX: G95.89 Other specified diseases of spinal cord (principal); Z98.1 Arthrodesis status
CPT/HCPCS: 72128; 72131

== ENCOUNTER 2022-01-12 10:53 | Emergency (ER) | payer MEDICARE, OTHER ==
[~2022-01-12] VITALS: Ht 177 cm; Wt 74.0 kg
--- NOTE | 2022-01-12 11:26 | ED Lower Extremity ---
General Chief Complaint: Lower Extremity Stated Complaint: L LEG CELLULITIS Nursing Triage Note: ARRIVED VIA AMB TO ROOM 05 WITH COMPLAINTS OF LEFT LOWER LEG NOT GETTING MUCH BETTER DESPITE BEING PUT ON CLINDAMYCIN ON THE FOR CELLULITIS. Source: patient Exam Limitations: no limitations History of Present Illness Date Seen by Provider: Jan 12, 2022 Time Seen by Provider: 11:14 Initial Comments This is a 71-year-old male with a history of atrial fibrillation who underwent Watchman procedure November 20, 2019, who presented to the ER with complaints of left lower extremity swelling, redness, pain x1 week. States that he was evaluated at the [facility] walk-in clinic and diagnosed with cellulitis. He was placed on Clindamycin at that time. He states that some of the redness has improved, however his swelling and pain seem to be worsening. He is currently taking baby Aspirin and Plavix. Allergies and Home Medications Allergies Coded Allergies: morphine (Verified Allergy, Mild, ITCHING, has rec Hydromorphone & Lortab in the past, 08/21/21) oxycodone (Verified Adverse Reaction, Unknown, 01/12/22) Patient Home Medication List Home Medication List Reviewed: Yes Acetaminophen (Tylenol) 325 Mg Tablet, 650 MG PO Q6H PRN for PAIN-MILD (1-4), (Reported) Entered as Reported by: GILBERT CALI on 02/16/21757 Apixaban (Eliquis) 5 Mg Tablet, 5 MG PO BID, (Reported) Entered as Reported by: GILBERT CALI on 02/16/21757 Ascorbic Acid (Vitamin C) 1,000 Mg Tablet, 2,000 MG PO DAILY, (Reported) Entered as Reported by: GILBERT CALI on 02/16/21757 Aspirin (Aspirin EC) 81 Mg Tablet.dr, 81 MG PO DAILY, (Reported) Entered as Reported by: GILBERT CALI on 02/16/21757 Atorvastatin Calcium (Atorvastatin Calcium) 20 Mg Tablet, 20 MG PO DAILY, (Reported) Entered as Reported by: GILBERT CALI on 02/16/21757 Bupropion HCl (Bupropion Xl) 300 Mg Tab.er.24h, 300 MG PO DAILY, (Reported) Entered as Reported by: GILBERT CALI on 02/16/21757 Cholecalciferol (Vitamin D3) (Vitamin D3) 50 Mcg Tablet, 50 MCG PO DAILY, (Reported) Entered as Reported by: GILBERT CALI on 02/16/21 075 Ciprofloxacin HCl (Ciprofloxacin HCl) 500 Mg Tablet, 500 MG PO BID Prescribed by: JOHN TRUJILLO on 08/23/21 164 Cyanocobalamin (Vitamin B-12) (Vitamin B-12) 1,000 Mcg Tablet, 1,000 MCG PO DAILY, (Reported) Entered as Reported by: GILBERT CALI on 02/16/21757 Diltiazem HCl (Diltiazem 24Hr ER) 120 Mg Cap.er.24h, 120 MG PO DAILY, (Reported) Entered as Reported by: JOHN TRUJILLO on 08/21/21 1326 Doxycycline Hyclate (Doxycycline Hyclate) 100 Mg Tablet, 100 MG PO BID Prescribed by: GIA CURRY on 01/12/22 1314 Hydrocodone Bit/Acetaminophen (HYDROcodone/APAP 7.5/325 TAB) 1 Ea Tablet, 1 EA PO Q4H PRN for PAIN-MODERATE (5-7) Prescribed by: JOHN TRUJILLO on 08/23/21 164 Magnesium Oxide (Magnesium) 400 Mg Tablet, 400 MG PO DAILY, (Reported) Entered as Reported by: NARENDRA APPLE on 08/23/21 0938 Meloxicam (Meloxicam) 15 Mg Tablet, 15 MG PO DAILY PRN for ARTHRITIS PAIN, (Reported) Entered as Reported by: GILBERT ACLI on 02/16/21757 Metoprolol Succinate (Metoprolol Succinate) 50 Mg Tab.er.24h, 50 MG PO DAILY, (Reported) Entered as Reported by: GILBERT CALI on 02/16/21757 Metronidazole (Metronidazole) 500 Mg Tablet, 500 MG PO TID Prescribed by: JOHN TRUJILLO on 08/23/21 164 Multivit-Min/FA/Lycopen/Lutein (Centrum Silver Men Tablet) 1 Each Tablet, 1 EACH PO DAILY, (Reported) Entered as Reported by: GILBERT CALI on 02/16/21757 [place] 3 Polyunsat Fatty Acids (Fish Oil 1,000 mg Capsule) 1,000 Mg Cap, 2,000 MG PO DAILY, (Reported) Entered as Reported by: GILBERT CALI on 02/16/21757 Pantoprazole Sodium (Pantoprazole Sodium) 40 Mg Tablet.dr, 40 MG PO DAILY, (Reported) Entered as Reported by: GILBERT CALI on 02/16/21 0758 Potassium Gluconate (Potassium Gluconate) 99 Mg Tablet.er, 99 MG PO DAILY, (Reported) Entered as Reported by: NARENDRA APPLE on 08/23/21 0938 Tamsulosin HCl (Flomax) 0.4 Mg Cap, 0.4 MG PO HS, (Reported) Entered as Reported by: GILBERT CALI on 02/16/21 0758 Zinc Amino Acid Chelate (Zinc) 50 Mg Tablet, 50 MG PO DAILY, (Reported) Entered as Reported by: GILBERT CALI on 02/16/21 0758 Review of Systems Constitutional: no symptoms reported; No dizziness, No fever, No malaise EENTM: no symptoms reported Respiratory: No cough, No dyspnea on exertion, No hemoptysis, No orthopnea, No short of breath Cardiovascular: No chest pain; edema, Hx of Intervention; No palpitations Gastrointestinal: no symptoms reported Genitourinary: no symptoms reported Musculoskeletal: see HPI Skin: see HPI Psychiatric/Neurological: No Symptoms Reported Past Hhyoltc-Vhirgc-Zvnhlw Hx Patient Social History Tobacco Use?: No Substance use?: No Alcohol Use?: Yes Alcohol Frequency: Rarely Immunizations Up To Date 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[employer] Seasonal Allergies Seasonal Allergies: No Past Medical History Surgeries: Yes (BILAT KNEES REPLACED,SPLEEN REMOVED, TUMOR-GROIN,ANKLE,NECK, BACK) Coronary Stent, Joint Replacement, Orthopedic, Tonsillectomy Respiratory: No Sleep Apnea Currently Using CPAP: Yes Cardiac: Yes (STENT PLACED ') Coronary Artery Disease, High Cholesterol, Hypertension Neurological: No Neuropathy Reproductive Disorders: No Sexually Transmitted Disease: No HIV/AIDS: No Genitourinary: Yes Prostate Problems Gastrointestinal: Yes Gastroesophageal Reflux Musculoskeletal: No Arthritis, Gout Endocrine: No HEENT: No (GLASSES) Loss of Vision: Denies Hearing Impairment: Denies Cancer: Yes (NON HODKINS) Lymphoma Did You Recieve Any Treatments: Yes What Type of Treatment Did You: Chemotherapy Psychosocial: Yes Anxiety, Depression Integumentary: No Recent Skin Changes Blood Disorders: No Adverse Reaction/Blood Tranf: No (N/A) Family Medical History Arthritis Cardiovascular disease Colon cancer Congenital heart disease Diabetes mellitus Hypertension Myocardial infarction Respiratory disorder Heart Disease, Other Conditions/Hx Physical Exam Vital Signs Vital Signs - First Documented 01/12/22 10:55 Temp 36.6 Pulse 76 Resp 16 B/P (MAP) 111/80 (90) Pulse Ox 97 O2 Delivery Room Air Capillary Refill : Less Than 3 Seconds Height, Weight, BMI Height: 5'10.00" Weight: 271lbs. 0.0oz. 122.491698pv; 23.00 BMI Method:Stated General Appearance: WD/WN, no apparent distress HEENT: PERRL/EOMI, normal ENT inspection Neck: full range of motion, supple, normal inspection Cardiovascular: regular rate, rhythm, no murmur, other (3+ pitting edmea LLE) Respiratory: chest non-tender, lungs clear, normal breath sounds, no respiratory distress, no accessory muscle use Gastrointestinal: normal bowel sounds, non tender, soft Back: normal inspection, no vertebral tenderness Hips: bilateral hip non-tender, bilateral hip normal inspection, bilateral hip normal range of motion Legs: left leg pain, left leg soft tissue tenderness, left leg swelling, left leg other (erythema and warmth ) Knees: bilateral knee non-tender, bilateral knee normal inspection, bilateral knee normal range of motion Ankles: bilateral ankle non-tender, bilateral ankle normal inspection, bilateral ankle normal range of motion Feet: bilateral foot non-tender, bilateral foot normal inspection, bilateral foot normal range of motion, bilateral foot no evidence of injury Neurologic/Tendon: normal sensation, normal motor functions Neurologic/Psychiatric: no motor/sensory deficits, alert, normal mood/affect, oriented x 3 Skin: normal color, warm/dry Lymphatic: no adenopathy Progress/Results/Core Measures Results/Orders Lab Results Laboratory Tests Test 01/12/22 12:25 Range/Units White Blood Count 10.0 4.3-11.0 10^3/uL Red Blood Count 4.03 L 4.30-5.52 10^6/uL Hemoglobin 13.0 L 13.3-17.7 g/dL Hematocrit 38 L 40-54 % Mean Corpuscular Volume 95 80-99 fL Mean Corpuscular Hemoglobin 32 25-34 pg Mean Corpuscular Hemoglobin Concent 34 32-36 g/dL Red Cell Distribution Width 14.6 H 10.0-14.5 % Platelet Count 380 130-400 10^3/uL Mean Platelet Volume 8.6 L 9.0-12.2 fL Immature Granulocyte % (Auto) 0 % Neutrophils (%) (Auto) 58 42-75 % Lymphocytes (%) (Auto) 28 12-44 % Monocytes (%) (Auto) 10 0-12 % Eosinophils (%) (Auto) 4 0-10 % Basophils (%) (Auto) 1 0-10 % Neutrophils # (Auto) 5.7 1.8-7.8 10^3/uL Lymphocytes # (Auto) 2.8 1.0-4.0 10^3/uL Monocytes # (Auto) 1.0 0.0-1.0 10^3/uL Eosinophils # (Auto) 0.4 H 0.0-0.3 10^3/uL Basophils # (Auto) 0.1 0.0-0.1 10^3/uL Immature Granulocyte # (Auto) 0.0 0.0-0.1 10^3/uL Sodium Level 141 135-145 MMOL/L Potassium Level 4.1 3.6-5.0 MMOL/L Chloride Level 108 H 98-107 MMOL/L Carbon Dioxide Level 25 21-32 MMOL/L Anion Gap 8 5-14 MMOL/L Blood Urea Nitrogen 12 7-18 MG/DL Creatinine 0.78 0.60-1.30 MG/DL Estimat Glomerular Filtration Rate 95 BUN/Creatinine Ratio 15 Glucose Level 110 H 70-105 MG/DL Calcium Level 9.4 8.5-10.1 MG/DL Corrected Calcium 9.6 8.5-10.1 MG/DL Total Bilirubin 0.4 0.1-1.0 MG/DL Aspartate Amino Transf (AST/SGOT) 17 5-34 U/L Alanine Aminotransferase (ALT/SGPT) 19 0-55 U/L Alkaline Phosphatase 94 40-136 U/L C-Reactive Protein High Sensitivity 0.36 0.00-0.50 MG/DL Total Protein 7.0 6.4-8.2 GM/DL Albumin 3.7 3.2-4.5 GM/DL My Orders Orders - GIA CURRY HARDWARE INSTALLATION COORDINATOR Us Venous Lower Ext Lt (01/12/22 11:19) Cbc With Automated Diff (01/12/22 12:08) Comprehensive Metabolic Panel (01/12/22 12:08) Hs C Reactive Protein (01/12/22 12:08) Ed Iv/Invasive Line Start (01/12/22 12:08) Tibia/Fibula, Left, 2 Views (01/12/22 12:14) Vital Signs/I&O 01/12/22 01/12/22 10:55 13:24 Temp 36.6 Pulse 76 68 Resp 16 16 B/P (MAP) 111/80 (90) 115/88 Pulse Ox 97 96 O2 Delivery Room Air Room Air Blood Pressure Mean: 90 Progress Progress Note : Progress Note Patient examined and in no acute distress. He has 2+ pedal pulse of his left lower extremity, warm to touch. Given his history and recent discontinuation of Eliquis we will go ahead and obtain a venous ultrasound of his left lower extremity. 1213: Venous ultrasound negative for DVT. We will proceed with ordering labs to evaluate for infection. Labs reviewed, no significant elevation in white count or CRP. 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 We will have close follow-up with Dr. Trujillo. He is to schedule follow-up appointment next week. Discussed returning to the emergency department if he has any worsening symptoms increasing redness, fever, any other new or concerning symptoms. Verbalized understanding. Diagnostic Imaging Diagonstic Imaging: Ultrasound Comments [facility], [place] NAME: ARLE[facility] MEADOWS [facility] REC#: [id number] PT STATUS: REG ER : 1950 PHYSICIAN: GIA CURRY HARDWARE INSTALLATION COORDINATOR ADMIT DATE: 01/12/22/ER Draft Date of Exam:01/12/22 US VENOUS LOWER EXT LT PROCEDURE: US left lower extremity venous. TECHNIQUE: Multiple real-time grayscale images were obtained over the left lower extremity in various projections. Additional duplex Doppler and color Doppler images were also obtained. INDICATION: Left leg cellulitis. FINDINGS: There is no evidence of left lower extremity DVT. Left lower extremity deep venous system shows normal compressibility with normal response to augmentation and Valsalva. No fluid collection or mass is detected. IMPRESSION: No evidence of left lower extremity DVT. Dictated on workstation # [id number] Dict: 01/12/22 1213 Trans: 01/12/22 1217 [id number] Interpreted by: CYNTHIA HARDIN MD Electronically signed by: Departure Impression Primary Impression: Cellulitis Disposition: 01 HOME, SELF-CARE Condition: Stable Departure-Patient Inst. Decision time for Depature: 13:10 Referrals: JOHN TRUJILLO DO (PCP/Family) Primary Care Physician Patient Instructions: Cellulitis (Skin Infection), Adult ED Add. Discharge Instructions: Plan: 1. Take Doxycycline 100mg by mouth twice a day for 7 days. Limit sun exposure as you are more susceptible to sun damian. 2. Drink plenty of fluids. 3. Keep your foot elevated to reduce swelling. 4. Call Dr. Trujillo office for follow up next week. 5. If your symptoms worsen over the weekend return to ER for further evaluation. 6. Return for any new, concerning, or worsening symptoms. DO NOT TAKE AT SAME TIME WITH YOUR MAGNESIUM, CALCIUM, OR ZINC. TAKE AT LEAST 2 HOURS BEFORE YOUR OTHER MEDICATIONS. All discharge instructions reviewed with patient and/or family. Voiced understanding. Scripts Doxycycline Hyclate (Doxycycline Hyclate) 100 Mg Tablet 100 MG PO BID for 7 Days, #14 TAB 0 Refills Prov: GIA CURRY HARDWARE INSTALLATION COORDINATOR 01/12/22 Copy Copies To 1: JOHN TRUJILLO STORMY D HARDWARE INSTALLATION COORDINATOR Jan 12, 2022 11:26
--- NOTE | 2022-01-12 12:18 | Diagnostic Imaging Report ---
PROCEDURE: US left lower extremity venous. TECHNIQUE: Multiple real-time grayscale images were obtained over the left lower extremity in various projections. Additional duplex Doppler and color Doppler images were also obtained. INDICATION: Left leg cellulitis. FINDINGS: There is no evidence of left lower extremity DVT. Left lower extremity deep venous system shows normal compressibility with normal response to augmentation and Valsalva. No fluid collection or mass is detected. IMPRESSION: No evidence of left lower extremity DVT. Dictated by: Dictated on workstation # [id number]
[2022-01-12 12:33] LABS: BASOPHILS # (AUTO) 0.1 10^3/uL (0.0-0.1); BASOPHILS % (AUTO) 1 % (0-10); EOSINOPHILS # (AUTO) 0.4 10^3/uL (0.0-0.3); EOSINOPHILS % (AUTO) 4 % (0-10); HEMATOCRIT 38 % (40-54); LYMPHOCYTES # (AUTO) 2.8 10^3/uL (1.0-4.0); LYMPHOCYTES % (AUTO) 28 % (12-44); MEAN CORPUSCULAR HEMOGLOBIN 32 pg (25-34); MEAN CORPUSCULAR HGB CONC 34 g/dL (32-36); MEAN CORPUSCULAR VOLUME 95 fL (80-99); MEAN PLATELET VOLUME 8.6 fL (9.0-12.2); MONOCYTES % (AUTO) 10 % (0-12); NEUTROPHILS # (AUTO) 5.7 10^3/uL (1.8-7.8); NEUTROPHILS % (AUTO) 58 % (42-75); PLATELET COUNT 380 10^3/uL (130-400)
[2022-01-12 12:48] LABS: ALBUMIN 3.7 GM/DL (3.2-4.5); POTASSIUM 4.1 MMOL/L (3.6-5.0)
[2022-01-12 12:50] LABS: CALCIUM 9.4 MG/DL (8.5-10.1)
[2022-01-12 12:53] LABS: BILIRUBIN,TOTAL 0.4 MG/DL (0.1-1.0)
[2022-01-12 12:55] LABS: CREATININE SERUM 0.78 MG/DL (0.60-1.30)
[2022-01-12] MEDS ORDERED: DOXY100T2 PO (13:14)
--- NOTE | 2022-01-12 13:17 | Diagnostic Imaging Report ---
TIBIA/FIBULA, LEFT, 2 VIEWS INDICATION: Pain and swelling. COMPARISON: None available. TECHNIQUE: Two views of the left tibia and fibula. FINDINGS: No acute fracture or concerning focal osseous lesion. Well-corticated ossicles at the tip of the medial malleolus are likely due to old injury. Total knee arthroplasty is incompletely imaged. No unintended radiopaque foreign body. IMPRESSION: No acute osseous abnormality in the left tibia or fibula. Dictated by: Dictated on workstation # [id number]
[2022-01-12 13:24] VITALS: BP 115/88
== END 2022-01-12 13:24 | disposition home or self-care (01) ==
LOC: EDUNIT# 10:53 → ER 10:54
DX: L03.116 Cellulitis of left lower limb (principal); I25.10 Atherosclerotic heart disease of native coronary artery without angina pectoris; I48.91 Unspecified atrial fibrillation; G47.30 Sleep apnea, unspecified; Z99.89 Dependence on other enabling machines and devices; Z79.82 Long term (current) use of aspirin; Z79.02 Long term (current) use of antithrombotics/antiplatelets
CPT/HCPCS: 36415; 73590; 80053; 85025; 86141

== ENCOUNTER 2022-01-26 09:22 | Outpatient (RCR) | payer MEDICARE, OTHER ==
[~2022-01-26 09:22] MED LIST changes: +DOXY100T2 PO
== END 2022-02-18 | disposition home or self-care (01) ==
LOC: ONC 09:22
PROVIDERS: ATTEND Internal Medicine Hematology & Oncology
DX: Z45.2 Encounter for adjustment and management of vascular access device (principal); C82.90 Follicular lymphoma, unspecified, unspecified site; I25.10 Atherosclerotic heart disease of native coronary artery without angina pectoris; K21.9 Gastro-esophageal reflux disease without esophagitis; E78.5 Hyperlipidemia, unspecified; E66.9 Obesity, unspecified
CPT/HCPCS: 96523

== ENCOUNTER 2022-03-07 09:35 | Outpatient (RCR) | payer MEDICARE, OTHER | END 2022-03-21 | disposition home or self-care (01) | LOC: ONC 09:35 | PROVIDERS: ATTEND Internal Medicine Hematology & Oncology | DX: C82.20 Follicular lymphoma grade III, unspecified, unspecified site (principal); I25.10 Atherosclerotic heart disease of native coronary artery without angina pectoris; K21.9 Gastro-esophageal reflux disease without esophagitis; E78.5 Hyperlipidemia, unspecified; E66.9 Obesity, unspecified; G47.33 Obstructive sleep apnea (adult) (pediatric); N41.1 Chronic prostatitis; Z45.2 Encounter for adjustment and management of vascular access device | CPT/HCPCS: 96523 ==

== ENCOUNTER 2022-04-18 09:23 | Outpatient (RCR) | payer MEDICARE, OTHER | END 2022-04-20 | disposition home or self-care (01) | LOC: ONC 09:23 | PROVIDERS: ATTEND Internal Medicine Hematology & Oncology | DX: Z45.2 Encounter for adjustment and management of vascular access device (principal); C82.20 Follicular lymphoma grade III, unspecified, unspecified site; I25.10 Atherosclerotic heart disease of native coronary artery without angina pectoris; K21.9 Gastro-esophageal reflux disease without esophagitis; E78.5 Hyperlipidemia, unspecified; E66.9 Obesity, unspecified; G47.33 Obstructive sleep apnea (adult) (pediatric); N41.1 Chronic prostatitis; R00.2 Palpitations; I65.29 Occlusion and stenosis of unspecified carotid artery; R73.01 Impaired fasting glucose; I45.10 Unspecified right bundle-branch block; I44.4 Left anterior fascicular block; Z68.37 Body mass index [BMI] 37.0-37.9, adult; Z86.79 Personal history of other diseases of the circulatory system; Z87.891 Personal history of nicotine dependence | CPT/HCPCS: 96523 ==

== ENCOUNTER 2022-05-12 09:36 | Outpatient (RCR) | payer MEDICARE, OTHER ==
[2022-05-12 10:09] LABS: BASOPHILS # (AUTO) 0.1 10^3/uL (0.0-0.1); BASOPHILS % (AUTO) 1 % (0-10); EOSINOPHILS # (AUTO) 0.3 10^3/uL (0.0-0.3); EOSINOPHILS % (AUTO) 3 % (0-10); HEMATOCRIT 39 % (40-54); HEMOGLOBIN 13.3 g/dL (13.3-17.7); LYMPHOCYTES % (AUTO) 34 % (12-44); MEAN CORPUSCULAR HEMOGLOBIN 33 pg (25-34); MEAN CORPUSCULAR HGB CONC 34 g/dL (32-36); MEAN CORPUSCULAR VOLUME 97 fL (80-99); MONOCYTES # (AUTO) 0.8 10^3/uL (0.0-1.0); MONOCYTES % (AUTO) 9 % (0-12); NEUTROPHILS # (AUTO) 4.7 10^3/uL (1.8-7.8); NEUTROPHILS % (AUTO) 53 % (42-75); PLATELET COUNT 288 10^3/uL (130-400); WHITE BLOOD COUNT 8.9 10^3/uL (4.3-11.0)
[2022-05-12 10:27] LABS: ALBUMIN 3.8 GM/DL (3.2-4.5); BILIRUBIN,TOTAL 0.5 MG/DL (0.1-1.0); CALCIUM 8.8 MG/DL (8.5-10.1); CREATININE SERUM 0.72 MG/DL (0.60-1.30); POTASSIUM 3.8 MMOL/L (3.6-5.0); TOTAL PROTEIN 6.5 GM/DL (6.4-8.2)
== END 2022-05-21 | disposition home or self-care (01) ==
LOC: ONC 09:36
PROVIDERS: ATTEND Internal Medicine Hematology & Oncology
DX: Z45.2 Encounter for adjustment and management of vascular access device (principal); C82.20 Follicular lymphoma grade III, unspecified, unspecified site; I25.10 Atherosclerotic heart disease of native coronary artery without angina pectoris; K21.9 Gastro-esophageal reflux disease without esophagitis; E78.5 Hyperlipidemia, unspecified; E66.9 Obesity, unspecified; G47.33 Obstructive sleep apnea (adult) (pediatric); N41.1 Chronic prostatitis; R00.2 Palpitations; I65.29 Occlusion and stenosis of unspecified carotid artery; R73.01 Impaired fasting glucose; I45.10 Unspecified right bundle-branch block; I44.4 Left anterior fascicular block; Z68.37 Body mass index [BMI] 37.0-37.9, adult; Z86.79 Personal history of other diseases of the circulatory system; Z87.891 Personal history of nicotine dependence
CPT/HCPCS: 80053; 82728; 83540; 83550; 83615; 85025; G0463; 36415; 36591; 99213

== ENCOUNTER 2022-08-10 09:16 | Outpatient (RCR) | payer MEDICARE, OTHER | END 2022-08-19 | disposition home or self-care (01) | LOC: ONC 09:16 | PROVIDERS: ATTEND Internal Medicine Hematology & Oncology | DX: Z45.2 Encounter for adjustment and management of vascular access device (principal); C82.20 Follicular lymphoma grade III, unspecified, unspecified site; I25.10 Atherosclerotic heart disease of native coronary artery without angina pectoris; K21.9 Gastro-esophageal reflux disease without esophagitis; E78.5 Hyperlipidemia, unspecified; E66.9 Obesity, unspecified; G47.33 Obstructive sleep apnea (adult) (pediatric); N41.1 Chronic prostatitis; R00.2 Palpitations; I65.29 Occlusion and stenosis of unspecified carotid artery; R73.01 Impaired fasting glucose; I45.10 Unspecified right bundle-branch block; I44.4 Left anterior fascicular block; Z68.37 Body mass index [BMI] 37.0-37.9, adult; Z86.79 Personal history of other diseases of the circulatory system; Z87.891 Personal history of nicotine dependence | CPT/HCPCS: 96523 ==

== ENCOUNTER 2022-11-10 10:35 | Outpatient (RCR) | payer MEDICARE, OTHER ==
[2022-11-10 11:21] LABS: BASOPHILS # (AUTO) 0.1 10^3/uL (0.0-0.1); BASOPHILS % (AUTO) 1 % (0-10); EOSINOPHILS # (AUTO) 0.4 10^3/uL (0.0-0.3); EOSINOPHILS % (AUTO) 4 % (0-10); HEMATOCRIT 40 % (40-54); HEMOGLOBIN 13.5 g/dL (13.3-17.7); LYMPHOCYTES # (AUTO) 3.1 10^3/uL (1.0-4.0); LYMPHOCYTES % (AUTO) 33 % (12-44); MEAN CORPUSCULAR HEMOGLOBIN 33 pg (25-34); MEAN CORPUSCULAR HGB CONC 34 g/dL (32-36); MEAN CORPUSCULAR VOLUME 97 fL (80-99); MEAN PLATELET VOLUME 9.1 fL (9.0-12.2); MONOCYTES # (AUTO) 0.9 10^3/uL (0.0-1.0); MONOCYTES % (AUTO) 9 % (0-12); NEUTROPHILS % (AUTO) 53 % (42-75); PLATELET COUNT 313 10^3/uL (130-400); WHITE BLOOD COUNT 9.5 10^3/uL (4.3-11.0)
[2022-11-10 11:48] LABS: ALBUMIN 3.8 GM/DL (3.2-4.5); BILIRUBIN,TOTAL 0.6 MG/DL (0.1-1.0); CALCIUM 9.1 MG/DL (8.5-10.1); CREATININE SERUM 0.74 MG/DL (0.60-1.30); TOTAL PROTEIN 6.5 GM/DL (6.4-8.2)
== END 2022-11-18 | disposition home or self-care (01) ==
LOC: ONC 10:35
PROVIDERS: ATTEND Internal Medicine Hematology & Oncology
DX: Z45.2 Encounter for adjustment and management of vascular access device (principal); C82.20 Follicular lymphoma grade III, unspecified, unspecified site; E78.5 Hyperlipidemia, unspecified; K21.9 Gastro-esophageal reflux disease without esophagitis; I25.10 Atherosclerotic heart disease of native coronary artery without angina pectoris; E66.9 Obesity, unspecified; Z96.653 Presence of artificial knee joint, bilateral; Z98.1 Arthrodesis status
CPT/HCPCS: 36591; 80053; 82728; 83540; 83550; 85025

== ENCOUNTER → 2023-02-28 | Outpatient (CLI) | payer MEDICARE, OTHER ==
[~2023-02-28] MED LIST changes: +ACHD5005 PO; +CATHETER FLUSH 10 ML SYR IVP PRN; +REGADENOSON 0.4 MG/5 ML SYR IV ONE; +SUCR1TAB36 PO
[2023-02-28 12:57] VITALS: BP 162/93
--- NOTE | 2023-03-02 12:37 | STRESS TEST ---
DATE OF SERVICE: 02/28/2023 RESTING AND POST REGADENOSON TECHNETIUM-99M TETROFOSMIN SPECT CT IMAGING ORDERING PHYSICIAN: Dr. Pepper. OTHER PHYSICIAN: Dr. Graham. CLINICAL DIAGNOSIS: Coronary artery disease. Baseline images were carried out after injection of 10.25 mCi of technetium-99m tetrofosmin. This was followed by 0.4 mg regadenoson and 33 mCi of technetium-99m tetrofosmin for stress imaging. The electrocardiogram shows sinus rhythm with right bundle branch block at baseline. Left anterior fascicular block is also seen. The electrocardiogram did not change significantly with regadenoson infusion. The patient noted some shortness of breath following regadenoson infusion, which resolved in a few minutes. Review of images at rest and following stress does not indicate any distinct perfusion defects consistent with significant myocardial ischemia or infarction. Gated images show normal global left systolic function with normal regional wall motion. Left ventricular ejection fraction is calculated to be 55%. Left ventricular end-diastolic volume is 120 mL. TID is absent (0.98). CONCLUSIONS: 1. Mild cardiomegaly. 2. No evidence of significant myocardial ischemia or infarction on this study. 3. Normal global left ventricular systolic function with a calculated ejection fraction of 55%. Job ID: [id number] DocumentID: [id number] Dictated Date: 03/02/2023 09:12:00 Boat Joiner Date: 03/02/2023 12:36:00 Dictated By: MAURISIO GRAHAM MD; KARY; FACP; FACC;
== END ==
LOC: CARD 12:45
PROVIDERS: ATTEND Internal Medicine
DX: I51.7 Cardiomegaly (principal); I25.10 Atherosclerotic heart disease of native coronary artery without angina pectoris
CPT/HCPCS: 78452; 93017; A9502

== ENCOUNTER 2023-03-03 15:05 | Emergency (ER) | payer MEDICARE, OTHER ==
[~2023-03-03] VITALS: Ht 177.8 cm; Wt 106.5 kg
[~2023-03-03 15:05] MED LIST changes: -ACHD5005 PO; -DIATRIZOATE MEGLUM/SODIUM 37% 120 ML (GASTROGRAFIN) PO ONE; -SUCR1TAB36 PO
[2023-03-03 15:44] LABS: BASOPHILS # (AUTO) 0.1 10^3/uL (0.0-0.1); BASOPHILS % (AUTO) 0 % (0-10); EOSINOPHILS # (AUTO) 0.2 10^3/uL (0.0-0.3); EOSINOPHILS % (AUTO) 1 % (0-10); HEMATOCRIT 41 % (40-54); HEMOGLOBIN 13.9 g/dL (13.3-17.7); LYMPHOCYTES % (AUTO) 14 % (12-44); MEAN CORPUSCULAR HEMOGLOBIN 33 pg (25-34); MEAN CORPUSCULAR HGB CONC 34 g/dL (32-36); MEAN CORPUSCULAR VOLUME 96 fL (80-99); MEAN PLATELET VOLUME 9.2 fL (9.0-12.2); MONOCYTES # (AUTO) 1.5 10^3/uL (0.0-1.0); MONOCYTES % (AUTO) 7 % (0-12); NEUTROPHILS # (AUTO) 16.4 10^3/uL (1.8-7.8); NEUTROPHILS % (AUTO) 77 % (42-75); PLATELET COUNT 359 10^3/uL (130-400); WHITE BLOOD COUNT 21.3 10^3/uL (4.3-11.0)
[2023-03-03] MEDS ORDERED: fentaNYL INJECTION 100 MCG/2 ML VIAL IVP ONE ×3 (15:45→18:15)
[2023-03-03] MEDS ORDERED: NS IV 500 ML 500 ML IV ONE (15:45)
[2023-03-03 15:52] LABS: CALCIUM 9.1 MG/DL (8.5-10.1)
[2023-03-03 15:53] LABS: TOTAL PROTEIN 7.2 GM/DL (6.4-8.2)
[2023-03-03 15:55] LABS: BILIRUBIN,TOTAL 0.8 MG/DL (0.1-1.0)
[2023-03-03 15:56] LABS: CREATININE SERUM 0.72 MG/DL (0.60-1.30)
--- NOTE | 2023-03-03 16:01 | ED Abdominal Pain ---
General Chief Complaint: Abdominal/GI Problems Stated Complaint: SEVERE ABD PAIN Nursing Triage Note: ABDOMINAL PAIN ACROSS MID ABDOMEN. RATED 7/10. WENT TO URGENT CARE THIS AM[place] [address] COMPLETED TODAY WAS TOLD IT WAS NEGATIVE. WAS GIVEN A STERIOD SHOT. THIS AFTERNOON PAIN CONTINUED TO GET WORSE. CAME TO THE ED. NO MEDICATION WAS TAKEN FOR THE PAIN. Source of Information: Patient Exam Limitations: No Limitations History of Present Illness Date Seen by Provider: Mar 03, 2023 Time Seen by Provider: 15:10 Initial Comments 73-year-old male presents to the ER with complaint of abdominal pain. States that this morning it was all over, now it is mostly in the upper abdomen. He was seen at urgent care this morning and had labs drawn that showed a white blood cell count of 17. He had a CT that showed no acute abnormalities. He denies fevers, nausea, vomiting, diarrhea, dysuria. He received a steroid injection. The urgent care was also going to start him on an antibiotic. He has a history of non-Hodgkin's lymphoma, he has been in remission for several years. Allergies and Home Medications Allergies Coded Allergies: morphine (Verified Allergy, Mild, ITCHING, has rec Hydromorphone & Lortab in the past, 08/21/21) oxycodone (Verified Adverse Reaction, Unknown, 01/12/22) Patient Home Medication List Home Medication List Reviewed: Yes Acetaminophen (Tylenol) 325 Mg Tablet, 650 MG PO Q6H PRN for PAIN-MILD (1-4), (Reported) Entered as Reported by: GILBERT CALI on 02/16/21757 Apixaban (Eliquis) 5 Mg Tablet, 5 MG PO BID, (Reported) Entered as Reported by: GILBERT CALI on 02/16/21757 Ascorbic Acid (Vitamin C) 1,000 Mg Tablet, 2,000 MG PO DAILY, (Reported) Entered as Reported by: GILBERT CALI on 02/16/21757 Aspirin (Aspirin EC) 81 Mg Tablet.dr, 81 MG PO DAILY, (Reported) Entered as Reported by: GILBERT CALI on 02/16/21757 Atorvastatin Calcium (Atorvastatin Calcium) 20 Mg Tablet, 20 MG PO DAILY, (Reported) Entered as Reported by: GILBERT CALI on 9/28/21 0758 Bupropion HCl (Bupropion Xl) 300 Mg Tab.er.24h, 300 MG PO DAILY, (Reported) Entered as Reported by: GILBERT CALI on 02/16/21 075 Cholecalciferol (Vitamin D3) (Vitamin D3) 50 Mcg Tablet, 50 MCG PO DAILY, (Reported) Entered as Reported by: GILBERT CALI on 02/16/21 075 Ciprofloxacin HCl (Ciprofloxacin HCl) 500 Mg Tablet, 500 MG PO BID Prescribed by: JOHN TRUJILLO on 08/23/21 1646 Cyanocobalamin (Vitamin B-12) (Vitamin B-12) 1,000 Mcg Tablet, 1,000 MCG PO DAILY, (Reported) Entered as Reported by: GILBERT CALI on 02/16/21 075 Diltiazem HCl (Diltiazem 24Hr ER) 120 Mg Cap.er.24h, 120 MG PO DAILY, (Reported) Entered as Reported by: JOHN TRUJILLO on 08/21/21 1326 Doxycycline Hyclate (Doxycycline Hyclate) 100 Mg Tablet, 100 MG PO BID Prescribed by: GIA CURRY on 01/12/22 1314 Hydrocodone Bit/Acetaminophen (HYDROcodone/APAP 7.5/325 TAB) 1 Ea Tablet, 1 EA PO Q4H PRN for PAIN-MODERATE (5-7) Prescribed by: JOHN TRUJILLO on 08/23/21 1646 Hydrocodone/Acetaminophen (Hydrocodone-Acetamin 5-325 mg) 5 Mg-325 Mg Tablet, 1 TAB PO Q4H PRN for PAIN-MODERATE (5-7) Prescribed by: Rosa Portillo on 03/03/23 1809 Magnesium Oxide (Magnesium) 400 Mg Tablet, 400 MG PO DAILY, (Reported) Entered as Reported by: NARENDRA APPLE on 08/23/21 0938 Meloxicam (Meloxicam) 15 Mg Tablet, 15 MG PO DAILY PRN for ARTHRITIS PAIN, (Reported) Entered as Reported by: GILBERT CALI on 02/16/21 075 Metoprolol Succinate (Metoprolol Succinate) 50 Mg Tab.er.24h, 50 MG PO DAILY, (Reported) Entered as Reported by: GILBERT CALI on 02/16/21 075 Metronidazole (Metronidazole) 500 Mg Tablet, 500 MG PO TID Prescribed by: JOHN TRUJILLO on 08/23/21 1646 Multivit-Min/FA/Lycopen/Lutein (Centrum Silver Men Tablet) 1 Each Tablet, 1 EACH PO DAILY, (Reported) Entered as Reported by: GILBERT CALI on 02/16/21 075 [place] 3 Polyunsat Fatty Acids (Fish Oil 1,000 mg Capsule) 1,000 Mg Cap, 2,000 MG PO DAILY, (Reported) Entered as Reported by: GILBERT CALI on 02/16/21 075 Pantoprazole Sodium (Pantoprazole Sodium) 40 Mg Tablet.dr, 40 MG PO DAILY, (Reported) Entered as Reported by: GILBERT CALI on 02/16/21 075 Potassium Gluconate (Potassium Gluconate) 99 Mg Tablet.er, 99 MG PO DAILY, (Reported) Entered as Reported by: NARENDRA APPLE on 08/23/21 0938 Sucralfate (Carafate) 1 Gram Tablet, 1 GM PO ACHS Prescribed by: Rosa Portillo on 03/03/23 180 Tamsulosin HCl (Flomax) 0.4 Mg Cap, 0.4 MG PO HS, (Reported) Entered as Reported by: GILBERT CALI on 02/16/21 075 Zinc Amino Acid Chelate (Zinc) 50 Mg Tablet, 50 MG PO DAILY, (Reported) Entered as Reported by: GILBERT CALI on 02/16/21757 Review of Systems Review of Systems Constitutional: see HPI Past Yhwfjow-[id number]-[id number] Hx Immunizations Up To Date Influenza Vaccine Up-to-Date: No; Not Current Seasonal Allergies Seasonal Allergies: No Past Medical History Surgeries: Yes (BILAT KNEES REPLACED,SPLEEN REMOVED, TUMOR-GROIN,ANKLE,NECK, BACK) Coronary Stent, Joint Replacement, Orthopedic, Tonsillectomy Respiratory: No Sleep Apnea Currently Using CPAP: Yes Cardiac: Yes (STENT PLACED '07) Coronary Artery Disease, High Cholesterol, Hypertension Neurological: No Neuropathy Reproductive Disorders: No Sexually Transmitted Disease: No HIV/AIDS: No Genitourinary: Yes Prostate Problems Gastrointestinal: Yes Gastroesophageal Reflux Musculoskeletal: No Arthritis, Gout Endocrine: No HEENT: No (GLASSES) Loss of Vision: Denies Hearing Impairment: Denies Cancer: Yes (NON HODKINS) Lymphoma Did You Recieve Any Treatments: Yes What Type of Treatment Did You: Chemotherapy Psychosocial: Yes Anxiety, Depression Integumentary: No Recent Skin Changes Blood Disorders: No Adverse Reaction/Blood Tranf: No (N/A) Family Medical History Arthritis Cardiovascular disease Colon cancer Congenital heart disease Diabetes mellitus Hypertension Myocardial infarction Respiratory disorder Heart Disease, Other Conditions/Hx Physical Exam Vital Signs Vital Signs - First Documented 03/03/23 15:17 Temp 36.9 Pulse 63 Resp 18 B/P (MAP) 125/83 (97) Pulse Ox 98 O2 Delivery Room Air Capillary Refill : Less Than 3 Seconds Height/Weight/BMI Height: 5'10.00" Weight: 271lbs. 0.0oz. 122.513957lc; 33.00 BMI Method:Stated General Appearance: WD/WN, no apparent distress Neck: supple, normal inspection Respiratory: lungs clear, normal breath sounds, no respiratory distress, no accessory muscle use Cardiovascular: regular rate, rhythm Gastrointestinal: normal bowel sounds, non tender, soft Extremities: normal range of motion, normal inspection Neurologic/Psychiatric: alert, normal mood/affect Skin: normal color, warm/dry Focused Exam Lactate Level 03/03/23 16:09: Lactic Acid Level 0.58 Lactic Acid Level Laboratory Tests Test 03/03/23 16:09 Lactic Acid Level 0.58 MMOL/L (0.50-2.00) Progress/Results/Core Measures Results/Orders Lab Results Laboratory Tests Test 03/03/23 15:24 03/03/23 16:09 03/03/23 16:16 Range/Units White Blood Count 21.3 H 4.3-11.0 10^3/uL Red Blood Count 4.21 L 4.30-5.52 10^6/uL Hemoglobin 13.9 13.3-17.7 g/dL Hematocrit 41 40-54 % Mean Corpuscular Volume 96 80-99 fL Mean Corpuscular Hemoglobin 33 25-34 pg Mean Corpuscular Hemoglobin Concent 34 32-36 g/dL Red Cell Distribution Width 14.6 H 10.0-14.5 % Platelet Count 359 130-400 10^3/uL Mean Platelet Volume 9.2 9.0-12.2 fL Immature Granulocyte % (Auto) 0 % Neutrophils (%) (Auto) 77 H 42-75 % Lymphocytes (%) (Auto) 14 12-44 % Monocytes (%) (Auto) 7 0-12 % Eosinophils (%) (Auto) 1 0-10 % Basophils (%) (Auto) 0 0-10 % Neutrophils # (Auto) 16.4 H 1.8-7.8 10^3/uL Lymphocytes # (Auto) 3.0 1.0-4.0 10^3/uL Monocytes # (Auto) 1.5 H 0.0-1.0 10^3/uL Eosinophils # (Auto) 0.2 0.0-0.3 10^3/uL Basophils # (Auto) 0.1 0.0-0.1 10^3/uL Immature Granulocyte # (Auto) 0.1 0.0-0.1 10^3/uL Neutrophils % (Manual) 80 % Lymphocytes % (Manual) 13 % Monocytes % (Manual) 5 % Eosinophils % (Manual) 2 % Basophils % (Manual) 0 % Band Neutrophils 0 % Blood Morphology Comment NORMAL Sodium Level 137 135-145 MMOL/L Potassium Level 4.0 3.6-5.0 MMOL/L Chloride Level 105 98-107 MMOL/L Carbon Dioxide Level 21 21-32 MMOL/L Anion Gap 11 5-14 MMOL/L Blood Urea Nitrogen 10 7-18 MG/DL Creatinine 0.72 0.60-1.30 MG/DL Estimat Glomerular Filtration Rate 96 BUN/Creatinine Ratio 14 Glucose Level 91 70-105 MG/DL Calcium Level 9.1 8.5-10.1 MG/DL Corrected Calcium 9.1 8.5-10.1 MG/DL Total Bilirubin 0.8 0.1-1.0 MG/DL Aspartate Amino Transf (AST/SGOT) 18 5-34 U/L Alanine Aminotransferase (ALT/SGPT) 24 0-55 U/L Alkaline Phosphatase 101 40-136 U/L C-Reactive Protein High Sensitivity 2.01 H 0.00-0.50 MG/DL Total Protein 7.2 6.4-8.2 GM/DL Albumin 4.0 3.2-4.5 GM/DL Lipase 17 8-78 U/L Lactic Acid Level 0.58 0.50-2.00 MMOL/L Urine Color YELLOW Urine Clarity CLEAR Urine pH 7.0 5-9 Urine Specific [place] 1.020 1.016-1.022 Urine Protein NEGATIVE NEGATIVE Urine Glucose (UA) NEGATIVE NEGATIVE Urine Ketones NEGATIVE NEGATIVE Urine Nitrite NEGATIVE NEGATIVE Urine Bilirubin NEGATIVE NEGATIVE Urine Urobilinogen 0.2 < = 1.0 MG/DL Urine Leukocyte Esterase NEGATIVE NEGATIVE Urine RBC (Auto) NEGATIVE NEGATIVE Urine RBC NONE /HPF Urine WBC NONE /HPF Urine Squamous Epithelial Cells RARE /HPF Urine Crystals NONE /LPF Urine Bacteria NEGATIVE /HPF Urine Casts NONE /LPF Urine Mucus NEGATIVE /LPF Urine Culture Indicated NO My Orders Orders - ROSA TRAN APRN Ua Culture If Indicated (03/03/23 15:10) Comprehensive Metabolic Panel (03/03/23 15:40) Lipase (03/03/23 15:40) Ed Iv/Invasive Line Start (03/03/23 15:40) Cbc And Automated Diff (03/03/23 15:40) Ns Iv 500 Ml (Ns Iv 500 Ml) (03/03/23 15:45) Fentanyl Injection (Fentanyl Injection (03/03/23 15:45) Manual Differential (03/03/23 15:24) Blood Culture (03/03/23 16:02) Lactic Acid Analyzer (03/03/23 16:02) Hs C Reactive Protein (03/03/23 16:02) Fentanyl Injection (Fentanyl Injection (03/03/23 16:45) Pantoprazole Injection (Pantoprazole Inj (03/03/23 17:45) Sucralfate Tablet (Sucralfate Tablet) (03/03/23 17:45) Fentanyl Injection (Fentanyl Injection (03/03/23 18:15) Rx-Hydrocodone/Apap 5-325 Mg (Rx-Vicodin (03/03/23 18:15) Medications Given in ED Current Medications Medications Dose Ordered Sig/Cherie Route Start Time Stop Time Status Last Admin Dose Admin Acetaminophen/ Hydrocodone Bitart 1 ea Q4H PRN PO 03/03/23 18:15 03/03/23 18:28 DC 03/03/23 18:16 1 EA Fentanyl Citrate 50 mcg ONCE ONCE IVP 03/03/23 15:45 03/03/23 15:46 DC 03/03/23 15:51 50 MCG Fentanyl Citrate 75 mcg ONCE ONCE IVP 03/03/23 16:45 03/03/23 16:46 DC 03/03/23 17:14 75 MCG Fentanyl Citrate 75 mcg ONCE ONCE IVP 03/03/23 18:15 03/03/23 18:16 DC 03/03/23 18:16 75 MCG Pantoprazole 40 mg ONCE ONCE IV 03/03/23 17:45 03/03/23 17:46 DC 03/03/23 17:51 40 MG Sodium Chloride 500 ml @ 0 mls/hr Q0M ONCE IV 03/03/23 15:45 03/03/23 15:46 DC 03/03/23 15:51 999 MLS/HR Sucralfate 1 gm ONCE ONCE PO 03/03/23 17:45 03/03/23 17:46 DC 03/03/23 17:51 1 GM Vital Signs/I&O 03/03/23 03/03/23 15:17 16:10 Temp 36.9 36.7 Pulse 63 62 Resp 18 14 B/P (MAP) 125/83 (97) 116/75 Pulse Ox 98 O2 Delivery Room Air Room Air Blood Pressure Mean: 97 Progress Progress Note : Progress Note Patient seen and evaluated, resting in bed, no acute distress. Based on exam and symptoms, work-up initiated included CBC, CMP, lipase, UA. 500 mils of IV fluids and fentanyl ordered. Outpatient CT shows no acute findings in the abdomen or pelvis, no apparent mass or lymphadenopathy within the abdomen or pelvis. 1805 Labs reviewed. CBC shows elevated WBC 21.3, neutrophil percentage is only elevated to 77. CMP grossly normal. Lipase normal. CRP 2.01. Lactic acid normal. Urinalysis negative for infection. Patient required another dose of fentanyl. Results discussed with patient. Pain is likely related to gastritis or gastric ulcer. Will have patient increase his Protonix to twice a day and will start him on Carafate. Will also discharge with prescription for hydrocodone. Patient instructed to follow-up with Dr. Jeff for possible upper endoscopy. Patient is stable for discharge. Discharge instructions and return precautions provided. Diagnostic Imaging Diagonstic Imaging: CT Plain Films/CT/US/NM/MRI: abdomen, pelvis Comments [facility] [place], [place] NAME: ARLETH MEADOWS [facility] REC#: [id number] PT STATUS: REG CLI : 1950 PHYSICIAN: DOM COREA APRN ADMIT DATE: 03/03/23/RAD Signed Date of Exam:03/03/23 CT ABDOMEN/PELVIS WO PROCEDURE: CT abdomen and pelvis without contrast. TECHNIQUE: Multiple contiguous axial images were obtained through the abdomen and pelvis without the use of intravenous contrast. Auto Exposure Controls were utilized during the CT exam to meet ALARA standards for radiation dose reduction. INDICATION: Abdominal pain, nausea and vomiting. COMPARISON: CT of the chest, abdomen, pelvis on 11/08/2021 FINDINGS: Included views of the chest demonstrate no significant abnormality. The liver, pancreas, and adrenal glands are normal. The gallbladder is normal. The spleen is absent. The kidneys are normal. No nephrolithiasis or hydronephrosis. There is calcified aortoiliac atherosclerosis without aneurysm. Scattered diverticula of the sigmoid colon without evidence of acute diverticulitis. No free air, loculated fluid collections, or ascites. No abdominal pelvic lymphadenopathy. The osseous structures demonstrate postsurgical changes from prior posterior fusion and decompression from L3 to L5. IMPRESSION: No acute findings in the abdomen or pelvis. No apparent mass or lymphadenopathy within the abdomen or pelvis. Dictated by: Dictated on workstation # [id number] Dict: 03/03/23 1110 Trans: 03/03/23 1114 [facility] [id number] Interpreted by: HIRA FARNSWORTH DO Electronically signed by: HIRA FARNSWORTH DO 03/03/23 1114 Departure Impression Primary Impression: Abdominal pain Qualified Codes: R10.10 - Upper abdominal pain, unspecified Disposition: 01 HOME, SELF-CARE Condition: Stable Departure-Patient Inst. Decision time for Depature: 18:05 Referrals: KADIE JEFF MINDI DO (PCP/Family) Primary Care Physician Patient Instructions: Gastritis (DC) Add. Discharge Instructions: Clear liquid diet for the next 24 hours. Then start with the BRAT diet: Bananas, rice, applesauce, toast. You may then slowly advance your diet as tolerated if you are tolerating the above foods. Avoid caffeine, coffee, spicy foods, alcohol, tobacco, acidic foods. Increase your Protonix to twice a day. Take Carafate before meals and at bedtime. Take [place] as needed for pain. It can cause constipation. 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 Call Dr. Jeff's office on Monday to schedule a follow-up appointment. Return for any new, concerning, or worsening symptoms. All discharge instructions reviewed with patient and/or family. Voiced understanding. Scripts Sucralfate (Carafate) 1 Gram Tablet 1 GM PO ACHS for 14 Days, #42 TAB 0 Refills Prov: ROSA TRAN APRN 03/03/23 Hydrocodone/Acetaminophen (Hydrocodone-Acetamin 5-325 mg) 5 Mg-325 Mg Tablet 1 TAB PO Q4H PRN for PAIN-MODERATE (5-7), #15 TAB 0 Refills Prov: ROSA TRAN APRN 03/03/23 ROSA TRAN APRN Mar 03, 2023 16:01
[2023-03-03 16:09] LABS: BAND NEUTROPHILS 0 %; BASOPHILS % (MANUAL) 0 %; EOSINOPHILS % (MANUAL) 2 %; LYMPHOCYTES % (MANUAL) 13 %; MONOCYTES % (MANUAL) 5 %; NEUTROPHILS % (MANUAL) 80 %; RBC MORPH NORMAL
[2023-03-03 16:10] VITALS: BP 116/75
[2023-03-03 16:35] LABS: BACTERIA,URINE NEGATIVE /HPF; BILIRUBIN,URINE NEGATIVE (NEGATIVE); CLARITY,URINE CLEAR; COLOR,URINE YELLOW; GLUCOSE, URINE (UA) NEGATIVE (NEGATIVE); KETONES,URINE NEGATIVE (NEGATIVE); LEUKOCYTE ESTERASE ,URINE NEGATIVE (NEGATIVE); NITRITE,URINE NEGATIVE (NEGATIVE); PROTEIN,URINE NEGATIVE (NEGATIVE); SQUAMOUS EPITHELIAL CELL,UR RARE /HPF
[2023-03-03] MEDS ORDERED: SUCRALFATE 1 GM TABLET PO ONE (17:45)
[2023-03-03] MEDS ORDERED: PANTOPRAZOLE INJECTION 40 MG VIAL IV ONE (17:45)
[2023-03-03] MEDS ORDERED: ACHD5005 PO (18:08)
[2023-03-03] MEDS ORDERED: SUCR1TAB36 PO (18:08)
== END 2023-03-03 18:22 | disposition home or self-care (01) ==
LOC: EDUNIT# 15:05 → ER 15:06
DX: R10.10 Upper abdominal pain, unspecified (principal); G47.30 Sleep apnea, unspecified; D72.829 Elevated white blood cell count, unspecified; Z99.89 Dependence on other enabling machines and devices; Z88.6 Allergy status to analgesic agent
CPT/HCPCS: 36415; 80053; 81000; 83605; 83690; 85007; 85027; 86141; 87040

== ENCOUNTER → 2023-03-03 | Outpatient (CLI) | payer MEDICARE, OTHER ==
[~2023-03-03] MED LIST changes: -CATHETER FLUSH 10 ML SYR IVP PRN; +DIATRIZOATE MEGLUM/SODIUM 37% 120 ML (GASTROGRAFIN) PO ONE; -REGADENOSON 0.4 MG/5 ML SYR IV ONE
--- NOTE | 2023-03-03 11:16 | Diagnostic Imaging Report ---
PROCEDURE: CT abdomen and pelvis without contrast. TECHNIQUE: Multiple contiguous axial images were obtained through the abdomen and pelvis without the use of intravenous contrast. Auto Exposure Controls were utilized during the CT exam to meet ALARA standards for radiation dose reduction. INDICATION: Abdominal pain, nausea and vomiting. COMPARISON: CT of the chest, abdomen, pelvis on 11/08/2021 FINDINGS: Included views of the chest demonstrate no significant abnormality. The liver, pancreas, and adrenal glands are normal. The gallbladder is normal. The spleen is absent. The kidneys are normal. No nephrolithiasis or hydronephrosis. There is calcified aortoiliac atherosclerosis without aneurysm. Scattered diverticula of the sigmoid colon without evidence of acute diverticulitis. No free air, loculated fluid collections, or ascites. No abdominal pelvic lymphadenopathy. The osseous structures demonstrate postsurgical changes from prior posterior fusion and decompression from L3 to L5. IMPRESSION: No acute findings in the abdomen or pelvis. No apparent mass or lymphadenopathy within the abdomen or pelvis. Dictated by: Dictated on workstation # [id number]
== END ==
LOC: RAD 09:36
PROVIDERS: ATTEND Registered Nurse Critical Care Medicine
DX: C85.83 Other specified types of non-Hodgkin lymphoma, intra-abdominal lymph nodes (principal); K21.9 Gastro-esophageal reflux disease without esophagitis; R10.84 Generalized abdominal pain; I48.0 Paroxysmal atrial fibrillation; R14.0 Abdominal distension (gaseous); H90.11 Conductive hearing loss, unilateral, right ear, with unrestricted hearing on the contralateral side; H61.21 Impacted cerumen, right ear; Z79.01 Long term (current) use of anticoagulants
CPT/HCPCS: 74176

== ENCOUNTER → 2023-03-17 | Outpatient (CLI) | payer MEDICARE, OTHER ==
[~2023-03-17] MED LIST changes: +ACHD5005 PO; +SUCR1TAB36 PO
--- NOTE | 2023-03-17 13:16 | Diagnostic Imaging Report ---
PROCEDURE: US Gallbladder. TECHNIQUE: Multiple real-time grayscale images were obtained over the right upper quadrant in various projections. INDICATION: Right upper quadrant pain. Liver is normal in size 13.5 cm. Portal vein is patent and shows normal direction of flow. There is some mild gallbladder distention. There appears to be some sludge in the gallbladder. Gallbladder wall is borderline in thickness at 3 mm. No pericholecystic fluid or biliary duct dilatation is identified. Visualized pancreas is unremarkable. Aorta is nonaneurysmal. IVC is patent. Right kidney is unremarkable. No calculi or hydronephrosis is detected. There is no ascites. IMPRESSION: There is some mild gallbladder distention with gallbladder sludge and borderline wall thickening. No other significant abnormality is detected. Dictated by: Dictated on workstation # [id number]
== END ==
LOC: RAD 09:28
PROVIDERS: ATTEND Nurse Practitioner
DX: K82.8 Other specified diseases of gallbladder (principal)
CPT/HCPCS: 76705

== ENCOUNTER 2023-04-04 12:39 | Outpatient (CLI) | payer MEDICARE, OTHER ==
[~2023-04-04] VITALS: Ht 177.8 cm; Wt 120.5 kg
[2023-04-05] MEDS ORDERED: MULT-1029 PO (13:59)
[2023-04-05] MEDS ORDERED: ASPI-999 PO (13:59)
[2023-04-05] MEDS ORDERED: ALPR0.5T PO (13:59)
== END 2023-04-05 15:54 | disposition home or self-care (01) ==
LOC: PREOP 12:39
PROVIDERS: ATTEND Surgery
DX: Z01.818 Encounter for other preprocedural examination (principal)

== ENCOUNTER 2023-04-12 06:57 | Day surgery (SDC) | payer MEDICARE, OTHER ==
[2023-04-12] VITALS (11 sets, daily range): BP systolic 97–142; BP diastolic 62–102
[~2023-04-12] VITALS: Ht 177 cm; Wt 120.5 kg
[~2023-04-12 06:57] MED LIST changes: +ASPI-999 PO
[2023-04-12] MEDS ORDERED: LIDOCAINE 2% w/EPI 1:100,000 20 ML VIAL ONE (07:16)
[2023-04-12] MEDS ORDERED: LIDOCAINE PF 2% 5 ML VIAL ONE (07:20)
[2023-04-12] MEDS ORDERED: fentaNYL INJECTION 100 MCG/2 ML VIAL ONE ×2 (07:20→09:14)
[2023-04-12] MEDS ORDERED: ONDANSETRON INJECTION 4 MG/2 ML (SDV) ONE ×2 (07:20→09:14)
[2023-04-12] MEDS ORDERED: proPOfol INJECTION 200 MG/20 ML VIAL IV ONE (07:20)
[2023-04-12] MEDS ORDERED: ROCURONIUM 50 MG/5 ML VIAL IV ONE (07:20)
[2023-04-12] MEDS ORDERED: ceFAZolin INJECTION 2,000 MG in NS (IVPB) 50 ML 50 ML IV ONE (07:30)
[2023-04-12] MEDS ORDERED: LACTATED RINGERS 1,000 ML 1,000 ML IV PRN (07:30)
--- NOTE | 2023-04-12 07:46 | Progress Note-Pre Operative ---
Pre-Operative Progress Note Date H&P Reviewed: Apr 12, 2023 Time H&P Reviewed: 07:46 History & Physical: H&P Reviewed, Patient Examed, No changes noted Pre-Operative Diagnosis: cholelithiasis KADIE JEFF DO Apr 12, 2023 07:46
[2023-04-12] MEDS ORDERED: GLYCOPYRROLATE INJ 0.2 MG/ML 2 ML VIAL ONE (08:54)
[2023-04-12] MEDS ORDERED: NEOSTIGMINE 1 MG/1ML 10 ML VIAL ONE (08:54)
--- NOTE | 2023-04-12 09:00 | Progress Note-Post Operative ---
Post-Operative Progess Note Surgeon (s)/Vp Strategy (s) Surgeon KADIE JEFF DO Vp Strategy: Dr. Pruitt to assist in retraction dissection and closure. Pre-Operative Diagnosis cholelithiasis Post-Operative Diagnosis same Procedure & Operative Findings Date of Procedure 04/12/23 Procedure Performed/Findings PROCEDURE: Laparoscopic cholecystectomy with intraoperative cholangiogram. COMPLICATIONS: None. PROCEDURE: The patient was taken to the operating suite and was prepped and draped in sterile fashion. A surgical pause was performed. Just superior to the umbilicus, a 12 mm incision was made. Dissection was taken down to the fascia, which was then scored and grasped with a [place] and the abdomen was then entered. A 0 Vicryl suture was placed in a [id number] fashion and a Judge trocar was placed and secured. Pneumoperitoneum was achieved. A 5mm trochar place in the subxyphoid and 2 in the right upper quadrant. The gallbladder was then grasped and elevated by Dr. Pruitt. Had to take down adhesions to the liver and gallbladder with blunt and cautery dissection. The cystic duct, and cystic artery were then dissected out. Clip was placed on the distal portion of the cystic duct which was then partially transected. An arrow catheter was inserted into the duct. The cholangiogram was then performed. No filing defects and contrast made its way into the duodenum. Catheter removed. Clips were placed on proximal portion of the cystic duct and then the duct was then transected. Clips were placed along the proximal and distal portion of the cystic artery which was then transected. Hook cautery was used to dissect the gallbladder from the gallbladder fossa achieving hemostasis. The gallbladder was placed in an Endobag and removed through the 12 mm trocar site. The abdomen was then reinspected. Copious amounts of irrigation were used to irrigate the abdomen and there were no signs of active bleeding. Hemostasis had been achieved. The 12 mm fascial defect was then closed with 0 Vicryl suture that had been placed in a [id number] fashion. The abdomen was then desufflated, the trocars were removed. The abdomen was then washed and dried. The skin was then closed using 4-0 Monocryl in a subcuticular fashion. The abdomen was washed and dried and Skin Affix was place over incisions. Patient tolerated the procedure well without any complications and was taken to the recovery room in stable condition. Anesthesia Type general Estimated Blood Loss Estimated blood loss (mL): minimal Specimens/Packing Specimens Removed gallbladder KADIE JEFF DO Apr 12, 2023 09:00
[2023-04-12] MEDS ORDERED: ACHD5005 PO (09:01)
[2023-04-12] MEDS ORDERED: DOCU-143 PO (09:01)
[2023-04-12] MEDS ORDERED: SEVOFLURANE (ULTANE) 15 ML INHAL SOLN ONE (09:02)
--- NOTE | 2023-04-12 09:03 | Discharge Inst-Simple/Standard ---
Discharge Inst-Standard Discharge Medications New, Converted or Re-Newed RX: Transmitted to Pharmacy Patient Instructions/Follow Up Plan of Care/Instructions/FU: 2 weeks adeel Activity as Tolerated: No Discharge Diet: Regular Diet Other Inst to Patient Follow up Appt: Make appointment for 2 weeks. Instructions: No lifting greater than 10 pounds. No strenuous activity. May shower in 24 hours, no tub bath or soaking. Use incentive spirometer at home as directed. No Smoking Skin/Wound Care: You have special glue over incision, it will fall off on it's own. Symptoms to Report: Appetite Changes, Extremity Discoloration, Numbness/Tingling, Swelling Increased, Bleeding Excessive, Eyesight Changes, Pain Increased, Urine Color Change, Constipation(Persistent), Fever over 101 degree F, Pain/Pressure in chest, Urinating Difficulty, Cough Up/Vomit Blood, Heart Beat Irreg/Pounding, Pain/Pressure in jaw, Vaginal Bleeding Increase, Cramps in feet or legs, Lightheadedness, Pain/Pressure in shoulder, Diarrhea(Persistent), Memory Changes Suddenly, Questions/Concerns, Weight gain consecutive days, Dizziness/Fainting, Nausea/Vomiting, Shortness of Breath, Weight gain over 2 pounds. If eyes or skin turn yellow notify physician. If questions or concerns contact your physician Or seek help at emergency department. KADIE JEFF DO Apr 12, 2023 09:02
[2023-04-12] MEDS ORDERED: HYDROmorphone INJECTION 2 MG/ML VIAL IV ONE (09:15)
[2023-04-12] MEDS ORDERED: PROMETHAZINE INJ 25 MG/ML VIAL IVP ONE (09:15)
[2023-04-12] MEDS ORDERED: fentaNYL INJECTION 100 MCG/2 ML VIAL IVP ONE (09:15)
[2023-04-12] MEDS ORDERED: ONDANSETRON INJECTION 4 MG/2 ML (SDV) IVP PRN (09:15)
--- NOTE | 2023-04-12 09:20 | Diagnostic Imaging Report ---
INDICATION: Cholecystectomy Operative cholangiogram performed in the routine fashion with images obtained with the portable intensifier in surgery. 105 images were obtained, 18.7 seconds of fluoroscopy time was used. 3.17 rads of exposure. Contrast injection demonstrates patency of the common bile duct with no evidence of filling defect. There is some reflux of contrast into the pancreatic duct. The distalmost portion of the common duct and duodenum are not visualized on this study. IMPRESSION: No evidence of filling defect in the common duct, the ampulla and duodenum are not visualized on the study. Dictated by: Dictated on workstation # [id number]
--- NOTE | 2023-04-12 12:05 | Anesthesia-General Post-Op ---
General Patient Condition Mental Status/LOC: Same as Preop Cardiovascular: Satisfactory Nausea/Vomiting: Absent Respiratory: Satisfactory Pain: Controlled Complications: Absent Post Op Complications Complications None Follow Up Care/Instructions Patient Instructions None needed. Anesthesia/Patient Condition Patient Condition Patient is doing well, no complaints, stable vital signs, no apparent adverse anesthesia problems. No complications reported per nursing. EVELINA ORDAZ CRNA Apr 12, 2023 12:05
== END 2023-04-12 11:16 | disposition home or self-care (01) ==
LOC: SDC 06:57
PROVIDERS: ATTEND Surgery
DX: K80.10 Calculus of gallbladder with chronic cholecystitis without obstruction (principal); E66.9 Obesity, unspecified; G47.33 Obstructive sleep apnea (adult) (pediatric); Z87.891 Personal history of nicotine dependence; Z68.38 Body mass index [BMI] 38.0-38.9, adult; Z79.899 Other long term (current) drug therapy
CPT/HCPCS: 76000; 87081